=== PATIENT | male | born 1960 | race Caucasian/White ===

== ENCOUNTER 2018-04-15 05:14 | Emergency (ER) | payer OTHER ==
[~2018-04-15] VITALS: Ht 190.5 cm; Wt 127.3 kg
[2018-04-15 05:45] LABS: BASO % 0.8 % (0.0-1.0); EOS # 0.1 10^3/uL (0.0-0.50); EOS % 1.4 % (0.0-3.0); HEMATOCRIT 44.6 % (42.0-52.0); HEMOGLOBIN 14.9 g/dl (13.5-17.5); LYMPH # 1.4 10^3/uL (1.5-4.5); LYMPH % 28.1 % (24.0-44.0); MEAN CORPUSCULAR HEMOGLOBIN 29.5 pg (27.0-33.0); MEAN CORPUSCULAR HGB CONC 33.4 g/dl (32.0-36.5); MEAN CORPUSCULAR VOLUME 88.3 fl (80.0-96.0); MONO # 0.5 10^3/uL (0.0-0.8); MONO % 10.1 % (0.0-5.0); PLATELET COUNT, AUTOMATED 214 10^3/uL (150-450); RED BLOOD COUNT 5.05 10^6/uL (4.30-6.10); WHITE BLOOD COUNT 5.1 10^3/uL (4.0-10.0)
[2018-04-15 05:57] LABS: INR 1.03; PROTHROMBIN TIME 13.6 SECONDS (12.1-14.4)
[2018-04-15 05:58] LABS: PARTIAL THROMBOPLASTIN TIME 26.7 SECONDS (25.4-37.6)
[2018-04-15 06:03] LABS: ALBUMIN 3.7 GM/DL (3.2-5.2); ALT/SGPT 37 U/L (12-78); BILIRUBIN,DIRECT 0.1 MG/DL (0.0-0.2); BILIRUBIN,TOTAL 0.3 MG/DL (0.2-1.0); BLOOD UREA NITROGEN 17 MG/DL (7-18); CALCIUM LEVEL 8.5 MG/DL (8.5-10.1); CARBON DIOXIDE LEVEL 27 MEQ/L (21-32); CHLORIDE LEVEL 105 MEQ/L (98-107); CREATININE FOR GFR 0.87 MG/DL (0.70-1.30); GLOMERULAR FILTRATION RATE > 60.0 (>56); GLUCOSE, FASTING 175 MG/DL (70-100); POTASSIUM SERUM 4.2 MEQ/L (3.5-5.1); SODIUM LEVEL 140 MEQ/L (136-145); TOTAL PROTEIN 6.9 GM/DL (6.4-8.2)
[2018-04-15] MEDS ORDERED: ISOVUE-370 76% 100ML VIAL (Q9967) As Ordered ONE (06:16)
[2018-04-15] MEDS ORDERED: NS 1,000 ML IV SCH (08:15)
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
--- NOTE | 2018-04-15 08:27 | CR.PDOC ---
Subjective General Date/Time Seen The patient was seen on 04/15/18 at 08:00 am. Subject Chief Complaint/History The patient is a 57-year-old male admitted with a reason for visit of [facility] [place]. Current Medications Current Medications Current Medications Sodium Chloride 1,000 ml @ 100 mls/hr Q10H IV Last administered on 04/15/18at 08:15; Admin Dose 100 MLS/HR; Start 04/15/18 at 08:15 Allergies Coded Allergies: No Known Allergies (Unverified , 04/15/18) General Date of Admission Chief Complaint The patient is a 57-year-old male admitted with a reason for visit of [facility] [place]. VITAL SIGNS VITAL SIGNS Laboratory Tests 04/15/18 05:31 Red Blood Count 5.05, Mean Corpuscular Volume 88.3, Mean Corpuscular Hemoglobin 29.5, Mean Corpuscular Hemoglobin Concent 33.4, Red Cell Distribution Width 12.3, Neutrophils (%) (Auto) 59.0, Lymphocytes (%) (Auto) 28.1, Monocytes (%) (Auto) 10.1 H, Eosinophils (%) (Auto) 1.4, Basophils (%) (Auto) 0.8, Neutrophils # (Auto) 3.0, Lymphocytes # (Auto) 1.4 L, Monocytes # (Auto) 0.5, Eosinophils # (Auto) 0.1, Basophils # (Auto) 0.0 Vital Signs Date Time Temp Pulse Resp B/P (MAP) Pulse Ox O2 Delivery O2 Flow Rate FiO2 04/15/18 05:23 04/15/18 05:21 99.4 85 18 136/87 (103) 97 Room Air Laboratory Tests 04/15/18 05:31: White Blood Count 5.1, Red Blood Count 5.05, Hemoglobin 14.9, Hematocrit 44.6, Mean Corpuscular Volume 88.3, Mean Corpuscular Hemoglobin 29.5, Mean Corpuscular Hemoglobin Concent 33.4, Red Cell Distribution Width 12.3, Platelet Count 214, Neutrophils (%) (Auto) 59.0, Lymphocytes (%) (Auto) 28.1, Monocytes (%) (Auto) 10.1H, Eosinophils (%) (Auto) 1.4, Basophils (%) (Auto) 0.8, Neutrophils # (Au to) 3.0, Lymphocytes # (Auto) 1.4L, Monocytes # (Auto) 0.5, Eosinophils # (Auto) 0.1, Basophils # (Auto) 0.0, Immature Granulocyte % (Auto) 0.6, Nucleated Red Blood Cells % (auto) 0.0, Prothrombin Time 13.6, Prothromb Time International Ratio 1.03, Activated Partial Thromboplast Time 26.7, Sodium Level 140, Potassium Level 4.2, Chloride Level 105, Carbon Dioxide Level 27, Anion Gap 8, Blood Urea Nitrogen 17, Creatinine 0.87, Glomerular Filtration Rate > 60.0, Fasting Glucose 175H, Calcium Level 8.5, Aspartate Amino Transf (AST/SGOT) 17, Alanine Aminotransferase (ALT/SGPT) 37, Alkaline Phosphatase 76, Total Bilirubin 0.3, Direct Bilirubin 0.1, Total Protein 6.9, Albumin 3.7, Albumin/Globulin Ratio 1.16 Current Medications Medications (Trade) Dose Ordered Sig/Harshad Route PRN Reason Start Time Stop Time Status Last Admin Dose Admin Sodium Chloride 1,000 ml @ 100 mls/hr Q10H IV 04/15/18 08:15 04/15/18 08:15 100 MLS/HR Alin Chacon MD Apr 15, 2018 08:27
[2018-04-15 08:29] VITALS: BP 134/72
--- NOTE | 2018-04-15 09:52 | REP ---
CT CHEST WITH IV CONTRAST: TECHNIQUE: Axial contrast enhanced images from the thoracic inlet to the upper abdomen using 100 mL Isovue 370 intravenous contrast material with multiplanar reformations. Thoracic aorta is normal in caliber. No intraluminal abnormality is seen. There is very small crescentic area of low density along the superior aspect of the aortic arch at the origin of the brachiocephalic artery. This probably represents a tiny amount of fluid in a pericardial recess. I doubt this represents underlying intramural hematoma. Recommend short term followup CT with contrast. The heart is normal in size. There is no pleural or pericardial effusion. No adenopathy is seen in the chest. The lungs show no pneumothorax. A few tiny calcified granulomas are seen bilaterally and there are also a few noncalcified nodules measuring about 3 mm, which may represent noncalcified granulomas and are of doubtful significance. Posterolateral right 7th and 8th ribs demonstrate smooth cortical irregularity probably representing old fractures. IMPRESSION: Very small crescentic area of low density along the superior aortic arch at the origin of the brachiocephalic artery, along its posterior aspect. This probably represents a tiny amount of fluid in a pericardial recess. Tiny intramural hematoma cannot totally be excluded. Recommend short term followup CT with IV contrast. No pneumothorax or pleural effusion. Tiny calcified granulomas and a few tiny noncalcified 3 mm nodules are of doubtful significance. If patient is at high risk for cancer, consider followup CT in 1 year. Smooth irregularity of the posterolateral right 7th and 8th ribs probably represent old fractures. Preliminary report provided by [facility] at the time of the exam. Electronically Signed by Keyon Montes MD 04/15/2018 10:45 A
--- NOTE | 2018-04-15 09:55 | REP ---
CT ABDOMEN AND PELVIS WITH IV CONTRAST: TECHNIQUE: Axial contrast enhanced images from the lung bases to the pubic symphysis using 100 mL Isovue 370 intravenous contrast material with multiplanar reformations. Liver, spleen, adrenals, pancreas and kidneys demonstrate no evidence of visceral or organ injury. There is mild splenomegaly, the length of the spleen is approximately 15.3 cm. The abdominal aorta is normal in caliber with no dissection. There is no significant adenopathy in the abdomen or pelvis. No free air or free fluid is seen. No bowel wall thickening is seen. There are degenerative changes of the spine. The visualized osseous structures appear intact. The urinary bladder is mildly distended and grossly unremarkable. The prostate is moderately enlarged and impresses upon the base of the bladder, measuring about 5.7 x 5.2 cm. IMPRESSION: No acute traumatic findings of the abdomen and pelvis as discussed above. Mild splenomegaly. No free air or free fluid. Enlarged prostate. Preliminary report provided by [facility] at the time of the exam. Electronically Signed by Keyon Montes MD 04/15/2018 10:45 A
--- NOTE | 2018-04-15 17:10 | ECGEPIP ---
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
== END 2018-04-15 08:31 | disposition short-term general hospital (02) ==
LOC: M ED 05:14
DX: R07.9 Chest pain, unspecified (principal); V44.5XXA Car driver injured in collision with heavy transport vehicle or bus in traffic accident, initial encounter; Y92.410 Unspecified street and highway as the place of occurrence of the external cause
CPT/HCPCS: 71260; 74177; 80048; 80076; 85025; 85610; 85730; 93005; 93041; 94760; 99285; Q9967

== ENCOUNTER 2020-09-18 16:44 | Inpatient (IN) | payer OTHER ==
[~2020-09-18] VITALS: Ht 190.5 cm; Wt 127.0 kg
[2020-09-18 19:00] VITALS: BP 132/89
[2020-09-18] MEDS ORDERED: GLUCOSE 4GM CHEW TABLET PO PRN (20:15)
[2020-09-18] MEDS ORDERED: DEXTROSE 50% 50 ML SYRINGE IV PRN (20:15)
[2020-09-18] MEDS ORDERED: GLUCAGON INJ 1MG VIAL SC PRN (20:15)
[2020-09-18] MEDS ORDERED: ACETAMINOPHEN TAB 650MG DOSE (2X325MG) PO PRN ×2 (20:25)
[2020-09-18] MEDS ORDERED: MOM 30ML SUSPENSION UDC PO PRN ×2 (20:25)
[2020-09-18] MEDS ORDERED: MAALOX 30 ML SUSP *UDC PO PRN ×2 (20:25)
[2020-09-18] MEDS: HumaLOG INSULIN (NovoLOG) PER UNIT SC SCH (21:00)
--- NOTE | 2020-09-18 21:02 | HPEPDOC ---
[facility] Medical History & Physical Date of Admission Sep 18, 2020 Date of Service: Sep 18, 2020 Attending Physician: FERNANDA WHITT MD History and Physical CHIEF COMPLAINT: Right foot neuropathic ulcer HISTORY OF PRESENT ILLNESS: Mr. Bennett is a 59-year-old male who was transferred from [place] with a right foot neuropathic ulcer. According to the patient he has suffered from calluses on his feet all his life. He will "peel" or use cuticle scissors to cut them off and sometimes he gets "down into the quick". About a year ago he had an ulcer between the first and second toes on the right foot. He treated it in his usual way and use Neosporin and a Band-Aid on the site. Despite his treatment. the wound did not heal. He is a diabetic and is controlled without insulin. He said he went to see a foot doctor 5-6 months ago and was told to simply continue the treatment that he had been doing. About 2 weeks ago he noticed some increased drainage from the foot, but continue treatment as he had been doing. 2 Saturdays ago he felt a "pulsing" in his head while he was playing golf. He had been on his feet more than usual with work and walking with his girlfriend. At that point he noticed his sock was "black" with dried blood from the site. He said he felt bad, Friday and Friday and actually stayed home from work on Friday. He went back to work on , feeling a little bit better. When he got home from work he found a "grape-sized ball of gelatinous material" at the site of the wound. He made an appointment was seen by his primary care provider on Friday who recommended he go to the ER. He was seen in the ER on Friday evening, [place], but refused to stay because he had to get home and take care of his dogs. He returned on Friday and was admitted and started on vancomycin and Ancef. Initial x-rays did not show any signs of osteomyelitis. His CRP was elevated at greater than 237. General surgery did evaluate him and recommended an MRI and transferred to a facility where orthopedics or podiatry would be available. MRI was done late this afternoon and results are not available at this time. We are trying to obtain those results. Case was discussed with Dr. Zavala, podiatry, who has recommended repeat plain films and plans to evaluate the patient in the morning for probable debridement tomorrow afternoon. PAST MEDICAL HISTORY: 1. Diabetes type 2, [id number]. 2. Obesity. 3. Gastroesophageal reflux disease. 4. Dyslipidemia. 5. Benign prostatic hypertrophy. 6. Right foot neuropathic ulcer. 7. Hiatal hernia PAST SURGICAL HISTORY: 1. Prostate biopsy. 2. Colonoscopy. 3. EGD SOCIAL HISTORY: Tobacco use: Denies ETOH: Denies Illicit drug use: Denies Patient lives with: By himself FAMILY HISTORY: Patient's mother is 83 years old and has a history of diabetes. His father at age 61 with coronary artery disease. REVIEW OF SYSTEMS: Complete 10 point review systems is negative except as noted above PHYSICAL EXAMINATION: Patient is seen in his hospital room sitting up in his bed.. He is alert and oriented x 3. HEENT is WNL. Neck is supple. Lungs are clear to auscultation. Heart regular rate and rhythm without murmur. Abdomen is soft, non-tender to palpation with bowel sounds positive. Extremities with good ROM and strength equal bilaterally. No lower extremity edema. Right foot with maceration and pineal gland wound between first and second toes. Swelling noted throughout entire foot with some erythema on the dorsal surface. Plantar surface with some denuded areas and thickened peeling skin noted extending from first and second toes to mid foot. Dressing with thick, green to brown colored purulent drainage. Foot is nontender with patient exhibiting a stocking type neuropathy bilaterally. Pedal pulse is diminished secondary to edema. Skin is warm and dry with no other obvious rash or lesion. Psych: He is pleasant and cooperative ASSESSMENT AND PLAN: 1. 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 Attempting to obtain MRI results. Records requested. Case discussed with Dr. Zavala who is requesting plain films of the right foot. Will continue the patient on vancomycin and Zosyn. Dressing changes as ordered. Encourage Patient to avoid weightbearing on that foot. Will hold anticoagulants with probable debridement tomorrow. 2. Diabetes type 2, [id number]. Hold home metformin and Januvia. Will monitor blood glucose before meals and at bedtime. Will add sliding scale for use as needed. HbA1c 7.0. Consistent carbohydrate diet. 3. Gastroesophageal reflux with hiatal hernia. Protonix while hospitalized. 4. Benign prostatic hypertrophic. Continue Flomax. 5. DVT prophylaxis. Hold anticoagulants. SCDs. CODE STATUS: CODE STATUS was discussed with the patient. He desires to be considered DNR. He states his mother with atelectasis circuit if he weren't able to make his decisions. Patient is considered high risk of further deterioration including possible loss of limb. He is admitted as inpatient and expected to remain at least 2-3 midnights. Laboratory Data Labs 24H Laboratory Tests 2 09/18/20 20:04: All lab results reviewed Home Medications Scheduled Aspirin (Aspirin EC) 81 Mg Tablet.dr, 162 MG PO QPM TAKES AT DINNERTIME Cimetidine (Tagamet Hb) 200 Mg Tablet, 200 MG PO QPM TAKES AT DINNERTIME Metformin HCl (Metformin HCl) 1,000 Mg Tablet, 1,000 MG PO DAILY Metformin HCl (Metformin HCl) 1,000 Mg Tablet, 500 MG PO QPM TAKES AT DINNERTIME Naproxen Sodium (Aleve) 220 Mg Tablet, 440 MG PO QPM TAKES AT DINNERTIME [place]-3 Fatty Acids/Fish Oil (Fish Oil 1,000 mg Capsule) 1 Each Capsule, 2,000 MG PO QPM TAKES AT DINNERTIME Rosuvastatin Calcium (Rosuvastatin Calcium) 10 Mg Tablet, 10 MG PO QPM Sitagliptin Phosphate (Januvia) 100 Mg Tablet, 100 MG PO DAILY Tamsulosin HCl (Flomax) 0.4 Mg Capsule, 0.4 MG PO QHS Allergies Coded Allergies: No Known Allergies (Unverified , 04/15/18) A-FIB/CHADSVASC A-FIB History Current/History of A-Fib/PAF?: No ROX ESPINAL Sep 18, 2020 21:02
[2020-09-18 21:10] LABS: HEMATOCRIT 40.7 % (42.0-52.0); MEAN CORPUSCULAR HGB CONC 31.9 g/dl (32.0-36.5); MEAN CORPUSCULAR VOLUME 87.7 fl (80.0-96.0); PLATELET COUNT, AUTOMATED 319 10^3/uL (150-450); RED BLOOD COUNT 4.64 10^6/uL (4.30-6.10); WHITE BLOOD COUNT 8.5 10^3/uL (4.0-10.0)
[2020-09-18 21:20] LABS: INR 1.13; PROTHROMBIN TIME 14.8 SECONDS (12.5-14.3)
[2020-09-18 21:21] LABS: PARTIAL THROMBOPLASTIN TIME 30.6 SECONDS (24.2-38.5)
[2020-09-18 21:42] LABS: ALBUMIN 2.7 GM/DL (3.2-5.2); ALT/SGPT 34 U/L (12-78); BILIRUBIN,TOTAL 0.3 MG/DL (0.2-1.0); BLOOD UREA NITROGEN 11 MG/DL (7-18); CALCIUM LEVEL 8.8 MG/DL (8.5-10.1); CARBON DIOXIDE LEVEL 30 MEQ/L (21-32); CHLORIDE LEVEL 106 MEQ/L (98-107); CREATININE FOR GFR 0.83 MG/DL (0.70-1.30); GLOMERULAR FILTRATION RATE > 60.0 (>56); GLUCOSE, FASTING 154 MG/DL (70-100); MAGNESIUM LEVEL 2.3 MG/DL (1.8-2.4); POTASSIUM SERUM 4.8 MEQ/L (3.5-5.1); SODIUM LEVEL 140 MEQ/L (136-145); TOTAL PROTEIN 6.9 GM/DL (6.4-8.2)
[2020-09-18 21:43] LABS: C REACTIVE PROTEIN QUANTITATIV 5.42 MG/DL (0.00-0.30)
[2020-09-18 22:00] VITALS: BP 141/79
[2020-09-18] MEDS ORDERED: TAGA200T3 PO (22:20)
[2020-09-18] MEDS ORDERED: JANU100T PO (22:20)
[2020-09-18] MEDS ORDERED: ALEV220T22 PO (22:20)
[2020-09-18] MEDS ORDERED: FLOM0.4C39 PO (22:20)
[2020-09-18] MEDS ORDERED: ROSU10TA6 PO (22:20)
[2020-09-18] MEDS ORDERED: FISH1000 PO (22:20)
[2020-09-18] MEDS ORDERED: METF10004 PO ×2 (22:20)
[2020-09-18] MEDS ORDERED: ASPI-161 PO (22:20)
[2020-09-18 23:00] LABS: VANCOMYCIN RANDOM 15.7 UG/ML
[2020-09-18] MEDS: MUPIROCIN 2% OINT 22 GM TUBE TOP SCH (23:16)
[2020-09-18] MEDS: PIPERACILLIN/TAZOBACTAM SOD 3.375 GM in D5W MINI-BAG PLUS 50 ML IV SCH (23:17)
[2020-09-19] MEDS: VANCOMYCIN HCL 1,000 MG, VIAL MATE ADAPTER 1 EACH in NS 250 ML IV SCH ×2 (01:24→14:09)
[2020-09-19] MEDS: VANCOMYCIN HCL 750 MG, VIAL MATE ADAPTER 1 EACH in NS 250 ML IV SCH ×2 (02:45→15:49)
[2020-09-19] MEDS: PIPERACILLIN/TAZOBACTAM SOD 3.375 GM in D5W MINI-BAG PLUS 50 ML IV SCH ×4 (04:52→21:28)
[2020-09-19 06:32] VITALS: BP 125/79
[2020-09-19 06:39] LABS: HEMATOCRIT 42.6 % (42.0-52.0); HEMOGLOBIN 13.6 g/dl (13.5-17.5); MEAN CORPUSCULAR HEMOGLOBIN 28.5 pg (27.0-33.0); MEAN CORPUSCULAR HGB CONC 31.9 g/dl (32.0-36.5); MEAN CORPUSCULAR VOLUME 89.3 fl (80.0-96.0); PLATELET COUNT, AUTOMATED 332 10^3/uL (150-450); RED BLOOD COUNT 4.77 10^6/uL (4.30-6.10); WHITE BLOOD COUNT 7.8 10^3/uL (4.0-10.0)
[2020-09-19 07:01] LABS: BLOOD UREA NITROGEN 12 MG/DL (7-18); CALCIUM LEVEL 8.8 MG/DL (8.5-10.1); CARBON DIOXIDE LEVEL 32 MEQ/L (21-32); CHLORIDE LEVEL 105 MEQ/L (98-107); CREATININE FOR GFR 0.88 MG/DL (0.70-1.30); GLOMERULAR FILTRATION RATE > 60.0 (>56); GLUCOSE, FASTING 181 MG/DL (70-100); MAGNESIUM LEVEL 2.5 MG/DL (1.8-2.4); POTASSIUM SERUM 4.9 MEQ/L (3.5-5.1); SODIUM LEVEL 139 MEQ/L (136-145)
[2020-09-19] MEDS: HumaLOG INSULIN (NovoLOG) PER UNIT SC SCH ×4 (07:30→21:00)
--- NOTE | 2020-09-19 08:45 | REP ---
INDICATION: right foot neuropathic ulcer COMPARISON: None. TECHNIQUE: Two views right foot. FINDINGS: There is nondisplaced intra-articular fracture of the distal aspect of the 1st proximal phalanx, age indeterminate. No other acute fracture or dislocation is seen. There is mild narrowing and subchondral sclerosis at the 1st metatarsophalangeal joint. There is diffuse soft tissue swelling, predominantly of the midfoot and forefoot. There is hallux valgus deformity. No overt osseous destruction is seen. IMPRESSION: Nondisplaced fracture distal aspect of 1st proximal phalanx extending into the interphalangeal joint, age indeterminate. No definite radiographic evidence of osseous destruction. A preliminary report was provided by [facility] at the time of the exam. <Electronically signed by Keyon Montes > 09/19/20 [id number]
[2020-09-19] MEDS: MUPIROCIN 2% OINT 22 GM TUBE TOP SCH ×2 (09:00→21:29)
--- NOTE | 2020-09-19 09:57 | CR ---
PODIATRY CONSULTATION DATE: 09/19/2020 TIME: Approximately 7:30 a.m. CHIEF COMPLAINT/HPI: 59-year-old male seen for evaluation of a right neuropathic ulcer on the plantar surface of his right foot. Patient states this initially presented approximately 5 weeks ago. He states that he has been treating this with a nail clipper debriding the tissue away then Neosporin and a dressing. He states that initially was doing well, did see a home fire alarm installer who told him continue treating his wound. A diabetic off-loading shoe was ordered. patient states that his ulcer worsened over the last few days and he subsequently went to [facility] and was transferred [facility] and is seen today for evaluation. PAST MEDICAL HISTORY: 1. Diabetes type-2. 2. Obesity. 3. Gastroesophageal reflux disease. 4. Dyslipidemia. 5. Benign prostatic hypertrophy. 6. Neuropathic ulcer of the right foot. 7. Hiatal hernia. PAST SURGICAL HISTORY: 1. Prostate biopsy. 2. Colonoscopy. 3. EGD. PHYSICAL EXAMINATION: Alert, well oriented 59-year-old male. Evaluation of his right foot reveals no calf tenderness. There is erythema present on the dorsal surface of the foot and swelling noted of the second toe. Evaluation of the plantar surface of the foot reveals an ulceration measuring 3 cm from distal to proximal and approximately 5-6 mm from medial to lateral. The ulcer does extend 2 cm in a dorsal direction to the top of the foot medially to the second toe. There is a yellow purulent discharge. There is a large blister formation on the plantar surface of the foot measuring approximately 13 cm x 6 cm at its widest margin. The ulcer does track in a plantar proximal direction approximately 4-5 cm; however, could not be fully traced due to its coursing medial direction. The dorsalis pedis and posterior tibial pulses are palpable. LABORATORY DATA: Patient's diagnostic studies were reviewed revealing a white count of 8.5 on admission 7.8 today. GFR greater than 60. Fasting glucose on admission was 154. C-reactive protein is 5.42. RADIOLOGY STUDIES: MRI report was reviewed from [facility] revealing no joint effusion, no fracture, moderate muscle edema. No signs of osteomyelitis. ASSESSMENT: Dorsal and plantar right foot abscess. PLAN: Patient was placed n.p.o. He is scheduled tonight for an incision and drainage of a plantar and dorsal foot abscess with pulse lavage irrigation with dilute gentamicin solution. The wound will be packed with iodoform gauze. Appropriate aerobic and anaerobic cultures will be taken in the OR. Patient's questions were answered. Consent was signed.
[2020-09-19] MEDS: PANTOPRAZOLE 40MG TAB (PROTONIX) PO SCH (10:34)
[2020-09-19] MEDS ORDERED: NEOSPORIN GU IRRIG 20 ML VIAL As Ordered ONE (13:45)
[2020-09-19] MEDS ORDERED: BUPIVACAINE HCL 0.5% 30 ML VIAL As Ordered ONE (13:45)
[2020-09-19] MEDS ORDERED: dexameTHASONE 4 MG/ML 1ML VIAL (J1100 PER 1MG) As Ordered ONE ×2 (13:45→16:15)
[2020-09-19] MEDS ORDERED: LIDOCAINE 2% MDV 20ML VIAL As Ordered ONE (13:45)
[2020-09-19 14:00] VITALS: BP 154/87
--- NOTE | 2020-09-19 14:22 | IPNPDOC ---
Text Note Date of Service The patient was seen on 09/19/20. NOTE Subjective: -No acute complaints this morning Objective: Vitals: see below General: sitting up, conversational, NAD Head: NCAT Eyes: EOMI, anicteric ENT: MMM Neck: supple Pulm: CTAB Cardiac: RRR, no m/r/g Abd: obese, normoactive sounds, soft, NTND EXT: No lower extremity edema. Right foot with maceration with wound between first and second toes. Swelling of entire foot with mild erythema on the dorsal surface. Plantar surface with some denuded areas and thickened peeling skin noted extending from first and second toes to mid foot. Some yellow to brown colored purulent drainage. Skin is otherwise warm and dry with no other obvious rash or lesion. Labs: Reviewed ASSESSMENT: 59 yo M with DM and admitted for RLE osteomyelitis. Plan: 1. 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 A -Pending OR this late afternoon with Dr. Zavala -Continue the patient on vancomycin and Zosyn. 2. Diabetes type 2, [id number]. -Holding home metformin and Januvia. -Continue monitoring blood glucose before meals and at bedtime. -Continue sliding scale for use as needed. -Consistent carbohydrate diet after OR. NPO at present 3. Gastroesophageal reflux with hiatal hernia. -Protonix 4. Benign prostatic hypertrophic. -Continue Flomax. 5. DVT prophylaxis. -SCDs. VS,Fishbone, I+O VS, Fishbone, I+O Laboratory Tests 09/18/20 20:59 09/19/20 06:28 Vital Signs Date Time Temp Pulse Resp B/P (MAP) Pulse Ox O2 Delivery O2 Flow Rate FiO2 09/19/20 06:32 97.9 71 16 125/79 (94) 97 Room Air I&O- Last 24 Hours up to 6 AM 09/19/20 06:00 Intake Total 945 ml Output Total 700 ml Balance 245 ml BEBA HINES MD Sep 19, 2020 14:22
[2020-09-19] MEDS ORDERED: GENTAMICIN SULF 80MG/2ML VIAL As Ordered ONE (16:09)
[2020-09-19] MEDS ORDERED: LIDOCAINE 2% 100MG/5ML SDV (FOR ANES.) As Ordered ONE (16:46)
[2020-09-19] MEDS ORDERED: fentaNYL 100 MCG/2 ML INJECTION (J3010) As Ordered ONE (16:46)
[2020-09-19] MEDS ORDERED: propofoL 500 MG/50 ML VIAL As Ordered ONE (16:46)
[2020-09-19] MEDS ORDERED: MIDAZOLAM INJ 2MG/2ML VIAL (J2250 PER 1MG) As Ordered ONE (16:46)
[2020-09-19] MEDS ORDERED: ONDANSETRON 4MG/2ML VIAL IV PRN (18:25)
[2020-09-19] MEDS ORDERED: PERCOCET 5MG/325MG TAB PO PRN ×3 (18:25→20:15)
[2020-09-19] MEDS ORDERED: LR 1,000 ML IV SCH (18:25)
[2020-09-19] MEDS ORDERED: METOCLOPRAMIDE INJ 10MG/2ML VIAL (J2765 PER 1) IV PRN (18:25)
[2020-09-19] MEDS ORDERED: fentaNYL 100 MCG/2 ML INJECTION (J3010) IV PRN (18:25)
[2020-09-19 18:30] VITALS: BP 158/90
[2020-09-19 19:00] VITALS: BP 129/69
--- NOTE | 2020-09-19 19:32 | RO ---
OPERATIVE NOTE DATE OF OPERATION: 09/19/2020 SURGEON: Alin Zavala DPM SUPPLY CHAIN ANALYST: None. ANESTHESIA: Local MAC. IRRIGATION: Dilute Vancomycin solution, 3 liters, low pressure pulse lavage system. DRAINS UTILIZED: One-half inch Iodoform gauze. HEMOSTASIS UTILIZED: None. HARDWARE UTILIZED: None. ESTIMATED BLOOD LOSS: 20 mL. PREOPERATIVE DIAGNOSIS: Dorsal and plantar right foot abscess. POSTOPERATIVE DIAGNOSIS: Dorsal and plantar right foot abscess. SURGERY PERFORMED: Incision and drainage, multiple spaces, dorsal and plantar abscess, right foot. DESCRIPTION OF OPERATION PROCEDURE: On 09/19/2020, this 59-year-old male was taken from his hospital room to the operating room and placed on the operating room table in the supine position. Following the induction of IV sedation, local and regional anesthesia, the right lower extremity was prepped and draped in the usual aseptic manner. Attention was directed to the patient's right foot. There was noted to be an ulcer on the dorsal surface of the foot with a small area of swelling and blister formation on the plantar surface. The plantar ulcer pre-debridement measured 3 cm in length. Utilizing a sterile scalpel and utilizing a groove director, the incision was carried out utilizing the groove director to incise the skin the entire length of the abscess, which upon completion of the incision was 10 cm in length. Dissection was carried down to the plantar fascia. The plantar fascia was then incised and explored to see if abscess was present on the deep side of the plantar fascia. No abscess was visualized in that location. On the medial surface of the toe, the abscess on the plantar surface extended to the dorsal surface. Utilizing a groove director, a 2-cm incision was placed along this area of abscess and this area was excised. All drainage was sent for aerobic and anaerobic culture. After hemostasis was obtained with electrocautery, the wound was flushed with 3 liters of dilute Vancomycin solution. The wound was packed with one-half inch Iodoform gauze and a dry sterile dressing was applied consisting of 4 x 4's, ABDs, and an Km wrap without compression. The patient, having apparently tolerated the surgical procedure well, was taken from the OR to the recovery room for further monitoring by the anesthesia department. Postoperative instructions were given to the patient. The patient may bear weight on his heel. Wound orders were also written to have the bandage removed and the packing pulled out tomorrow morning where the wound will be cleansed with Vashe, let stand for 15 minutes, and then packed with Drawtex gauze rope, followed by a sterile dressing b.i.d.
[2020-09-19] MEDS: ROSUVASTATIN 10 MG TAB (CRESTOR) PO SCH (19:42)
[2020-09-19] MEDS: ASPIRIN 81MG ENTERIC TABLET PO SCH (19:42)
[2020-09-19 21:00] VITALS: BP 116/75
[2020-09-19] MEDS: TAMSULOSIN 0.4 MG CAP PO SCH (21:27)
[2020-09-19 22:00] VITALS: BP 117/73
[2020-09-20] MEDS: VANCOMYCIN HCL 1,000 MG, VIAL MATE ADAPTER 1 EACH in NS 250 ML IV SCH ×2 (00:29→12:24)
[2020-09-20] MEDS: VANCOMYCIN HCL 750 MG, VIAL MATE ADAPTER 1 EACH in NS 250 ML IV SCH ×2 (01:58→14:03)
[2020-09-20 02:00] VITALS: BP 123/73
[2020-09-20] MEDS: PIPERACILLIN/TAZOBACTAM SOD 3.375 GM in D5W MINI-BAG PLUS 50 ML IV SCH ×4 (05:01→21:56)
[2020-09-20 06:00] VITALS: BP 125/81
[2020-09-20] MEDS: MUPIROCIN 2% OINT 22 GM TUBE TOP SCH ×2 (07:57→21:00)
[2020-09-20] MEDS: HumaLOG INSULIN (NovoLOG) PER UNIT SC SCH ×4 (08:03→21:00)
[2020-09-20] MEDS: PANTOPRAZOLE 40MG TAB (PROTONIX) PO SCH (08:04)
[2020-09-20 08:13] LABS: HEMATOCRIT 41.2 % (42.0-52.0); HEMOGLOBIN 13.4 g/dl (13.5-17.5); MEAN CORPUSCULAR HEMOGLOBIN 28.6 pg (27.0-33.0); MEAN CORPUSCULAR HGB CONC 32.5 g/dl (32.0-36.5); MEAN CORPUSCULAR VOLUME 87.8 fl (80.0-96.0); PLATELET COUNT, AUTOMATED 323 10^3/uL (150-450); RED BLOOD COUNT 4.69 10^6/uL (4.30-6.10); WHITE BLOOD COUNT 9.2 10^3/uL (4.0-10.0)
[2020-09-20 08:33] LABS: BLOOD UREA NITROGEN 15 MG/DL (7-18); C REACTIVE PROTEIN QUANTITATIV 3.03 MG/DL (0.00-0.30); CALCIUM LEVEL 8.4 MG/DL (8.5-10.1); CARBON DIOXIDE LEVEL 26 MEQ/L (21-32); CHLORIDE LEVEL 106 MEQ/L (98-107); CREATININE FOR GFR 1.15 MG/DL (0.70-1.30); GLOMERULAR FILTRATION RATE > 60.0 (>56); GLUCOSE, FASTING 191 MG/DL (70-100); POTASSIUM SERUM 4.6 MEQ/L (3.5-5.1); SODIUM LEVEL 138 MEQ/L (136-145)
[2020-09-20 13:48] VITALS: BP 128/79
[2020-09-20] MEDS: ASPIRIN 81MG ENTERIC TABLET PO SCH (18:10)
[2020-09-20] MEDS: ROSUVASTATIN 10 MG TAB (CRESTOR) PO SCH (18:10)
--- NOTE | 2020-09-20 19:33 | IPNPDOC ---
Text Note Date of Service The patient was seen on 09/20/20. NOTE Subjective: -No acute complaints this morning, is POD#1 s/p I&D with gentamicin irrigation by Dr. Zavala Objective: Vitals: see below General: sitting up, conversational, NAD Head: NCAT Eyes: EOMI, anicteric ENT: MMM Neck: supple Pulm: CTAB Cardiac: RRR, no m/r/g Abd: obese, normoactive sounds, soft, NTND EXT: No lower extremity edema. Right foot in dressing. Labs: Reviewed ASSESSMENT: 59 yo M with DM and admitted for RLE osteomyelitis. Plan: 1. 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 -POD#1 s/p I&D by Dr. Zavala -Continue the patient on vancomycin and Zosyn pending wound cultures 2. Diabetes type 2, czk-xxgfeju-makbvzbqa. -Holding home metformin and Januvia. -Continue monitoring blood glucose before meals and at bedtime. -Continue sliding scale for use as needed. -Consistent carbohydrate diet 3. Gastroesophageal reflux with hiatal hernia. -Protonix 4. Benign prostatic hypertrophic. -Continue Flomax. 5. DVT prophylaxis. -SCDs. VS,Fishbone, I+O VS, Fishbone, I+O Laboratory Tests 09/20/20 07:53 Vital Signs Date Time Temp Pulse Resp B/P (MAP) Pulse Ox O2 Delivery O2 Flow Rate FiO2 09/20/20 06:00 97.8 81 20 125/81 (96) 95 Room Air 09/19/20 18:09 12.0 I&O- Last 24 Hours up to 6 AM 09/20/20 06:00 Intake Total 2605 ml Output Total 1220 ml Balance 1385 ml BEBA HINES MD Sep 20, 2020 09:13
[2020-09-20] MEDS: TAMSULOSIN 0.4 MG CAP PO SCH (21:56)
[2020-09-20 22:00] VITALS: BP 127/79
[2020-09-21] MEDS: VANCOMYCIN HCL 1,000 MG, VIAL MATE ADAPTER 1 EACH in NS 250 ML IV SCH ×2 (00:15→12:00)
[2020-09-21] MEDS: VANCOMYCIN HCL 750 MG, VIAL MATE ADAPTER 1 EACH in NS 250 ML IV SCH ×2 (01:57→13:00)
[2020-09-21] MEDS: PIPERACILLIN/TAZOBACTAM SOD 3.375 GM in D5W MINI-BAG PLUS 50 ML IV SCH ×2 (04:25→09:50)
[2020-09-21 06:00] VITALS: BP 127/79
[2020-09-21] MEDS: HumaLOG INSULIN (NovoLOG) PER UNIT SC SCH ×4 (08:09→21:00)
[2020-09-21] MEDS: PANTOPRAZOLE 40MG TAB (PROTONIX) PO SCH (09:50)
[2020-09-21] MEDS ORDERED: CEPH250T PO (12:24)
[2020-09-21] MEDS ORDERED: PANT40TA29 PO (12:24)
[2020-09-21] MEDS ORDERED: CEPH500C PO (13:42)
--- NOTE | 2020-09-21 13:44 | IPNPDOC ---
Text Note Date of Service The patient was seen on 09/21/20. NOTE Subjective: -No acute complaints this morning, is POD#2 s/p I&D by Dr. Zavala Objective: Vitals: see below General: sitting up, conversational, NAD Head: NCAT Eyes: EOMI, anicteric ENT: MMM Neck: supple Pulm: CTAB Cardiac: RRR, no m/r/g Abd: obese, normoactive sounds, soft, NTND EXT: No lower extremity edema. Right foot in dressing. Labs: Reviewed ASSESSMENT: 59 yo M with DM and admitted for RLE wound infection without evidence of osteomyelitis. Plan: 1. 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 -POD#2 s/p I&D by Dr. Zavala, plan is for wound closure and discharge home tomorrow. -Will switch to ancef for MSSA 2. Diabetes type 2, tim-phhvkhi-gqysjfbjx. -Holding home metformin and Januvia. -Continue monitoring blood glucose before meals and at bedtime. -Continue sliding scale for use as needed. -Consistent carbohydrate diet 3. Gastroesophageal reflux with hiatal hernia. -Protonix 4. Benign prostatic hypertrophic. -Continue Flomax. 5. DVT prophylaxis. -SCDs. VS,Fishbone, I+O VS, Fishbone, I+O Laboratory Tests 09/20/20 07:53 Vital Signs Date Time Temp Pulse Resp B/P (MAP) Pulse Ox O2 Delivery O2 Flow Rate FiO2 09/21/20 06:00 97.9 75 19 127/79 (95) 96 Room Air 09/19/20 18:09 12.0 I&O- Last 24 Hours up to 6 AM 09/21/20 06:00 Intake Total 2055 ml Output Total 775 ml Balance 1280 ml BEBA HINES MD Sep 21, 2020 07:40
[2020-09-21] MEDS: ceFAZolin SOD 1 GM in D5W MINI-BAG PLUS 50 ML IV SCH ×2 (14:54→21:10)
[2020-09-21 15:25] VITALS: BP 131/79
[2020-09-21 16:01] LABS: HEMATOCRIT 43.4 % (42.0-52.0); HEMOGLOBIN 13.9 g/dl (13.5-17.5); MEAN CORPUSCULAR HEMOGLOBIN 28.3 pg (27.0-33.0); MEAN CORPUSCULAR VOLUME 88.2 fl (80.0-96.0); PLATELET COUNT, AUTOMATED 351 10^3/uL (150-450); RED BLOOD COUNT 4.92 10^6/uL (4.30-6.10); WHITE BLOOD COUNT 10.4 10^3/uL (4.0-10.0)
[2020-09-21 16:30] LABS: BLOOD UREA NITROGEN 12 MG/DL (7-18); CARBON DIOXIDE LEVEL 29 MEQ/L (21-32); CHLORIDE LEVEL 103 MEQ/L (98-107); CREATININE FOR GFR 1.24 MG/DL (0.70-1.30); GLOMERULAR FILTRATION RATE > 60.0 (>56); GLUCOSE, FASTING 159 MG/DL (70-100); POTASSIUM SERUM 4.6 MEQ/L (3.5-5.1); SODIUM LEVEL 136 MEQ/L (136-145)
[2020-09-21 16:31] LABS: CALCIUM LEVEL 9.1 MG/DL (8.5-10.1)
[2020-09-21] MEDS: ROSUVASTATIN 10 MG TAB (CRESTOR) PO SCH (18:05)
[2020-09-21] MEDS: ASPIRIN 81MG ENTERIC TABLET PO SCH (18:06)
[2020-09-21] MEDS: TAMSULOSIN 0.4 MG CAP PO SCH (21:10)
--- NOTE | 2020-09-21 21:27 | IPN ---
PROGRESS NOTE DATE: 09/21/2020 6:00 PM CHIEF COMPLAINT: Patient visited at bedside for evaluation of a right foot wound. SUBJECTIVE: The patient denies shortness of breath or chest pain. The patient has a bandage intact on the right foot. Laboratory studies were reviewed revealing his abscess cultures, staph aureus sensitive to Oxacillin. The patient's white count is elevated today to 10.4. There is no discharge from the wound and considerable reduction in swelling and erythema is noted. ASSESSMENT: Improving right wound. PLAN: We discussed with the patient repeat debridement of his ulceration with curette and pulse lavage system followed by implantation of Tobramycin impregnated beads, ordered C-reactive protein to assess the patient's elevating white count. His questions were answered. Informed consent was obtained and signed by the patient. The patient is n.p.o. at midnight and scheduled for surgery tomorrow morning.
[2020-09-21 22:00] VITALS: BP 127/78
[2020-09-22] MEDS: ceFAZolin SOD 1 GM in D5W MINI-BAG PLUS 50 ML IV SCH ×2 (05:58→13:10)
[2020-09-22 06:00] VITALS: BP 135/80
[2020-09-22] MEDS: HumaLOG INSULIN (NovoLOG) PER UNIT SC SCH ×2 (07:30→12:00)
[2020-09-22] MEDS: PANTOPRAZOLE 40MG TAB (PROTONIX) PO SCH (09:00)
[2020-09-22] MEDS ORDERED: MIDAZOLAM INJ 2MG/2ML VIAL (J2250 PER 1MG) As Ordered ONE (09:59)
[2020-09-22] MEDS ORDERED: fentaNYL 100 MCG/2 ML INJECTION (J3010) As Ordered ONE (10:00)
[2020-09-22] MEDS ORDERED: LIDOCAINE 2% 100MG/5ML SDV (FOR ANES.) As Ordered ONE (10:01)
[2020-09-22 10:20] LABS: HEMATOCRIT 45.4 % (42.0-52.0); HEMOGLOBIN 14.6 g/dl (13.5-17.5); MEAN CORPUSCULAR HEMOGLOBIN 28.6 pg (27.0-33.0); MEAN CORPUSCULAR HGB CONC 32.2 g/dl (32.0-36.5); MEAN CORPUSCULAR VOLUME 88.8 fl (80.0-96.0); PLATELET COUNT, AUTOMATED 350 10^3/uL (150-450); RED BLOOD COUNT 5.11 10^6/uL (4.30-6.10); WHITE BLOOD COUNT 8.8 10^3/uL (4.0-10.0)
[2020-09-22] MEDS ORDERED: TOBRAMYCIN SULF 1.2 GM VIAL As Ordered ONE (10:46)
[2020-09-22] MEDS ORDERED: GENTAMICIN SULF 80MG/2ML VIAL As Ordered ONE (10:47)
[2020-09-22 10:48] LABS: BLOOD UREA NITROGEN 13 MG/DL (7-18); C REACTIVE PROTEIN QUANTITATIV 3.93 MG/DL (0.00-0.30); CARBON DIOXIDE LEVEL 31 MEQ/L (21-32); CHLORIDE LEVEL 102 MEQ/L (98-107); CREATININE FOR GFR 1.16 MG/DL (0.70-1.30); GLOMERULAR FILTRATION RATE > 60.0 (>56); GLUCOSE, FASTING 179 MG/DL (70-100); POTASSIUM SERUM 4.6 MEQ/L (3.5-5.1); SODIUM LEVEL 138 MEQ/L (136-145)
[2020-09-22] MEDS ORDERED: BUPIVACAINE HCL 0.5% 30 ML VIAL As Ordered ONE (10:54)
[2020-09-22] MEDS ORDERED: LIDOCAINE 2% MDV 20ML VIAL As Ordered ONE (10:55)
[2020-09-22] MEDS ORDERED: ONDANSETRON 4MG/2ML VIAL As Ordered ONE (11:26)
[2020-09-22] MEDS ORDERED: propofoL 200 MG/20 ML VIAL As Ordered ONE (11:26)
[2020-09-22] MEDS ORDERED: PERCOCET 5MG/325MG TAB PO PRN (12:00)
[2020-09-22] MEDS ORDERED: fentaNYL 100 MCG/2 ML INJECTION (J3010) IV PRN (12:00)
[2020-09-22] MEDS ORDERED: ONDANSETRON 4MG/2ML VIAL IV PRN (12:00)
[2020-09-22] MEDS ORDERED: LR 1,000 ML IV SCH (12:00)
[2020-09-22] MEDS ORDERED: METOCLOPRAMIDE INJ 10MG/2ML VIAL (J2765 PER 1) IV PRN (12:00)
[2020-09-22 12:15] VITALS: BP 117/72
[2020-09-22 12:45] VITALS: BP 133/87
[2020-09-22 13:15] VITALS: BP 130/87
[2020-09-22] MEDS ORDERED: PERCOCET PO (13:30)
--- NOTE | 2020-09-22 14:21 | DS.PDOC ---
Discharge Summary General Date of Admission Sep 18, 2020 at 18:55 Date of Discharge 09/22/2020 Attending Physician: BEBA HINES MD Discharge Summary PROCEDURES PERFORMED DURING STAY: 09/19 - I&D with wound debridement of right foot 09/22 - Delayed closer of R foot wound ADMITTING DIAGNOSES: R wound foot with purulent drainage DISCHARGE DIAGNOSES: Right foot soft tissue infected wound Diabetes type 2, yxv-tbtlqpc-xgahhlyqp. Obesity. Gastroesophageal reflux disease. Dyslipidemia. Benign prostatic hypertrophy. Hiatal hernia COMPLICATIONS/CHIEF COMPLAINT: Diabetic Foot Wound. HISTORY OF PRESENT ILLNESS: 59-year-old M who was transferred from [place] with a right foot neuropathic ulcer. According to the patient he has suffered from calluses on his feet all his life. He will "peel" or use cuticle scissors to cut them off and sometimes he gets "down into the quick". About a year ago he had an ulcer between the first and second toes on the right foot. He treated it in his usual way and use Neosporin and a Band-Aid on the site. Despite his treatment. the wound did not heal. He is a diabetic and oral meds controlled without insulin. He said he went to see a foot doctor 5-6 months ago and was told to simply continue the treatment that he had been doing. About 2 weeks prior to presentation he noticed some increased drainage from the foot, and continued treatment as he had been doing. 1 week prior to presentation he felt a "pulsing" while he was playing golf. He had been on his feet more than usual with work and walking with his girlfriend. At that point he noticed his sock was "black" with dried blood from the site. He subsequently had generalized illness and stayed home from work and three days before presentation he found a "grape-sized ball of gelatinous material" at the site of the wound. He made an appointment with his PCP who recommended he go to the ER. He was seen in the ER at [place], but refused to stay because he had to get home and take care of his dogs. HOSPITAL COURSE: He represented to the [facility] ED the next day and was admitted and started on vancomycin and ancef. Initial x-rays did not show any signs of osteomyelitis. His CRP was elevated at greater than 237. Podiatry did evaluate him and recommended an MRI and transfer to a facility where orthopedics or podiatry would be available. MRI was done late afternoon before he left the outside hospital and results are not available at time of transfer. On arrival Dr. Zavala was consulted, podiatry, and he recommended repeat plain films and performed an I&D and debridement on 09/19 and he was maintained on vanc/piptazo, with eventual cultures growing MSSA for which he was changed to ancef. He had further debridement and closure on 09/22 AM and is now being discharged home with 12 more day keflex for a 14d course. DISCHARGE MEDICATIONS: Please see below. ALLERGIES: Please see below. PHYSICAL EXAMINATION ON DISCHARGE: VITAL SIGNS: Please see below. General: sitting up, conversational, NAD Head: NCAT Eyes: EOMI, anicteric ENT: MMM Neck: supple Pulm: CTAB Cardiac: RRR, no m/r/g Abd: obese, normoactive sounds, soft, NTND EXT: No lower extremity edema. Right foot in dressing. LABORATORY DATA: Please see below. IMAGING: R foot XR: There is nondisplaced intra-articular fracture of the distal aspect of the 1st proximal phalanx, age indeterminate. No other acute fracture or dislocation is seen. There is mild narrowing and subchondral sclerosis at the 1st metatarsophalangeal joint. There is diffuse soft tissue swelling, predominantly of the midfoot and forefoot. There is hallux valgus deformity. No overt osseous destruction is seen. IMPRESSION: Nondisplaced fracture distal aspect of 1st proximal phalanx extending into the interphalangeal joint, age indeterminate. No definite radiographic evidence of osseous destruction. A preliminary report was provided by virtual Radiology at the time of the exam. PROGNOSIS: Good ACTIVITY: As tolerated DIET: consistent carb diet DISCHARGE PLAN: Home with keflex, and instruction on how to care for wound with close podiatry and PCP follow up DISPOSITION: Home DISCHARGE INSTRUCTIONS: Home with keflex, and instruction on how to care for wound with close podiatry and PCP follow up ITEMS TO FOLLOWUP ON ON OUTPATIENT: R foot wound DISCHARGE CONDITION: Stable TIME SPENT ON DISCHARGE: 40 minutes. Vital Signs/I&Os Vital Signs Date Time Temp Pulse Resp B/P (MAP) Pulse Ox O2 Delivery O2 Flow Rate FiO2 09/22/20 13:15 96.8 61 18 130/87 (101) 97 Room Air 09/19/20 18:09 12.0 I&O- Last 24 Hours up to 6 AM 09/22/20 05:59 Intake Total 1360 ml Balance 1360 ml Laboratory Data Labs 24H Laboratory Tests 2 09/21/20 15:40: Nucleated Red Blood Cells % (auto) 0.0, Anion Gap 4L, Glomerular Filtration Rate > 60.0, Calcium Level 9.1 09/21/20 16:56: Bedside Glucose (Misc Panel) 138H 09/21/20 21:07: Bedside Glucose (Misc Panel) 232H 09/22/20 09:36: Bedside Glucose (Misc Panel) 184H 09/22/20 09:42: Nucleated Red Blood Cells % (auto) 0.0, Anion Gap 5L, Glomerular Filtration Rate > 60.0, Calcium Level 9.0, C-Reactive Protein, Quantitative 3.93H 09/22/20 11:47: Bedside Glucose (Misc Panel) 149H CBC/BMP Laboratory Tests 09/21/20 15:40 09/22/20 09:42 FSBS Laboratory Tests Test 09/21/20 16:56 09/21/20 21:07 09/22/20 09:36 09/22/20 11:47 Range/Units Bedside Glucose (Misc Panel) 138 232 184 149 70-105 MG/DL Microbiology Microbiology 09/19/20 Anaerobic Culture - Final, Complete 09/19/20 Abscess Culture - Final, Complete Staphylococcus Aureus Discharge Medications Scheduled Aspirin (Aspirin EC) 81 Mg Tablet.dr, 162 MG PO QPM, (Reported) TAKES AT DINNERTIME Cephalexin (Cephalexin) 500 Mg Capsule, 500 MG PO Q6H Cimetidine (Tagamet Hb) 200 Mg Tablet, 200 MG PO QPM, (Reported) TAKES AT DINNERTIME Metformin HCl (Metformin HCl) 1,000 Mg Tablet, 1,000 MG PO DAILY, (Reported) Metformin HCl (Metformin HCl) 1,000 Mg Tablet, 500 MG PO QPM, (Reported) TAKES AT DINNERTIME Naproxen Sodium (Aleve) 220 Mg Tablet, 440 MG PO QPM, (Reported) TAKES AT DINNERTIME [place]-3 Fatty Acids/Fish Oil (Fish Oil 1,000 mg Capsule) 1 Each Capsule, 2,000 MG PO QPM, (Reported) TAKES AT DINNERTIME Pantoprazole Sodium (Pantoprazole Sodium) 40 Mg Tablet.dr, 40 MG PO DAILY Rosuvastatin Calcium (Rosuvastatin Calcium) 10 Mg Tablet, 10 MG PO QPM, (Reported) Sitagliptin Phosphate (Januvia) 100 Mg Tablet, 100 MG PO DAILY, (Reported) Tamsulosin HCl (Flomax) 0.4 Mg Capsule, 0.4 MG PO QHS, (Reported) Scheduled PRN Oxycodone/Acetaminophen (Oxycodone-Acetaminophen 5-325) 1 Each Tablet, 1 TAB PO Q8HP PRN for PAIN LEVEL 1-4 Allergies Coded Allergies: No Known Allergies (Unverified , 04/15/18) BEBA HINES MD Sep 22, 2020 14:21
--- NOTE | 2020-09-23 11:49 | RO ---
OPERATIVE NOTE DATE OF OPERATION: 09/22/2020 PREOPERATIVE DIAGNOSIS: Plantar foot abscess, right foot. POSTOPERATIVE DIAGNOSIS: Plantar foot abscess, right foot. PROCEDURE: Excisional debridement to the fascia, plantar surface, right foot with irrigation, insertion of tobramycin impregnated beads and delayed primary closure, right foot. ANESTHESIA: Local MAC. IRRIGATION: Three liters dilute vancomycin solution with a low pressure pulse lavage system. SURGEON: Alin Zavala DPM FRANCHISE SALES DIRECTOR: None. HEMOSTASIS: None. ESTIMATED BLOOD LOSS: Less than 5 mL DESCRIPTION OF OPERATION: On 09/22/20, this 59-year-old white male was taken from his hospital room to the operating room and placed on the operating table in supine position. Following the induction of IV sedation and local and regional anesthesia, the right lower extremity was prepped and draped in the usual aseptic manner. Attention was directed to the patient's right foot where there was noted to be a previous incision and drainage of deep space abscess on the right foot with a small incision on the dorsal aspect of the second toe and forefoot. At this time utilizing a Yates dermal curette, excisional debridement through the fascia was performed providing good bleeding. There was no purulence noted. Utilizing a low pressure pulse lavage system, the wound was irrigated with dilute gentamicin solution. After irrigation, approximately 10 5 mm tobramycin impregnated beads were placed in the plantar surface of the foot. One bead was placed in the dorsal aspect of the foot. The wound was closed with 2-0 nylon suture in a simple interrupted type fashion and a dry sterile dressing was applied. The patient's culture revealed methicillin-sensitive Staph aureus. The patient will be placed on Keflex 500 mg one p.o. q.6 hours. The patient will be seen postoperatively in my office on discharge. His questions were answered.
== END 2020-09-22 14:16 | disposition home or self-care (01) | DRG 361 ==
LOC: OBSVTOIN 18:55 → M MS5PR 18:55 → M ED INP 20:13 → M MS5PR 20:35
PROVIDERS: ADMIT Internal Medicine; ATTEND Internal Medicine
PROC: 0HBMXZZ Excision of Right Foot Skin, External Approach (ICD-10-PCS; 2020-09-19)
PROC: 3E02329 Introduction of Other Anti-infective into Muscle, Percutaneous Approach (ICD-10-PCS; 2020-09-22)
PROC: 0JBQ0ZZ Excision of Right Foot Subcutaneous Tissue and Fascia, Open Approach (ICD-10-PCS; principal; 2020-09-22 10:15)
DX: E11.621 Type 2 diabetes mellitus with foot ulcer (principal); E11.42 Type 2 diabetes mellitus with diabetic polyneuropathy; L97.518 Non-pressure chronic ulcer of other part of right foot with other specified severity; E66.9 Obesity, unspecified; K21.9 Gastro-esophageal reflux disease without esophagitis; E78.5 Hyperlipidemia, unspecified; N40.0 Benign prostatic hyperplasia without lower urinary tract symptoms; K44.9 Diaphragmatic hernia without obstruction or gangrene; L02.611 Cutaneous abscess of right foot; Z79.82 Long term (current) use of aspirin; Z79.84 Long term (current) use of oral hypoglycemic drugs; Z79.899 Other long term (current) drug therapy; Z66 Do not resuscitate; Z68.35 Body mass index [BMI] 35.0-35.9, adult

== ENCOUNTER 2020-12-19 09:25 | Inpatient (IN) | payer BC ==
[~2020-12-19] VITALS: Ht 190.5 cm; Wt 109.2 kg
[~2020-12-19 09:25] MED LIST: ALEV220T22 PO; ASPI-161 PO; CEPH250T PO; CEPH500C PO; FISH1000 PO; FLOM0.4C39 PO; JANU100T PO; METF10004 PO; PANT40TA29 PO; PERCOCET PO; ROSU10TA6 PO; TAGA200T3 PO
--- OUTSIDE RECORDS SUMMARY | 2020-12-19 10:42 | CCD ---
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 Z79.4 Activ e confirmed [id number] Problem Non-pressure chronic ulcer o f other part of unspecified foot with unspecified severity L97.509 Active confirmed [id number] ALLERGIES No Known Allergies ENCOUNTERS from 1960 to 2020-11-28 Encounter Location Date Provider Diagnosis [facility] [address] [facility] [facility] [phone] [place] [address] Nov, Alin Celeste Type 2 diabetes mellitus wit h foot ulcer E11.621 and Non- pressure chronic ulcer of right heel and midfoot with fat layer exposed L97.412 IMMUNIZATIONS No Information SOCIAL HISTORY Tobacco Use: Social History Observation Description Date Details (start date - stop date) Never Smoker Sex Assigned At : Social History Observation Description Sex Assigned At Unknown Language: Question Answer Notes Languages spoken: Panamanian Anabaptism: Question Answer Notes Anabaptism No christianity beliefs that would impact health care. Alcohol Screening: Question Answer Notes Did you have a drink containing alcohol in the past year? No Points 0 Interpretation Negative Tobacco Use: Question Answer Notes Are you a: never smoker REASON FOR REFERRAL No Information VITAL SIGNS Weight 250 lbs Nov, Weight-kg 113.4 kg Nov, Height 74 in Nov, BMI 32.09 kg/m2 Nov, Heart Rate 86 /min Nov, Respiratory Rate 16 /min Nov, Temperature 98.5 degrees Fahrenheit Nov, Oximetry 96 Nov, Blood pressure systolic 138 mm Hg Nov, Blood pressure diastolic 101 mm Hg Nov, MEDICATIONS Medication SIG (Take, Route, Frequency, Duration) Notes Start Da te End Date Status [place] 3 1000 MG 1 capsule Orally Once a day for 30 day(s) Unknown Cimetidine 200 MG 1 tablet at bedtime Orally Once a day for 30 day(s) Unknown Aspirin 81 MG 1 tablet Orally Once a day for 30 day(s) Unknown Tamsulosin HCl 0.4 MG 1 capsule Orally Once a day for 30 day(s) Unknown oxyCODONE-Acetaminophen 5-325 MG 1 tablet as needed Orally every 6 hr s Unknown Pantoprazole Sodium 40 MG 1 tablet Orally Once a day for 30 day(s) Unknown Naproxen 250 MG 1 tablet with food or milk Orally Twice a day for 3 0 day(s) Unknown Rosuvastatin Calcium 10 MG 1 tablet Orally Once a day for 30 day(s) Unknown metFORMIN HCl 1000 MG 1 tablet with a meal Orally Once a day for 30 day(s) Unknown SITagliptin Phosphate 100 MG 1 tablet Orally Once a day for 30 day(s) Unknown PROCEDURES from 1960 to 2020-11-28 Procedure Date Ordered Result Body Site Medication: Silver Nitrate Stick topically 2020-11-22 N/A Medication: 4% Lidocaine topical cream (Anecream) 5gm 2020-11-22 N/A RESULTS No Results REASON FOR VISIT right foot MEDICAL (GENERAL) HISTORY Type Description Date Medical History DIABETES Medical History HYPERLIPIDEMIA Medical History HYPERGLYCEMIA Medical History GERD Medical History BENIGN PROSTATIC HYPERTROPHY Surgical History RIGHT FOOT WOUND 09/18/20 Hospitalization History RELATED TO SURGERY 09/18/20 Goals Section No Information Health Concerns No Information MEDICAL EQUIPMENT No Information MENTAL STATUS No Information FUNCTIONAL STATUS No Information ASSESSMENTS Encounter Date Diagnosis Assessment Notes Treatment Notes Treatm ent Clinical Notes Nov, Type 2 diabetes mellitus with foot ulcer (ICD-10 - E11.621) Nov, 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 Celeste. I have reviewed the above orders, written by maya Ch, and I verify it is accurate. PLAN OF TREATMENT Treatment Notes Assessment Notes Clinical Notes Non-pressure chronic ulcer of right heel and midfoot with fa t layer exposed I, Porsche Garcia, documented the above orders acting as a scribe for Dr. Celeste. I have reviewed the above orders, written by maya Ch, and I verify it is accurate. Next Appt Details 1 Week Reason: Provider Name:Alin Celeste, 08:00:00 AM, [address], , [place], [address], Provider Name:Alin Celeste, 11:00:00 AM, [address], , [place], [address], Insurance Providers Payer Name Payer Address Payer Phone Insured Name Patient Relati onship to Insured Coverage Start Date Coverage End Date [facility] [address] FEDERAL [address] [address] [facility] [id number] [address]
--- OUTSIDE RECORDS SUMMARY | 2020-12-19 10:42 | CCD ---
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 Z79.4 Activ e confirmed 245172642 Problem Non-pressure chronic ulcer o f other part of unspecified foot with unspecified severity L97.509 Active confirmed [id number] ALLERGIES No Known Allergies ENCOUNTERS from 1960 to 2020-12-15 Encounter Location Date Provider Diagnosis [facility] [address] [address] [facility] [phone] [place] [address] Dec, Alin Celeste Type 2 diabetes mellitus wit [...] Unknown Language: Question Answer Notes Languages spoken: Wallisian Adventism: Question Answer Notes Adventism No congregational beliefs that would impact health care. Alcohol Screening: Question Answer Notes Did you have a drink containing alcohol in the past year? No Points 0 Interpretation Negative Tobacco Use: Question Answer Notes Are you a: never smoker REASON FOR REFERRAL No Information VITAL SIGNS Weight 250 lbs Dec, Height 74 in Dec, BMI 32.09 kg/m2 Dec, Heart Rate 82 /min Dec, Respiratory Rate 18 /min Dec, Temperature 98.1 degrees Fahrenheit Dec, Oximetry 96 Dec, Blood pressure systolic 151 mm Hg Dec, Blood pressure diastolic 77 mm Hg Dec, MEDICATIONS Medication SIG (Take, Route, Frequency, Duration) Notes Start Da te End Date Status metFORMIN HCl 1000 MG 1 tablet with a meal Orally Once a day for 30 day(s) Active Rosuvastatin Calcium 10 MG 1 tablet Orally Once a day for 30 day(s) Active oxyCODONE-Acetaminophen 5-325 MG 1 tablet as needed Orally every 6 hr s Active SITagliptin Phosphate 100 MG 1 tablet Orally Once a day for 30 day(s) Active Cimetidine 200 MG 1 tablet at bedtime Orally Once a day for 30 day(s) Active [place] 3 1000 MG 1 capsule Orally Once a day for 30 day(s) Active Naproxen 250 MG 1 tablet with food or milk Orally Twice a day for 3 0 day(s) Active Pantoprazole Sodium 40 MG 1 tablet Orally Once a day for 30 day(s) Active Aspirin 81 MG 1 tablet Orally Once a day for 30 day(s) Active Tamsulosin HCl 0.4 MG 1 capsule Orally Once a day for 30 day(s) Active PROCEDURES from 1960 to 2020-12-15 Procedure Date Ordered Result Body Site Medication: Silver Nitrate Stick topically 2020-12-12 N/A Medication: 4% Lidocaine topical cream (Anecream) 5gm 2020-12-12 N/A RESULTS No Results REASON FOR VISIT Right Plantar Foot MEDICAL (GENERAL) HISTORY Type Description Date Medical [...] Notes Treatment Notes Treatm ent Clinical Notes Dec, Type 2 diabetes mellitus with foot ulcer (ICD-10 - E11.621) Dec, 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 [address] [address] [facility] [id number] [address] self
--- OUTSIDE RECORDS SUMMARY | 2020-12-19 10:42 | CCD ---
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 Z79.4 Activ e confirmed 799480618 Problem Non-pressure chronic ulcer o f other part of unspecified foot with unspecified severity L97.509 Active confirmed [id number] ALLERGIES No Known Allergies ENCOUNTERS from 1960 to 2020-11-27 Encounter Location Date Provider Diagnosis [facility] [address] [facility] [phone] [place] [address] Nov, Alin Celeste IMMUNIZATIONS No Information SOCIAL HISTORY Tobacco Use: Social History Observation Description Date Details (start date - stop date) Never Smoker Sex Assigned At : Social History Observation Description Sex Assigned At Unknown Language: Question Answer Notes Languages spoken: Syriac Methodist: Question Answer Notes Methodist No yazidism beliefs that would impact health care. Alcohol Screening: Question Answer Notes Did you have a drink containing alcohol in the past year? No Points 0 Interpretation Negative Tobacco Use: Question Answer Notes Are you a: never smoker REASON FOR REFERRAL No Information VITAL SIGNS No information MEDICATIONS Medication SIG (Take, Route, Frequency, Duration) Notes Start Da te End Date Status [place] 3 1000 MG 1 capsule Orally Once [...] a day for 30 day(s) Unknown PROCEDURES No Information RESULTS No Results REASON FOR VISIT Cast MEDICAL (GENERAL) HISTORY Type Description Date Medical History DIABETES Medical History HYPERLIPIDEMIA Medical History HYPERGLYCEMIA Medical History GERD Medical History BENIGN PROSTATIC HYPERTROPHY Surgical History RIGHT FOOT WOUND 09/18/20 Hospitalization History RELATED TO SURGERY 09/18/20 Goals Section No Information Health Concerns No Information MEDICAL EQUIPMENT No Information MENTAL STATUS No Information FUNCTIONAL STATUS No Information ASSESSMENTS No Information PLAN OF TREATMENT Next Appt Details Provider Name:Alin Celeste 08:00:00 AM, [address], , [place], [address], Provider Name:Alin Celeste 11:00:00 AM, [address], , [place], [address], Insurance Providers Payer Name Payer Address Payer Phone Insured Name Patient Relati onship to Insured Coverage Start Date Coverage End Date [facility] FEDERAL [address] [address] [facility] [id number] [address] self
--- OUTSIDE RECORDS SUMMARY | 2020-12-19 10:42 | CCD ---
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 Alcohol Screening: Question Answer Notes Did you have a drink containing alcohol in the past year? No Points 0 Interpretation Negative Tobacco Use: Question Answer Notes Are you a: never smoker REASON FOR REFERRAL No Information VITAL SIGNS Weight 250 lbs Nov, Height 74 in Nov, BMI 32.09 kg/m2 Nov, Heart Rate 87 /min Nov, Respiratory Rate 16 /min Nov, Temperature 98.5 degrees Fahrenheit Nov, Oximetry 98 Nov, Blood pressure systolic 142 mm Hg Nov, Blood pressure diastolic 87 mm Hg Nov, MEDICATIONS Medication SIG (Take, Route, Frequency, Duration) Notes Start Da te End Date Status [place] 3 1000 MG 1 capsule Orally Once [...] Body Site Medication: Silver Nitrate Stick topically 2020-11-27 N/A RESULTS No Results REASON FOR VISIT Cast Application MEDICAL (GENERAL) HISTORY Type Description Date Medical [...] mellitus with foot ulcer (ICD-10 - E11.621) I, Porsche Garcia, documented the above order acting as a scribe for Dr. Celeste. I have reviewed the above order, written by Porsche Garcia, scribe, and I verify that it is accurate. Nov, Non-pressure chronic ulcer o f right heel and midfoot with fat layer exposed (ICD-10 - L97.412) PLAN OF TREATMENT Treatment Notes Assessment Notes Clinical Notes Type 2 diabetes mellitus with foot ulcer I, Porsche Garcia, documented the above order acting as a scribe for Dr. Celeste. I have reviewed the above order, written by maya Ch, and I verify that it is accurate. Next Appt Details 1 Week Reason: Provider Name:Alin Celeste, 08:00:00 AM, [address], , [place], [address], Provider Name:Alin Celeste, 11:00:00 AM, [address], , [place], [address], Insurance Providers Payer Name Payer Address Payer Phone Insured Name Patient Relati onship to Insured Coverage Start Date Coverage End Date [facility] FEDERAL [address] [address] [facility] [address] [address]
--- OUTSIDE RECORDS SUMMARY | 2020-12-19 10:42 | CCD ---
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 Alcohol Screening: Question Answer Notes Did you have a drink containing alcohol in the past year? No Points 0 Interpretation Negative Tobacco Use: Question Answer Notes Are you a: never smoker REASON FOR REFERRAL No Information VITAL SIGNS Weight 250 lbs Nov, Height 74 in Nov, BMI 32.09 kg/m2 Nov, Heart Rate 99 /min Nov, Respiratory Rate 17 /min Nov, Temperature 98.0 degrees Fahrenheit Nov, Oximetry 99 Nov, Blood pressure systolic 146 mm Hg Nov, Blood pressure diastolic 82 mm Hg Nov, MEDICATIONS Medication SIG (Take, Route, Frequency, Duration) Notes Start Da te End Date Status Rosuvastatin Calcium 10 MG 1 tablet Orally Once a day for 30 day(s) Unknown Aspirin 81 MG 1 tablet Orally Once a day for 30 day(s) Unknown Cimetidine 200 MG 1 tablet at bedtime Orally Once a day for 30 day(s) Unknown oxyCODONE-Acetaminophen 5-325 MG 1 tablet as needed Orally every 6 hr s Unknown [place] 3 1000 MG 1 capsule Orally Once [...] a day for 3 0 day(s) Unknown Pantoprazole Sodium 40 MG 1 tablet Orally Once a day for 30 day(s) Unknown PROCEDURES No Information RESULTS No Results REASON FOR VISIT Right Foot Wound, [facility] MEDICAL (GENERAL) HISTORY Type Description Date Medical [...] Details 1 Week Reason: Provider Name:Alin Celeste, 08:15:00 AM, [address], , [place], [address], Provider Name:Alin Celeste 08:15:00 AM, [address], , [place], [address], Provider Name:Alin Gramajoruy, 08:00:00 AM, [address], , [place], [address], Provider Name:Alin Celeste, 11:00:00 AM, [address], , [place], [address], Insurance Providers Payer Name Payer Address Payer Phone Insured Name Patient Relati onship to Insured Coverage Start Date Coverage End Date [facility] FEDERAL [address] [address] [facility] [address] [address]
--- OUTSIDE RECORDS SUMMARY | 2020-12-19 10:43 | CCD ---
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 Alcohol Screening: Question Answer Notes Did you have a drink containing alcohol in the past year? No Points 0 Interpretation Negative Tobacco Use: Question Answer Notes Are you a: never smoker REASON FOR REFERRAL No Information VITAL SIGNS Weight 250 lbs Oct, Height 74 in Oct, BMI 32.09 kg/m2 Oct, Heart Rate 79 /min Oct, Respiratory Rate 16 /min Oct, Temperature 98.4 degrees Fahrenheit Oct, Oximetry 97 Oct, Blood pressure systolic 142 mm Hg Oct, Blood pressure diastolic 92 mm Hg Oct, MEDICATIONS Medication SIG (Take, Route, Frequency, Duration) Notes Start Da te End Date Status Tamsulosin HCl 0.4 MG 1 capsule Orally Once a day for 30 day(s) Active [place] 3 1000 MG 1 capsule Orally Once [...] a day for 3 0 day(s) Active oxyCODONE-Acetaminophen 5-325 MG 1 tablet as needed Orally every 6 hr s Active SITagliptin Phosphate 100 MG 1 tablet Orally Once a day for 30 day(s) Active Pantoprazole Sodium 40 MG 1 tablet Orally Once a day for 30 day(s) Active metFORMIN HCl 1000 MG 1 tablet with a meal Orally Once a day for 30 day(s) Active PROCEDURES from 1960 to 2020-10-27 Procedure Date Ordered Result Body Site Medication: Silver Nitrate Stick topically 2020-10-23 N/A Medication: 4% Lidocaine topical cream (Anecream) 5gm 2020-10-23 N/A RESULTS No Results REASON FOR VISIT DFU MEDICAL (GENERAL) HISTORY Type Description Date Medical [...] Notes Treatment Notes Treatm ent Clinical Notes Oct, Type 2 diabetes mellitus with foot ulcer (ICD-10 - E11.621) Oct, 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 [address] [address] self
--- OUTSIDE RECORDS SUMMARY | 2020-12-19 10:43 | CCD | Continuity of Care Document ---
Author Author Laine MONTOYA [facility] Organization Unknown Address [address] [place] [address] [address] [place] [address] Phone [phone] Care Team Providers Care Pheresis Nurse Name Role Phone Oneil Ascencio D.O. [facility] [phone] Problems Active Problems Provider Date Impotence of organic origin Teresa Marquez FNP-C O nset: 12/18/2012 Hyperglycemia Juanjose Macias M.D. Onset: 5 Diabetes mellitus Oneil Ascencio D.O., [facility] Onset: 06/01 Hyperlipidemia Oneil Ascencio D.O., [facility] Onset: 06/01 Gastroesophageal reflux disease Vivien Chappell PA Onset: 06/24/2019 Benign prostatic hypertrophy without outflow obstructi on Vivien Chappell PA Onset: 01/10/2020 Social History Type Date Description Comments Sex Unknown Cigarette Use Denies cigarette smoking ETOH Use Denies alcohol use Recreational Drug Use Denies Drug Use Tobacco Use Start: Unknown Patient has never smoked Allergies, Adverse Reactions, Alerts Description No Known Drug Allergies Medications Active Medications SIG Qnty Indications Ordering Provide r Date Onetouch Verio Strips test glucose every day and as needed 100units Maggy Montoya [facility] 021 Metformin HCL 1000mg Tablets take 1 tablet every morning then 1/2 pm 135tabs Maggy Montoya [facility] 02/18/2020 Tamsulosin HCL 0.4mg Capsules one cap by mouth at night 90caps Oneil Ascencio D.O., [facility] Omeprazole 20mg Tablets DR take one tab po daily 30tabs Oneil Ascencio D.O., [facility] Januvia 100mg Tablets Take 1 Tablet By Mouth Every Day. Maximum Daily Dose Is 1 90tabs E11.9 Oneil Ascencio D.O., [facility] 03/19/2019 Rosuvastatin Calcium 10mg Tablets Take 1 Tablet By Mouth Every Day. Maximum Daily Dose Is 1 90tabs Maggy Montoya [facility] 03/09/2019 Blood Glucose Monitoring System W/Device Kit One touch verio use once a day and as needed as directed 1uni ts E11.9 Oneil Ascencio D.O., [facility] 03/04/2019 Blood Glucose Test Strips one touch use once a day and as needed (dx: e11.9) 100units E11.9 Peter Montoya [facility] 03/04/2019 Lancets Misc us e every day and as needed as directed 100units E11.9 Oneil Ascencio D.O., [facility] 04/2019 Levitra 10mg Tablets 1 tab by mouth daily as needed 12tabs Juanjose Macias M.D. 06/10/19 15 Asa 81 Capsules 1 by mouth ev linh Oneil Ascencio D.O., [facility] History Medications Amoxicillin/Clavulanate Potassium 875-125mg Tablets 1 tab by mouth twice a day for 10 days 20tabs Maggy Colon [facility] 09/15/2020 - 09/26/2020 Doxycycline Hyclate 100mg Capsules 1 cap by mouth twice a day 20caps Maggy Montoya [facility] 07/02 - 08/05/2020 Medications Administered in Office Medication SIG Qnty Indications Ordering Provider Date Injection (SC)/(Im) Injection Oneil Ascencio D.O., [facility] 09/20/2011 Immunizations CPT Code Status Date Vaccine Lot # [id number] Given 12/24/2019 Influenza Virus Vaccine, Quadrivalent, Slit Virus, Im Use 3Y & Up [id number] Given 09/20/2011 Tdap Tetanus,Dip htheria Toxoids/Acellular Pertussis 7Yrs Or Older [id number] Vital Signs Date Vital Result Comment 09/26/2020 2:25pm BP Systolic 136 mmHg BP Diastolic 86 mmHg Body Temperature 97.8 F Heart Rate 82 /min Respiratory Rate 20 /min Height 74 inches 6'2" Weight 253.00 lb [place] Body Weight 190 lb BMI (Body Mass Index) 32.5 kg/m2 O2 % BldC Oximetry 97 % 09/15/2020 9:16am BP Systolic 120 mmHg BP Diastolic 80 mmHg Body Temperature 97.5 F Heart Rate 123 /min Respiratory Rate 17 /min Height 74 inches 6'2" Weight 256.00 lb [place] Body Weight 190 lb BMI (Body Mass Index) 32.9 kg/m2 O2 % BldC Oximetry 96 % (AT Rest), (Room Air ) Results Test Acquired Date Facility Test Result H/L Range Note Comprehensive Metabolic Panel 09/18/2020 [place] [address] [phone] [facility] (SEE NOTE) 1 Sodium 140 mEq/L 134 - 153 Potassium 5.1 mEq/L High 3.6 - 5.0 Chloride 104 mEq/L 98 - 107 Co2 28 mEq/L 22 - 30 Glucose 180 mg/dL High 70 - 99 BUN 12 mg/dL 7 - 21 Creatinine 0.9 mg/dL 0.7 - 1.5 BUN/Creat 13 8 - 27 Total Protein 5.9 g/dL Low 6.3 - 8.2 Albumin 3.2 g/dL Low 3.9 - 5.0 Globulin 2.7 GM/DL 2.4 - 3.2 A/G Ratio 1.2 0.8 - 2.0 Calcium 8.7 mg/dL 8.4 - 10.2 Total Bili <0.7 mg/dL 0.2 - 1.3 Alkaline Phos 66 U/L 38 - 126 Sgot/Ast 14 U/L 5 - 40 SGPT/Alt 19 U/L 7 - 56 Anion Gap 8.0 mmol/L 8.0 - 16.0 Age 59 yrs Non-Aa GFR >60 mL/min Afr Amer GFR >60 mL/min 2 Laboratory test finding 09/18/2020 [place] [address] [phone] CRP (High Sensitivity) 86.66 mg/L High 1.00 - 3. 00 3 Laboratory test finding 09/18/2020 [place] [address] [phone] Vancomycin Trough 5.6 ug/mL Low 10.0 - 15.0 4 CBC W/Automated Diff 09/18/2020 [facility] [place] [address] [phone] CBC W/Automated Diff (SEE NOTE) 5 WBC 6.4 10^3/uL 4.2 - 11.0 RBC 4.33 10^6/uL Low 4.50 - 6.30 Hemoglobin 12.5 g/dL Low 14.0 - 16.0 Hematocrit 38.0 % Low 41.0 - 51.0 MCV 87.8 fL 80.0 - 94.0 MCH 28.9 pg 27.0 - 34.0 MCHC 32.9 g/dL 31.0 - 36.0 RDW 13.3 % 11.5 - 14.8 Platelets 266 10^3/uL 150 - 450 MPV 9.7 fL 7.4 - 10.4 Neut 58.5 % 37.0 - 80.0 Lymph 22.8 % Low 25.0 - 40.0 [place] 9.4 % High 3.0 - 8.0 Eos 3.8 % 0.0 - 7.0 Baso 1.3 % 0.0 - 2.0 %Ig 4.2 % High 0.0 - 0.0 %NRBC 0.0 % 0.0 - 0.0 #Neut 3.73 10^3/uL 2.00 - 6.90 #Lymph 1.45 10^3/uL 0.60 - 3.40 #[place] 0.60 10^3/uL 0.00 - 0.90 #Eos 0.24 10^3/uL 0.00 - 0.70 #Baso 0.08 10^3/uL 0.00 - 0.20 #Ig 0.27 10^3/uL High 0.00 - 0.10 #NRBC 0.00 10^3/uL 0.00 - 0.00 Manual Diff NOT INDICATED RBC Morph NOT INDICATED Laboratory test finding 09/17/2020 [place] [address] [phone] Hgba1c 6.7 % High 4.4 - 6.1 6 CBC W/Automated Diff 09/17/2020 [place] [address] [phone] CBC W/Automated Diff (SEE NOTE) 7 WBC 5.6 10^3/uL 4.2 - 11.0 RBC 4.21 10^6/uL Low 4.50 - 6.30 Hemoglobin 12.1 g/dL Low 14.0 - 16.0 Hematocrit 36.6 % Low 41.0 - 51.0 MCV 86.9 fL 80.0 - 94.0 MCH 28.7 pg 27.0 - 34.0 MCHC 33.1 g/dL 31.0 - 36.0 RDW 13.1 % 11.5 - 14.8 Platelets 223 10^3/uL 150 - 450 MPV 10.8 fL High 7.4 - 10.4 Neut 54.9 % 37.0 - 80.0 Lymph 24.3 % Low 25.0 - 40.0 [place] 13.7 % High 3.0 - 8.0 Eos 4.0 % 0.0 - 7.0 Baso 0.9 % 0.0 - 2.0 %Ig 2.2 % High 0.0 - 0.0 %NRBC 0.0 % 0.0 - 0.0 #Neut 3.05 10^3/uL 2.00 - 6.90 #Lymph 1.35 10^3/uL 0.60 - 3.40 #[place] 0.76 10^3/uL 0.00 - 0.90 #Eos 0.22 10^3/uL 0.00 - 0.70 #Baso 0.05 10^3/uL 0.00 - 0.20 #Ig 0.12 10^3/uL High 0.00 - 0.10 #NRBC 0.00 10^3/uL 0.00 - 0.00 Manual Diff NOT INDICATED RBC Morph NOT INDICATED Comprehensive Metabolic Panel 09/17/2020 [place] [address] [phone] [facility] (SEE NOTE) 8 Sodium 138 mEq/L 134 - 153 Potassium 4.3 mEq/L 3.6 - 5.0 Chloride 103 mEq/L 98 - 107 Co2 29 mEq/L 22 - 30 Glucose 165 mg/dL High 70 - 99 BUN 13 mg/dL 7 - 21 Creatinine 0.8 mg/dL 0.7 - 1.5 BUN/Creat 16 8 - 27 Total Protein 5.7 g/dL Low 6.3 - 8.2 Albumin 2.9 g/dL Low 3.9 - 5.0 Globulin 2.8 GM/DL 2.4 - 3.2 A/G Ratio 1.0 0.8 - 2.0 Calcium 8.6 mg/dL 8.4 - 10.2 Total Bili <0.7 mg/dL 0.2 - 1.3 Alkaline Phos 72 U/L 38 - 126 Sgot/Ast 20 U/L 5 - 40 SGPT/Alt 19 U/L 7 - 56 Anion Gap 6.0 mmol/L Low 8.0 - 16.0 Age 59 yrs Non-Aa GFR >60 mL/min Afr Amer GFR >60 mL/min 9 Laboratory test finding 09/17/2020 [place] [address] [phone] CRP (High Sensitivity) 153.47 mg/L High 1.00 - 3 .00 10 Comprehensive Metabolic Panel 09/16/2020 [place] [address] [phone] [facility] (SEE NOTE) 11 Sodium 137 mEq/L 134 - 153 Potassium 3.8 mEq/L 3.6 - 5.0 Chloride 98 mEq/L 98 - 107 Co2 28 mEq/L 22 - 30 Glucose 181 mg/dL High 70 - 99 BUN 14 mg/dL 7 - 21 Creatinine 0.8 mg/dL 0.7 - 1.5 BUN/Creat 18 8 - 27 Total Protein 7.4 g/dL 6.3 - 8.2 Albumin 3.6 g/dL Low 3.9 - 5.0 Globulin 3.8 GM/DL High 2.4 - 3.2 A/G Ratio 0.9 0.8 - 2.0 Calcium 9.4 mg/dL 8.4 - 10.2 Total Bili <0.7 mg/dL 0.2 - 1.3 Alkaline Phos 82 U/L 38 - 126 Sgot/Ast 14 U/L 5 - 40 SGPT/Alt 15 U/L 7 - 56 Anion Gap 11.0 mmol/L 8.0 - 16.0 Age 59 yrs Non-Aa GFR >60 mL/min Afr Amer GFR >60 mL/min 12 Laboratory test finding 09/16/2020 [facility] [place] [address] [phone] CRP (High Sensitivity) 273.52 mg/L High 1.00 - 3 .00 13 Sedimentation Rate 09/16/2020 [facility] [place], [place] [id number] [phone] Sed Rate 67 mm/hr High 0 - 20 Sed Rate Reenter 67 CBC W/Automated Diff 09/16/2020 [facility] [place] [address] [phone] CBC W/Automated Diff (SEE NOTE) 14 WBC 9.1 10^3/uL 4.2 - 11.0 RBC 4.62 10^6/uL 4.50 - 6.30 Hemoglobin 13.5 g/dL Low 14.0 - 16.0 Hematocrit 39.5 % Low 41.0 - 51.0 MCV 85.5 fL 80.0 - 94.0 MCH 29.2 pg 27.0 - 34.0 MCHC 34.2 g/dL 31.0 - 36.0 RDW 12.8 % 11.5 - 14.8 Platelets 241 10^3/uL 150 - 450 MPV 10.2 fL 7.4 - 10.4 Neut 76.7 % 37.0 - 80.0 Lymph 9.2 % Low 25.0 - 40.0 [place] 10.9 % High 3.0 - 8.0 Eos 2.1 % 0.0 - 7.0 Baso 0.3 % 0.0 - 2.0 %Ig 0.8 % High 0.0 - 0.0 %NRBC 0.0 % 0.0 - 0.0 #Neut 6.98 10^3/uL High 2.00 - 6.90 #Lymph 0.84 10^3/uL 0.60 - 3.40 #[place] 0.99 10^3/uL High 0.00 - 0.90 #Eos 0.19 10^3/uL 0.00 - 0.70 #Baso 0.03 10^3/uL 0.00 - 0.20 #Ig 0.07 10^3/uL 0.00 - 0.10 #NRBC 0.00 10^3/uL 0.00 - 0.00 Manual Diff NOT INDICATED RBC Morph NOT INDICATED Comprehensive Metabolic Panel 09/15/2020 [place] [address] [phone] [facility] (SEE NOTE) 15 Sodium 138 mEq/L 134 - 153 Potassium 4.0 mEq/L 3.6 - 5.0 Chloride 98 mEq/L 98 - 107 Co2 29 mEq/L 22 - 30 Glucose 185 mg/dL High 70 - 99 BUN 11 mg/dL 7 - 21 Creatinine 0.8 mg/dL 0.7 - 1.5 BUN/Creat 14 8 - 27 Total Protein 6.6 g/dL 6.3 - 8.2 Albumin 3.5 g/dL Low 3.9 - 5.0 Globulin 3.1 GM/DL 2.4 - 3.2 A/G Ratio 1.1 0.8 - 2.0 Calcium 9.2 mg/dL 8.4 - 10.2 Total Bili <0.7 mg/dL 0.2 - 1.3 Alkaline Phos 77 U/L 38 - 126 Sgot/Ast 12 U/L 5 - 40 SGPT/Alt 14 U/L 7 - 56 Anion Gap 11.0 mmol/L 8.0 - 16.0 Age 59 yrs Non-Aa GFR >60 mL/min Afr Amer GFR >60 mL/min 16 Aerobic Bacterial Culture 09/15/2020 [facility] [place] Aerobic Bacterial Culture Final report Abnormal 1 7, 18 Result 1 Staphylococcus a <SEE NOTE> Abnormal 19 Antimicrobial Susceptibility See Comment: 20 CBC W/Automated Diff 09/15/2020 [place] [address] [phone] CBC W/Automated Diff (SEE NOTE) 21 WBC 11.8 10^3/uL High 4.2 - 11.0 RBC 4.83 10^6/uL 4.50 - 6.30 Hemoglobin 14.1 g/dL 14.0 - 16.0 Hematocrit 41.0 % 41.0 - 51.0 MCV 84.9 fL 80.0 - 94.0 MCH 29.2 pg 27.0 - 34.0 MCHC 34.4 g/dL 31.0 - 36.0 RDW 12.6 % 11.5 - 14.8 Platelets 242 10^3/uL 150 - 450 MPV 11.7 fL High 7.4 - 10.4 Neut 80.4 % High 37.0 - 80.0 Lymph 5.2 % Low 25.0 - 40.0 [place] 12.6 % High 3.0 - 8.0 Eos 0.5 % 0.0 - 7.0 Baso 0.3 % 0.0 - 2.0 %Ig 1.0 % High 0.0 - 0.0 %NRBC 0.0 % 0.0 - 0.0 #Neut 9.51 10^3/uL High 2.00 - 6.90 #Lymph 0.61 10^3/uL 0.60 - 3.40 #[place] 1.49 10^3/uL High 0.00 - 0.90 #Eos 0.06 10^3/uL 0.00 - 0.70 #Baso 0.04 10^3/uL 0.00 - 0.20 #Ig 0.12 10^3/uL High 0.00 - 0.10 #NRBC 0.00 10^3/uL 0.00 - 0.00 Manual Diff SEE BELOW Segs 76 % 37 - 80 Band 1 % 0 - 5 %Lymph 7 % Low 25 - 40 %[place] 16 % High 3 - 8 RBC Morph MORPH IS NORMAL CMP 09/15/2020 [facility] Glu 234 mg/dL High 70 - 110 22 BUN 12 mg/dL 8 - 23 Creat 0.7 mg/dL 0.7 - 1.2 BUN/Creatinine Ratio 15.7 CALC Na 134 mmol/L Low 136 - 145 K 4.3 mmol/L 3.5 - 5.1 CL 96.0 mmol/L Low 98.0 - 107.0 Co2 24.0 mmol/L 22.0 - 29.0 CA 8.9 mg/dL 8.6 - 10.2 TP 6.0 g/dL Low 6.6 - 8.7 Alb 3.4 g/dL Low 3.5 - 5.2 A/G Ratio 1.3 CALC Globulin 2.6 CALC Alp 74.5 U/L 40 - 129 Alt (SGPT) 13 U/L 0 - 41 Ast (Sgot) 9 U/L 0 - 40 Tbili 0.37 mg/dL 0.0 - 1.2 Osmolality-Calculated 274.5 CALC Anion Gap 18 mmol/L eGFR 121 # Calc 23 eGFR Non-Afr. Haitian 104 # Calc 24 Laboratory test finding 09/15/2020 [facility] Sedimentation Rate 54 mm/hr High 0 - 20 Culture Blood 09/15/2020 [facility] [place] [address] [phone] Culture Blood (SEE NOTE) 25 Laboratory test finding 09/15/2020 [facility] [place] [address] [phone] CRP (High Sensitivity) 280.00 mg/L High 1.00 - 3 .00 26 CBC W/Automated Diff 09/15/2020 [facility] [place] [address] [phone] CBC W/Automated Diff (SEE NOTE) 27 WBC 10.9 10^3/uL 4.2 - 11.0 RBC 4.82 10^6/uL 4.50 - 6.30 Hemoglobin 13.9 g/dL Low 14.0 - 16.0 Hematocrit 41.4 % 41.0 - 51.0 MCV 85.9 fL 80.0 - 94.0 MCH 28.8 pg 27.0 - 34.0 MCHC 33.6 g/dL 31.0 - 36.0 RDW 12.6 % 11.5 - 14.8 Platelets 218 10^3/uL 150 - 450 MPV 10.4 fL 7.4 - 10.4 Neut 76.5 % 37.0 - 80.0 Lymph 8.8 % Low 25.0 - 40.0 [place] 12.1 % High 3.0 - 8.0 Eos 1.0 % 0.0 - 7.0 Baso 0.5 % 0.0 - 2.0 %Ig 1.1 % High 0.0 - 0.0 %NRBC 0.0 % 0.0 - 0.0 #Neut 8.33 10^3/uL High 2.00 - 6.90 #Lymph 0.96 10^3/uL 0.60 - 3.40 #[place] 1.32 10^3/uL High 0.00 - 0.90 #Eos 0.11 10^3/uL 0.00 - 0.70 #Baso 0.05 10^3/uL 0.00 - 0.20 #Ig 0.12 10^3/uL High 0.00 - 0.10 #NRBC 0.00 10^3/uL 0.00 - 0.00 Manual Diff SEE BELOW Segs 77 % 37 - 80 %Lymph 11 % Low 25 - 40 %[place] 11 % High 3 - 8 %Eos 1 % 0 - 7 RBC Morph NOT INDICATED Sedimentation Rate 09/15/2020 [place] [address] [phone] Sed Rate 59 mm/hr High 0 - 20 Sed Rate Reenter 59 Laboratory test finding 09/15/2020 [place] [address] [phone] Culture Blood (SEE NOTE) 28 Laboratory test finding 09/15/2020 [place] [address] [phone] Culture Wound (SEE NOTE) 29, 30 Laboratory test finding 09/15/2020 [place] [address] [phone] Culture Aerobic/Anaerobic (SEE NOTE) 31, 32 Laboratory test finding 09/15/2020 [place] [address] [phone] Lactic Acid (Lactate) 1.3 mmol/L 0.2 - 2.2 Aerobic Bacterial Culture 07/26/2020 [facility] [place] Aerobic Bacterial Culture Final report Abnormal 3 3, 34 Result 1 Staphylococcus a <SEE NOTE> Abnormal 35 Antimicrobial Susceptibility See Comment: 36 CBC 06/30/2020 [facility] WBC 5.9 10E3/uL 4.1 - 10.9 37 RBC 4.96 10E6/uL 4.20 - 6.30 HGB 14.3 g/dL 12.0 - 18.0 HCT 43.5 % 37.0 - 51.0 MCV 87.7 fL 80.0 - 97.0 MCH 28.8 pg 26.0 - 32.0 MCHC 32.9 g/dL 31.0 - 36.0 PLT 228 10E3/uL 140 - 440 RDW-CV 12.5 % 11.5 - 14.5 Lym% 28.2 % 10.0 - 58.5 Neut% 67.2 % 37.0 - 92.0 MXD% 4.6 % 0.1 - 24.0 Lym# 1.7 10E3/uL 0.6 - 4.1 Neut# 3.9 % 2.0 - 7.8 MXD# 0.3 10E3/uL 0.0 - 1.8 MPV 9.6 fL 9.0 - 13.0 CMP 06/30/2020 [facility] Glu 149 mg/dL High 70 - 110 BUN 14 mg/dL 8 - 23 Creat 0.8 mg/dL 0.7 - 1.2 BUN/Creatinine Ratio 18.3 CALC Na 141 mmol/L 136 - 145 K 4.6 mmol/L 3.5 - 5.1 CL 105.0 mmol/L 98.0 - 107.0 Co2 30.0 mmol/L High 22.0 - 29.0 CA 9.9 mg/dL 8.6 - 10.2 TP 7.1 g/dL 6.6 - 8.7 Alb 4.5 g/dL 3.5 - 5.2 A/G Ratio 1.8 CALC Globulin 2.5 CALC Alp 74.8 U/L 40 - 129 Alt (SGPT) 30 U/L 0 - 41 Ast (Sgot) 19 U/L 0 - 40 Tbili 0.33 mg/dL 0.0 - 1.2 Osmolality-Calculated 283.8 CALC Anion Gap 10 mmol/L eGFR 114 # Calc 38 eGFR Non-Afr. Haitian 98 # Calc 39 Lipid Panel 06/30/2020 [facility] Chol 94 mg/dL 0 - 200 Trig 84 mg/dL 35 - 200 HDL 36 mg/dL 35 - 55 LDL_C 42 Calc Low 75 - 129 Cho/HDL Ratio 2.6 CALC Laboratory test finding 06/30/2020 [facility] CK 83 U/L 39 - 308 U/A DIP 06/30/2020 [facility] Color yellow QUAL Clarity clear QUAL Glucose-Ua Negative g/dL Negative Bilirubin,Urine Negative QUAL Negative Ketone Negative mg/dL Negative Blood - Ua Negative QUAL Negative pH 7.0 # 5.0 - 8.0 Protein Negative mg/dL Negative Urobilinogen 0.2 NA 0.2 - 1.0 Nitrite Negative QUAL Negative Leukocyte Negative QUAL Negative Laboratory test finding 06/30/2020 [facility] Hemoglobin A1c 7.6 % High 4.40 - 6.10 Microalb/Creat Ratio 06/30/2020 [facility] Alb 10 mg/L 1 - 30 Creatinine, Urine 50 mg/dL 10 - 300 A/C Ratio <30 mg/g % 1 COMPREHENSIVE METABOLIC PANE L 2 Male GFR Interprentation 20-49 yrs >60 mL/min Normal 50-59 yrs >56 mL/min Normal 60-69 yrs >49 mL/min Normal 70-79yrs >42 mL/min Normal 80 and above >35 mL/min Normal Female GFR Interpretation 20-39 yrs >60 mL/min Normal 40-49 yrs >58 mL/min Normal 50-59 yrs >51 mL/min Normal 60-69 yrs >45 mL/min Normal 70-79 yrs >39 mL/min Normal 80 and above >32 mL/min Normal 3 CDC/AHS HS-CRP CUT-OFF: RELATIVE RISK: <1.0 mg/L Low 1.0 - 3.0 mg/L A verage >3.0 mg/L High Optimally, the average of HS-CRP results repeated two weeks apart should be used for risk assessment. 4 TROUGH First trough is drawn 30 minutes prior to fourth dose. If patient is not hemodynamically stable, a trough is obtained as deemed medically necessary. If patient is hemodynamically stable, a trough should be drawn once a week. The trough is drawn 30 minutes prior to the next dose. Mild Infections Trough 10-15 mg/L Severe Infections Trough 15-20 mg/L [employer] Infections Trough 20-25 mg/L *Severe Infections - Endocarditis, Osteomyelitis, Hospital Acquired Pneumonia, Sepsis 5 COMPLETE BLOOD COUNT 6 {A1] {HB] 7 COMPLETE BLOOD COUNT 8 COMPREHENSIVE METABOLIC PANE L 9 Male GFR Interprentation 20-49 yrs >60 mL/min Normal 50-59 yrs >56 mL/min Normal 60-69 yrs >49 mL/min Normal 70-79yrs >42 mL/min Normal 80 and above >35 mL/min Normal Female GFR Interpretation 20-39 yrs >60 mL/min Normal 40-49 yrs >58 mL/min Normal 50-59 yrs >51 mL/min Normal 60-69 yrs >45 mL/min Normal 70-79 yrs >39 mL/min Normal 80 and above >32 mL/min Normal 10 CDC/AHS HS-CRP CUT-OFF: RELATIVE RISK: <1.0 mg/L Low 1.0 - 3.0 mg/L A verage >3.0 mg/L High Optimally, the average of HS-CRP results repeated two weeks apart should be used for risk assessment. 11 COMPREHENSIVE METABOLIC PANE L 12 Male GFR Interprentation 20-49 yrs >60 mL/min Normal 50-59 yrs >56 mL/min Normal 60-69 yrs >49 mL/min Normal 70-79yrs >42 mL/min Normal 80 and above >35 mL/min Normal Female GFR Interpretation 20-39 yrs >60 mL/min Normal 40-49 yrs >58 mL/min Normal 50-59 yrs >51 mL/min Normal 60-69 yrs >45 mL/min Normal 70-79 yrs >39 mL/min Normal 80 and above >32 mL/min Normal 13 CDC/S HS-CRP CUT-OFF: RELATIVE RISK: <1.0 mg/L Low 1.0 - 3.0 mg/L A verage >3.0 mg/L High Optimally, the average of HS-CRP results repeated two weeks apart should be used for risk assessment. 14 COMPLETE BLOOD COUNT 15 COMPREHENSIVE METABOLIC PANE L 16 Male GFR Interprentation 20-49 yrs >60 mL/min Normal 50-59 yrs >56 mL/min Normal 60-69 yrs >49 mL/min Normal 70-79yrs >42 mL/min Normal 80 and above >35 mL/min Normal Female GFR Interpretation 20-39 yrs >60 mL/min Normal 40-49 yrs >58 mL/min Normal 50-59 yrs >51 mL/min Normal 60-69 yrs >45 mL/min Normal 70-79 yrs >39 mL/min Normal 80 and above >32 mL/min Normal 17 SRC:CX RT FOOT SOLE AT 2ND TOE 18 Source of Specimen: CX RT FO OT SOLE AT 2ND 19 Staphylococcus aureus Source of Specimen: CX RT FOOT SOLE AT 2ND Heavy growth Based on susceptibility to oxacillin this isolate would be susceptible to: *Penicillinase-stable penicillins, such as: Cloxacillin, Dicloxacillin, Nafcillin *Beta-lactam combination agents, such as: Amoxicillin-clavulanic acid, Ampicillin-sulbactam, Piperacillin-tazobactam *Oral cephems, such as: Cefaclor, Cefdinir, Cefpodoxime, Cefprozil, Cefuroxime, Cephalexin, Loracarbef *Parenteral cephems, such as: Cefazolin, Cefepime, Cefotaxime, Cefotetan, Ceftaroline, Ceftizoxime, Ceftriaxone, Cefuroxime *Carbapenems, such as: Doripenem, Ertapenem, Imipenem, Meropenem 20 Source of Specimen: CX RT FO OT SOLE AT 2ND S = Susceptible; I = Intermediate; R = Resistant P = Positive; N = Negative MICS are expressed in micrograms per mL Antibiotic RSLT#1 RSLT#2 RSLT#3 RSLT#4 Ciprofloxacin R Clindamycin S Erythromycin R Gentamicin S Levofloxacin R Linezolid S Moxifloxacin R Oxacillin S Penicillin R Quinupristin/Dalfopristin S Rifampin S Tetracycline S Trimethoprim/Sulfa S Vancomycin S 21 COMPLETE BLOOD COUNT 22 NORMAL RANGES Age WBC RBC HGB HCT MCV PLT Adult M 4.1-10.9 4.20-6.30 12.0-18.0 37.0-51.0 80-97 140-440 Adult F 4.1-10.9 4.04-5.48 12.0-18.0 37.0-51.0 80-97 140-440 0 -1 Yr 5.0-20.0 3.9-5.9 15-18 MV: 44 MV: 91 MV: 277 2-9 Yr. 6.0-17.0 3.8-5.4 11-13 MV: 37 MV: 78 MV: 300 10 Yrs. 5.0-13.0 3.8-5.4 12-15 MV: 39 MV: 80 MV: 250 NOTE: * FOR ADULT BLACK MALES AND FEMALES, NORMAL WBC IS 2.9-7.7 K/ML * FOR ADULT BLACK MALES AND FEMALES, NORMAL RBC,HGB, AND HCT IS 5% LESS SOURCE FOR DATA: JUDITH DYN 1800 OPERATION MANUAL( AUTOMATED BLOOD COUNTS AND DIFF.) APPENDIX B-3 CHRONIC KIDNEY DISEASE STAGING PER NKF: MALE GFR INTERPRETATION: 20-49 YRS: >60 mL/min Normal 50-59 YRS: >56 mL/min Normal 60-69 YRS: >49 mL/min Normal 70-79 YRS: >42 mL/min Normal 80 and above >35 mL/min Normal FEMALE GRF INTERPRETATION: 20-39 YRS: >60 mL/min Normal 40-49 YRS: >58 mL/min Normal 50-59 YRS: >51 mL/min Normal 60-69 YRS: >45 mL/min Normal 70-79 YRS: >39 mL/min Normal 80 and above >32 mL/min Normal 23 CKD-EPI 24 CKD-EPI 25 _CULTURE BLOOD_ [place] [address] CLIA# [id number] SEE SCANNED REPORT { PRELIM 26 CDC/S HS-CRP CUT-OFF: RELATIVE RISK: <1.0 mg/L Low 1.0 - 3.0 mg/L A verage >3.0 mg/L High Optimally, the average of HS-CRP results repeated two weeks apart should be used for risk assessment. 27 COMPLETE BLOOD COUNT 28 _CULTURE BLOOD_ TEST [place] [address] CLIA# [id number] SEE SCANNED REPORT { PRELIM 29 SPECIMEN SOURCE:: Foot 30 _CULTURE WOUND_ ^^[id number] ^$[id number] $$[id number] ^^076333 $$[id number] $$791715 $$227243 $$[id number] $$[id number] REPORTED DATE/TIME: 09/22/2020 11:06 Culture: CULTURE WOUND Status: Final Isolate 1 Staphylococcus aureus Flag: A . . . . . . .3 Heavy growth Methicillin resistant (MRSA) Based on resistance to oxacillin this isolate would be resistant to all currently available beta-lactam antimicrobial agents, with the exception of the newer cephalosporins with anti-MRSA activity, such as Ceftaroline Previous result entered on 09/21/2020 14:08 ET Staphylococcus aureus Susceptibility results being verified. Final report to follow. Previous result entered on 09/20/2020 11:08 ET Microbiological testing to rule out the presence of possible pathogens is in progress. Aerobic Bacterial Culture: P1 Staphylococcus aureus Flag: A Isolate 2 Bacillus species, not Bacillus anthracis Flag: A . . . . . . .4 -- Continued on next page -- Patient: SHAHID JANG Order: [id number] Page 2 Culture: CULTURE WOUND Status: Final Heavy growth Susceptibility not normally performed on this organism. Previous result entered on 09/21/2020 14:08 ET Bacillus species, not Bacillus anthracis Previous result entered on 09/20/2020 11:08 ET Bacillus species, not Bacillus anthracis Bacillus species, not Bacillus anthracis Flag: A Patient: SHAHID JANG Order: [id number] Page 3 Culture: CULTURE WOUND Status: Final ISOLATE 1 Staphylococcus aureus Isolate 1 Antibiotic DEION Int Units ug/mL Ciprofloxacin R R . . . . . .185-9 Clindamycin S S . . . . . .193-3 Erythromycin R R . . . . . .233-7 Gentamicin S S . . . . . .267-5 Levofloxacin R R . . . . . .11566-0 Linezolid S S . . . . . .21656-3 Oxacillin R R . . . . . .383-0 Penicillin R R . . . . . .6932-8 Rifampin S S . . . . . .428-3 Tetracycline S S . . . . . .496-0 Trimethoprim/Sulfa S S . . . . . .516-5 Vancomycin S S . . . . . .524-9 P1 Test performed by: [facility] #: [id number] [address] [id number] [facility] [address] Machine Set Up : Lon Lucia MD NPI #: Suede Cleaner : 09/20/20.1246.XMT.SENT REF 09/21/20.2007.XMT.SENT REF 09/22/20.1415.XMT.SENT REF 31 SOURCE: foot 32 _CULTURE AEROBIC/ANAEROBIC_ ^$[id number] ^$423038 $$[id number] $$796622 ^^239158 $$807845 $$847873 $$480826 $$614030 $$618835 ^^257193 $$637847 $$797591 $$020789 $$[id number] $$[id number] REPORTED DATE/TIME: 09/21/2020 16:07 Culture: CULTURE AEROBIC/ANAEROBIC Status: Final Anaerobic Culture: P1 No anaerobic growth in 72 hours. Isolate 1 Staphylococcus aureus Flag: A . . . . . . .3 Moderate growth Based on susceptibility to oxacillin this isolate would be susceptible to: *Penicillinase-stable penicillins, such as: Cloxacillin, Dicloxacillin, Nafcillin *Beta-lactam combination agents, such as: -- Continued on next page -- Patient: SHAHID JANG Order: [id number] Page 2 Culture: CULTURE AEROBIC/ANAEROBIC Status: Final Amoxicillin-clavulanic acid, Ampicillin-sulbactam, Piperacillin-tazobactam *Oral cephems, such as: Cefaclor, Cefdinir, Cefpodoxime, Cefprozil, Cefuroxime, Cephalexin, Loracarbef *Parenteral cephems, such as: Cefazolin, Cefepime, Cefotaxime, Cefotetan, Ceftaroline, Ceftizoxime, Ceftriaxone, Cefuroxime *Carbapenems, such as: Doripenem, Ertapenem, Imipenem, Meropenem Previous result entered on 09/19/2020 15:19 ET Staphylococcus aureus Aerobic Culture: P1 Staphylococcus aureus Flag: A Isolate 2 Bacillus species, not Bacillus anthracis Flag: A . . . . . . .4 Heavy growth Susceptibility not normally performed on this organism. Previous result entered on 09/19/2020 15:19 ET Bacillus species, not Bacillus anthracis Bacillus species, not Bacillus anthracis Flag: A Patient: SHAHID PLAZAGAR Order: [id number] Page 3 Culture: CULTURE AEROBIC/ANAEROBIC Status: Final ISOLATE 1 Staphylococcus aureus Isolate 1 Antibiotic DEION Int Units ug/mL Ciprofloxacin R R . . . . . .185-9 Clindamycin S S . . . . . .193-3 Erythromycin R R . . . . . .233-7 Gentamicin S S . . . . . .267-5 Levofloxacin R R . . . . . .71116-4 Linezolid S S . . . . . .20707-6 Moxifloxacin R R . . . . . .06782-2 Oxacillin S S . . . . . .383-0 Penicillin R R . . . . . .6932-8 Quinupristin/Dalfopristin S S . . . . . .48345-6 Rifampin S S . . . . . .428-3 Tetracycline R R . . . . . .496-0 Trimethoprim/Sulfa S S . . . . . .516-5 Vancomycin S S . . . . . .524-9 P1 Test performed by: [facility] #: [id number] [address] [id number] [facility] [address] Machine Set Up : Lon uLcia MD NPI #: Suede Cleaner : 09/20/[id number].XMT.SENT REF 09/21/20.1437.XMT.SENT REF 09/21/20.XMT.SENT REF 33 SRC:RT SIDE OF NECK 34 Source of Specimen: RT SIDE OF NECK 35 Staphylococcus aureus Source of Specimen: RT SIDE OF NECK Scant growth Based on susceptibility to oxacillin this isolate would be susceptible to: *Penicillinase-stable penicillins, such as: Cloxacillin, Dicloxacillin, Nafcillin *Beta-lactam combination agents, such as: Amoxicillin-clavulanic acid, Ampicillin-sulbactam, Piperacillin-tazobactam *Oral cephems, such as: Cefaclor, Cefdinir, Cefpodoxime, Cefprozil, Cefuroxime, Cephalexin, Loracarbef *Parenteral cephems, such as: Cefazolin, Cefepime, Cefotaxime, Cefotetan, Ceftaroline, Ceftizoxime, Ceftriaxone, Cefuroxime *Carbapenems, such as: Doripenem, Ertapenem, Imipenem, Meropenem 36 Source of Specimen: RT SIDE OF NECK S = Susceptible; I = Intermediate; R = Resistant P = Positive; N = Negative MICS are expressed in micrograms per mL Antibiotic RSLT#1 RSLT#2 RSLT#3 RSLT#4 Ciprofloxacin R Clindamycin S Erythromycin R Gentamicin S Levofloxacin R Linezolid S Moxifloxacin R Oxacillin S Penicillin R Quinupristin/Dalfopristin S Rifampin S Tetracycline S Trimethoprim/Sulfa S Vancomycin S 37 NORMAL RANGES Age WBC RBC HGB HCT MCV PLT Adult M 4.1-10.9 4.20-6.30 12.0-18.0 37.0-51.0 80-97 140-440 Adult F 4.1-10.9 4.04-5.48 12.0-18.0 37.0-51.0 80-97 140-440 0 -1 Yr 5.0-20.0 3.9-5.9 15-18 MV: 44 MV: 91 MV: 277 2-9 Yr. 6.0-17.0 3.8-5.4 11-13 MV: 37 MV: 78 MV: 300 10 Yrs. 5.0-13.0 3.8-5.4 12-15 MV: 39 MV: 80 MV: 250 NOTE: * FOR ADULT BLACK MALES AND FEMALES, NORMAL WBC IS 2.9-7.7 K/ML * FOR ADULT BLACK MALES AND FEMALES, NORMAL RBC,HGB, AND HCT IS 5% LESS SOURCE FOR DATA: [employer] 1800 OPERATION MANUAL( AUTOMATED BLOOD COUNTS AND DIFF.) APPENDIX B-3 CHRONIC KIDNEY DISEASE STAGING PER NKF: MALE GFR INTERPRETATION: 20-49 YRS: >60 mL/min Normal 50-59 YRS: >56 mL/min Normal 60-69 YRS: >49 mL/min Normal 70-79 YRS: >42 mL/min Normal 80 and above >35 mL/min Normal FEMALE GRF INTERPRETATION: 20-39 YRS: >60 mL/min Normal 40-49 YRS: >58 mL/min Normal 50-59 YRS: >51 mL/min Normal 60-69 YRS: >45 mL/min Normal 70-79 YRS: >39 mL/min Normal 80 and above >32 mL/min NormalCLASSIFICATION CHOLESTEROL FOR ADULTS CHILDREN/ADOLESCENTS* DESIRABLE: <200 MG/DL <170 MG/DL BORDER-LINE HIGH RISK: 200-239 MG/DL 170-199 MG/DL HIGH RISK: >240 MG/DL >200 MG/DL CLASS. FOR PRIMARY LDL CHOL PREVENTION: LDL CHOL-CHILD/ADOLESCENTS* DESIRABLE: <130 MG/DL <110 MG/DL BORDERLINE-HIGH RISK: 130-159 MG/DL 110-129 MG/DL HIGH RISK: >160 MG/DL >130 MG/DL *CHILDREN AND ADOLESCENTS REPRESENTS INDIVIDUALA AGED 2-19 YEARS EXCLUSIVE. 38 CKD-EPI 39 CKD-EPI Procedures Date Code Description Status 09/26/2020 48540 Office/Outpatient Established Mo d MDM 30-39 Min Completed 09/15/2020 04475 Office/Outpatient Established Mo d MDM 30-39 Min Completed 07/26/2020 50408 Office/Outpatient Established Lo w MDM 20-29 Min Completed 07/06/2020 03080 Office/Outpatient Established Mo d MDM 30-39 Min Completed Medical Devices Description No Information Available Encounters Type Date Location Provider Dx Diagnosis Office Visit 09/26/2020 2:30p [facility] Maggy Montoya FNP-BC L02.611 Cutaneous abscess of right foot Office Visit 09/15/2020 9:15a [facility] Maggy Montoya FNP-BC L02.611 Cutaneous abscess of right foot M79.671 Pain in right foot R60.9 Edema, unspecified Office Visit 07/26/2020 4:30p [facility] Maggy Montoya FNP-BC L03.221 Cellulitis of neck Office Visit 07/06/2020 10:30a [facility] Maggy Montoya FNP-BC E11.9 Type 2 diabetes mellitus without complications E78.5 Hyperlipidemia, unspecified K21.9 Gastro-esophageal reflux dis ease without esophagitis Assessments Date Code Description Provider 09/26/2020 L02.611 Cutaneous abscess of right foot Maggy Montoya FNP-BC 09/15/2020 L02.611 Cutaneous abscess of right foot Maggy Montoya FNP-BC 09/15/2020 M79.671 Pain in right foot Rounds, Maggy Briceño, [facility] 09/15/2020 R60.9 Edema, unspecified Lindsay, Maggy Briceño, [facility] 07/26/2020 L03.221 Cellulitis of neck Lindsay, Maggy Briceño, [facility] 07/06/2020 E11.9 Type 2 diabetes mellitus without complications Maggy Montoya, [facility] 07/06/2020 E78.5 Hyperlipidemia, unspecified Roun ds, Maggy Briceño, [facility] 07/06/2020 K21.9 Gastro-esophageal reflux disease without esophagitis RoundsMaggy [facility] 06/30/2020 E78.5 Hyperlipidemia, unspecified Marco Antonio Ascencio D.O., [facility] 06/30/2020 E11.9 Type 2 diabetes mellitus without complications Oneil Ascencio D.O., [facility] 06/30/2020 R39.12 Poor urinary stream Oneil mccall D.O., [facility] Plan of Treatment Future Appointment(s):* 11/09/2020 3:40 pm - Juanjose Macias M.D. at [facility] Functional Status Description No Information Available Mental Status Description No Information Available Referrals Refer to Reason for Referral Status Appt Date Alin Celeste M.D. cellulitis right foot, ulcer, possib le osteomyelitis Sent [address] [place] [address] [phone]
--- OUTSIDE RECORDS SUMMARY | 2020-12-19 10:43 | CCD ---
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 e confirmed 991200236 Problem Non-pressure chronic ulcer o f other part of unspecified foot with unspecified severity L97.509 Active confirmed [id number] ALLERGIES No Known Allergies ENCOUNTERS from 1960 to 2020-10-31 Encounter Location Date Provider Diagnosis [facility] [address] W[facility] [address] [phone] [place] [address] Oct, Alin Celeste IMMUNIZATIONS No Information SOCIAL HISTORY Tobacco Use: Social History Observation Description Date Details (start date - stop date) Never Smoker Sex Assigned At : Social History Observation Description Sex Assigned At Unknown Language: Question Answer Notes Languages spoken: Kiswahili Jain: Question Answer Notes Jain No druze beliefs that would impact health care. Alcohol Screening: Question Answer Notes Did you have a drink containing alcohol in the past year? No Points 0 Interpretation Negative Tobacco Use: Question Answer Notes Are you a: never smoker REASON FOR REFERRAL No Information VITAL SIGNS No information MEDICATIONS Medication SIG (Take, Route, Frequency, Duration) Notes Start Da te End Date Status oxyCODONE-Acetaminophen 5-325 MG 1 tablet as needed Orally every 6 hr s Active Rosuvastatin Calcium 10 MG 1 tablet Orally Once a day for 30 day(s) Active SITagliptin Phosphate 100 MG 1 tablet Orally Once a day for 30 day(s) Active metFORMIN HCl 1000 MG 1 tablet with a meal Orally Once a day for 30 day(s) Active Cimetidine 200 MG 1 tablet at bedtime Orally Once a day for 30 day(s) Active [place] 3 1000 MG 1 capsule Orally Once [...] a day for 3 0 day(s) Active PROCEDURES No Information RESULTS No Results REASON FOR VISIT information MEDICAL (GENERAL) HISTORY Type Description Date Medical [...] OF TREATMENT Next Appt Details Provider Name:Alin Celeste, 08:15:00 AM, [address], , [place], [address], Insurance Providers Payer Name Payer Address Payer Phone Insured Name Patient Relati onship to Insured Coverage Start Date Coverage End Date [facility] FEDERAL [address] [address] [facility] [id number] [address]
--- OUTSIDE RECORDS SUMMARY | 2020-12-19 10:43 | CCD ---
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 L97.412 Active confirmed 500968730 Problem Type 2 diabetes mellitus with foot ulcer E11.621 Active confirmed 807858201 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 Activ e confirmed 255316017 Problem Non-pressure chronic ulcer o f other part of unspecified foot with unspecified severity L97.509 Active confirmed [id number] ALLERGIES No Known Allergies ENCOUNTERS from 1960 to 2020-11-03 Encounter Location Date Provider Diagnosis [facility] [address] [facility] [phone] [place] [address] Nov, Alin Celeste IMMUNIZATIONS No Information SOCIAL HISTORY Tobacco Use: Social History Observation Description Date Details (start date - stop date) Never Smoker Sex Assigned At : Social History Observation Description Sex Assigned At Unknown Language: Question Answer Notes Languages spoken: Japanese Adventism: Question Answer Notes Adventism No episcopalian beliefs that would impact health care. Alcohol [...] Once a day for 30 day(s) Active [place] 3 1000 MG 1 capsule Orally Once [...] Information RESULTS No Results REASON FOR VISIT Pain MEDICAL (GENERAL) HISTORY Type Description Date Medical [...] Appt Details Provider Name:Alin Celeste, 08:15:00 AM, [address], , [place], [address], Provider Name:Alin Celeste 08:00:00 AM, [address], , [place], [address], Insurance Providers Payer Name Payer Address Payer Phone Insured Name Patient Relati onship to Insured Coverage Start Date Coverage End Date [facility] FEDERAL [address] [address] [facility] [id number] [address] self
--- OUTSIDE RECORDS SUMMARY | 2020-12-19 10:43 | CCD ---
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 Activ e confirmed 551946474 Problem Non-pressure chronic ulcer o f other part of unspecified foot with unspecified severity L97.509 Active confirmed [id number] ALLERGIES No Known Allergies ENCOUNTERS from 1960 to 2020-11-03 Encounter Location Date Provider Diagnosis [facility] [address] [facility] [phone] [place] [address] Oct, Alin Celeste 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 Alcohol Screening: Question Answer Notes Did you have a drink containing alcohol in the past year? No Points 0 Interpretation Negative Tobacco Use: Question Answer Notes Are you a: never smoker REASON FOR REFERRAL No Information VITAL SIGNS Weight 250 lbs Oct, Height 74 in Oct, BMI 32.09 kg/m2 Oct, Heart Rate 72 /min Oct, Respiratory Rate 19 /min Oct, Temperature 98.3 degrees Fahrenheit Oct, Oximetry 97 Oct, Blood pressure systolic 162 mm Hg Oct, Blood pressure diastolic 90 mm Hg Oct, MEDICATIONS Medication SIG (Take, [...] Once a day for 30 day(s) Active [place] 3 1000 MG 1 capsule Orally Once [...] day for 3 0 day(s) Active PROCEDURES from 1960 to 2020-11-03 Procedure Date Ordered Result Body Site Medication: Silver Nitrate Stick topically 2020-10-30 N/A Medication: 4% Lidocaine topical cream (Anecream) 5gm 2020-10-30 N/A RESULTS No Results REASON FOR VISIT [...] Treatment Notes Treatm ent Clinical Notes Oct, 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 [id number] [address]
--- OUTSIDE RECORDS SUMMARY | 2020-12-19 10:43 | CCD | Continuity of Care Document ---
Author Author Eliot MACIAS M.D. Organization Unknown Address [address] [address] Phone [phone] Care Team Providers Care Forensic Specialist Name Role Phone Oneil Ascencio D.O. AUTM [phone] Problems Active Problems Provider Date Impotence of organic origin Teresa Marquez FNP-C O nset: 12/18/2012 Hyperglycemia Juanjose Macias M.D. Onset: 5 Diabetes mellitus Oneil Ascencio D.O., FAAFP Onset: 06/01 Hyperlipidemia Oneil Ascencio D.O., GUSTABO Onset: 06/01 Gastroesophageal reflux disease Vivien Chappell [...] SIG Qnty Indications Ordering Provide r Date Gabapentin 300mg Capsules take one capsule by mouth three times a day 270caps Juanjose Macias M. D. 11/09/2020 Onetouch Verio Strips test glucose every day and as needed 100units Maggy Montoya FNP-BC 021 Metformin HCL 1000mg Tablets take 1 tablet every morning then 1/2 pm 135tabs Maggy Montoya FNP-BC 02/18/2020 Tamsulosin HCL 0.4mg Capsules one cap by mouth at night 90caps Oneil Ascencio D.O., [facility] Omeprazole 20mg Tablets DR take one tab po daily 30tabs Oneil Ascencio D.O., [facility] Januvia 100mg Tablets Take 1 Tablet By Mouth Every Day. Maximum Daily Dose Is 1 90tabs E11.9 Oneil Ascencio D.O., [facility] 03/19/2019 Rosuvastatin Calcium 10mg Tablets Take 1 Tablet By Mouth Every Day. Maximum Daily Dose Is 1 90tabs Maggy Montoya FNP-BC 03/09/2019 Blood Glucose Monitoring System W/Device Kit One touch verio use once a day and as needed as directed 1uni ts E11.9 Oneil Ascencio D.O., [facility] 03/04/2019 Blood Glucose Test Strips one touch use once a day and as needed (dx: e11.9) 100units E11.9 Peter Montoya [facility] 03/04/2019 Lancets Misc us e every day and as needed as directed 100units E11.9 Oneil Ascencio D.O., [facility] 04/2019 Levitra 10mg Tablets 1 tab by mouth daily as needed 12tabs Juanjose Macias M.D. 06/10/19 15 Asa 81 Capsules 1 by mouth ev linh Oneil Ascencio D.O., [facility] History Medications Amoxicillin/Clavulanate Potassium 875-125mg Tablets 1 tab by mouth twice a day for 10 days 20tabs Maggy Colon FNPFranki 09/15/2020 - 09/26/2020 Doxycycline Hyclate 100mg Capsules 1 cap by mouth twice a day 20caps Maggy Montoya [facility] 07/02 - 08/05/2020 Medications Administered in Office Medication SIG Qnty Indications Ordering Provider Date Injection (SC)/(Im) Injection Oneil Ascencio D.O., [facility] 09/20/2011 Immunizations CPT Code Status Date Vaccine Lot # [id number] Given 12/24/2019 Influenza Virus Vaccine, Quadrivalent, Slit Virus, Im Use 3Y & Up [id number] Given 09/20/2011 Tdap Tetanus,Dip htheria Toxoids/Acellular Pertussis 7Yrs Or Older [id number] Vital Signs Date Vital Result Comment 11/09/2020 3:07pm BP Systolic 136 mmHg BP Diastolic 80 mmHg Body Temperature 98.2 F Heart Rate 105 /min Respiratory Rate 17 /min Height 74 inches 6'2" [place] Body Weight 190 lb O2 % BldC Oximetry 99 % (AT Rest), (Room Air ) 09/26/2020 2:25pm BP Systolic 136 mmHg BP Diastolic 86 mmHg Body Temperature 97.8 F Heart Rate 82 /min Respiratory Rate 20 /min Height 74 inches 6'2" Weight 253.00 lb [place] Body Weight 190 lb BMI (Body Mass Index) 32.5 kg/m2 O2 % BldC Oximetry 97 % Results Test Acquired Date Facility Test Result H/L Range Note Comprehensive Metabolic Panel 09/18/2020 [place] [address] [phone] Comprehensive Metabo (SEE NOTE) 1 Sodium 140 [...] >60 mL/min 2 Laboratory test finding 09/18/2020 [place] [address] [phone] CRP (High Sensitivity) 86.66 mg/L High 1.00 - 3. 00 3 Laboratory test finding 09/18/2020 [place] [address] [phone] Vancomycin Trough 5.6 ug/mL Low 10.0 - 15.0 4 CBC W/Automated Diff 09/18/2020 [facility] [place], [place] [address] [phone] CBC W/Automated Diff (SEE NOTE) 5 WBC [...] Lymph 22.8 % Low 25.0 - 40.0 [place] 9.4 % High 3.0 - 8.0 Eos 3.8 % 0.0 - 7.0 Baso 1.3 % 0.0 - 2.0 %Ig 4.2 % High 0.0 - 0.0 %NRBC 0.0 % 0.0 - 0.0 #Neut 3.73 10^3/uL 2.00 - 6.90 #Lymph 1.45 10^3/uL 0.60 - 3.40 #[place]agoner 0.60 10^3/uL 0.00 - 0.90 #Eos 0.24 10^3/uL 0.00 - 0.70 #Baso 0.08 10^3/uL 0.00 - 0.20 #Ig 0.27 10^3/uL High 0.00 - 0.10 #NRBC 0.00 10^3/uL 0.00 - 0.00 Manual Diff NOT INDICATED RBC Morph NOT INDICATED Laboratory test finding 09/17/2020 [place], [place] [address] [phone] Hgba1c 6.7 % High 4.4 - 6.1 6 CBC W/Automated Diff 09/17/2020 [place] [address] [phone] CBC W/Automated Diff (SEE NOTE) 7 WBC [...] Lymph 24.3 % Low 25.0 - 40.0 [place] 13.7 % High 3.0 - 8.0 Eos 4.0 % 0.0 - 7.0 Baso 0.9 % 0.0 - 2.0 %Ig 2.2 % High 0.0 - 0.0 %NRBC 0.0 % 0.0 - 0.0 #Neut 3.05 10^3/uL 2.00 - 6.90 #Lymph 1.35 10^3/uL 0.60 - 3.40 #[place]agoner 0.76 10^3/uL 0.00 - 0.90 #Eos 0.22 10^3/uL 0.00 - 0.70 #Baso 0.05 10^3/uL 0.00 - 0.20 #Ig 0.12 10^3/uL High 0.00 - 0.10 #NRBC 0.00 10^3/uL 0.00 - 0.00 Manual Diff NOT INDICATED RBC Morph NOT INDICATED Comprehensive Metabolic Panel 09/17/2020 [place] [address] [phone] Comprehensive Metabo (SEE NOTE) 8 Sodium 138 [...] >60 mL/min 9 Laboratory test finding 09/17/2020 [place] [address] [phone] CRP (High Sensitivity) 153.47 mg/L High 1.00 - 3 .00 10 Comprehensive Metabolic Panel 09/16/2020 [place] [address] [phone] Comprehensive Metabo (SEE NOTE) 11 Sodium 137 [...] >60 mL/min 12 Laboratory test finding 09/16/2020 [facility] [place] [address] [phone] CRP (High Sensitivity) 273.52 mg/L High 1.00 - 3 .00 13 Sedimentation Rate 09/16/2020 [facility] [place], [place] [address] [phone] Sed Rate 67 mm/hr High 0 - 20 Sed Rate Reenter 67 CBC W/Automated Diff 09/16/2020 [facility] [place] [address] [phone] CBC W/Automated Diff (SEE NOTE) 14 WBC [...] Lymph 9.2 % Low 25.0 - 40.0 [place] 10.9 % High 3.0 - 8.0 Eos 2.1 % 0.0 - 7.0 Baso 0.3 % 0.0 - 2.0 %Ig 0.8 % High 0.0 - 0.0 %NRBC 0.0 % 0.0 - 0.0 #Neut 6.98 10^3/uL High 2.00 - 6.90 #Lymph 0.84 10^3/uL 0.60 - 3.40 #[place]er 0.99 10^3/uL High 0.00 - 0.90 #Eos 0.19 10^3/uL 0.00 - 0.70 #Baso 0.03 10^3/uL 0.00 - 0.20 #Ig 0.07 10^3/uL 0.00 - 0.10 #NRBC 0.00 10^3/uL 0.00 - 0.00 Manual Diff NOT INDICATED RBC Morph NOT INDICATED Comprehensive Metabolic Panel 09/15/2020 [place] [address] [phone] Comprehensive Metabo (SEE NOTE) 15 Sodium 138 [...] See Comment: 20 CBC W/Automated Diff 09/15/2020 [facility] [address] [phone] CBC W/Automated Diff (SEE NOTE) 21 WBC [...] Lymph 5.2 % Low 25.0 - 40.0 [place] 12.6 % High 3.0 - 8.0 Eos 0.5 % 0.0 - 7.0 Baso 0.3 % 0.0 - 2.0 %Ig 1.0 % High 0.0 - 0.0 %NRBC 0.0 % 0.0 - 0.0 #Neut 9.51 10^3/uL High 2.00 - 6.90 #Lymph 0.61 10^3/uL 0.60 - 3.40 #Wagoner 1.49 10^3/uL High 0.00 - 0.90 #Eos 0.06 10^3/uL 0.00 - 0.70 #Baso 0.04 10^3/uL 0.00 - 0.20 #Ig 0.12 10^3/uL High 0.00 - 0.10 #NRBC 0.00 10^3/uL 0.00 - 0.00 Manual Diff SEE BELOW Segs 76 % 37 - 80 Band 1 % 0 - 5 %Lymph 7 % Low 25 - 40 %Wagoner 16 % High 3 - 8 RBC [...] eGFR 121 # Calc 23 eGFR Non-Afr. Jamaican 104 # Calc 24 Laboratory test finding 09/15/2020 [facility] Sedimentation Rate 54 mm/hr High 0 - 20 Culture Blood 09/15/2020 [facility] [place] [address] [phone] Culture Blood (SEE NOTE) 25 Laboratory test finding 09/15/2020 [facility] [place] [address] [phone] CRP (High Sensitivity) 280.00 mg/L High 1.00 - 3 .00 26 CBC W/Automated Diff 09/15/2020 [facility] [place] [address] [phone] CBC W/Automated Diff (SEE NOTE) 27 WBC [...] Lymph 8.8 % Low 25.0 - 40.0 [place] 12.1 % High 3.0 - 8.0 Eos 1.0 % 0.0 - 7.0 Baso 0.5 % 0.0 - 2.0 %Ig 1.1 % High 0.0 - 0.0 %NRBC 0.0 % 0.0 - 0.0 #Neut 8.33 10^3/uL High 2.00 - 6.90 #Lymph 0.96 10^3/uL 0.60 - 3.40 #[place] 1.32 10^3/uL High 0.00 - 0.90 #Eos 0.11 10^3/uL 0.00 - 0.70 #Baso 0.05 10^3/uL 0.00 - 0.20 #Ig 0.12 10^3/uL High 0.00 - 0.10 #NRBC 0.00 10^3/uL 0.00 - 0.00 Manual Diff SEE BELOW Segs 77 % 37 - 80 %Lymph 11 % Low 25 - 40 %[place]agoner 11 % High 3 - 8 %Eos 1 % 0 - 7 RBC Morph NOT INDICATED Sedimentation Rate 09/15/2020 [facility] [place] [address] [phone] Sed Rate 59 mm/hr High 0 - 20 Sed Rate Reenter 59 Laboratory test finding 09/15/2020 [place] [address] [phone] Culture Blood (SEE NOTE) 28 Laboratory test finding 09/15/2020 [place] [address] [phone] Culture Wound (SEE NOTE) 29, 30 Laboratory test finding 09/15/2020 [place] [address] [phone] Culture Aerobic/Anaerobic (SEE NOTE) 31, 32 Laboratory test finding 09/15/2020 [place] [address] [phone] Lactic Acid (Lactate) 1.3 mmol/L 0.2 - [...] eGFR 114 # Calc 38 eGFR Non-Afr. Jamaican 98 # Calc 39 Lipid Panel 06/30/2020 [...] 10-15 mg/L Severe Infections Trough 15-20 mg/L [employer]ATIONS [employer]NER Infections Trough 20-25 mg/L *Severe Infections - [...] 80 and above >32 mL/min Normal [address] [facility]/S HS-CRP CUT-OFF: RELATIVE RISK: <1.0 mg/L Low [...] HCT IS 5% LESS SOURCE FOR DATA: [employer] DYN 1800 OPERATION MANUAL( AUTOMATED BLOOD COUNTS [...] CKD-EPI 25 _CULTURE BLOOD_ [place] [address] CLIA# [id number] SEE SCANNED REPORT { PRELIM 26 CDC/S HS-CRP CUT-OFF: RELATIVE RISK: <1.0 mg/L Low 1.0 - 3.0 mg/L A verage >3.0 mg/L High Optimally, the average of HS-CRP results repeated two weeks apart should be used for risk assessment. 27 COMPLETE BLOOD COUNT 28 _CULTURE BLOOD_ TEST [place] [address] CLIA# [id number] SEE SCANNED REPORT { PRELIM 29 SPECIMEN SOURCE:: Foot 30 _CULTURE WOUND_ ^^371183 ^$012916 $$905821 ^^745270 $$637462 $$993720 $$059376 $$720944 $$[id number] REPORTED DATE/TIME: 09/22/2020 11:06 Culture: CULTURE WOUND [...] next page -- Patient: SHAHID JANG Order: [id number] Page 2 Culture: CULTURE WOUND Status: Final Heavy growth Susceptibility not normally performed on this organism. Previous result entered on 09/21/2020 14:08 ET Bacillus species, not Bacillus anthracis Previous result entered on 09/20/2020 11:08 ET Bacillus species, not Bacillus anthracis Bacillus species, not Bacillus anthracis Flag: A Patient: SHAHID JANG Order: [id number] Page 3 Culture: CULTURE WOUND Status: Final ISOLATE 1 Staphylococcus aureus Isolate 1 Antibiotic DEION Int Units ug/mL Ciprofloxacin R R . . . . . .185-9 Clindamycin S S . . . . . .193-3 Erythromycin R R . . . . . .233-7 Gentamicin S S . . . . . .267-5 Levofloxacin R R . . . . . .48987-4 Linezolid S S . . . . . .90691-2 Oxacillin R R . . . . . .383-0 Penicillin R R . . . . . .6932-8 Rifampin S S . . . . . .428-3 Tetracycline S S . . . . . .496-0 Trimethoprim/Sulfa S S . . . . . .516-5 Vancomycin S S . . . . . .524-9 P1 Test performed by: [facility] #: [id number] [address] [id number] [facility] [address] Customer Supply Chain Analyst : Lon Lucia MD NPI #: Pasteurizer Helper : 09/20/20.1246.XMT.SENT REF 09/21/20.2007.XMT.SENT REF 09/22/20.1415.XMT.SENT REF 31 SOURCE: foot 32 _CULTURE AEROBIC/ANAEROBIC_ ^$713711 ^$782120 $$356072 $$216142 ^^313611 $$788287 $$958638 $$473427 $$132979 $$714587 ^^635430 $$920096 $$515692 $$885146 $$[id number] $$[id number] REPORTED DATE/TIME: 09/21/2020 16:07 Culture: CULTURE AEROBIC/ANAEROBIC [...] next page -- Patient: SHAHID JANG Order: [id number] Page 2 Culture: CULTURE AEROBIC/ANAEROBIC Status: Final [...] anthracis Flag: A Patient: SHAHID JANG Order: [id number] Page 3 Culture: CULTURE AEROBIC/ANAEROBIC Status: Final ISOLATE 1 Staphylococcus aureus Isolate 1 Antibiotic DEION Int Units ug/mL Ciprofloxacin R R . . . . . .185-9 Clindamycin S S . . . . . .193-3 Erythromycin R R . . . . . .233-7 Gentamicin S S . . . . . .267-5 Levofloxacin R R . . . . . .29520-7 Linezolid S S . . . . . .44247-2 Moxifloxacin R R . . . . . .47170-4 Oxacillin S S . . . . . .383-0 Penicillin R R . . . . . .6932-8 Quinupristin/Dalfopristin S S . . . . . .38624-9 Rifampin S S . . . . . .428-3 Tetracycline R R . . . . . .496-0 Trimethoprim/Sulfa S S . . . . . .516-5 Vancomycin S S . . . . . .524-9 P1 Test performed by: [facility] #: [id number] [address] [id number] [facility] [address] Customer Supply Chain Analyst : Lon Lucia MD NPI #: Pasteurizer Helper : 09/20/20.0631.XMT.SENT REF 09/21/20.1437.XMT.SENT REF 09/21/20.XMT.SENT REF [...] HCT IS 5% LESS SOURCE FOR DATA: [employer] 1800 OPERATION MANUAL( AUTOMATED BLOOD COUNTS AND [...] 39 CKD-EPI Procedures Date Code Description Status 11/09/2020 13482 Office/Outpatient Established Mo d MDM 30-39 Min Completed 09/26/2020 12072 Office/Outpatient Established Mo d MDM 30-39 Min Completed 09/15/2020 28652 Office/Outpatient Established Mo d MDM 30-39 Min Completed 07/26/2020 66946 Office/Outpatient Established Lo w MDM 20-29 Min Completed 07/06/2020 16553 Office/Outpatient Established Mo d MDM 30-39 Min Completed Medical Devices Description No Information Available Encounters Type Date Location Provider Dx Diagnosis Office Visit 11/09/2020 3:40p [place] [facility] Juanjose Macias M.D . E11.40 Type 2 diabetes mellitus with diabetic neuropathy, unsp Office Visit 09/26/2020 2:30p [place] [facility] Maggy Montoya FNP-BC L02.611 Cutaneous abscess of right foot Office Visit 09/15/2020 9:15a [place] [facility] Maggy Montoya FNP-BC L02.611 Cutaneous abscess of right foot M79.671 Pain in right foot R60.9 Edema, unspecified Office Visit 07/26/2020 4:30p Maggy Crandall FNP-BC L03.221 Cellulitis of neck Office Visit 07/06/2020 10:30a Maggy Crandall FNP-BC E11.9 Type 2 diabetes mellitus without complications E78.5 Hyperlipidemia, unspecified K21.9 Gastro-esophageal reflux dis ease without esophagitis Assessments Date Code Description Provider 11/09/2020 E11.40 Type 2 diabetes moses itus with diabetic neuropathy, unspecified Juanjose Macias M.D. 09/26/2020 L02.611 Cutaneous abscess of right foot Maggy Montoya [facility] 09/15/2020 L02.611 Cutaneous abscess of right foot Maggy Montoya [facility] 09/15/2020 M79.671 [facility] R60.9 Edema, unspecified [facility] 07/26/2020 L03.221 Cellulitis of neck Maggy Montoya [facility] 07/06/2020 E11.9 Type 2 diabetes mellitus without complications Maggy Montoya [facility] 07/06/2020 E78.5 Hyperlipidemia, unspecified Roun jewell [facility] 07/06/2020 K21.9 Gastro-esophageal reflux disease without esophagitis Maggy Montoya [facility] 06/30/2020 E78.5 Hyperlipidemia, unspecified Marco Antonio Ascencio D.O., [facility] 06/30/2020 E11.9 Type 2 diabetes mellitus without complications Oneil Ascencio D.O., [facility] 06/30/2020 R39.12 Poor urinary stream Oneil mccall D.O., [facility] Plan of Treatment No Information Available Functional Status Description No Information Available Mental Status Description No Information Available Referrals Refer to Reason for Referral Status Appt Date Alin Celeste M.D. cellulitis right foot, ulcer, possib le osteomyelitis Sent [address] [place] [address] [phone]
--- OUTSIDE RECORDS SUMMARY | 2020-12-19 10:43 | CCD ---
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 Z79.4 Activ e confirmed 778472672 Problem Non-pressure chronic ulcer o f other part of unspecified foot with unspecified severity L97.509 Active confirmed [id number] ALLERGIES No Known Allergies ENCOUNTERS from 1960 to 2020-10-20 Encounter Location Date Provider Diagnosis [facility] Wound Care [address] [facility] [phone] [place] [address] Oct, Alin Celeste Type 2 diabetes mellitus wit h foot ulcer E11.621 ; Non- pressure chronic ulcer of right heel and midfoot with fat layer exposed L97.412 and Open wound T14.8XXA IMMUNIZATIONS No Information SOCIAL HISTORY Tobacco Use: Social History Observation Description Date Details (start date - stop date) Never Smoker Sex Assigned At : Social History Observation Description Sex Assigned At Unknown Language: Question Answer Notes Languages spoken: Occitan Caodaism: Question Answer Notes Caodaism No hoahaoism beliefs that would impact health care. Alcohol Screening: Question Answer Notes Did you have a drink containing alcohol in the past year? No Points 0 Interpretation Negative Tobacco Use: Question Answer Notes Are you a: never smoker REASON FOR REFERRAL No Information VITAL SIGNS Weight 250 lbs Oct, Height 74 in Oct, BMI 32.09 kg/m2 Oct, Heart Rate 82 /min Oct, Respiratory Rate 17 /min Oct, Temperature 98.2 degrees Fahrenheit Oct, Oximetry 97 Oct, Blood pressure systolic 161 mm Hg Oct, Blood pressure diastolic 83 mm Hg Oct, MEDICATIONS Medication SIG (Take, Route, Frequency, Duration) Notes Start Da te End Date Status Naproxen 250 MG 1 tablet with food [...] Once a day for 30 day(s) Active [place] 3 1000 MG 1 capsule Orally Once a day for 30 day(s) Active Cimetidine 200 MG 1 tablet at bedtime Orally Once a day for 30 day(s) Active Pantoprazole Sodium 40 MG 1 tablet Orally Once a day for 30 day(s) Active PROCEDURES No Information RESULTS No Results REASON FOR VISIT cast check MEDICAL (GENERAL) HISTORY Type Description Date Medical [...] fat layer exposed (ICD-10 - L97.412) Oct, Open wound (ICD-10 - T14.8XXA) Wound redressed PLAN OF TREATMENT Treatment Notes Assessment Notes Clinical Notes Open wound Wound redressed Next Appt Details 1 Week Reason: Provider Name:Alin Celeste, 01:30:00 PM, [address], , [place], [address], Insurance Providers Payer Name Payer Address Payer Phone Insured Name Patient Relati onship to Insured Coverage Start Date Coverage End Date [facility] [employer] [address] [address] [facility] [address] [address]
--- OUTSIDE RECORDS SUMMARY | 2020-12-19 10:43 | CCD ---
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.4 Activ e confirmed 202525830 Problem Non-pressure chronic ulcer o f other part of unspecified foot with unspecified severity L97.509 Active confirmed [id number] ALLERGIES No Known Allergies ENCOUNTERS from 1960 to 2020-10-17 Encounter Location Date Provider Diagnosis [facility] Wound Care [address] [facility] [phone] [place] [address] Oct, Alin Celeste Type 2 diabetes mellitus wit h foot ulcer E11.621 ; Open wound T14.8XXA and Non-pressure chronic ulcer of right heel and midfoot with fat layer exposed L97.412 IMMUNIZATIONS No Information SOCIAL HISTORY Tobacco Use: Social History Observation Description Date Details (start date - stop date) Never Smoker Sex Assigned At : Social History Observation Description Sex Assigned At Unknown Language: Question Answer Notes Languages spoken: Faroese Hinduism: Question Answer Notes Hinduism No confucianist beliefs that would impact health care. Alcohol Screening: Question Answer Notes Did you have a drink containing alcohol in the past year? No Points 0 Interpretation Negative Tobacco Use: Question Answer Notes Are you a: never smoker REASON FOR REFERRAL No Information VITAL SIGNS Weight 250 lbs Oct, Height 74 in Oct, BMI 32.09 kg/m2 Oct, Heart Rate 73 /min Oct, Respiratory Rate 16 /min Oct, Temperature 97.4 degrees Fahrenheit Oct, Oximetry 98 Oct, Blood pressure systolic 145 mm Hg Oct, Blood pressure diastolic 74 mm Hg Oct, MEDICATIONS Medication SIG (Take, Route, Frequency, Duration) Notes Start Da te End Date Status oxyCODONE-Acetaminophen 5-325 MG 1 tablet as needed Orally every 6 hr s Active Tamsulosin HCl 0.4 MG 1 capsule [...] a day for 3 0 day(s) Active [place] 3 1000 MG 1 capsule Orally Once [...] Information RESULTS No Results REASON FOR VISIT DFU [...] with foot ulcer (ICD-10 - E11.621) Oct, Open wound (ICD-10 - T14.8XXA) Oct, 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
--- OUTSIDE RECORDS SUMMARY | 2020-12-19 10:43 | CCD ---
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 Alcohol Screening: Question Answer Notes Did you have a drink containing alcohol in the past year? No Points 0 Interpretation Negative Tobacco Use: Question Answer Notes Are you a: never smoker REASON FOR REFERRAL No Information VITAL SIGNS Weight 250 lbs Nov, Height 74 in Nov, BMI 32.09 kg/m2 Nov, Heart Rate 84 /min Nov, Respiratory Rate 16 /min Nov, Temperature 97.7 degrees Fahrenheit Nov, Oximetry 98 Nov, Blood pressure systolic 181 mm Hg Nov, Blood pressure diastolic 92 mm Hg Nov, MEDICATIONS Medication SIG (Take, Route, Frequency, Duration) Notes Start Da te End Date Status Pomaria 3 1000 MG 1 capsule Orally Once [...] needed Orally every 6 hr s Active Cimetidine 200 MG 1 tablet at [...] Treatment Notes Treatm ent Clinical Notes Nov, 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
--- OUTSIDE RECORDS SUMMARY | 2020-12-19 10:43 | CCD ---
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 Activ e confirmed 550505248 Problem Non-pressure chronic ulcer o f other part of unspecified foot with unspecified severity L97.509 Active confirmed [id number] ALLERGIES No Known Allergies ENCOUNTERS from 1960 to 2020-10-13 Encounter Location Date Provider Diagnosis [facility] [address] [facility] [phone] [place] [address] Oct, Alin Celeste Open wound T14.8XXA ; Type 2 diabetes mellitus with foot ulcer E11.621 and Non-pressure chronic ulcer of right heel and midfoot with fat layer exposed L97.412 IMMUNIZATIONS No Information SOCIAL HISTORY Tobacco Use: Social History Observation Description Date Details (start date - stop date) Never Smoker Sex Assigned At : Social History Observation Description Sex Assigned At Unknown Language: Question Answer Notes Languages spoken: Palestinian Restoration: Question Answer Notes Restoration No church beliefs that would impact health care. Alcohol Screening: Question Answer Notes Did you have a drink containing alcohol in the past year? No Points 0 Interpretation Negative Tobacco Use: Question Answer Notes Are you a: never smoker REASON FOR REFERRAL from 1960 to 2020-10-13 Reason [employer] Diagnosis 1 Open wound (T14.8XXA) Referral Organization [facility] Wound Care Referring Provider First Name Alin Referring Provider Last Name Avilaruy Referring Provider Specialty [facility] Specialty Other supplier Referral Priority Routine General Notes Ruchi Clark 10/09/2020 11: 56:28 AM > REFERRAL FAXED VITAL SIGNS Weight 250 lbs Oct, Height 74 in Oct, BMI 32.09 kg/m2 Oct, Heart Rate 91 /min Oct, Respiratory Rate 16 /min Oct, Temperature 97.9 degrees Fahrenheit Oct, Oximetry 99 Oct, MEDICATIONS Medication SIG (Take, Route, Frequency, Duration) Notes Start Da te End Date Status SITagliptin Phosphate 100 MG 1 tablet Orally [...] a day for 3 0 day(s) Active Hayward 3 1000 MG 1 capsule Orally Once a day for 30 day(s) Active PROCEDURES No Information RESULTS No Results REASON FOR VISIT Right Foot ulcer MEDICAL (GENERAL) HISTORY Type Description Date Medical [...] Treatment Notes Treatm ent Clinical Notes Oct, Open wound (ICD-10 - T14.8XXA) Oct, Type 2 diabetes mellitus with foot ulcer (ICD-10 - E11.621) Oct, Non-pressure chronic ulcer o f right heel and midfoot with fat layer exposed (ICD-10 - L97.412) Oct, Other Debridement of a wound, infection, or burn material was printed,Pressure sores material was printed PLAN OF TREATMENT Referrals Referral Date Details [employer], [facility] Next Appt Details 1 Week Reason: Provider Name:Alin Celeste, 08:45:00 AM, [address], , [place], [address], Provider Name:Alin Celeste, 01:00:00 PM, [address], , [place], [address], Provider Name:Alin Celeste, 01:30:00 PM, [address], , [place], [address], Insurance Providers Payer Name Payer Address Payer Phone Insured Name Patient Relati onship to Insured Coverage Start Date Coverage End Date [facility] FEDERAL [address] [address] [facility] [id number] [address]
--- OUTSIDE RECORDS SUMMARY | 2020-12-19 10:43 | CCD ---
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 e confirmed 071731310 Problem Non-pressure chronic ulcer o f other part of unspecified foot with unspecified severity L97.509 Active confirmed [id number] ALLERGIES No Known Allergies ENCOUNTERS from 1960 to 2020-11-17 Encounter Location Date Provider Diagnosis [facility] [address] [phone] [place] [address] Nov, Alin Celeste IMMUNIZATIONS No Information SOCIAL HISTORY Tobacco Use: Social History Observation Description Date Details (start date - stop date) Never Smoker Sex Assigned At : Social History Observation Description Sex Assigned At Unknown Language: Question Answer Notes Languages spoken: Yoruba Jainism: Question Answer Notes Jainism No methodist beliefs that would impact health care. Alcohol [...] needed Orally every 6 hr s Unknown Menlo 3 1000 MG 1 capsule Orally Once [...] Information RESULTS No Results REASON FOR VISIT supplies MEDICAL (GENERAL) HISTORY Type Description Date Medical [...] Details Provider Name:Alin Celeste, 08:15:00 AM, [address], , [place], [address], Provider Name:Alin Celeste 08:15:00 AM, [address], , [place], [address], Provider Name:Alin Celeste 08:00:00 AM, [address], , [place], [address], Provider Name:Alin Celeste 11:00:00 AM, [address], , [place], [address], Insurance Providers Payer Name Payer Address Payer Phone Insured Name Patient Relati onship to Insured Coverage Start Date Coverage End Date [facility] [address] [address] [facility] [id number] [address]
--- OUTSIDE RECORDS SUMMARY | 2020-12-19 10:43 | CCD ---
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.4 Activ e confirmed 439931313 Problem Non-pressure chronic ulcer o f other part of unspecified foot with unspecified severity L97.509 Active confirmed [id number] ALLERGIES No Known Allergies ENCOUNTERS from 1960 to 2020-11-09 Encounter Location Date Provider Diagnosis [facility] [address] [facility] [phone] [place] [address] Nov, Alin Celeste IMMUNIZATIONS No Information SOCIAL HISTORY Tobacco Use: Social History Observation Description Date Details (start date - stop date) Never Smoker Sex Assigned At : Social History Observation Description Sex Assigned At Unknown Language: Question Answer Notes Languages spoken: Malay Lutheran: Question Answer Notes Lutheran No anabaptist beliefs that would impact health care. Alcohol Screening: Question Answer Notes Did you have a drink containing alcohol in the past year? No Points 0 Interpretation Negative Tobacco Use: Question Answer Notes Are you a: never smoker REASON FOR REFERRAL No Information VITAL SIGNS No information MEDICATIONS Medication SIG (Take, Route, Frequency, Duration) Notes Start Da te End Date Status Philo 3 1000 MG 1 capsule Orally Once [...] Information RESULTS No Results REASON FOR VISIT contact cast MEDICAL (GENERAL) HISTORY Type Description Date Medical [...] TREATMENT Next Appt Details Provider Name:Alin Celeste, 08:00:00 AM, [address], , [place], [address], Provider Name:Alin Celeste, 08:15:00 AM, [address], , [place], [address], Provider Name:Alin Celeste 08:15:00 AM, [address], , [place], [address], Provider Name:Alin Celeste 08:00:00 AM, [address], , [place], [address], Provider Name:Alin Celeste 11:00:00 AM, [address], , [place], [address], Insurance Providers Payer Name Payer Address Payer Phone Insured Name Patient Relati onship to Insured Coverage Start Date Coverage End Date [facility] [address] [address] [facility] [address] [address] self
--- OUTSIDE RECORDS SUMMARY | 2020-12-19 10:45 | CCD ---
Author Author [facility] Organization [facility] Address Unknown Phone Unavailable Care Team Providers Care Assistant [place] Coach Name Role Phone Jimmy JOE MD Unavailable Unavailable Jimmy JOE MD Unavailable Unavailable Jimmy JOE MD Unavailable Unavailable Jimmy JOE MD Unavailable Unavailable Jimmy JOE MD Unavailable Unavailable Jimmy JOE MD Unavailable Unavailable Jimmy JOE MD Unavailable Unavailable Jimmy JOE MD Unavailable Unavailable Jimmy JOE MD Unavailable Unavailable Jimmy JOE MD Unavailable Unavailable Jimmy JOE MD Unavailable Unavailable Jimmy JOE MD Unavailable Unavailable Jimmy JOE MD Unavailable Unavailable Jimmy JOE MD Unavailable Unavailable Jimmy JOE MD Unavailable Unavailable Jimmy JOE MD Unavailable Unavailable Jimmy JOE MD Unavailable Unavailable Jimmy JOE MD Unavailable Unavailable Jimmy JOE MD Unavailable Unavailable Jimmy JOE MD Unavailable Unavailable Jimmy JOE MD Unavailable Unavailable Jimmy JOE MD Unavailable Unavailable Jimmy JOE MD Unavailable Unavailable Jimmy JOE MD Unavailable Unavailable Jimmy JOE MD Unavailable Unavailable Jimmy JOE MD Unavailable Unavailable Jimmy JOE MD Unavailable Unavailable Jimmy JOE MD Unavailable Unavailable Jimmy JOE MD Unavailable Unavailable Jimmy JOE MD Unavailable Unavailable Jimmy JOE MD Unavailable Unavailable Jimmy JOE MD Unavailable Unavailable Jimmy JOE MD Unavailable Unavailable Jimmy JOE MD Unavailable Unavailable Jimmy JOE MD Unavailable Unavailable Jimmy JOE MD Unavailable Unavailable Jimmy JOE MD Unavailable Unavailable Jimmy JOE MD Unavailable Unavailable Jimmy JOE MD Unavailable Unavailable Jimmy JOE MD Unavailable Unavailable Jimmy JOE MD Unavailable Unavailable Jimmy JOE MD Unavailable Unavailable Jimmy JOE MD Unavailable Unavailable Jimmy JOE MD Unavailable Unavailable Jimmy JOE MD Unavailable Unavailable Jimmy JOE MD Unavailable Unavailable HEATH H RAYNA VITALE Unavailable Unavailable Jimmy JOE MD Unavailable Unavailable Jimmy JOE MD Unavailable Unavailable HEATH H RAYNA VITALE Unavailable Unavailable HEATH H RAYNA VITALE Unavailable Unavailable HEATH H RAYNA VITALE Unavailable Unavailable HEATH H RAYNA VITALE Unavailable Unavailable Jimmy JOE MD Unavailable Unavailable HEATH H RAYNA VITALE Unavailable Unavailable HEATH H RAYNA VITALE Unavailable Unavailable Jimmy JOE MD Unavailable Unavailable HEATH H RAYNA VITALE Unavailable Unavailable HEATH H RAYNA VITALE Unavailable Unavailable Jimmy JOE MD Unavailable Unavailable Jimmy JOE MD Unavailable Unavailable Jimmy JOE MD Unavailable Unavailable Jimmy JOE MD Unavailable Unavailable Jimmy JOE MD Unavailable Unavailable Jimmy JOE MD Unavailable Unavailable Jimmy JOE MD Unavailable Unavailable Jimmy JOE MD Unavailable Unavailable Jimmy JEO MD Unavailable Unavailable Jimmy JOE MD Unavailable Unavailable Jimmy JOE MD Unavailable Unavailable Jimmy JOE MD Unavailable Unavailable Jimmy JOE MD Unavailable Unavailable Jimmy JOE MD Unavailable Unavailable Jimmy JOE MD Unavailable Unavailable Jimmy JOE MD Unavailable Unavailable Jimmy JOE MD Unavailable Unavailable Barraclough, M Vivien PA Unavailable Unavailable Barraclough, M Vivien PA Unavailable Unavailable Barraclough, M Vivien PA Unavailable Unavailable Barraclough, M Vivien PA Unavailable Unavailable Barraclough, M Vivien PA Unavailable Unavailable Barraclough, M Vivien PA Unavailable Unavailable Barraclough, M Vivien PA Unavailable Unavailable Navin Huizar MD Unavailable Unavailable Navin Huizar MD Unavailable Unavailable Navin Huizar MD Unavailable Unavailable Navin Huizar MD Unavailable Unavailable Navin Huizar MD Unavailable Unavailable Navin Huizar MD Unavailable Unavailable LAURA, JEEPER OPERATOR-C KELLIE METAL RIVETER Unavailable Unavailable LAURA, JEEPER OPERATOR-C KELLIE METAL RIVETER Unavailable Unavailable LAURA, JEEPER OPERATOR-C KELLIE METAL RIVETER Unavailable Unavailable LAURA, JEEPER OPERATOR-C KELLIE METAL RIVETER Unavailable Unavailable LUARA, JEEPER OPERATOR-C KELLIE METAL RIVETER Unavailable Unavailable LAURA, JEEPER OPERATOR-C KELLIE METAL RIVETER Unavailable Unavailable LAURA, JEEPER OPERATOR-C KELLIE METAL RIVETER Unavailable Unavailable LAURA, JEEPER OPERATOR-C KELLIE METAL RIVETER Unavailable Unavailable LAURA, JEEPER OPERATOR-C KELLIE METAL RIVETER Unavailable Unavailable LAURA, JEEPER OPERATOR-C KELLIE METAL RIVETER Unavailable Unavailable FORNI, R MAGGIE DPM Unavailable Unavailable FORNI, R MAGGIE DPM Unavailable Unavailable FORNI, R MAGGIE DPM Unavailable Unavailable FORNI, R MAGGIE DPM Unavailable Unavailable FORNI, R MAGGIE DPM Unavailable Unavailable FORNI, R MAGGIE DPM Unavailable Unavailable FORNI, R MAGGIE DPM Unavailable Unavailable FORNI, R MAGGIE DPM Unavailable Unavailable FORNI, R MAGGIE DPM Unavailable Unavailable FORNI, R MAGGIE DPM Unavailable Unavailable JOSE, L TESSIE MD Unavailable Unavailable JOSE, L TESSIE MD Unavailable Unavailable JOSE, L TESSIE MD Unavailable Unavailable JOSE, L TESSIE MD Unavailable Unavailable JOSE, L TESSIE MD Unavailable Unavailable JOSE, L TESSIE MD Unavailable Unavailable JOSE, L TESSIE MD Unavailable Unavailable JOSE, L TESSIE MD Unavailable Unavailable JOSE, L TESSIE MD Unavailable Unavailable JOSE, L TESSIE MD Unavailable Unavailable JOSE, L TESSIE MD Unavailable Unavailable JOSE, L TESSIE MD Unavailable Unavailable JOSE, L TESSIE MD Unavailable Unavailable JOSE, L TESSIE MD Unavailable Unavailable JOSE, L TESSIE MD Unavailable Unavailable JOSE, L TESSIE MD Unavailable Unavailable JOSE, L TESSIE MD Unavailable Unavailable JOSE, L TESSIE MD Unavailable Unavailable JOSE, L TESSIE MD Unavailable Unavailable JOSE, L TESSIE MD Unavailable Unavailable [facility] [place] Unavailable Unavailable Barraclough, M Vivien PA Unavailable Unavailable Barraclough, M Vivien PA Unavailable Unavailable Barraclough, M Vivien PA Unavailable Unavailable Barraclough, M Vivien PA Unavailable Unavailable Barraclough, M Vivien PA Unavailable Unavailable Barraclough, M Vivien PA Unavailable Unavailable Rounds, M RILEY CLIMBING GUIDE Unavailable Unavailable Rounds, M RILEY CLIMBING GUIDE Unavailable Unavailable Rounds, M RILEY CLIMBING GUIDE Unavailable Unavailable Rounds, M RILEY CLIMBING GUIDE Unavailable Unavailable Rounds, M RILEY CLIMBING GUIDE Unavailable Unavailable Rounds, M RILEY CLIMBING GUIDE Unavailable Unavailable Rounds, M RILEY CLIMBING GUIDE Unavailable Unavailable Rounds, M RILEY CLIMBING GUIDE Unavailable Unavailable Rounds, M RILEY CLIMBING GUIDE Unavailable Unavailable Rounds, M RILEY CLIMBING GUIDE Unavailable Unavailable Rounds, M RILEY CLIMBING GUIDE Unavailable Unavailable Rounds, M RILEY CLIMBING GUIDE Unavailable Unavailable Rounds, M RILEY CLIMBING GUIDE Unavailable Unavailable Rounds, M RILEY CLIMBING GUIDE Unavailable Unavailable Rounds, M RILEY CLIMBING GUIDE Unavailable Unavailable Rounds, M RILEY CLIMBING GUIDE Unavailable Unavailable Rounds, M RILEY CLIMBING GUIDE Unavailable Unavailable Rounds, M RILEY CLIMBING GUIDE Unavailable Unavailable Rounds, M RILEY CLIMBING GUIDE Unavailable Unavailable Rounds, M RILEY CLIMBING GUIDE Unavailable Unavailable Rounds, M RILEY CLIMBING GUIDE Unavailable Unavailable Rounds, M RILEY CLIMBING GUIDE Unavailable Unavailable Rounds, M RILEY CLIMBING GUIDE Unavailable Unavailable Rounds, M RILEY CLIMBING GUIDE Unavailable Unavailable Rounds, M RILEY CLIMBING GUIDE Unavailable Unavailable Rounds, M RILEY CLIMBING GUIDE Unavailable Unavailable Rounds, M RILEY CLIMBING GUIDE Unavailable Unavailable Rounds, M RILEY CLIMBING GUIDE Unavailable Unavailable Rounds, M RILEY CLIMBING GUIDE Unavailable Unavailable Rounds, M RILEY CLIMBING GUIDE Unavailable Unavailable Rounds, M RILEY CLIMBING GUIDE Unavailable Unavailable Rounds, M RILEY CLIMBING GUIDE Unavailable Unavailable Rounds, M RILEY CLIMBING GUIDE Unavailable Unavailable Rounds, M RILEY CLIMBING GUIDE Unavailable Unavailable Rounds, M RILEY CLIMBING GUIDE Unavailable Unavailable Rounds, M RILEY CLIMBING GUIDE Unavailable Unavailable Rounds, M RILEY CLIMBING GUIDE Unavailable Unavailable Rounds, M RILEY CLIMBING GUIDE Unavailable Unavailable Rounds, M RILEY CLIMBING GUIDE Unavailable Unavailable Rounds, M RILEY CLIMBING GUIDE Unavailable Unavailable Rounds, M RILEY CLIMBING GUIDE Unavailable Unavailable Rounds, M RILEY CLIMBING GUIDE Unavailable Unavailable Rounds, M RILEY CLIMBING GUIDE Unavailable Unavailable Rounds, M RILEY CLIMBING GUIDE Unavailable Unavailable Rounds, M RILEY CLIMBING GUIDE Unavailable Unavailable Rounds, M RILEY CLIMBING GUIDE Unavailable Unavailable Rounds, M RILEY CLIMBING GUIDE Unavailable Unavailable Rounds, M RILEY CLIMBING GUIDE Unavailable Unavailable Rounds, M RILEY CLIMBING GUIDE Unavailable Unavailable Rounds, M RILEY CLIMBING GUIDE Unavailable Unavailable Rounds, M RILEY CLIMBING GUIDE Unavailable Unavailable Rounds, M RILEY CLIMBING GUIDE Unavailable Unavailable Rounds, M RILEY CLIMBING GUIDE Unavailable Unavailable Rounds, M RILEY CLIMBING GUIDE Unavailable Unavailable Rounds, M RILEY CLIMBING GUIDE Unavailable Unavailable Rounds, M RILEY CLIMBING GUIDE Unavailable Unavailable Rounds, M RILEY CLIMBING GUIDE Unavailable Unavailable Rounds, M RILEY CLIMBING GUIDE Unavailable Unavailable Rounds, M RILEY CLIMBING GUIDE Unavailable Unavailable Rounds, M RILEY CLIMBING GUIDE Unavailable Unavailable Rounds, M RILEY CLIMBING GUIDE Unavailable Unavailable Rounds, M RILEY CLIMBING GUIDE Unavailable Unavailable Rounds, M RILEY CLIMBING GUIDE Unavailable Unavailable Rounds, M RILEY CLIMBING GUIDE Unavailable Unavailable Rounds, M RILEY CLIMBING GUIDE Unavailable Unavailable Rounds, M RILEY CLIMBING GUIDE Unavailable Unavailable Rounds, M RILEY CLIMBING GUIDE Unavailable Unavailable Rounds, M RILEY CLIMBING GUIDE Unavailable Unavailable Rounds, M RILEY CLIMBING GUIDE Unavailable Unavailable Rounds, M RILEY CLIMBING GUIDE Unavailable Unavailable Rounds, M RILEY CLIMBING GUIDE Unavailable Unavailable Rounds, M RILEY CLIMBING GUIDE Unavailable Unavailable Rounds, M RILEY CLIMBING GUIDE Unavailable Unavailable Rounds, M RILEY CLIMBING GUIDE Unavailable Unavailable Rounds, M RILEY CLIMBING GUIDE Unavailable Unavailable Rounds, M RILEY CLIMBING GUIDE Unavailable Unavailable Rounds, M RILEY CLIMBING GUIDE Unavailable Unavailable Rounds, M RILEY CLIMBING GUIDE Unavailable Unavailable Rounds, M RILEY CLIMBING GUIDE Unavailable Unavailable Rounds, M RILEY CLIMBING GUIDE Unavailable Unavailable Rounds, M RILEY CLIMBING GUIDE Unavailable Unavailable Rounds, M RILEY CLIMBING GUIDE Unavailable Unavailable Rounds, M RILEY CLIMBING GUIDE Unavailable Unavailable Rounds, M RILEY CLIMBING GUIDE Unavailable Unavailable Rounds, M RILEY CLIMBING GUIDE Unavailable Unavailable Rounds, M RILEY CLIMBING GUIDE Unavailable Unavailable Rounds, M RILEY CLIMBING GUIDE Unavailable Unavailable Rounds, M RILEY CLIMBING GUIDE Unavailable Unavailable Rounds, M RILEY CLIMBING GUIDE Unavailable Unavailable Rounds, M RILEY CLIMBING GUIDE Unavailable Unavailable Rounds, M RILEY CLIMBING GUIDE Unavailable Unavailable Rounds, M RILEY CLIMBING GUIDE Unavailable Unavailable Rounds, M RILEY CLIMBING GUIDE Unavailable Unavailable Rounds, M RILEY CLIMBING GUIDE Unavailable Unavailable Rounds, M RILEY CLIMBING GUIDE Unavailable Unavailable Rounds, M RILEY CLIMBING GUIDE Unavailable Unavailable Rounds, M RILEY CLIMBING GUIDE Unavailable Unavailable Rounds, M RILEY CLIMBING GUIDE Unavailable Unavailable Rounds, M IRLEY CLIMBING GUIDE Unavailable Unavailable Rounds, M RILEY CLIMBING GUIDE Unavailable Unavailable Rounds, M RILEY CLIMBING GUIDE Unavailable Unavailable Rounds, M RILEY CLIMBING GUIDE Unavailable Unavailable Rounds, M RILEY CLIMBING GUIDE Unavailable Unavailable Rounds, M RILEY CLIMBING GUIDE Unavailable Unavailable Rounds, M RILEY CLIMBING GUIDE Unavailable Unavailable Rounds, M RILEY CLIMBING GUIDE Unavailable Unavailable Rounds, M RILEY CLIMBING GUIDE Unavailable Unavailable Rounds, M RILEY CLIMBING GUIDE Unavailable Unavailable Rounds, M RILEY CLIMBING GUIDE Unavailable Unavailable Rounds, M RILEY CLIMBING GUIDE Unavailable Unavailable Rounds, M RILEY CLIMBING GUIDE Unavailable Unavailable Rounds, M RILEY CLIMBING GUIDE Unavailable Unavailable Rounds, M RILEY CLIMBING GUIDE Unavailable Unavailable Rounds, M RILEY CLIMBING GUIDE Unavailable Unavailable Rounds, M RILEY CLIMBING GUIDE Unavailable Unavailable Rounds, M RILEY CLIMBING GUIDE Unavailable Unavailable Rounds, M RILEY CLIMBING GUIDE Unavailable Unavailable Rounds, M RILEY CLIMBING GUIDE Unavailable Unavailable Rounds, M RILEY CLIMBING GUIDE Unavailable Unavailable Rounds, M RILEY CLIMBING GUIDE Unavailable Unavailable Rounds, M RILEY CLIMBING GUIDE Unavailable Unavailable Rounds, M RILEY CLIMBING GUIDE Unavailable Unavailable Rounds, M RILEY CLIMBING GUIDE Unavailable Unavailable Rounds, M RILEY CLIMBING GUIDE Unavailable Unavailable Rounds, M RILEY CLIMBING GUIDE Unavailable Unavailable Rounds, M RILEY CLIMBING GUIDE Unavailable Unavailable TURRIN, SYLVAIN Unavailable Unavailable TURRIN, SYLVAIN Unavailable Unavailable TURRIN, SYLVAIN Unavailable Unavailable TURRIN, SYLVAIN Unavailable Unavailable Fish, J Oneil Unavailable Unavailable Fish, J Oneil Unavailable Unavailable Fish, J Oneil Unavailable Unavailable Fish, J Oneil Unavailable Unavailable Fish, J Oneil Unavailable Unavailable Fish, J Oneil Unavailable Unavailable Fish, J Oneil Unavailable Unavailable Fish, J Oneil Unavailable Unavailable Fish, J Oneil Unavailable Unavailable Fish, J Oneil Unavailable Unavailable Fish, J Oneil Unavailable Unavailable Fish, J Oneil Unavailable Unavailable Fish, J Oneil Unavailable Unavailable Fish, J Oneil Unavailable Unavailable Fish, J Oneil Unavailable Unavailable Fish, J Oneil Unavailable Unavailable Fish, J Oneil Unavailable Unavailable Fish, J Oneil Unavailable Unavailable Fish, J Oneil Unavailable Unavailable Fish, J Oneil Unavailable Unavailable Fish, J Oneil Unavailable Unavailable Fish, J Oneil Unavailable Unavailable Fish, J Oneil Unavailable Unavailable Fish, J Oneil Unavailable Unavailable Fish, J Oneil Unavailable Unavailable Fish, J Oneil Unavailable Unavailable Fish, J Oneil Unavailable Unavailable Fish, J Oneil Unavailable Unavailable Fish, J Oneil Unavailable Unavailable Fish, J Oneil Unavailable Unavailable Fish, J Oneil Unavailable Unavailable Fish, J Oneil Unavailable Unavailable Fish, J Oneil Unavailable Unavailable Fish, J Oneil Unavailable Unavailable Fish, J Oneil Unavailable Unavailable Fish, J Oneil Unavailable Unavailable Fish, J Oneil Unavailable Unavailable Fish, J Oneil Unavailable Unavailable Fish, J Oneil Unavailable Unavailable Fish, J Oneil Unavailable Unavailable Fish, J Oneil Unavailable Unavailable Fish, J Oneil Unavailable Unavailable Fish, J Oneil Unavailable Unavailable Fish, J Oneil Unavailable Unavailable Fish, J Oneil Unavailable Unavailable Fish, J Oneil Unavailable Unavailable Fish, J Oneil Unavailable Unavailable Fish, J Oneil Unavailable Unavailable Fish, J Oneil Unavailable Unavailable Fish, J Oneil Unavailable Unavailable Fish, J Oneil Unavailable Unavailable Fish, J Oneil Unavailable Unavailable Fish, J Oneil Unavailable Unavailable Fish, J Oneil Unavailable Unavailable Fish, J Oneil Unavailable Unavailable Fish, J Oneil Unavailable Unavailable Fish, J Oneil Unavailable Unavailable Fish, J Oneil Unavailable Unavailable Fish, J Oneil Unavailable Unavailable Fish, J Oneil Unavailable Unavailable Fish, J Oneil Unavailable Unavailable Fish, J Oneil Unavailable Unavailable Fish, J Oneil Unavailable Unavailable Fish, J Oneil Unavailable Unavailable Fish, J Oneil Unavailable Unavailable Fish, J Oneil Unavailable Unavailable Fish, J Oneil Unavailable Unavailable Fish, J Oneil Unavailable Unavailable Fish, J Oneil Unavailable Unavailable Fish, J Oneil Unavailable Unavailable Fish, J Oneil Unavailable Unavailable Fish, J Oneil Unavailable Unavailable Fish, J Oneil Unavailable Unavailable Fish, J Oneil Unavailable Unavailable Fish, J Oneil Unavailable Unavailable Fish, J Oneil Unavailable Unavailable Fish, J Oneil Unavailable Unavailable Fish, J Oneil Unavailable Unavailable Fish, J Oneil Unavailable Unavailable Fish, J Oneil Unavailable Unavailable Fish, J Oneil Unavailable Unavailable Fish, J Oneil Unavailable Unavailable Fish, J Oneil Unavailable Unavailable Fish, J Oneil Unavailable Unavailable FORNI, R MAGGIE DPM Unavailable Unavailable FORNI, R MAGGIE DPM Unavailable Unavailable FORNI, R MAGGIE DPM Unavailable Unavailable FORNI, R MAGGIE DPM Unavailable Unavailable FORNI, R MAGGIE DPM Unavailable Unavailable FORNI, R MAGGIE DPM Unavailable Unavailable FORNI, R MAGGIE DPM Unavailable Unavailable FORNI, R MAGGIE DPM Unavailable Unavailable FORNI, R MAGGIE DPM Unavailable Unavailable FORNI, R MAGGIE DPM Unavailable Unavailable Re-disclosure Warning The records that you are about to access may contain information from federally-assisted alcohol or drug abuse programs. If such information is present, then the following federally mandated warning applies: This information has been disclosed to you from records protected by federal confidentiality rules (42 CFR part 2). The federal rules prohibit you from making any further disclosure of this information unless further disclosure is expressly permitted by the written consent of the person to whom it pertains or as otherwise permitted by 42 CFR part 2. A general authorization for the release of medical or other information is NOT sufficient for this purpose. The Federal rules restrict any use of the information to criminally investigate or prosecute any alcohol or drug abuse patient.The records that you are about to access may contain highly sensitive health information, the redisclosure of which is protected by Article 27-F of the [facility] Public Health law. If you continue you may have access to information: Regarding HIV / AIDS; Provided by facilities licensed or operated by the [facility] Office of Mental Health; or Provided by the [facility] Office for People With Developmental Disabilities. If such information is present, then the following [facility] mandated warning applies: This information has been disclosed to you from confidential records which are protected by state law. State law prohibits you from making any further disclosure of this information without the specific written consent of the person to whom it pertains, or as otherwise permitted by law. Any unauthorized further disclosure in violation of state law may result in a fine or care home sentence or both. A general authorization for the release of medical or other information is NOT sufficient authorization for further disc losure. Allergies and Adverse Reactions Type Description Substance Reaction Status Data Source(s ) No Known Drug Allergies No Known Drug Allergies [facility] Family History Family Member Name Family Member Gender Family Member Status Date o f Status Description Data Source(s) Unknown Male Problem [facility] ([facility]) Encounters Encounter Providers Location Date Indications Data Source(s ) Outpatient [address] [facility] [id number] 12/12/2020 12:00:00 AM EDT eCW1 ([facility]) ([id number]) For Template Hawkins [address] [place] [address] 11/27/2020 12:00:00 AM EDT eCW1 ([facility]) Unknown [address] [facility] [id number] 11/27/2020 12:00:00 AM EDT eCW1 ([facility]) ([id number]) For Template Hawkins [address] [place] [address] 11/22/2020 12:00:00 AM EDT eCW1 ([facility]) Unknown [address] [facility] [id number] 11/17/2020 12:00:00 AM EDT eCW1 ([facility]) Outpatient [address] [facility] [id number] 11/15/2020 12:00:00 AM EDT eCW1 ([facility]) Outpatient Attender: RAYNA JOE MD [facility] 11/2020 03:40:00 PM EDT [facility] ([facility] ([id number]) For Template Hawkins [facility] [place] [address] 11/07/2020 12:00:00 AM EDT eCW1 ([facility]) Unknown [address] [facility] [id number] 11/03/2020 12:00:00 AM EDT eCW1 ([facility]) Unknown [address] [facility] [place] [address] 11/03/2020 12:00:00 AM EDT eCW1 ([facility]) ([id number]) For Template Hawkins [address] [place] [address] 10/30/2020 12:00:00 AM EDT eCW1 ([facility]) Outpatient [address] [facility] [id number] 10/23/2020 12:00:00 AM EDT eCW1 ([facility]) Outpatient [address] [facility] [id number] 10/18/2020 12:00:00 AM EDT eCW1 ([facility]) Unknown [address] [place] [id number] 10/16/2020 12:00:00 AM EDT eCW1 ([facility]) ([id number]) For Template Hawkins [address] [place] [address] 10/16/2020 12:00:00 AM EDT eCW1 ([facility]) ([id number]) New Patient [address] [place] [id number] 10/09/2020 12:00:00 AM EDT eCW1 ([facility]) Outpatient Attender: RILEY Montoya NP [facility] 09/26/2020 0 2:30:00 PM EDT [facility] ([facility] ) Inpatient Attender: KELLIE SANCHEZ METAL RIVETER Attender: TESSIE GARCIA MDConsultant: Oneil Corrigan 09/16/2020 10:13:00 AM EDT - 09/18/2020 06:19:00 PM EDT [facility] Patient discharged. Outpatient Attender: [facility] 09/15/2020 07:3 0:00 PM EDT [facility] Emergency Attender: SYLVAIN Adame sultant: Oneil CorriganConsultant: RILEY Montoya NP 09/15/2020 04:46:00 PM EDT - 09/15/2020 10:23:00 PM EDT [facility] Patient discharged. Outpatient Attender: RILEY Montoya NPRefe rrer: RILEY Montoya NPConsultant: Oneil CorriganConsultant: RILEY Montoya CLIMBING GUIDE 09/15/2020 12:20:00 PM EDT - 09/15/2020 12:30:00 PM EDT [facility] Outpatient Attender: RILEY Montoya NPCons ultant: Oneil CorriganConsultant: RILEY Montoya CLIMBING GUIDE 09/15/2020 10:44:00 AM EDT - 09/15/2020 11:44:00 AM EDT [facility] Outpatient Attender: RILEY Montoya NP [facility] 09/15/2020 0 9:15:00 AM EDT [facility] ([facility] ) Outpatient Attender: RILEY Montoya NP [facility] 07/26/2020 0 4:30:00 PM EDT [facility] ([facility] ) Outpatient Attender: RILEY Montoya NP [facility] 07/06/2020 1 0:30:00 AM EDT [facility] ([facility] ) Emergency Attender: Navin Huizar MDConsultant: RILEY Montoya CLIMBING GUIDE 04/08/2020 11:06:00 AM EST - 04/08/2020 01:50:00 PM EST [facility] Patient discharged. Outpatient Attender: Vivien FLORES [facility] 03/31/2020 08:15:00 AM EST [facility] Outpatient Attender: MAGGIE LEHMAN DPMConsultant: RILEY Montoya NP 03/06/2020 08:46:00 AM EST - 03/06/2020 08:46:00 AM EST [facility] Outpatient Attender: MAGGIE LEHMAN DPMConsultant: RILEY Montoya NP 02/11/2020 10:21:00 AM EST - 02/11/2020 10:21:00 AM EST [facility] Outpatient Attender: MAGGIE NUNEZ [facility] 02/11/2020 0 9:30:00 AM EST [facility] ([facility]) Outpatient Attender: Vivien JARRELLonsultant: STEFANY Conor Lindsay CLIMBING GUIDE 12/31/2019 06:51:00 AM EDT - 12/31/2019 07:51:00 AM EDT [facility] Outpatient Attender: Vivien garcia 12/24/2019 08:30:00 AM EDT [facility] ([facility] Immunizations Vaccine Date Status Description Data Source(s) COVID-19 VACC, MRNA(PFIZER)/PF 12/15/2020 12:00:00 AM EDT completed [facility] New in 2012. IIV4 12/24/2019 08:45:00 AM EDT completed [facility] ([facility] Medications Medication Brand Name Start Date Product Form Dose Route Admi nistrative Instructions Pharmacy Instructions Status Indications Reaction Description Data Source(s) gabapentin 300 MG Oral Capsule Gabapentin 11/09/2020 12:00:00 AM EDT ORAL active [facility] ([facility] Amoxicillin 875 MG / Clavulanate 125 MG Oral Tablet Am oxicillin/Clavulanate Potassium 09/15/2020 12:00:00 AM EDT ORAL completed [facility] ([facility] doxycycline hyclate 100 MG Oral Capsule Doxycycline Hyclate 07/26/2020 12:00:00 AM EDT ORAL completed [facility] ([facility] Onetouch Verio 04/26/2020 12:00:00 AM EST act sandra [facility] ([facility] Metformin hydrochloride 1000 MG Oral Tablet Metformin HCL 02/18/2020 12:00:00 AM EST active [facility] ([facility] Tamsulosin hydrochloride 0.4 MG Oral Capsule Tamsulosin HCL 12/31/2019 12:00:00 AM EDT ORAL active [facility] ([facility] Cephalexin 500 MG Oral Capsule [Keflex] Keflex 12/24/2019 12:00:0 0 AM EDT ORAL completed [facility] ([facility] Cephalexin 500 MG Oral Capsule [Keflex] Keflex 12/24/2019 12:00:0 0 AM EDT ORAL completed [facility] ([facility] Insurance Providers Payer name Policy type / Coverage type Policy ID Covered alliance party ID Covered alliance party's relationship to hawkins Policy Hawkins Plan Information EXCELLUS C [id number] Self [id number] BS Fed Plan Commercial [id number] Self [id number] DEPT OF LABOR W [id number] Empl [id number] [facility] SHIELD -I/P [id number] 18 [id number] EXCELLUS [place] FEP BS [id number] 18 [id number] [facility]UE [facility] FED[facility]AL [facility]CL[facility] [id number] 18 [id number] BLUE [facility] [place] [id number] 18 [id number] DEPT OF LABOR WC [id number] SP [id number] [place] DEPT OF LABOR WC [id number] SP [id number] [facility] FEDERAL B [id number] S [id number] [facility] [id number] 18 [id number] [facility] EMPLOYEE PROGRAM [id number] SP [id number] [place]-O/P [id number] 01 [id number] DEPT OF LABOR [id number] SP [id number] [facility] FEDERAL -O/P [id number] 18 [id number] Problems, Conditions, and Diagnoses Code Display Name Description Problem Type Effective Dates Data Source(s) K219 Gastro-esophageal reflux disease without esophagitis Gastro-esophageal reflux disease without esophagitis Diagnosis 09/16/2020 10:13:00 AM ED T [facility] N400 Benign prostatic hyperplasia without low er urinary tract symptoms Benign prostatic hyperplasia without lower urinary tract symptoms Diagnosis 09/16/2020 10:13:00 AM EDT [facility] I10 Essential (primary) hypertension Essential (primary) h ypertension Diagnosis 09/16/2020 10:13:00 AM EDT [facility] E785 Hyperlipidemia, unspecified Hyperlipidemia, unspecifie d Diagnosis 09/16/2020 10:13:00 AM EDT [facility] 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 M40087 Cellulitis of right lower limb Cellulitis of right low er limb Diagnosis 09/16/2020 10:13:[address] 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 Z5320 Procedure and treatment not carried out because of patient's decision for unspecified reasons Procedure and treatment not carried out because of patient's decision for unspecified reasons Diagnosis 09/15/2020 04:46:[address] [facility] E119 Type 2 diabetes mellitus without complic ations Type 2 diabetes mellitus without complications Diagnosis 09/15/2020 04:46:00 PM EDT [facility] R936 Abnormal findings on diagnostic imaging of limbs Abnormal findings on diagnostic imaging of limbs Diagnosis 09/15/2020 10:44:00 AM [facility] L59611 Cutaneous abscess of right foot Cutaneous absces s of right foot Diagnosis 09/15/2020 10:44:[address] [facility] R609 Edema, unspecified Edema, unspecified Diagnosis 10:44:[address] [facility] K26565 Pain in right foot Pain in right foot Diagnosis 10:44:[address] [facility] H538 Other visual disturbances Other visual disturbances Di agnosis 04/08/2020 11:06:00 AM [facility] E1165 Type 2 diabetes mellitus with hyperglyce dasia Type 2 diabetes mellitus with hyperglycemia Diagnosis 04/08/2020 11:06:00 AM [facility] R519 Headache, unspecified Headache, unspecified Diagnosis 04/08/2020 11:06:00 AM [facility] M2042 Other hammer toe(s) (acquired), left agustín t Other hammer toe(s) (acquired), left foot Diagnosis 03/06/2020 08:46:00 AM [facility] M2041 Other hammer toe(s) (acquired), right fo ot Other hammer toe(s) (acquired), right foot Diagnosis 03/06/2020 08:46:00 AM [facility] E1142 Type 2 diabetes mellitus with diabetic p olyneuropathy Type 2 diabetes mellitus with diabetic polyneuropathy Diagnosis 03/06/2020 08:46:00 AM [facility] R3911 Hesitancy of micturition Hesitancy of micturition Diag nosis 12/31/2019 06:51:00 AM EDT [facility] R3912 Poor urinary stream Poor urinary stream Diagnosis 1 06:51:00 AM EDT [facility] L97.509 [id number] Non-pressure chronic ulcer of other part of unspecified foot with unspecified severity Problem 10/09/2020 12:00:00 AM EDT eCW1 ([facility]) Z79.4 [id number] senior living (current) use of insulin Proble 10/09/2020 12:00:00 AM EDT eCW1 ([facility]) E11.621 [id number] Type 2 diabetes mellitus with foot ulcer Problem 10/09/2020 12:00:00 AM EDT eCW1 ([facility]) L97.412 [id number] Non-pressure chronic ulcer of right heel and midfoot with fat layer exposed Problem 10/09/2020 12:00:00 AM EDT [facility] [id number] Benign prostatic hypertrophy without out flow obstruction Benign prostatic hypertrophy without outflow obstruction Problem 11/2019 12:00:00 AM ANTONIA STEWART ([facility] ) Surgeries/Procedures Procedure Description Date Indications Data Source(s) FINE NEEDLE ASPIRATION W/O IMAGING GUIDANCE 12/12/2020 12:00:00 AM EDT eCW1 ([facility]) Medication: Silver Nitrate Stick topically 12/12/2020 12:00:00 AM EDT eCW1 ([facility]) Medication: Silver Nitrate Stick topically 11/27/2020 12:00:00 AM EDT eCW1 ([facility]) FINE NEEDLE ASPIRATION W/O IMAGING GUIDANCE 11/22/2020 12:00:00 AM EDT eCW1 ([facility]) Medication: Silver Nitrate Stick topically 11/22/2020 12:00:00 AM EDT eCW1 ([facility]) OFFICE OUTPATIENT VISIT 25 MINUTES 11/09/2020 12:00:00 AM EDT [facility] ([facility] FINE NEEDLE ASPIRATION W/O IMAGING GUIDANCE 10/30/2020 12:00:00 AM EDT eCW1 ([facility]) Medication: Silver Nitrate Stick topically 10/30/2020 12:00:00 AM EDT eCW1 ([facility]) FINE NEEDLE ASPIRATION W/O IMAGING GUIDANCE 10/23/2020 12:00:00 AM EDT eCW1 ([facility]) Medication: Silver Nitrate Stick topically 10/23/2020 12:00:00 AM EDT eCW1 ([facility]) OFFICE OUTPATIENT VISIT 25 MINUTES 09/26/2020 12:00:00 AM EDT [facility] ([facility] Magnetic Resonance Imaging (MRI) of Right Ankle using Other Contrast Magnetic Resonance Imaging (MRI) of Right Ankle using Other Contrast 09/18/2020 12:00:[address] [facility] Introduction of Electrolytic and Water B alance Substance into Peripheral Vein, Percutaneous Approach Introduction of Electrolytic and Water B alance Substance into Peripheral Vein, Percutaneous Approach 09/16/2020 12:00:[address] [facility] Introduction of Other Anti-infective int o Peripheral Vein, Percutaneous Approach Introduction of Other Anti-infective int o Peripheral Vein, Percutaneous Approach 09/16/2020 12:00:[address] [facility] OFFICE OUTPATIENT VISIT 25 MINUTES 09/15/2020 12:00:00 AM EDT [facility] ([facility] OFFICE OUTPATIENT VISIT 15 MINUTES 07/26/2020 12:00:00 AM EDT [facility] ([facility] OFFICE OUTPATIENT VISIT 25 MINUTES 07/06/2020 12:00:00 AM EDT [facility] ([facility] OFFICE OUTPATIENT VISIT 15 MINUTES 03/31/2020 12:00:00 AM EST [facility] ([facility] Results ID Date Data Source [id number] 09/23/2020 10:43:00 [place] [address] CONSULTATIONNAME: [facility] ROOM#: [id number] OF : 1960 MR#: [id number] PHYS: Kellie SanchezOKSANA DATE: 09/16/20DATE OF CONSULTATION: 09/18/20HISTORY OF PRESENT ILLNESS:I was called to see this patient because of a right foot infection. The patient has a known history ofdiabetes. He tells me that he had known about a blistering of the undersurface of his right foot for atleast several days to close to a week. He had developed and increasing amount of swelling, redness anddrainage between his great toe and second toe. The undersurface of his foot where he was concernedabout the blister was also draining.REVIEW OF SYSTEMS:All systems evaluated with the patient denying neuro, dermatologic, cardiac, respiratory, GI, GUabnormalities. He does admit to the above described diabetic foot infection.PAST MEDICAL HISTORY:The patient has diabetes.PAST SURGICAL HISTORY:Prostate biopsy.FAMILY HISTORY:Mother has diabetes and is still living at age 80. Father is decreased, had multiple medical problems.SOCIAL HISTORY:The patient is still employed on [employer]. He does not use alcohol or tobacco.MEDICATIONS:Aspirin, Crestor, Flomax, Januvia, metformin, Prilosec.ALLERGIES:None.PHYSICAL EXAMINATION:GENERAL: The patient is awake, alert, in no acute distress. He was in good spirits.VITAL SIGNS: Vital signs note that he has a blood pressure of 118/70, heart rate 89, respirations 16,temperature 98.7 degrees.HEENT: Normocephalic, atraumatic. Pupils are equal and round. He has nonicteric sclerae. No ear or nasaldischarge. [address] [place] [address] CONSULTATIONNAME: [facility] ROOM#: [id number] OF : 1960 MR#: [id number] PHYS: Kellie SanchezOKSANA DATE: 09/16/20NECK: Supple. No adenopathy. No JVD. Trachea midline.HEART: Regular rhythm. No discernible murmurs.LUNGS: Clear to auscultation, no rales, no rhonchi.ABDOMEN: Soft and nontender.EXTREMITIES: The patient's right foot is markedly swollen, although the color is normal and the skin isviable dorsally. He does have cellulitis around the metatarsal and toe area. There is drainage with an ulcerationbetween the first and second toes. The undersurface of the foot is covered with a blister and is draining.IMPRESSION/PLAN:Diabetic foot ulcer. I know that the patient was or is going to be sent for an MRI to rule out osteomyelitis.However, this patient is at significant risk for losing at least his forefront of the foot, if not undergoing a BKA.I am going to recommend that he be transferred to a tertiary care center where there is orthopedic surgerywhom an open and debride his foot dissection. I do not think that he is a good candidate to stay at [facility].Thank you very much for asking me to see your patient.DD: Vinay Garcia MD 09/22/20 13:14DT: ASAD 09/23/20 22:35DS: Vinay Garcia MD 09/27/20 17:17 2 Name Value Range Interpretation Code Description Data Noemí rce(s) Supporting Document(s) ID Date Data Source [id number] 09/15/2020 04:46:00 PM EDT [facility] 1 OrderSheet [facility] Emergency Department [address] [place] [address] Phone #: ext- [phone] 09/15/2020 16:25 Patient: LAINE KEY Sex: M : 1960 Age: 59yWEIGHT:116.1 kg (S) HEIGHT:75 inches (S) BMI:32.0ALLERGIES: No Known Drug AllergyCHIEF COMPLAINT: pain, redness, numbnessLAB ORDERSOrder Description Priority Entered Acknowledged InitialedBlood Culture STAT 19:07 09/15/2020 19:28 Maggie,q10m X2 (Sched Laura FLORES; Pfiwjwm47:07 09/15/2020)Blood Culture STAT 19:07 09/15/2020 19:29 Maggie,q10m X2 (Sched Laura FLORES; Eacqcby35:17 09/15/2020)CBC w Diff STAT 19:07 09/15/2020 19:28 Laura Serrano; KatelynCMP STAT 19:07 09/15/2020 19:28 Laura Serrano; KatelynCRP STAT 19:07 09/15/2020 19:28 Laura Serrano; KatanujnCulture, Wound STAT 19:07 09/15/2020 19:35 Maggie,(Foot) Laura FLORES; KatelynCULTURE STAT 19:07 09/15/2020 19:35 Maggie,AEROBIC/ANAERO Laura FLORES; AngelikanBIC (foot)Sed. Rate STAT 19:07 09/15/2020 19:28 Laura Serrano; KatanujnLactic Acid STAT 20:32 09/15/2020 20:54 Laura King; Mandie BrownDIAGNOSTIC STUDY ORDERSOrder Description Priority Entered Acknowledged InitialedFoot Complete STAT 19:07 09/15/2020 Cancelled: Other 19:18 Laura FLORES; PA(Oxygen?(No)) Reason for Study: increasing redness R foot, ? OMUS Lower Ext STAT 19:08 09/15/2020 Ack'd: 19:35 19:42 Lessley,Venous Right Laura FLORES; Julisa SerranoNAnalia(Oxygen?(No)) Reason for Study: R foot redness, swelling, R leg swelling redness. ? DVT 2 OrderSheet [facility] Emergency Department [address] [place] [address] Phone #: [phone] 09/15/2020 16:25 Patient: LAINE KEY Sex: M : 1960 Age: 59yMEDICATION/IV/DRIP/FLUID ORDERSOrder Description Priority Entered Acknowledged InitialedClindamycin IVPB 19:07 09/15/2020 19:58 Maggie,600 mg (NOW x1) Laura FLORES; Stefania elynlevoFLOXacin IVPB 19:07 09/15/2020 Ack'd: 19:59 20:54 Melaragno,750 mg/150 mL Laura FLORES; Julisa Serrano R.N.(NOW x1)NS IV : Bolus 500 19:07 09/15/2020 19:58 Maggie,mL, then 75 mL/hr Laura FLORES; Julisa(NOW x1)GENERAL ORDERSOrder Description Priority Entered Acknowledged InitialedNPO 19:07 09/15/2020 19:29 Laura Serrano; Randionsult - 21:04 09/15/2020 22:23 Ammon,Hospitalist Laura FLORES; Liliane Buchanan 21:06 09/15/2020 22:23 Laura Verde; Liliane Brown[Electronically signed by Liliane Verde R.N. (22:29 09/15/2020)][Electronically signed by Laura Malik (23:05 09/15/2020)][Electronically locked by Liliane Verde R.N. (22:29 09/15/2020)] Name Value Range Interpretation Code Description Data Noemí rce(s) Supporting Document(s) ID Date Data Source [id number] 09/15/2020 04:46:00 PM EDT [facility] 1 Medication Reconciliation Report [facility] Emergency Department [address] [place] [address] Phone #: ext- [phone] 09/15/2020 16:25 Patient: LAINE KEY Sex: M : 1960 Age: 59yWeight: 116.1 kgHeight/Length: 75 in.BMI: 32.0ALLERGIES: No Known Drug AllergyThe patient's Home Medications are listed below:CONTINUE TAKING THE FOLLOWING MEDICATIONS: Aspirin 81 Oral, daily Augmentin Oral 875 mg, 2x a day Crestor Oral 10 mg, daily Flomax Oral 0.4 mg, daily Januvia Oral (100 mg), daily metFORMIN HCl Oral (1000 mg), daily, 500mg at nightTHE FOLLOWING MEDICATIONS NEED TO BE RECONCILED: PriLOSEC OTC Oral Probiotic Daily Oral Tylenol PM Extra Strength Oral, at bedtimeThe source(s) of the original Home Medication information:Not obtained.The following Medications were given to the patient in the Emergency Department:NS [IV] IV Fluids bolus 500 mL over 25 minute(s), administered: 19:58 09/15/2020lindamycin [IVPB] IVPB bolus 0, then 600 mg 100 mL/hr, administered: 19:58 09/15/2020 2 Medication Reconciliation Report [facility] Emergency Department [address] [place] [address] Phone #: ext- [phone] 09/15/2020 16:25 Patient: LAINE KEY MRN: [id number] Sex: M : 1960 Age: 59yLevofloxacin [IVPB] IVPB bolus 0, then 750 mg 150 mL/hr, administered: 20:54 09/15/2020The following Medications were prescribed to the patient:clindamycin HCl 300 mg capsule Take 1 capsule every eight hours as directed for 10 days -- for severecellulitis. Dispense 30 capsule. Refills: 0. Substitution permitted.Pharmacy - [facility] #[id number] - [address] [place], [place] [id number]. FaxNumber: [phone].levofloxacin 750 mg tablet Take 1 tablet once a day as directed for 10 days -- for severe cellulitis R foot.Dispense 10 tablet. Refills: 0. Substitution permitted.Pharmacy - [facility] #[id number] - [address] [place], [place] [phone]. . -- SANDRA Carr Name Value Range Interpretation Code Description Data Noemí rce(s) Supporting Document(s) ID Date Data Source [id number] 09/15/2020 04:46:00 PM EDT [facility] 1 Medication Administration Record [facility] Emergency Department [address] [place] [address] Phone #: ext- [phone] 09/15/2020 16:25 Patient: LAINE KEY Sex: M : 1960 Age: 59yWeight: 116.1 kgHeight/Length: 75 inBMI: 32ALLERGIES: No Known Drug Allergy Date/Time Medication Administered Medication OrderedStart CLINDAMYCIN [IVPB] Clindamycin IVPB 600 mg (NOW19:58 09/15/2020 Dose: 600 mg IVPB x1)Julisa Serrano, Rate: 100 mL/hr over 30 minute(s)---- Dispensed: 50 mL bagStop Site: #1 right AC20:53 09/15/2020Mandie King, RAnaliaNAnaliaStart LEVOFLOXACIN [IVPB] levoFLOXacin IVPB 750 mg/02724:54 09/15/2020 Dose: 750 mg IVPB mL (NOW x1)Mandie King R.N. Rate: 150 mL/hr over 90 minute(s)---- Dispensed: 150 mL bagStop Site: #1 right AC22:18 1LLiliane he R.N.Start NS [IV] NS IV : Bolus 500 mL, then 7519:58 09/15/2020 Dose: IV Fluids mL/hr (NOW x1)Maggie Julisa, Bolus: 500 mL over 25 minute(s)---- Dispensed: 1000 mL bagStop Site: #1 right AC22:19 1LLiliane he R.N. Name Value Range Interpretation Code Description Data Noemí rce(s) Supporting Document(s) ID Date Data Source [id number] 09/15/2020 04:46:00 PM EDT [facility] 1 General Instructions [facility] Emergency Department [address] [place] [address] Phone #: ext- [phone] 09/15/2020 16:25 Patient: LAINE KEY Sex: M : 1960 Age: 59y(severe cellulitis of R foot with lymphangitis extending up anterior R leg, concern for deep space infectionand osteomyelitis exists).INSTRUCTIONSNo strenuous activity until better. Rest at home today. Do not work for five days.Do not smoke. No alcohol.(return to ED at earliest convenience for continued IV abx and admission to hospital).Warnings: Further evaluation is necessary in order to conduct further tests and assess the possibility ofserious illness. It is very important to follow up with a healthcare provider.GENERAL WARNINGS: Return or contact your physician immediately if your condition worsens orchanges unexpectedly, if not improving as expected, or if other problems arise. Specifically return if pain,vomiting, bleeding, breathing difficulty or fever. worsening infection.Your Current Medications:CONTINUE TAKING THE FOLLOWING MEDICATIONS:Aspirin 81 Oral : daily.Augmentin Oral : 875 mg 2x a day.Crestor Oral : 10 mg daily.Flomax Oral : 0.4 mg daily.Januvia Oral : Tablet 100 mg, daily.metFORMIN HCl Oral : Tablet 1000 mg, daily, 500mg at night.Prescription Medications:clindamycin HCl 300 mg capsule Take 1 capsule every eight hours as directed for 10 days -- for severecellulitis. Dispense 30 capsule. Refills: 0. Substitution permitted.[id number] [address] [place], [place] [phone]. FaxNumber: .levofloxacin 750 mg tablet Take 1 tablet once a day as directed for 10 days -- for severe cellulitis R foot.Dispense 10 tablet. Refills: 0. Substitution permitted.[id number] [place], [place] [phone]. .Follow-up:Follow up with your healthcare provider in one day even if well. Call for the next available appointment.Reason for referral: evaluation and pt left ama from ED refused admission, recommendation of continued 2 General Instructions [facility] Emergency Department [address] [place] [address] Phone #: ext- [phone] 09/15/2020 16:25 Patient: LAINE KEY Sex: M : 1960 Age: 59yIV abx,Understanding of the discharge instructions verbalized by patient. Expected course of illness, dischargeinstructions, activity level, follow-up appointment and risks and benefits of treatment reviewed with patientand understanding verbalized. Agrees to plan of care.AMA warnings: Time of assessment: 20:51 09/15/2020. Oriented to person, place, and time. Givesappropriate answers and rational explanation of refusal of care. No indication for involuntary commitmentis present, signs of psychosis, auditory hallucinations, delusional thinking or suicidal ideations. No slurredspeech, tangential thinking, visual hallucinations or homicidal ideations. Speaks coherently. Abstractthinking intact.Clinical Impression: the patient has the capacity to make decisions regarding the medical care offered.Relevant issues reviewed and discussed with the patient. Aware of suspected diagnosis suggested byscreening exam (cellulitis R foot, lymphangitis R leg, concern for deep space infection, ? developing OM.).The suspected diagnosis, based upon the initiated medical screening exam, is as above and has beendiscussed with the patient. Acknowledges understanding of the reasons for recommendations regardingmedical treatment, admission to facility and transfer to other medical facility. The recommended medicalcare being refused is admission and/or transfer and has been discussed with the patient. The risks ofrefusing recommended care that were disclosed are , quadriplegia, paraplegia, permanent mentalimpairment, loss of limb, loss of sexual function and loss of current lifestyle. Discharge instructions wereprovided to the patient.REFUSAL OF CARE STATEMENT (patient to review and sign in discharge instructions):I have read this paragraph. I understand that a doctor at this hospital wants to give me certain medicalcare. The doctor explained that care to me, and I understand what that care is. The doctor also explainedto me what could happen to me if I leave here without having that care, and I understand what he said. Iknow that I am welcome to return to this hospital at any time to receive the recommended care or any othercare that I may need at any time, regardless of my ability to pay for such care.No strenuous activity until bett er. Rest at home today. Do not work for five days.(Electronically signed by SANDRA Carr 09/15/2020 23:05) Name Value Range Interpretation Code Description Data Noemí rce(s) Supporting Document(s) ID Date Data Source [id number] 09/15/2020 04:46:00 PM EDT [facility] 1 Clinical Report - Nurses [facility] Emergency Department [address] [place] [address] Phone #: ext- [phone] 09/15/2020 16:25 [id number] Sex: M : 1960 Age: 59yTRIAGEArrived by private vehicle. Historian: patient. Unaccompanied. ( sore on bottom of right foot, sent hereby dr corrigan).Acuity: LEVEL 4.Chief Complaint: LEFT LOWER EXTREMITY PAIN, REDNESS and NUMBNESS.Alert.No injury occurred. Onset. 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 SEPSIS SCREEN NEGATIVE. No suspected or confirmedsigns of infection present. --17:01 09/15/20 Elva Fowler R.N.16:54 09/15/20. BP: 137/75. MAP: 95. HR: 95. RR: 18. O2 saturation: 95%. Temp: 98.7 F. Pain level now:0/10. --17:01 09/15/20 Elva Fowler R.N.Weight: 116.1 kg stated. Height/Length: 75 inches Per Patient. BMI: 32. --16:54 09/15/20 Elva Fowler R.N.MedicationsAspirin 81 Oral, daily. Crestor Oral 10 mg, daily. Flomax Oral 0.4 mg, daily. Januvia Oral (Tablet 100 mg), daily. metFORMIN HCl Oral (Tablet 1000 mg), daily (500mg at night). PriLOSEC OTC Oral. Tylenol PM Extra Strength Oral, at bedtime. --16:57 09/15/20 Elva Fowler R.N. Augmentin Oral 875 mg, 2x a day. --16:57 09/15/20 Elva Fowler R.N. Probiotic Daily Oral. --16:58 09/15/20 Elva Fowler R.N.AllergiesNo Known Drug Allergy. --16:57 09/15/20 Elva Fowler R.N.PROBLEMS:Hypercholesterolemia.Fractured Phalanx (Finger).Diabetes Mellitus.Hypertension. 2 Clinical Report - Nurses [facility] Emergency Department [address] [place] [address] Phone #: ext- [phone] 09/15/2020 16:25 Patient: LAINE KEY Sex: M : 1960 Age: 59y Rib Fracture. Vertigo. Laceration. --16:58 09/15/20 Elva Fowler R.N. ADDITIONAL SURGERIES: no known surgeries. History PAST MEDICAL HX: Tetanus status: up-to-date. Immunizations: up-to-date. SOCIAL HX: Never smoker. No alcohol use or drug use. He was offered HIV testing but declined and hepatitis C testing but declined. He has not traveled outside the [place] Infectious disease exposure: No infectious disease exposure. The patient was not exposed to Coronavirus. Patient is not a known carrier of tuberculosis, hepatitis, HIV, MRSA or VRE. Patient is not a known carrier of CRE. SELF HARM ASSESSMENT: Self harm assessment was performed. The patient answered "no" to the question(s) "Have you recently felt down, depressed, or hopeless?" and "Do you have thoughts of harming or killing yourself?". ABUSE ASSESSMENT: Abuse assessment. Abuse denied. No suspicion of abuse. No report of abuse. NUTRITIONAL RISK ASSESSMENT: The nutritional risk assessment revealed no deficiencies. FUNCTIONAL ASSESSMENT: Functional assessment: no impairments noted. LEARNING NEEDS ASSESSMENT: The learning needs assessment revealed no barriers. FALL RISK ASSESSMENT: Fall risk assessment completed. No risk factors identified. SKIN INTEGRITY ASSESSMENT: Skin integrity risk assessment completed. No skin integrity risk identified. -- 17:09/15/20 Elva Fowler R.N. Interventions Identification band on patient. To treatment room. --17:09/15/20 Elva Fowler R.N.PHYSICAL ASSESSMENTGENERAL / NEURO / PSYCH: Oriented X 4. Alert. Appears in no acute distress.EXTREMITIES: Left foot: tenderness and swelling of the plantar aspect of the foot and first and second toe.Limited weight bearing secondary to pain.SKIN: Skin is warm and dry. ( bottom of right foot noted to have drainage, skin breakdown, callousedareas and hammertoe to right second toe, area is red.). --18:23 09/15/20 Liliane Verde R.N.NURSING PROGRESS NOTESPatient gowned. Reassurance given. Patient identifiers checked. Call light placed in reach. Side rails 3 Clinical Report - Nurses [facility] Emergency Department [address] [place] [address] Phone #: ext- [phone] 09/15/2020 16:25 ------ Patient: LAINE KEY Sex: M : 1960 Age: 59y up. Bed placed in lowest position. Brakes of bed on. Patient ready for evaluation. --17:44 09/15/20 Elva Fowler R.N. 18:17 09/15/20. BP: 123/78. MAP: 93. HR: 95. RR: 16. O2 saturation: 96%. --18:18 09/15/20 [facility] [place] [id number] 19:35 09/15/2020 Site #1 started via IV in the right antecubital space with an 20g angiocath, with aseptic technique and good blood return; one attempt. Saline lock flushed with saline. --19:35 09/15/20 Julisa Serrano 19:58 09/15/2020 Started bag #1 1000 mL IV Fluids NS; bolus of 500 mL over 25 minute(s) via site #1 via IV pump. Allergies verified and confirmed 5 rights. IV patency established. IV site checked: no pain, redness, or swelling. IV flushed thoroughly pre- and post-medication administration. Information reviewed with patient including reason for taking this medication, signs of allergic reaction and precautions. Verbalizes understanding. --19:58 09/15/20 Julisa Serrano 19:58 09/15/2020 Started 600 mg of Clindamycin IVPB in bag #1 50 mL; at 100 mL/hr over 30 minute(s) via site #1. via IV pump. Allergies verified and confirmed 5 rights. IV patency established. IV site checked: no pain, redness, or swelling. IV flushed thoroughly pre- and post-medication administration. Information reviewed with patient including reason for taking this medication, signs of allergic reaction and precautions. Verbalizes understanding. --19:58 09/15/20 Julisa Serrano 20:53 09/15/2020 Clindamycin IVPB via IV site #1 Discontinued: completed. Total amount infused: 50 mL. IV patency established. IV site checked: no pain, redness, or swelling. IV flushed thoroughly. --20:53 09/15/20 Mandie King R.N. 20:54 09/15/2020 Started 750 mg of Levofloxacin IVPB in bag #1 150 mL; at 150 mL/hr over 90 minute(s) via site #1. via IV pump. Allergi es verified and confirmed 5 rights. IV patency established. IV site checked: no pain, redness, or swelling. IV flushed thoroughly pre- and post-medication administration. Information reviewed with patient. Verbalizes understanding. --20:54 09/15/20 Mandie King R.N. 22:18 09/15/2020 Site #1 removed upon discharge. Pressure dressing and bandaid applied. --22:23 09/15/20 Liliane Verde R.N. 22:18 09/15/2020 Levofloxacin IVPB via IV site #1 Discontinued: bag #1 completed. Total amount infused: 150 mL. IV patency established. IV site checked: no pain, redness, or swelling. IV flushed thoroughly. --22:23 09/15/20 Liliane Verde R.N. 22:19 09/15/2020 IV Fluids NS via IV site #1 Discontinued: discontinued upon discharge. Total amount infused: 700 mL. IV patency established. IV site checked: no pain, redness, or swelling. IV flushed thoroughly. --22:29 09/15/20 Liliane Verde R.N.DISPOSITION / DISCHARGE Departure time: 22:23 09/15/2020. Condition at departure: unchanged. No learning barriers present. 4 Clinical Report - Nurses [facility] Emergency Department [address] [place] [address] Phone #: ext- [phone] 09/15/2020 16:25 Patient: LAINE KEY Sex: M : 1960 Age: 59y Discharge instructions provided and reviewed with the patient. Reviewed warnings. The patient left the Emergency Department against medical advice and without completion of treatment; patient was unaccompanied. The patient appears to be alert and oriented x4. He stated is leaving due to personal reasons. Notified of patient departure. Prior to leaving, he was advised to stay for completion of treatment and return if needed. He was informed of the risks of leaving and verbalized understanding of these risks. Patient signed form prior to leaving. He left the Emergency Department on crutches and via private vehicle. ( pt will return tomorrow per patient. 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 --22:28 09/15/20 Liliane Verde R.N. 22:26 09/15/20. BP: deferred. HR: deferred. RR: deferred. O2 saturation: deferred. Temp: deferred. Pain level now deferred. Additional comments: pt left ama; deferred vs pt says hell come back tomorrow morning. --22:28 09/15/20 Liliane Verde R.N.Locked/Released at 09/15/2020 22:29 by Liliane Verde R.N. Name Value Range Interpretation Code Description Data Noemí rce(s) Supporting Document(s) ID Date Data Source [id number] 09/15/2020 04:46:00 PM EDT [facility] 1 Clinical Report - Physicians/Mid Levels [facility] Emergency Department [address] [place] [address] Phone #: ext- [phone] 09/15/2020 16:25 Patient: LAINE KEY Sex: M : 1960 Age: 59y Time Seen: 18:54 09/15/2020. Arrived- By private vehicle. Historian- patient. Disposition decision: 21:03 09/15/2020.HISTORY OF PRESENT ILLNESS Chief Complaint: (R foot redness and pain). This started about 3 days ago; Increasing redness, swelling, and pain to bottom of R foot, pt states he has a chronic bister like lesion there, however, since , R foot has become swollen and red, with redness extending up lower R leg, hx DM, no fever. Referred to ED by Dr Corrigan [facility] for further evaluation. It is described as painful. It has been located on the right foot and 2nd toe. No cause has been identified. No recent medication, insect bite or food exposure. Was not recently exposed to poison roxy or poison oak. Similar symptoms previously. None. Recent medical care: The patient was seen recently at another facility in the office.REVIEW OF SYSTEMSNo fever, chills, sore throat, cough or difficulty breathing. No hoarseness, lump in throat, enlarged lymphnodes, headache or eye irritation. No chest pain, abdominal pain, nausea, diarrhea or difficulty withurination. No genital lesions or vomiting. The patient has had joint pain, involving the right ankle andright foot.PAST HISTORYSee nurses notes. Tetanus immunization status is up-to-date. Problems: Hypercholesterolemia. Fractured Phalanx (Finger). Diabetes Mellitus. Hypertension. Rib Fracture. Vertigo. Laceration. Additional Surgeries: no known surgeries. Medications: Probiotic Daily Oral. Augmentin Oral 875 mg, 2x a day. Aspirin 81 Oral, daily. Crestor Oral 10 mg, daily. 2 Clinical Report - Physicians/[facility] Emergency Department [address] [place] [address] Phone #: ext- [phone] 09/15/2020 16:25 Patient: LAINE KEY Sex: M : 1960 Age: 59y Flomax Oral 0.4 mg, daily. Januvia Oral (Tablet 100 mg), daily. metFORMIN HCl Oral (Tablet 1000 mg), daily (500mg at night). PriLOSEC OTC Oral. Tylenol PM Extra Strength Oral, at bedtime. Allergies: No Known Drug Allergy.SOCIAL HISTORYNever smoker. No alcohol use or drug use. No recent travel.ADDITIONAL NOTESThe nursing notes have been reviewed with agreement regarding the chief complaint, HPI, ROS, PMH andpatient medications and allergies.PHYSICAL EXAMVital Signs: 09/15/2020 16:54 BP: 137/75. MAP: 95. HR: 95. RR: 18. O2 saturation: 95%. Temp: 98.7 F.Pain level now: 0/10. Have been reviewed as normal and appear to be correct. Blood pressure normal.Mean arterial pressure- normal. Heart rate normal. Respiratory rate normal. Temperature normal.Oxygen saturation normal .Appearance: Alert. Oriented X3. No acute distress.Eyes: Pupils equal, round and reactive to light. Conjunctivae and eyelids normal.ENT: Ears normal. Nose normal. Pharynx normal.Neck: Neck supple.CVS: Normal heart rate and rhythm. Heart sounds normal.Respiratory: No respiratory distress. Breath sounds normal. Chest nontender.Abdomen: Nontender. No organomegaly.Skin: Skin warm and dry. Normal skin color. Normal skin turgor. Large area of cellulitis withtenderness, erythema, warmth and lymphangitis to right leg, right ankle and right foot. Rash present onthe right leg, ankle, foot, 1st toe and 2nd toe. The rash is macular and erythematous. There is warmth,lymphangitis, tenderness and swelling.Extremities: Normal external inspection. Extremities nontender.Neuro: Oriented X 3. No motor deficit. No sensory deficit.LABS, X-RAYS, AND EKGRt Foot X-ray: (Out pt x rays from earlier today- ? old healed fx distal first proximal phalanx. NAD.).Views: 3 view foot series. Technique: good. The X-rays were indep endently viewed by me andinterpreted by the radiologist and contemporaneously by me. Interpretation time: 19:21 09/15/2020.Lower Extremity Sonography: Negative exam on the right side. No DVT. Study type: utilized duplexsonography. The exam was performed by a emissions testing technician. The study was independently viewed by me andinterpreted by the radiologist and contemporaneously by me. Interpretation time: 20:26 09/15/2020.Laboratory Tests: Laboratory tests have been ordered, with results reviewed and considered in themedical decision making process. Lactic Acid: (HILARIO: 09/15/2020 20:48) ( MsgRcvd 09/15/2020 21:00) Final results 3 Clinical Report - Physicians/Mid Levels [facility] Emergency Department [address] [place] [address] Phone #: ext- [phone] 09/15/2020 16:25 Patient: LAINE KEY Sex: M : 1960 Age: 59y Test Result Flag Units (Reference) LACTIC ACID 1.3 MMOL/L (0.2 - 2.2)US Lower Ext Venous Right: (HILARIO: 09/15/2020 19:08) ( MsgRcvd 09/15/2020 20:05) In ProgressUS DOPPLER UNI VENOUS LEG RTReason(s): R foot redness, swelling, R leg swelling redness. ? DVTTRANSPORTATION: S IV? O2? Oxygen?(No) Room: [facility] Diff: (HILARIO: 09/15/2020 19:30) ( MsgRcvd 09/15/2020 20:23) Final results Test Result Flag Units (Reference) CBC W/AUTOMATED DIFF COMPLETE BLOOD COUNT WBC 10.9 10/uL (4.2 - 11.0) RBC 4.82 10/uL (4.50 - 6.30) HEMOGLOBIN 13.9 L g/dL (14.0 - 16.0) HEMATOCRIT 41.4 % (41.0 - 51.0) MCV 85.9 fL (80.0 - 94.0) MCH 28.8 pg (27.0 - 34.0) MCHC 33.6 g/dL (31.0 - 36.0) RDW 12.6 % (11.5 - 14.8) PLATELETS 218 10/uL (150 - 450) MPV 10.4 fL (7.4 - 10.4) NEUT 76.5 % (37.0 - 80.0) LYMPH 8.8 L % (25.0 - 40.0) MONO 12.1 H % (3.0 - 8.0) EOS 1.0 % (0.0 - 7.0) BASO 0.5 % (0.0 - 2.0) %IG 1.1 H % (0.0 - 0.0) %NRBC 0.0 % (0.0 - 0.0) #NEUT 8.33 H 10/uL (2.00 - 6.90) #LYMPH 0.96 10/uL (0.60 - 3.40) #MONO 1.32 H 10/uL (0.00 - 0.90) #EOS 0.11 10/uL (0.00 - 0.70) #BASO 0.05 10/uL (0.00 - 0.20) #IG 0.12 H 10/uL (0.00 - 0.10) #NRBC 0.00 10/uL (0.00 - 0.00) MANUAL DIFF SEE BELOW SEGS 77 % (37 - 80) %LYMPH 11 L % (25 - 40) %MONO 11 H % (3 - 8) %EOS 1 % (0 - 7) RBC MORPH NOT INDICATEDCMP: (HILARIO: 09/15/2020 19:30) ( MsgRcvd 09/15/2020 20:07) Final results Test Result Flag Units (Reference) COMPREHENSIVE METABOLIC PANEL COMPREHENSIVE METABOLIC PANEL SODIUM 138 mEq/L (134 - 153) POTASSIUM 4.0 mEq/L (3.6 - 5.0) CHLORIDE 98 mEq/L (98 - 107) CO2 29 MEQ/L (22 - 30) GLUCOSE 185 H MG/DL (70 - 99) BUN 11 MG/DL (7 - 21) CREATININE 0.8 MG/DL (0.7 - 1.5) BUN/CREAT 14 (8 - 27) TOTAL PROTEIN 6.6 G/DL (6.3 - 8.2) 4 Clinical Report - Physicians/Mid Levels [facility] Emergency Department [address] [place] [address] Phone #: ext- [phone] 09/15/2020 16:25 Patient: LAINE KEY Sex: M : 1960 Age: 59y ALBUMIN 3.5 L G/DL (3.9 - 5.0) GLOBULIN 3.1 GM/DL (2.4 - 3.2) A/G RATIO 1.1 (0.8 - 2.0) CALCIUM 9.2 MG/DL (8.4 - 10.2) TOTAL BILI <0.7 MG/DL (0.2 - 1.3) ALKALINE PHOS 77 U/L (38 - 126) SGOT/AST 12 U/L (5 - 40) SGPT/ALT 14 U/L (7 - 56) ANION GAP 11.0 mmol/L (8.0 - 16.0) AGE 59 yrs NON-AA GFR >60 mL/min AFR AMER GFR >60 mL/min Male GFR Interprentation 20-49 yrs >60 mL/min Normal 50-59 yrs >56 mL/min Normal 60-69 yrs >49 mL/min Normal 70-79yrs >42 mL/min Normal 80 and above >35 mL/min Normal Female GFR Interpretation 20-39 yrs >60 mL/min Normal 40-49 yrs >58 mL/min Normal 50-59 yrs >51 mL/min Normal 60-69 yrs >45 mL/min Normal 70-79 yrs >39 mL/min Normal 80 and above >32 mL/min Normal CRP: (HILARIO: 09/15/2020 19:30) ( [facility] 09/15/2020 20:27) Final results Test Result Flag Units (Reference) CRP-HS 280.00 H MG/L (1.00 - 3.00) CDC/S HS-CRP CUT-OFF: RELATIVE RISK: <1.0 mg/L Low 1.0 - 3.0 mg/L Average >3.0 mg/L High Optimally, the average of HS-CRP results repeated two weeks apart should be used for risk assessment. Sed. Rate: (HILARIO: 09/15/2020 19:30) ( [facility] 09/15/2020 20:15) Final results Test Result Flag Units (Reference) SED RATE 59 H mm/hr (0 - 20) SED RATE REENTER 59 Foot Complete Right: (HILARIO: 09/15/2020 19:07) ( [facility] 09/15/2020 19:18) Canceled Reason(s): increasing redness R foot, ? OM Reason(s): increasing redness R foot, ? OM TRANSPORTATION: S IV? O2? Oxygen?(No) Room: ED.PROGRESS AND PROCEDURESCourse of Care: 20:44 Sep 15 2020. Pt with a minimum of severe cellulitis R foot with lymphangitisextending up R anterior leg, concern for OM/deep space infection still exists despite x ray neg for OM,unable to perform MRI due to pt coming in after MRI hours, concern for planing deep foot infection,consulted hospitalist who was on way to evaluate pt for admission in ED and informed pt that hospitalistwould be evaluating him for admission, pt at that time informed me he would refuse to be admitted, despitemultiple attempts to convince him to stay, and of possibility of loss of foot, loss of function, sepsis, etc.CLINICAL IMPRESSION (severe cellulitis of R foot with lymphangitis extending up anterior R leg, concern for deep space infection and osteomyelitis exists). 5 Clinical Report - Physicians/Mid Levels [facility] Emergency Department [address] [place] [address] Phone #: ext- [phone] 09/15/2020 16:25 Patient: LAINE KEY Sex: M : 1960 Age: 59yINSTRUCTIONS No strenuous activity until better. Rest at home today. Do not work for five days. Do not smoke. No alcohol. (return to ED at earliest convenience for continued IV abx and admission to hospital). Warnings: Further evaluation is necessary in order to conduct further tests and assess the possibility of serious illness. It is very important to follow up with a healthcare provider. GENERAL WARNINGS: Return or contact your physician immediately if your condition worsens or changes unexpectedly, if not improving as expected, or if other problems arise. Specifically return if pain, vomiting, bleeding, breathing difficulty or fever. worsening infection. Your Current Medications: CONTINUE TAKING THE FOLLOWING MEDICATIONS: Aspirin 81 Oral : daily. Augmentin Oral : 875 mg 2x a day. Crestor Oral : 10 mg daily. Flomax Oral : 0.4 mg daily. Januvia Oral : Tablet 100 mg, daily. metFORMIN HCl Oral : Tablet 1000 mg, daily, 500mg at night. Prescription Medications: clindamycin HCl 300 mg capsule Take 1 capsule every eight hours as directed for 10 days -- for severe cellulitis. Dispense 30 capsule. Refills: 0. Substitution permitted. [employer] #[id number] - [address] [place], [place] [id number]. . levofloxacin 750 mg tablet Take 1 tablet once a day as directed for 10 days -- for severe cellulitis R foot. Dispense 10 tablet. Refills: 0. Substitution permitted. [id number] - [address] [facility] ; [place], [place] [id number]. . Follow-up: Follow up with your healthcare provider in one day even if well. Call for the next available appointment. Reason for referral: evaluation and pt left ama from ED refused admission, recommendation of continued IV abx, Understanding of the discharge instructions verbalized by patient. Expected course of illness, discharge instructions, activity level, follow-up appointment and risks and benefits of treatment reviewed with patient and understanding verbalized. Agrees to plan of care. 6 Clinical Report - Physicians/Mid Levels [facility] Emergency Department [address] [place] [address] Phone #: ext- [phone] 09/15/2020 16:25 Patient: LAINE KEY Sex: M : 1960 Age: 59y AMA warnings: Time of assessment: 20:51 09/15/2020. Oriented to person, place, and time. Gives appropriate answers and rational explanation of refusal of care. No indication for involuntary commitment is present, signs of psychosis, auditory hallucinations, delusional thinking or suicidal ideations. No slurred speech, tangential thinking, visual hallucinations or homicidal ideations. Speaks coherently. Abstract thinking intact. Clinical Impression: the patient has the capacity to make decisions regarding the medical care offered. Relevant issues reviewed and discussed with the patient. Aware of suspected diagnosis suggested by screening exam (cellulitis R foot, lymphangitis R leg, concern for deep space infection, ? developing OM.). The suspected diagnosis, based upon the initiated medical screening exam, is as above and has been discussed with the patient. Acknowledges understanding of the reasons for recommendations regarding medical treatment, admission to facility and transfer to other medical facility. The recommended medical care being refused is admission and/or transfer and has been discussed with the patient. The risks of refusing recommended care that were disclosed are , quadriplegia, paraplegia, permanent mental impairment, loss of limb, loss of sexual function and loss of current lifestyle. Discharge instructions were provided to the patient. REFUSAL OF CARE STATEMENT (patient to review and sign in discharge instructions): I have read this paragraph. I understand that a doctor at this hospital wants to give me certain medical care. The doctor explained that care to me, and I understand what that care is. The doctor also explained to me what could happen to me if I leave here without having that care, and I understand what he said. I know that I am welcome to return to this hospital at any time to receive the recommended care or any other care that I may need at any time, regardless of my ability to pay for such care.(Electronically signed by SANDRA Carr 09/15/2020 23:05) Name Value Range Interpretation Code Description Data Noemí rce(s) Supporting Document(s) ID Date Data Source [id number] 09/15/2020 04:46:00 PM EDT [facility] for LAINE KEY VisitID: [id number] Date: 11:04Lab results reviewed, preliminary wound culture of right foot shows:Isolate 1. Staphylococcus aureus Moderate growthIsolate 2. Bacillus species, not Bacillus anthracisHeavy growthPatient was given Rx for Clindamycin 300 mg po q8h, Levaquin 750 mg po daily x 10 daysAwaiting final culture sensitivity results(Electronically signed by Betty Peres RN - 09/20/2020 11:04)09/21/2020 19:10Lab results reviewed, urine culture sensitivity results show Staph. Aureus sensitive to Clindamycin whichpatient was prescribed.(Electronically signed by Betty Peres RN - 09/21/2020 19:10) Name Value Range Interpretation Code Description Data Noemí rce(s) Supporting Document(s) ID Date Data Source [id number] 09/19/2020 10:50:[facility] [address] [place] [address] PHONE: [phone] FAX: [phone] Name .................. : [facility] Acct Number.................. : [id number] ROOM. ................. : CCU3 MR Number ................... : [id number] Stay type ............. : I/P Discharge Date......... ... : 09/18/20 Admit Date ......... : 09/16/20 Admit Phys .................... : MT Date of ....... : 1960 Family Phys ................... : [email or web address] Phone .................. : [phone] Age ................................ : 59 Film# .................. .:[id number] Sex ................................. : M Unsigned transcriptions are preliminary reports and do not represent a medical or legal document MRI LOW EXT NO JT W/WO CON [place] [id number] COMPLETE:09/18/20 13:21 [facility] [id number] Reason for Exam: OSTEOMYELITIS MRI OF THE RIGHT ANKLE WITH AND WITHOUT CONTRAST: CLINICAL HISTORY: Osteomyelitis. COMPARISON: None available. TECHNIQUE: Multiplanar, multisequence pre and post contrast MR imaging of the right foot. 10 mL of Gadovist injected intravenously for this examination. FINDINGS: On T1-weighted imaging, there is no marrow hypointensity to suggest the presence of osteomyelitis. Likewise, there is no si gnificant marrow edema on long TR imaging. Plantar ulceration is present at the level of the first metatarsal mid-shaft. There is also ulceration and associated subcutaneous enhancement in the first interspace, without fluid collection. At a similar level, the plantar of the third metatarsal head ulceration is seen. Significant dorsal edema is present in the forefoot, extending toward the ankle. No joint effusion. No fracture. No tendon abnormality is seen. Moderate muscle edema is noted. IMPRESSION: Multiple plantar ulcers without abscess or osteomyelitis. Page [address] [place] [address] PHONE: [phone] FAX: Name .................. : SHAHID JANG Acct Number.................. : [id number] ROOM. ................. : CCU3 MR Number ................... : [id number] Stay type ............. : I/P Discharge Date......... ... : 09/18/20 Admit Date ......... : 09/16/20 Admit Phys .................... : MT Date of ....... : 1960 Family Phys ................... : DONNA RAMON Phone .................. : [phone] Age ................................ : 59 Film# .................. .:[id number] Sex ................................. : M Unsigned transcriptions are preliminary reports and do not represent a medical or legal document MRI LOW EXT NO JT W/WO CON RT [id number] COMPLETE:09/18/20 13:21 [place] [id number] Reason for Exam: OSTEOMYELITIS Electronically Reviewed and Signed By Bossman Machado MD , 09/19/20 10:50, APM Transcribe Initials: MATTHEW , Transcribe Date: 09/18/20 19:19, Dictation Date: Copy for: 710 MED REC DISCHARGED Page 2 of 2 Name Value Range Interpretation Code Description Data Noemí rce(s) Supporting Document(s) ID Date Data Source [id number] 09/19/2020 10:10:00 [place] [address] PHONE: [phone] FAX: [phone] Name .................. : SHAHID JANG Acct Number.................. : [id number] ROOM. ................. : [facility] MR Number ................... : [id number] Stay type ............. : E/R Discharge Date......... ... : 09/15/20 Admit Date ......... : 09/15/20 Admit Phys .................... : JANEEN PEREZ Date of ....... : 1960 Family Phys ................... : DONNA RAMON Phone .................. : [phone] Age ................................ : 59 Film# .................. .:[id number] Sex ................................. : M Unsigned transcriptions are preliminary reports and do not represent a medical or legal document [place] [id number] COMPLETE:09/15/20 20:05 [facility] [id number] Reason(s): R foot redness, swell ing, R leg swelling redness. ? DVT RIGHT LOWER EXTREMITY DUPLEX DOPPLER ULTRASOUND: INDICATION: Swelling and pain. FINDINGS: There is normal compressibility of the deep venous system from the external iliac through the popliteal vein with normal augmentation identified. IMPRESSION: No evidence for any underlying DVT. Electronically Reviewed and Signed By Yury Christianson M.D. , 09/19/20 10:10, ROBERT Transcribe Initials: MATTHEW , Transcribe Date: 09/16/20 02:14, Dictation Date: Copy for: [facility] via fax Copy for: EMERGENCY DEPT via modem Copy for: 710 MED REC DISCHARGED Page 1 of 1 Name Value Range Interpretation Code Description Data Noemí rce(s) Supporting Document(s) ID Date Data Source [id number] 09/19/2020 09:54:00 AM EDT [facility] [address] [place] [address] PHONE: [phone] FAX: [phone] Name .................. : [facility] Acct Number.................. : [id number] ROOM. ................. : MR Number ................... : [id number] Stay type ............. : O/P Discharge Date......... ... : 09/15/20 Admit Date ......... : 09/15/20 Admit Phys .................... : LINDSAY THAKUR Date of ....... : 1960 Family Phys ................... : LINDSAY THAKUR Phone .................. : [phone] Age ................................ : 59 Film# .................. .:[id number] Sex ................................. : M Unsigned transcriptions are preliminary reports and do not represent a medical or legal document [place]PLETE-[address] [place] [id number] COMPLETE:09/15/20 16:56 JLD [id number] Reason for Exam: PAIN R FOOT RIGHT FOOT X-RAY: INDICATION: Pain. COMPARISON: No prior examination available for comparison. FINDINGS: There appears to be a suspected old fracture of the distal aspect of the first proximal phalanx. Clinical correlation to exclude point tenderness is recommended. Diffuse degenerative changes are identified. The soft tissues appear unremarkable. IMPRESSION: Suspected old fracture of the distal aspect of the first proximal phalanx. Clinical correlation to exclude an acute fracture is recommended. Examination dictated by SANDRA Marie. Examination was reviewed with Arden Villar MD, radiologist at the time of this dictation. Electronically Reviewed and Signed By Arden Villar MD , 09/19/20 09:54, AML Transcribe Initials: MATTHEW , Transcribe Date: 09/15/20 18:17, Dictation Date: Copy for: LINDSAY GANDHI via fax Copy for: [address] [place] [address] Page 1 of 1 Name Value Range Interpretation Code Description Data Noemí rce(s) Supporting Document(s) ID Date Data Source [id number] 09/18/2020 08:04:00 PM EDT [facility] Name Value Range Interpretation Code Description Data Noemí rce(s) Supporting Document(s) SARS coronavirus 2 RNA [Presence] in Res piratory specimen by ANNE MARIE with probe detection NEGATIVE [facility] This lab was ordered by [facility] a nd reported by [facility]. ID Date Data Source [id number] 09/18/2020 06:27:00 AM EDT [facility] Name Value Range Interpretation Code Description Data Noemí rce(s) Supporting Document(s) CBC W/Automated Diff Laboratory test result [facility] ([facility] COMPLETE BLOOD COUNT WBC 6.4 10^3/uL 4.2-11.0 [facility] RBC 4.33 10^6/uL 4.50-6.30 Below low normal [facility] ([facility] Hemoglobin 12.5 g/dL 14.0-16.0 Below low normal [facility] ( [facility] Hematocrit 38.0 % 41.0-51.0 Below low normal [facility] ( [facility] MCH 28.9 pg 27.0-34.0 [facility] MCV 87.8 fL 80.0-94.0 [facility] RDW 13.3 % 11.5-14.8 [facility] MCHC 32.9 g/dL 31.0-36.0 [facility] MPV 9.7 fL 7.4-10.4 [facility] Platelets 266 10^3/uL 150-450 [facility] Lymph 22.8 % 25.0-40.0 Below low normal [facility] ( [facility] Neut 58.5 % 37.0-80.0 [facility] Eos 3.8 % 0.0-7.0 [facility] Alcorn 9.4 % 3.0-8.0 Above high normal [facility] ([facility] %Ig 4.2 % 0.0-0.0 Above high normal [facility] Baso 1.3 % 0.0-2.0 [facility] #Neut 3.73 10^3/uL 2.00-6.90 [facility] %NRBC 0.0 % 0.0-0.0 [facility] #Lymph 1.45 10^3/uL 0.60-3.40 [facility] #Alcorn 0.60 10^3/uL 0.00-0.90 [facility] #Baso 0.08 10^3/uL 0.00-0.20 [facility] #Eos 0.24 10^3/uL 0.00-0.70 [facility] #NRBC 0.00 10^3/uL 0.00-0.00 [facility] #Ig 0.27 10^3/uL 0.00-0.10 Above high normal MED[facility] T ([facility] Manual Diff Laboratory test result M EDCYRIL ([facility] RBC Morph Laboratory test result ME ROTH ([facility] ID Date Data Source [id number] 09/18/2020 06:27:00 AM EDT [facility] ([facility] Name Value Range Interpretation Code Description Data Noemí rce(s) Supporting Document(s) Vancomycin [Mass/volume] in Serum or Plasma --trough 5.6 ug/mL 10.0-15.0 Below low normal [facility] ([facility] ) TROUGH First trough is drawn 30 minutes prior to fourth dose. If patient is not hemodynamically stable, a trough is obtained as deemed medically necessary. If patient is hemodynamically stable, a trough should be drawn once a week. The trough is drawn 30 minutes prior to the next dose. Mild Infections Trough 10-15 mg/L Severe Infections Trough 15-20 mg/L ASSISTANT INFANT TEACHER Infections Trough 20-25 mg/L *Severe Infections - Endocarditis, Osteomyelitis, Hospital Acquired Pneumonia, Sepsis ID Date Data Source [id number] 09/18/2020 06:27:00 AM EDT [facility] ([facility] Name Value Range Interpretation Code Description Data Noemí rce(s) Supporting Document(s) CRP (High Sensitivity) 86.66 mg/L 1.00-3.00 Above high normal [facility] ([facility] <content>CDC/S HS-CRP CUT-OFF: RELATIVE RISK:</content>
<content><1.0 mg/L Low</content>
<content>1.0 - 3.0 mg/L Average</june nt>
<content>>3.0 mg/L High</content>
<content>Optimally, the average of HS-CRP results repeated</content>
<content>two weeks apart should be used for risk assessment.</content>
<content></content> ID Date Data Source [id number] 09/18/2020 06:27:00 AM EDT [facility] ([facility] Name Value Range Interpretation Code Description Data Noemí rce(s) Supporting Document(s) Comprehensive [facility]abo Laboratory test result [facility] ([facility] COMPREHENSIVE METABOLIC PANEL Sodium 140 meq/L 134-153 [facility] ([facility] Potassium 5.1 meq/L 3.6-5.0 Above high normal [facility] ([facility] Chloride 104 meq/L 98-107 [facility] ([facility] Co2 28 meq/L 22-30 [facility] ([facility] BUN 12 mg/dL 7-21 [facility] Glucose 180 mg/dL 70-99 Above high normal [facility] ([facility] Creatinine 0.9 mg/dL 0.7-1.5 [facility] ([facility] Total Protein 5.9 g/dL 6.3-8.2 Below low normal [facility] T ([facility] BUN/Creat 13 8-27 [facility] ([facility] Albumin 3.2 g/dL 3.9-5.0 Below low normal [facility] ( [facility] A/G Ratio 1.2 0.8-2.0 [facility] ([facility] Globulin 2.7 GM/DL 2.4-3.2 [facility] ([facility] Total Bili Laboratory test result 0.2-1.3 ME DENT ([facility] Calcium 8.7 mg/dL 8.4-10.2 [facility] ([facility] Alkaline Phos 66 U/L 38-126 [facility] ([facility] Sgot/Ast 14 U/L 5-40 [facility] Anion Gap 8.0 mmol/L 8.0-16.0 [facility] ([facility] SGPT/Alt 19 U/L 7-56 [facility] ([facility] Non-Aa GFR Laboratory test result ME DENT ([facility] Age 59 yrs [facility] ([facility] Afr Amer GFR Laboratory test result [facility] ([facility] Male GFR Interprentation 20-49 yrs >60 mL/min Normal 50-59 yrs >56 mL/min Normal 60-69 yrs >49 mL/min Normal 70-79yrs >42 mL/min Normal 80 and above >35 mL/min Normal Female GFR Interpretation 20-39 yrs >60 mL/min Normal 40-49 yrs >58 mL/min Normal 50-59 yrs >51 mL/min Normal 60-69 yrs >45 mL/min Normal 70-79 yrs >39 mL/min Normal 80 and above >32 mL/min Normal ID Date Data Source [id number] 09/18/2020 07:43:00 AM EDT [facility] Name Value Range Interpretation Code Description Data Noemí rce(s) Supporting Document(s) C reactive protein [Mass/volume] in Serum or Plasma by High sensitivity method 86.66 MG/L 1.00 - 3.00 [facility]/S HS-CRP CUT-OFF: RELATIVE RISK: <1.0 mg/L Low 1.0 - 3.0 mg/L Average >3.0 mg/L High Optimally, the average of HS-CRP results repeated two weeks apart should be used for risk assessment. ID Date Data Source [id number] 09/18/2020 07:30:00 AM EDT [facility] Name Value Range Interpretation Code Description Data [facility](s) Supporting Document(s) COMPREHENSIVE METABOLIC PANEL [facility] COMPREHENSIVE METABOLIC PANEL Sodium [Moles/volume] in Serum or Plasma 140 mEq/L 134 - 153 [facility] Potassium [Moles/volume] in Serum or Plasma 5.1 mEq/L 3.6 - 5.0 H [facility] Chloride [Moles/volume] in Serum or Plasma 104 mEq/L 98 - 107 [facility] Carbon dioxide, total [Moles/volume] in Serum or Plasma 28 MEQ/L 22 - 30 [facility] Glucose [Mass/volume] in Serum or Plasma 180 MG/DL 70 - 99 H [facility] BUN 12 MG/DL 7 - 21 [facility] Creatinine [Mass/volume] in Serum or Plasma 0.9 MG/DL 0.7 - 1.5 [facility] BUN/CREAT 13 8 - 27 [facility] Protein [Mass/volume] in Serum or Plasma 5.9 G/DL 6.3 - 8.2 L [facility] Albumin [Mass/volume] in Serum or Plasma 3.2 G/DL 3.9 - 5.0 L [facility] Globulin [Mass/volume] in Serum by calculation 2.7 GM/DL 2.4 - 3.2 [facility] A/G RATIO 1.2 0.8 - 2.0 [facility] Calcium [Mass/volume] in Serum or Plasma 8.7 MG/DL 8.4 - 10.2 [facility] Bilirubin.total [Mass/volume] in Serum or Plasma <0.7 MG/DL 0.2 - 1.3 [facility] Alkaline phosphatase [Enzymatic activity/volume] in Serum or Plasma 66 U/L 38 - 126 [facility] Aspartate aminotransferase [Enzymatic activity/volume] in Serum or Plasma 14 U/L 5 - 40 [facility] Alanine aminotransferase [Enzymatic activity/volume] in Seru m or Plasma 19 U/L 7 - 56 [facility] Anion gap 3 in Serum or Plasma 8.0 mmol/L 8.0 - 16.0 [facility] AGE 59 yrs [facility] Hospit al NON-AA GFR >60 mL/min [facility] Hosp ital AFR AMER GFR >60 mL/min [facility] Ho spital Male GFR In terprentation 20-49 yrs >60 mL/min Normal 50-59 yrs >56 mL/min Normal 60-69 yrs >49 mL/min Normal 70-79yrs >42 mL/min Normal 80 and above >35 mL/min Normal Female GFR Interpretation 20-39 yrs >60 mL/min Normal 40-49 yrs >58 mL/min Normal 50-59 yrs >51 mL/min Normal 60-69 yrs >45 mL/min Normal 70-79 yrs >39 mL/min Normal 80 and above >32 mL/min Normal ID Date Data Source [id number] 09/18/2020 07:30:00 AM EDT [facility] Name Value Range Interpretation Code Description Data Noemí rce(s) Supporting Document(s) Vancomycin [Mass/volume] in Serum or Plasma --trough 5.6 ug/mL 10.0 - 15.0 L [facility] TROUG H First trough is drawn 30 minutes prior to fourth dose. If patient is not hemodynamically stable, a trough is obtained as deemed medically necessary. If patient is hemodynamically stable, a trough should be drawn once a week. The trough is drawn 30 minutes prior to the next dose. Mild Infections Trough 10-15 mg/L Severe Infections Trough 15-20 mg/L ASSISTANT INFANT TEACHER Infections Trough 20-25 mg/L *Severe Infections - Endocarditis, Osteomyelitis, Hospital Acquired Pneumonia, Sepsis ID Date Data Source [id number] 09/18/2020 07:16:00 AM EDT [facility] Name Value Range Interpretation Code Description Data Neomí rce(s) Supporting Document(s) CBC W/AUTOMATED DIFF [facility] COMPLETE BLOOD COUNT Leukocytes [#/volume] in Blood by Automated count 6.4 10^3/uL 4.2 - 1 1.0 [facility] Erythrocytes [#/volume] in Blood by Automated count 4.33 10^6/uL 4. 50 - 6.30 L [facility] Hemoglobin [Mass/volume] in Blood 12.5 g/dL 14.0 - 16.0 L [facility] Hematocrit [Volume Fraction] of Blood by Automated count 38.0 % 4 1.0 - 51.0 L [facility] Erythrocyte mean corpuscular volume [Entitic volume] by Auto mated count 87.8 fL 80.0 - 94.0 [facility] Erythrocyte mean corpuscular hemoglobin [Entitic mass] by Automated count 28.9 pg 27.0 - 34.0 [facility] Erythrocyte mean corpuscular hemoglobin concentration [Mass/volume] by Automated count 32.9 g/dL 31.0 - 36.0 [facility] Erythrocyte distribution width [Ratio] by Automated count 13.3 % 11.5 - 14.8 [facility] Platelets [#/volume] in Blood by Automated count 266 10^3/uL 150 - 45 0 [facility] Platelet mean volume [Entitic volume] in Blood by Automated count 9.7 fL 7.4 - 10.4 [facility] Neutrophils/100 leukocytes in Blood by Automated count 58.5 % 37. 0 - 80.0 [facility] Lymphocytes/100 leukocytes in Blood by Manual count 22.8 % 25.0 - 40.0 L [facility] Monocytes/100 leukocytes in Blood by Automated count 9.4 % 3.0 - 8.0 H [facility] Eosinophils/100 leukocytes in Blood by Automated count 3.8 % 0.0 - 7.0 [facility] Basophils/100 leukocytes in Blood by Automated count 1.3 % 0.0 - 2.0 [facility] %IG 4.2 % 0.0 - 0.0 [facility] % 0.0 - [facility] Neutrophils [#/volume] in Blood by Automated count 3.73 10^3/uL 2.00 - 6.90 [facility] Lymphocytes [#/volume] in Blood by Automated count 1.45 10^3/uL 0.60 - 3.40 [facility] Monocytes [#/volume] in Blood by Automated count 0.60 10^3/uL 0.00 - 0.90 [facility] Eosinophils [#/volume] in Blood by Automated count 0.24 10^3/uL 0.00 - 0.70 [facility] Basophils [#/volume] in Blood by Automated count 0.08 10^3/uL 0.00 - 0.20 [facility] #IG 0.27 10^3/uL 0.00 - 0.10 H [facility]ital #NRBC 0.00 10^3/uL 0.00 - 0.00 [facility] MANUAL DIFF NOT INDICATED [facility] RBC MORPH NOT INDICATED [facility] spital ID Date Data Source [id number] 09/16/2020 10:13:00 AM EDT [facility] 1 OrderSheet [facility] Emergency Department [address] [place] [address] Phone #: ext- [phone] 09/16/2020 10:10 Patient: LAINE KYE Sex: M : 1960 Age: 59yWEIGHT:113.3 kg (S) HEIGHT:75 inches (S) BMI:31.2ALLERGIES: No Known Drug AllergyCHIEF COMPLAINT: pain, swelling, altered sensation, trouble walking, pain, swelling, Lt, feet, in:, alteredsensationDIAGNOSIS: Cellulitis of skinLAB ORDERSOrder Description Priority Entered Acknowledged InitialedCBC w Diff STAT 10:49 09/16/2020 10:51 Betty Peres RN PA;CMP STAT 10:49 09/16/2020 10:51 Betty FLORES;Sed. Rate STAT 10:49 09/16/2020 10:51 Betty FLORES;Urinalysis (Clean STAT 10:49 09/16/2020 Cancelled: Unable to Collect 14:03 DorisCatch) Jamie FLORES;CRP STAT 10:49 09/16/2020 10:51 Betty Peres RN PA;DIAGNOSTIC STUDY ORDERSOrder Description Priority Entered Acknowledged InitialedMEDICATION/IV/DRIP/FLUID ORDERSOrder Description Priority Entered Acknowledged InitialedGENERAL ORDERSOrder Description Priority Entered Acknowledged InitialedSaline Lock 10:50 09/16/2020 10:51 Betty Peres RN PA;[Electronically signed by Betty Peres RN (14:09/16/2020)][Electronically signed by Jamie Coburn (10:28 09/17/2020)] 2 OrderSheet [facility] Emergency Department [address] [place] [address] Phone #: ext- [phone] 09/16/2020 10:10 Patient: LAINE KEY Sex: M : 1960 Age: 59y[Electronically locked by Betty Peres RN (14:09/16/2020)] Name Value Range Interpretation Code Description Data Noemí rce(s) Supporting Document(s) ID Date Data Source [id number] 09/16/2020 10:13:00 AM EDT [facility] 1 Medication Reconciliation Report [facility] Emergency Department [address] [place] [address] Phone #: ext- [phone] 09/16/2020 10:10 Patient: LAINE KEY Sex: M : 1960 Age: 59yWeight: 113.3 kgHeight/Length: 75 in.BMI: 31.2ALLERGIES: No Known Drug AllergyThe patient's Home Medications are listed below:THE FOLLOWING MEDICATIONS NEED TO BE RECONCILED: Aspirin 81 Oral, daily Crestor Oral 10 mg, daily Flomax Oral 0.4 mg, daily Januvia Oral (100 mg), daily metFORMIN HCl Oral (1000 mg), daily, 500mg at night PriLOSEC OTC Oral, daily Probiotic Daily Oral, daily Tylenol PM Extra Strength Oral, at bedtimeThe source(s) of the original Home Medication information:Not obtained.The following Medications were given to the patient in the Emergency Department:None.The following Medications were prescribed to the patient:None. Name Value Range Interpretation Code Description Data Noemí [facility](s) Supporting Document(s) ID Date Data Source [id number] 09/16/2020 10:13:00 AM EDT [facility] 1 Medication Administration Record [facility] Emergency Department [address] [place] [address] Phone #: ext- [phone] 09/16/2020 10:10 Patient: LAINE KEY Sex: M : 1960 Age: 59yWeight: 113.3 kgHeight/Length: 75 inBMI: 31.2ALLERGIES: No Known Drug AllergyDate/Time Medication Administered Medication Ordered Name Value Range Interpretation Code Description Data Noemí e(s) Supporting Document(s) ID Date Data Source [id number] 09/16/2020 10:13:00 AM EDT [facility] 1 General Instructions [facility] Emergency Department [address] [place] [address] Phone #: ext- [phone] 09/16/2020 10:10 Patient: LAINE KEY Sex: M : 1960 Age: 59yCellulitis of the right foot (Osteomyelitis).(Electronically signed by SANDRA Jackson 09/17/2020 10:28) Name Value Range Interpretation Code Description Data Noemí rce(s) Supporting Document(s) ID Date Data Source [id number] 09/16/2020 10:13:00 AM EDT [facility] 1 Clinical Report - Nurses [facility] Emergency Department [address] [place] [address] Phone #: ext [phone] 09/16/2020 10:10 Patient: LAINE KEY Sex: M : 1960 Age: 59yTRIAGEHistorian: patient.Triage time: 10:09/16/2020. Acuity: LEVEL 4.Chief Complaint: RIGHT LOWER EXTREMITY SWELLING and REDNESS. Location of symptoms- rightfoot, right great toe and right 2nd toe.10:17 09/16/20. Alert. No acute distress.No injury occurred. Onset. (1 weeks ago). ( Has has "problems with right foot pain pressure x 1 year"Last week was seen at Dr Corrigan's office for right foot infection, given Augmentin. Seen here yesterdaygiven IV antibiotics "wanted him to be admitted but he wasn't able to stay yesterday, so came back to day"Picked up antibiotics prescribed yesterday).SEPSIS SCREEN: SIRS SCREEN NEGATIVE. SEPSIS SCREEN NEGATIVE. No suspected or confirmedsigns of infection present. --10:27 09/16/20 Betty Peres RN10:17 09/16/20. BP: 113/86. MAP: 95. HR: 90. RR: 18. O2 saturation: 97%. Temp: 98.3 F. Pain level now:0. --10:27 09/16/20 Betty Peres RN( Given Levaquin, Clindamycin IVPB Prescriptions for Levaquin 750 mg po daily took 1 dose, [id number] mg po q8h took 1 dose). --10:34 09/16/20 Betty Peres RN10:20 09/16/20.Treatment ECONOMIC ANALYSIS DIRECTOR:Recently seen in the office. (Dr Corrigan's office Friday 09/15 given Rx Augmentin took one dose). --11: Betty Peres RN.Weight: 113.3 kg stated. Height/Length: 75 inches Per Patient. BMI: 31.2. --10:16 09/16/20 MARIOLA Lutz.MedicationsAspirin 81 Oral, daily. Crestor Oral 10 mg, daily. Flomax Oral 0.4 mg, daily. Januvia Oral (Tablet 100 mg), daily. metFORMIN HCl Oral (Tablet 1000 mg), daily (500mg at night). PriLOSEC OTC Oral, daily. Probiotic Daily Oral, daily. Tylenol PM Extra Strength Oral, at bedtime. --10:22 09/16/20 Betty Peres RN. 2 Clinical Report - Nurses [facility] Emergency Department [address] [place] [address] Phone #: ext- [phone] 09/16/2020 10:10 Patient: LAINE KEY Sex: M : 1960 Age: 59y Allergies No Known Drug Allergy. --10:22 09/16/20 Betty Peres RN. PROBLEMS: Hypercholesterolemia. Diabetes Mellitus. Hypertension. --10:23 09/16/20 Betty Peres RN. ADDITIONAL SURGERIES: no known surgeries. History 10:09/16/20. PAST MEDICAL HX: Tetanus status: up-to-date. Immunizations: up-to-date. SOCIAL HX: Never smoker. No alcohol use or drug use. He was offered HIV testing but declined and hepatitis C testing but declined. He has not traveled outside the [place] Infectious disease exposure: No infectious disease exposure. SELF HARM ASSESSMENT: Self harm assessment was performed. The patient answered "no" to the question(s) "Do you have thoughts of harming or killing yourself?" and "Have you recently had thoughts about harming or killing others?". ABUSE ASSESSMENT: Abuse assessment. The patient had positive responses to the question(s) "Do you feel safe in your home?" (yes). Abuse denied. No report of abuse. NUTRITIONAL RISK ASSESSMENT: The nutritional risk assessment revealed no deficiencies. FUNCTIONAL ASSESSMENT: Functional assessment: no impairments noted. LEARNING NEEDS ASSESSMENT: The learning needs assessment revealed no barriers. FALL RISK ASSESSMENT: Fall risk assessment completed. No risk factors identified. SKIN INTEGRITY ASSESSMENT: Skin integrity risk assessment completed. No skin integrity risk identified. --10:09/16/20 Betty Peres RN. Interventions 10:09/16/20. To treatment room. Ambulatory by hospital staff. to room 1A. --10:09/16/20 Betty Peres RN.PHYSICAL EBVWKLIODZ30:09/16/20. Ambulatory to room. 3 Clinical Report - Nurses [facility] Emergency Department [address] [place] [address] Phone #: ext- [phone] 09/16/2020 10:10 Patient: LAINE KEY Sex: M : 1960 Age: 59y GENERAL / NEURO / PSYCH: Oriented X 4. Alert. Appears in no acute distress. He has pre-existing numbness of the right foot and left foot (from hammer toes "for years"). EXTREMITIES: Edema of the right lower extremity involving the foot. blister medial mid foot. Extremity pulses are within normal limits. Normal gait. Right foot: tenderness, swelling and erythema of the distal medial aspect of the mid foot and first and second toe. SKIN: Skin intact. Skin is warm and dry. --10:29 09/16/20 Betty Peres RN 10:30 09/16/20. SKIN: Old draining w ound present on the right foot (thickened, calloused medial foot great toe 2 toe redness, swelling, with drainage yellow serosanguinous). --10:40 09/16/20 Betty Peres RN.NURSING PROGRESS NOTES10:09/16/20. Two patient identifiers checked. Call light placed in reach. Side rails up x 1. Bedplaced in lowest position. Brakes of bed on. Patient ready for evaluation- ED physician notified. --10: Betty Peres RN 10:48 09/16/20. ( Patient soaking right foot in basin of sterile saline, betadine). --10:51 09/16/20 Betty Peres RN 11:00 09/16/2020 Site #1 started via IV in the left antecubital space with an 20g angiocath, with aseptic technique and good blood return; one attempt. Blood drawn: rainbow set. Labeled in the presence of the patient and sent to the lab. Saline lock flushed with 10 mL saline. --11:03 09/16/20 Betty Peres RN 11:14 09/16/20. ( Removed right foot from saline/betadine soak, dried, wrapped in towel. Hospitalist to come in to see patient.). --11:15 09/16/20 Betty Peres RN 11:55 09/16/20. ( Hospitalist in to examine patient for admission to hospital for IV Antibiotic therapy). --14:05 09/16/20 Betty Peres RN 12:14 09/16/20. ( Admission orders placed, bed assignment given). --14:06 09/16/20 Betty Peres RN.DISPOSITION / DISCHARGE 12:15 09/16/20. Bed obtained (CCU 3). --14:06 09/16/20 Betty Peres RN 13:40 09/16/20. Admitted to the Acute Inpat ient Unit. Transported via wheelchair by nurse. --14:09/16/20 Betty Peres RN 13:40 09/16/20. BP: 116/82. MAP: 93. HR: 88. RR: 18. O2 saturation: 98%. Temp: 98.4 F. Pain level now: 0/10. --14:09/16/20 Betty Peres RN. 4 Clinical Report - Nurses [facility] Emergency Department [address] [place] [address] Phone #: ext- [phone] 09/16/2020 10:10 Patient: LAINE KEY Sex: M : 1960 Age: 59yLocked/Released at 09/16/2020 14:09 by Betty Peres RN Name Value Range Interpretation Code Description Data Noemí rce(s) Supporting Document(s) ID Date Data Source [id number] 09/16/2020 10:13:00 AM EDT [facility] 1 Clinical Report - Physicians/Mid Levels [facility] Emergency Department [address] [place] [address] Phone #: ext- [phone] 09/16/2020 10:10 Patient: LAINE KEY Sex: M : 1960 Age: 59y Time Seen: 10:25 09/16/2020. Arrived- By private vehicle. Historian- patient.HISTORY OF PRESENT ILLNESS Chief Complaint: LOWER EXTREMITY PAIN, SWELLING and ALTERED SENSATION and TROUBLE WALKING; PAIN, SWELLING and ALTERED SENSATION IN THE LEFT FOOT; (Chronic Wound). This started 1 year ago, worse in the past week and is still present (Has has "problems with right foot pain pressure x 1 year" Last week was seen at Dr Corrigan's office for right foot infection, given Augmentin. Seen here yesterday given IV antibiotics "wanted him to be admitted but he wasn't able to stay yesterday, so came back to day" Picked up antibiotics prescribed yesterday). It was gradual in onset and has been constant. Severity is described as being .it has become recently worse. The quality is noted to be aching, "pain" and similar to prior episodes. Symptoms located in the area of the right foot. The patient has had redness and swelling. He has had difficulty walking. No bladder dysfunction, bowel dysfunction, sensory loss or motor loss. Patient notes the possibility of an injury. Similar symptoms previously. Patient has had similar symptoms several times. Recent medical care: The patient was seen recently at this facility in the emergency department.REVIEW OF SYSTEMSNo cough, chest pain, difficulty breathing, fever or enlarged lymph nodes. No neck pain, back pain,headache, blurred vision or sore throat. No abdominal pain, vomiting, diarrhea, black stools or difficultywith urination. No bloody stools. The patient has had skin rash.PAST HISTORYProblems:Hypercholesterolemia.Diabetes Mellitus.Hypertension. Additional Surgeries: no known surgeries. Medications: Aspirin 81 Oral, daily. Crestor Oral 10 mg, daily. Flomax Oral 0.4 mg, daily. Januvia Oral (Tablet 100 mg), daily. metFORMIN HCl Oral (Tablet 1000 mg), daily (500mg at night). PriLOSEC OTC Oral, daily. 2 Clinical Report - Physicians/Mid Levels [facility] Emergency Department [address] [place] [address] Phone #: ext- [phone] 09/16/2020 10:10 Patient: LAINE KEY [facility]#: [id number] Sex: M : 1960 Age: 59y Probiotic Daily Oral, daily. Tylenol PM Extra Strength Oral, at bedtime. Allergies: No Known Drug Allergy.SOCIAL HISTORYNever smoker. No alcohol use or drug use.PHYSICAL EXAMVital Signs: 09/16/2020 10:17 BP: 113/86. MAP: 95. HR: 90. RR: 18. O2 saturation: 97%. Temp: 98.3 F.Pain level now: 0/10. Have been reviewed as normal. Oxygen saturation normal.Appearance: Alert. Oriented X3. No acute distress.Eyes: Pupils equal, round and reactive to light. Eyes normal inspection.ENT: Ears normal. Nose normal. Pharynx normal.Neck: Normal inspection. Neck supple.CVS: Normal heart rate and rhythm. Heart sounds no rmal.Respiratory: No respiratory distress. Breath sounds normal.Abdomen: Soft and nontender. No organomegaly.Back: Normal inspection. No tenderness. ROM normal.Skin: Skin warm and dry. Normal skin color. Normal skin turgor.Extremities: Right leg: mild erythema located in the anterior, posterior, medial and lateral aspect of midand lower leg. Limited weight bearing secondary to pain. Neurovascular intact distally. Right foot: milderythema, tenderness and swelling and single puncture wound with controlled bleeding located in the distalplantar aspect of the foot. Limited weight bearing secondary to pain. Neurovascular intact distally.Swelling, warmth, tenderness, erythema, serous drainage, lymphangitis and fluctuance present in the rightfoot. Non-pitting edema of the right lower extremity involving the foot. No calf tenderness. (ulcerationwith sero sanguinous drainage at head of 2nd and 3rd MT.). Extremities otherwise negative.Neuro, Vascular and Tendons: No pulse deficit present. Lower extremity capillary refill not prolonged.Gait: Limping gait. He was able to bear weight.Neuro: Oriented X 3. No motor deficit. Sensory deficit present. Altered sensation to light touch on theleft leg.LABS, X-RAYS, AND EKGLaboratory Tests: Laboratory tests have been ordered, with results reviewed and considered in themedical decision making process. CBC w Diff: (HILARIO: 09/16/2020 11:00) ( MsgRcvd 09/16/2020 11:16) Final results Test Result Flag Units (Reference) CBC W/AUTOMATED DIFF COMPLETE BLOOD COUNT WBC 9.1 10/uL (4.2 - 11.0) RBC 4.62 10/uL (4.50 - 6.30) HEMOGLOBIN 13.5 L g/dL (14.0 - 16.0) HEMATOCRIT 39.5 L % (41.0 - 51.0) MCV 85.5 fL (80.0 - 94.0) MCH 29.2 pg (27.0 - 34.0) MCHC 34.2 g/dL (31.0 - 36.0) 3 Clinical Report - Physicians/Mid Levels [facility] Emergency Department [address] [place] [address] Phone #: ext- [phone] 09/16/2020 10:10 Patient: LAINE KEY Sex: M : 1960 Age: 59y RDW 12.8 % (11.5 - 14.8) PLATELETS 241 10/uL (150 - 450) MPV 10.2 fL (7.4 - 10.4) NEUT 76.7 % (37.0 - 80.0) LYMPH 9.2 L % (25.0 - 40.0) MONO 10.9 H % (3.0 - 8.0) EOS 2.1 % (0.0 - 7.0) BASO 0.3 % (0.0 - 2.0) %IG 0.8 H % (0.0 - 0.0) %NRBC 0.0 % (0.0 - 0.0) #NEUT 6.98 H 10/uL (2.00 - 6.90) #LYMPH 0.84 10/uL (0.60 - 3.40) #MONO 0.99 H 10/uL (0.00 - 0.90) #EOS 0.19 10/uL (0.00 - 0.70) #BASO 0.03 10/uL (0.00 - 0.20) #IG 0.07 10/uL (0.00 - 0.10) #NRBC 0.00 10/uL (0.00 - 0.00) MANUAL DIFF NOT INDICATED RBC MORPH NOT INDICATEDCMP: (HILARIO: 09/16/2020 11:00) ( MsgRcvd 09/16/2020 11:36) Final results Test Result Flag Units (Reference) COMPREHENSIVE METABOLIC PANEL COMPREHENSIVE METABOLIC PANEL SODIUM 137 mEq/L (134 - 153) POTASSIUM 3.8 mEq/L (3.6 - 5.0) CHLORIDE 98 mEq/L (98 - 107) CO2 28 MEQ/L (22 - 30) GLUCOSE 181 H MG/DL (70 - 99) BUN 14 MG/DL (7 - 21) CREATININE 0.8 MG/DL (0.7 - 1.5) BUN/CREAT 18 (8 - 27) TOTAL PROTEIN 7.4 G/DL (6.3 - 8.2) ALBUMIN 3.6 L G/DL (3.9 - 5.0) GLOBULIN 3.8 H GM/DL (2.4 - 3.2) A/G RATIO 0.9 (0.8 - 2.0) CALCIUM 9.4 MG/DL (8.4 - 10.2) TOTAL BILI <0.7 MG/DL (0.2 - 1.3) ALKALINE PHOS 82 U/L (38 - 126) SGOT/AST 14 U/L (5 - 40) SGPT/ALT 15 U/L (7 - 56) ANION GAP 11.0 mmol/L (8.0 - 16.0) AGE 59 yrs NON- AA GFR >60 mL/min AFR AMER GFR >60 mL/min Male GFR Interprentation 20-49 yrs >60 mL/min Kuxhny50-63 yrs >56 mL/min Normal 60-69 yrs >49 mL/min Normal 70-79yrs>42 mL/min Normal 80 and above >35 mL/min Normal Female GFRInterpretation 20-39 yrs >60 mL/min Normal 40-49 yrs >58 mL/minNormal 50-59 yrs >51 mL/min Normal 60-69 yrs >45 mL/min Xvltup47-58 yrs >39 mL/min Normal 80 and above >32 mL/min NormalSed. Rate: (HILARIO: 09/16/2020 11:00) ( MsgRcvd 09/16/2020 11:38) Final results Test Result Flag Units (Reference) SED RATE 67 H mm/hr (0 - 20) SED RATE REENTER 67CRP: (HILARIO: 09/16/2020 11:00) ( MsgRcvd 09/16/2020 11:44) Final results 4 Clinical Report - Physicians/Mid Levels [facility] Emergency Department [address] [place] [address] Phone #: ext- [phone] 09/16/2020 10:10 Patient: LAINE KEY Sex: M : 1960 Age: 59y Test Result Flag Units (Reference) CRP-HS 273.52 H MG/L (1.00 - 3.00) CDC/AHS HS-CRP CUT-OFF: RELATIVE RISK: <1.0 mg/L Low 1.0 - 3.0 mg/L Average >3.0 mg/L High Optimally, the average of HS-CRP results repeated two weeks apart should be used for risk assessment..PROGRESS AND PROCEDURESCourse of Care: 12:21 Eduardo 17 2020. Evaluation after observation. (Discussed risks, benefits, options andpt will be admitted by Brett Sanchez NP, Dr Garcia agreeable with disposition.). Discussed case with hospitalist, (Brett Sanchez NP). Reviewed test results. Agreed upon treatment plan and decision to admit. Health care provider will see patient in ED. Patient and relative counseled in person regarding the patient's stable condition, test results, diagnosis and need for admission. Patient and relative agrees with plan of care. 12:Sep 16 2020. Disposition: Admitted to the Acute Inpatient Unit. 12:Sep 16 2020 Brett Sanchez NP admitting. UTI (catheter associated) was not present prior to admission. Pressure ulcer was not present prior to admission. Vascular infection (catheter associated) was not present prior to admission. Surgical site infection was not present prior to admission. An object left in surgery was not present prior to admission. Blood incompatibility was not present prior to admission. Air embolism was not present prior to admission.CLINICAL IMPRESSION Cellulitis of the right foot (Osteomyelitis).(Electronically signed by SANDRA Jackson 09/17/2020 10:28) Name Value Range Interpretation Code Description Data Noemí rce(s) Supporting Document(s) ID Date Data Source [id number] 09/17/2020 05:57:00 AM EDT [facility] ([facility] Name Value Range Interpretation Code Description Data Noemí rce(s) Supporting Document(s) CRP (High Sensitivity) 153.47 mg/L 1.00-3.00 Above high normal [facility] ([facility] <content>CDC/S HS-CRP CUT-OFF: RELATIVE RISK:</content>
<content><1.0 mg/L Low</content>
<content>1.0 - 3.0 mg/L Average</june nt>
<content>>3.0 mg/L High</content>
<content>Optimally, the average of HS-CRP results repeated</content>
<content>two weeks apart should be used for risk assessment.</content>
<content></content> ID Date Data Source [id number] 09/17/2020 05:57:00 AM EDT [facility] ([facility] Name Value Range Interpretation Code Description Data Noemí rce(s) Supporting Document(s) Comprehensive [facility] Laboratory test result [facility] ([facility] COMPREHENSIVE METABOLIC PANEL Sodium 138 meq/L 134-153 [facility] Potassium 4.3 meq/L 3.6-5.0 [facility] ([facility] Co2 29 meq/L 22-30 [facility] ([facility] Chloride 103 meq/L 98-107 [facility] BUN 13 mg/dL 7-21 [facility] ([facility] Glucose 165 mg/dL 70-99 Above high normal [facility] Creatinine 0.8 mg/dL 0.7-1.5 [facility] ([facility] BUN/Creat 16 8-27 [facility] ([facility] Albumin 2.9 g/dL 3.9-5.0 Below low normal [facility] ( [facility] Total Protein 5.7 g/dL 6.3-8.2 Below low normal [facility] ([facility] Globulin 2.8 GM/DL 2.4-3.2 [facility] ([facility] A/G Ratio 1.0 0.8-2.0 [facility] ([facility] Total Bili Laboratory test result 0.2-1.3 [facility] ([facility] Calcium 8.6 mg/dL 8.4-10.2 [facility] ([facility] Alkaline Phos 72 U/L 38-126 [facility] ([facility] Sgot/Ast 20 U/L 5-40 [facility] ([facility] SGPT/Alt 19 U/L 7-56 [facility] ([facility] Anion Gap 6.0 mmol/L 8.0-16.0 Below low normal [facility] ( [facility] Age 59 yrs [facility] ([facility] Non-Aa GFR Laboratory test result [facility] ([facility] Afr Amer GFR Laboratory test result [facility] ([facility] Male GFR Interprentation 20-49 yrs >60 mL/min Normal 50-59 yrs >56 mL/min Normal 60-69 yrs >49 mL/min Normal 70-79yrs >42 mL/min Normal 80 and above >35 mL/min Normal Female GFR Interpretation 20-39 yrs >60 mL/min Normal 40-49 yrs >58 mL/min Normal 50-59 yrs >51 mL/min Normal 60-69 yrs >45 mL/min Normal 70-79 yrs >39 mL/min Normal 80 and above >32 mL/min Normal ID Date Data Source [id number] 09/17/2020 05:57:00 AM EDT [facility] ([facility] Name Value Range Interpretation Code Description Data Noemí rce(s) Supporting Document(s) CBC W/Automated Diff Laboratory test result [facility] COMPLETE BLOOD COUNT WBC 5.6 10^3/uL 4.2-11.0 [facility] RBC 4.21 10^6/uL 4.50-6.30 Below low normal [facility] ([facility] Hemoglobin 12.1 g/dL 14.0-16.0 Below low normal [facility] ( [facility] Hematocrit 36.6 % 41.0-51.0 Below low normal [facility] ( [facility] MCV 86.9 fL 80.0-94.0 [facility] MCH 28.7 pg 27.0-34.0 [facility] RDW 13.1 % 11.5-14.8 [facility] MCHC 33.1 g/dL 31.0-36.0 [facility] Platelets 223 10^3/uL 150-450 [facility] MPV 10.8 fL 7.4-10.4 Above high normal [facility] ([facility] Lymph 24.3 % 25.0-40.0 Below low normal [facility] ( [facility] Neut 54.9 % 37.0-80.0 [facility] Eos 4.0 % 0.0-7.0 [facility] Alcorn 13.7 % 3.0-8.0 Above high normal [facility] ([facility] Baso 0.9 % 0.0-2.0 [facility] %Ig 2.2 % 0.0-0.0 Above high normal [facility] %NRBC 0.0 % 0.0-0.0 [facility] #Neut 3.05 10^3/uL 2.00-6.90 [facility] #Lymph 1.35 10^3/uL 0.60-3.40 [facility] #Eos 0.22 10^3/uL 0.00-0.70 [facility] #Alcorn 0.76 10^3/uL 0.00-0.90 [facility] #Ig 0.12 10^3/uL 0.00-0.10 Above high normal [facility] ([facility] #Baso 0.05 10^3/uL 0.00-0.20 [facility] Manual Diff Laboratory test result M [facility] ([facility] #NRBC 0.00 10^3/uL 0.00-0.00 [facility] RBC Morph Laboratory test result [facility] ([facility] ID Date Data Source [id number] 09/17/2020 05:57:00 AM EDT [facility] ([facility] Name Value Range Interpretation Code Description Data Noemí rce(s) Supporting Document(s) Hemoglobin A1c/Hemoglobin.total in Blood 6.7 % 4.4-6.1 Above high normal [facility] ([facility] {A1] {HB] ID Date Data Source [id number] 09/17/2020 08:30:00 AM EDT [facility] Name Value Range Interpretation Code Description Data Noemí rce(s) Supporting Document(s) C reactive protein [Mass/volume] in Serum or Plasma by High sensitivity method 153.47 MG/L 1.00 - 3.00 H [facility]/S HS-CRP CUT-OFF: RELATIVE RISK: <1.0 mg/L Low 1.0 - 3.0 mg/L Average >3.0 mg/L High Optimally, the average of HS-CRP results repeated two weeks apart should be used for risk assessment. ID Date Data Source [id number] 09/17/2020 08:29:00 AM EDT [facility] Name Value Range Interpretation Code Description Data Noemí rce(s) Supporting Document(s) COMPREHENSIVE METABOLIC PANEL [facility] COMPREHENSIVE METABOLIC PANEL Sodium [Moles/volume] in Serum or Plasma 138 mEq/L 134 - 153 [facility] Potassium [Moles/volume] in Serum or Plasma 4.3 mEq/L 3.6 - 5.0 [facility] Chloride [Moles/volume] in Serum or Plasma 103 mEq/L 98 - 107 [facility] Carbon dioxide, total [Moles/volume] in Serum or Plasma 29 MEQ/L 22 - 30 [facility] Glucose [Mass/volume] in Serum or Plasma 165 MG/DL 70 - 99 H [facility] BUN 13 MG/DL 7 - 21 [facility] al Creatinine [Mass/volume] in Serum or Plasma 0.8 MG/DL 0.7 - 1.5 [facility] BUN/CREAT 16 8 - 27 [facility] al Protein [Mass/volume] in Serum or Plasma 5.7 G/DL 6.3 - 8.2 L [facility] Albumin [Mass/volume] in Serum or Plasma 2.9 G/DL 3.9 - 5.0 L [facility] Globulin [Mass/volume] in Serum by calculation 2.8 GM/DL 2.4 - 3.2 [facility] A/G RATIO 1.0 0.8 - 2.0 [facility] Calcium [Mass/volume] in Serum or Plasma 8.6 MG/DL 8.4 - 10.2 [facility] Bilirubin.total [Mass/volume] in Serum or Plasma <0.7 MG/DL 0.2 - 1.3 [facility] Alkaline phosphatase [Enzymatic activity/volume] in Serum or Plasma 72 U/L 38 - 126 [facility] Aspartate aminotransferase [Enzymatic activity/volume] in Serum or Plasma 20 U/L 5 - 40 [facility] Alanine aminotransferase [Enzymatic activity/volume] in Seru m or Plasma 19 U/L 7 - 56 [facility] Anion gap 3 in Serum or Plasma 6.0 mmol/L 8.0 - 16.0 L [facility] AGE 59 yrs [facility] NON-AA GFR >60 mL/min [facility] Hosp ital AFR AMER GFR >60 mL/min [facility] Ho spital Male GFR In terprentation 20-49 yrs >60 mL/min Normal 50-59 yrs >56 mL/min Normal 60-69 yrs >49 mL/min Normal 70-79yrs >42 mL/min Normal 80 and above >35 mL/min Normal Female GFR Interpretation 20-39 yrs >60 mL/min Normal 40-49 yrs >58 mL/min Normal 50-59 yrs >51 mL/min Normal 60-69 yrs >45 mL/min Normal 70-79 yrs >39 mL/min Normal 80 and above >32 mL/min Normal ID Date Data Source [id number] 09/17/2020 07:55:00 AM EDT [facility] Name Value Range Interpretation Code Description Data Noemí rce(s) Supporting Document(s) CBC W/AUTOMATED DIFF [facility] COMPLETE BLOOD COUNT Leukocytes [#/volume] in Blood by Automated count 5.6 10^3/uL 4.2 - 1 1.0 [facility] Erythrocytes [#/volume] in Blood by Automated count 4.21 10^6/uL 4. 50 - 6.30 L [facility] Hemoglobin [Mass/volume] in Blood 12.1 g/dL 14.0 - 16.0 L [facility] Hematocrit [Volume Fraction] of Blood by Automated count 36.6 % 4 1.0 - 51.0 L [facility] Erythrocyte mean corpuscular volume [Entitic volume] by Auto mated count 86.9 fL 80.0 - 94.0 [facility] Erythrocyte mean corpuscular hemoglobin [Entitic mass] by Automated count 28.7 pg 27.0 - 34.0 [facility] Erythrocyte mean corpuscular hemoglobin concentration [Mass/volume] by Automated count 33.1 g/dL 31.0 - 36.0 [facility] Erythrocyte distribution width [Ratio] by Automated count 13.1 % 11.5 - 14.8 [facility] Platelets [#/volume] in Blood by Automated count 223 10^3/uL 150 - 45 0 [facility] Platelet mean volume [Entitic volume] in Blood by Automated count 10.8 fL 7.4 - 10.4 H [facility] Neutrophils/100 leukocytes in Blood by Automated count 54.9 % 37. 0 - 80.0 [facility] Lymphocytes/100 leukocytes in Blood by Manual count 24.3 % 25.0 - 40.0 L [facility] Monocytes/100 leukocytes in Blood by Automated count 13.7 % 3.0 - 8.0 H [facility] Eosinophils/100 leukocytes in Blood by Automated count 4.0 % 0.0 - 7.0 [facility] Basophils/100 leukocytes in Blood by Automated count 0.9 % 0.0 - 2.0 [facility] %IG 2.2 % 0.0 - 0.0 H [facility] al %NRBC 0.0 % 0.0 - 0.0 [facility] al Neutrophils [#/volume] in Blood by Automated count 3.05 10^3/uL 2.00 - 6.90 [facility] Lymphocytes [#/volume] in Blood by Automated count 1.35 10^3/uL 0.60 - 3.40 [facility] Monocytes [#/volume] in Blood by Automated count 0.76 10^3/uL 0.00 - 0.90 [facility] Eosinophils [#/volume] in Blood by Automated count 0.22 10^3/uL 0.00 - 0.70 [facility] Basophils [#/volume] in Blood by Automated count 0.05 10^3/uL 0.00 - 0.20 [facility] #IG 0.12 10^3/uL 0.00 - 0.10 H [facility] H ospital #NRBC 0.00 10^3/uL 0.00 - 0.00 [facility] ospital MANUAL DIFF NOT INDICATED [facility] RBC MORPH NOT INDICATED [facility] spital ID Date Data Source [id number] 09/17/2020 07:46:00 AM EDT [facility] Name Value Range Interpretation Code Description Data Noemí rce(s) Supporting Document(s) Hemoglobin A1c/Hemoglobin.total in Blood 6.7 % 4.4 - 6.1 H [facility] {A1]{HB] ID Date Data Source [id number] 09/16/2020 11:00:00 AM EDT [facility] ([facility] Name Value Range Interpretation Code Description Data Noemí rce(s) Supporting Document(s) CBC W/Automated Diff Laboratory test result [facility] ([facility] COMPLETE BLOOD COUNT WBC 9.1 10^3/uL 4.2-11.0 [facility] ([facility] Hemoglobin 13.5 g/dL 14.0-16.0 Below low normal [facility] ( [facility] RBC 4.62 10^6/uL 4.50-6.30 [facility] ([facility] Hematocrit 39.5 % 41.0-51.0 Below low normal [facility] ( [facility] MCH 29.2 pg 27.0-34.0 [facility] ([facility] MCV 85.5 fL 80.0-94.0 [facility] MCHC 34.2 g/dL 31.0-36.0 [facility] RDW 12.8 % 11.5-14.8 [facility] ([facility] Platelets 241 10^3/uL 150-450 [facility] ([facility] MPV 10.2 fL 7.4-10.4 [facility] Neut 76.7 % 37.0-80.0 [facility] ([facility] Lymph 9.2 % 25.0-40.0 Below low normal [facility] ( [facility] Alcorn 10.9 % 3.0-8.0 Above high normal [facility] ([facility] Baso 0.3 % 0.0-2.0 [facility] ([facility] Eos 2.1 % 0.0-7.0 [facility] ([facility] %Ig 0.8 % 0.0-0.0 Above high normal [facility] ([facility] %NRBC 0.0 % 0.0-0.0 [facility] ([facility] #Neut 6.98 10^3/uL 2.00-6.90 Above high normal [facility] ([facility] #Lymph 0.84 10^3/uL 0.60-3.40 [facility] ([facility] #Alcorn 0.99 10^3/uL 0.00-0.90 Above high normal [facility] ([facility] #Eos 0.19 10^3/uL 0.00-0.70 [facility] ([facility] #Baso 0.03 10^3/uL 0.00-0.20 [facility] ([facility] #Ig 0.07 10^3/uL 0.00-0.10 [facility] ([facility] Manual Diff Laboratory test result M [facility] ([facility] #NRBC 0.00 10^3/uL 0.00-0.00 [facility] ([facility] RBC Morph Laboratory test result ME [facility] ([facility] ID Date Data Source [id number] 09/16/2020 11:00:00 AM EDT [facility] ([facility] Name Value Range Interpretation Code Description Data Noemí rce(s) Supporting Document(s) Sed Rate Reenter 67 [facility] ([facility] Sed Rate 67 mm/hr 0-20 Above high normal [facility] ([facility] ID Date Data Source [id number] 09/16/2020 11:00:00 AM EDT [facility] ([facility] Name Value Range Interpretation Code Description Data Noemí rce(s) Supporting Document(s) CRP (High Sensitivity) 273.52 mg/L 1.00-3.00 Above high normal [facility] ([facility] <content>CDC/S HS-CRP CUT-OFF: RELATIVE RISK:</content>
<content><1.0 mg/L Low</content>
<content>1.0 - 3.0 mg/L Average</june nt>
<content>>3.0 mg/L High</content>
<content>Optimally, the average of HS-CRP results repeated</content>
<content>two weeks apart should be used for risk assessment.</content>
<content></content> ID Date Data Source [id number] 09/16/2020 11:00:00 AM EDT [facility] ([facility] Name Value Range Interpretation Code Description Data Noemí rce(s) Supporting Document(s) Comprehensive Metabo Laboratory test result [facility] ([facility] COMPREHENSIVE METABOLIC PANEL Sodium 137 meq/L 134-153 [facility] Potassium 3.8 meq/L 3.6-5.0 [facility] ([facility] Chloride 98 meq/L 98-107 [facility] ([facility] Glucose 181 mg/dL 70-99 Above high normal [facility] ([facility] Co2 28 meq/L 22-30 [facility] ([facility] Creatinine 0.8 mg/dL 0.7-1.5 [facility] ([facility] BUN 14 mg/dL 7-21 [facility] ([facility] BUN/Creat 18 8-27 [facility] ([facility] Total Protein 7.4 g/dL 6.3-8.2 [facility] ([facility] Albumin 3.6 g/dL 3.9-5.0 Below low normal [facility] ( [facility] Globulin 3.8 GM/DL 2.4-3.2 Above high normal [facility] ([facility] A/G Ratio 0.9 0.8-2.0 [facility] ([facility] Calcium 9.4 mg/dL 8.4-10.2 [facility] ([facility] Total Bili Laboratory test result 0.2-1.3 [facility] ([facility] Alkaline Phos 82 U/L 38-126 [facility] Sgot/Ast 14 U/L 5-40 [facility] ([facility] SGPT/Alt 15 U/L 7-56 [facility] ([facility] Anion Gap 11.0 mmol/L 8.0-16.0 [facility] ([facility] Age 59 yrs [facility] ([facility] Non-Aa GFR Laboratory test result [facility] ([facility] Afr Amer GFR Laboratory test result [facility] ([facility] Male GFR Interprentation 20-49 yrs >60 mL/min Normal 50-59 yrs >56 mL/min Normal 60-69 yrs >49 mL/min Normal 70-79yrs >42 mL/min Normal 80 and above >35 mL/min Normal Female GFR Interpretation 20-39 yrs >60 mL/min Normal 40-49 yrs >58 mL/min Normal 50-59 yrs >51 mL/min Normal 60-69 yrs >45 mL/min Normal 70-79 yrs >39 mL/min Normal 80 and above >32 mL/min Normal ID Date Data Source [id number] 09/16/2020 11:44:00 AM EDT [facility] Name Value Range Interpretation Code Description Data Noemí rce(s) Supporting Document(s) C reactive protein [Mass/volume] in Serum or Plasma by High sensitivity method 273.52 MG/L 1.00 - 3.00 H [facility]/S HS-CRP CUT-OFF: RELATIVE RISK: <1.0 mg/L Low 1.0 - 3.0 mg/L Average >3.0 mg/L High Optimally, the average of HS-CRP results repeated two weeks apart should be used for risk assessment. ID Date Data Source [id number] 09/16/2020 11:38:00 AM EDT [facility] Name Value Range Interpretation Code Description Data Noemí rce(s) Supporting Document(s) Erythrocyte sedimentation rate by Westergren method 67 mm/hr 0 - 20 H [facility] SED RATE REENTER 67 [facility] ID Date Data Source [id number] 09/16/2020 11:36:00 AM T [facility] Name Value Range Interpretation Code Description Data Noemí rce(s) Supporting Document(s) COMPREHENSIVE METABOLIC PANEL [facility] COMPREHENSIVE METABOLIC PANEL Sodium [Moles/volume] in Serum or Plasma 137 mEq/L 134 - 153 [facility] Potassium [Moles/volume] in Serum or Plasma 3.8 mEq/L 3.6 - 5.0 [facility] Chloride [Moles/volume] in Serum or Plasma 98 mEq/L 98 - 107 [facility] Carbon dioxide, total [Moles/volume] in Serum or Plasma 28 MEQ/L 22 - 30 [facility] Glucose [Mass/volume] in Serum or Plasma 181 MG/DL 70 - 99 H [facility] BUN 14 MG[facility]DL 7 - [facility] Creat[facility] [Mass/volume] in Serum or Plasma 0.8 MG/DL 0.7 - 1.5 [facility] BUN/CREAT 18 8 - 27 [facility] Protein [Mass/volume] in Serum or Plasma 7.4 G/DL 6.3 - 8.2 [facility] Albumin [Mass/volume] in Serum or Plasma 3.6 G/DL 3.9 - 5.0 L [facility] Globulin [Mass/volume] in Serum by calculation 3.8 GM/DL 2.4 - 3.2 H [facility] A/G RATIO 0.9 0.8 - 2.0 [facility] Calcium [Mass/volume] in Serum or Plasma 9.4 MG/DL 8.4 - 10.2 [facility] Bilirubin.total [Mass/volume] in Serum or Plasma <0.7 MG/DL 0.2 - 1.3 [facility] Alkaline phosphatase [Enzymatic activity/volume] in Serum or Plasma 82 U/L 38 - 126 [facility] Aspartate aminotransferase [Enzymatic activity/volume] in Serum or Plasma 14 U/L 5 - 40 [facility] Alanine aminotransferase [Enzymatic activity/volume] in Seru m or Plasma 15 U/L 7 - 56 [facility] Anion gap 3 in Serum or Plasma 11.0 mmol/L 8.0 - 16.0 [facility] AGE 59 yrs [facility] al NON-AA GFR >60 mL/min [facility] ital AFR AMER GFR >60 mL/min [facility] Male GFR In terprentation 20-49 yrs >60 mL/min Normal 50-59 yrs >56 mL/min Normal 60-69 yrs >49 mL/min Normal 70-79yrs >42 mL/min Normal 80 and above >35 mL/min Normal Female GFR Interpretation 20-39 yrs >60 mL/min Normal 40-49 yrs >58 mL/min Normal 50-59 yrs >51 mL/min Normal 60-69 yrs >45 mL/min Normal 70-79 yrs >39 mL/min Normal 80 and above >32 mL/min Normal ID Date Data Source [id number] 09/16/2020 11:16:00 AM EDT [facility] Name Value Range Interpretation Code Description Data Noemí rce(s) Supporting Document(s) CBC W/AUTOMATED DIFF [facility] COMPLETE BLOOD COUNT Leukocytes [#/volume] in Blood by Automated count 9.1 10^3/uL 4.2 - 1 1.0 [facility] Erythrocytes [#/volume] in Blood by Automated count 4.62 10^6/uL 4. 50 - 6.30 [facility] Hemoglobin [Mass/volume] in Blood 13.5 g/dL 14.0 - 16.0 L [facility] Hematocrit [Volume Fraction] of Blood by Automated count 39.5 % 4 1.0 - 51.0 L [facility] Erythrocyte mean corpuscular volume [Entitic volume] by Auto mated count 85.5 fL 80.0 - 94.0 [facility] Erythrocyte mean corpuscular hemoglobin [Entitic mass] by Automated count 29.2 pg 27.0 - 34.0 [facility] Erythrocyte mean corpuscular hemoglobin concentration [Mass/volume] by Automated count 34.2 g/dL 31.0 - 36.0 [facility] Erythrocyte distribution width [Ratio] by Automated count 12.8 % 11.5 - 14.8 [facility] Platelets [#/volume] in Blood by Automated count 241 10^3/uL 150 - 45 0 [facility] Platelet mean volume [Entitic volume] in Blood by Automated count 10.2 fL 7.4 - 10.4 [facility] Neutrophils/100 leukocytes in Blood by Automated count 76.7 % 37. 0 - 80.0 [facility] Lymphocytes/100 leukocytes in Blood by Manual count 9.2 % 25.0 - 40.0 L [facility] Monocytes/100 leukocytes in Blood by Automated count 10.9 % 3.0 - 8.0 H [facility] Eosinophils/100 leukocytes in Blood by Automated count 2.1 % 0.0 - 7.0 [facility] Basophils/100 leukocytes in Blood by Automated count 0.3 % 0.0 - 2.0 [facility] %IG 0.8 % 0.0 - 0.0 [facility] %NRBC 0.0 % 0.0 - 0.0 [facility] al Neutrophils [#/volume] in Blood by Automated count 6.98 10^3/uL 2.00 - 6.90 H [facility] Lymphocytes [#/volume] in Blood by Automated count 0.84 10^3/uL 0.60 - 3.40 [facility] Monocytes [#/volume] in Blood by Automated count 0.99 10^3/uL 0.00 - 0.90 H [facility] Eosinophils [#/volume] in Blood by Automated count 0.19 10^3/uL 0.00 - 0.70 [facility] Basophils [#/volume] in Blood by Automated count 0.03 10^3/uL 0.00 - 0.20 [facility] #IG 0.07 10^3/uL 0.00 - 0.10 [facility] #NRBC 0.00 10^3/uL 0.00 - 0.00 [facility] MANUAL DIFF NOT INDICATED [facility] RBC MORPH NOT INDICATED [facility] ID Date Data Source [id number] 09/15/2020 08:48:00 PM [facility]T [facility] Name Value Range Interpretation Code Description Data Noemí rce(s) Supporting Document(s) Lactate [Mass/volume] in Serum or Plasma 1.3 mmol/L 0.2-2.2 [facility] ([facility] ID Date Data Source [id number] 09/15/2020 09:00:00 PM EDT [facility] Name Value Range Interpretation Code Description Data Noemí rce(s) Supporting Document(s) Lactate [Moles/volume] in Serum or Plasma 1.3 MMOL/L 0.2 - 2.2 [facility] ID Date Data Source [id number] 09/15/2020 08:20:00 PM EDT [facility] ([facility] Name Value Range Interpretation Code Description Data Noemí rce(s) Supporting Document(s) Bacteria identified in Unspecified specimen by Anaerob e+Aerobe culture Laboratory [facility] SOURCE: foot ID Date Data Source [id number] 09/21/2020 08:10:00 PM EDT [facility] Name Value Range Interpretation Code Description Data Noemí rce(s) Supporting Document(s) CULTURE AEROBIC/ANAEROBIC [facility] _CULTURE AEROBIC/ANAEROBIC_$$[id number]$$[id number]$$[id number]$$[id number] DATE/TIME: 09/21/2020 16:07Culture: CULTURE AEROBIC/ANAEROBIC Status: FinalAnaerobic Culture: P1No anaerobic growth in 72 hours.Isolate 1 Staphylococcus aureus Flag: A . . . . . . .3Moderate growthBased on susceptibility to oxacillin this isolate would besusceptible to:*Penicillinase-stable penicillins, such as: Cloxacillin, Dicloxacillin, Nafcillin*Beta-lactam combination agents, such as: -- Continued on next page --Patient: FORRESTSAMIR PLAZAGAR Order: [id number] Page 2Culture: CULTURE AEROBIC/ANAEROBIC Status: Final ==== Amoxicillin-clavulanic acid, Ampicillin-sulbactam, Piperacillin- tazobactam*Oral cephems, such as: Cefaclor, Cefdinir, Cefpodoxime, Cefprozil, Cefuroxime, Cephalexin, Loracarbef*Parenteral cephems, such as: Cefazolin, Cef epime, Cefotaxime, Cefotetan, Ceftaroline, Ceftizoxime, Ceftriaxone, Cefuroxime*Carbapenems, such as: Doripenem, Ertapenem, Imipenem, Meropenem Previous result entered on 09/19/2020 15:19 ET Staphylococcus aureusAerobic Culture: [id number] aureus Flag: AIsolate 2 Bacillus species, not Bacillus anthracis Flag: A . . . . . . .4Heavy growthSusceptibility not normally performed on this organism. Previous result entered on 09/19/2020 15:19 ET Bacillus species, not Bacillus anthracisBacillus species, not Bacillus anthracis Flag: APatient: SHAHID JANG Order: [id number] Page 3Culture: CULTURE AEROBIC/ANAEROBIC Status: Final ====ISOLATE 1 Staphylococcus aureus Isolate 1Antibiotic DEION IntUnits ug/mL Ciprofloxacin R R . . . . . .185-9Clindamycin S S . . . . . .193-3Erythromycin R R . . . . . .233-7Gentamicin S S . . . . . .267-5Levofloxacin R R . . . . . .12599- 8Linezolid S S . . . . . .18930-1Tbamjpkhpulx R R . . . . . .42082-8Amylmendw S S . . . . . .383-0Penicillin R R . . . . . .6932-8Quinupristin/Dalfopristin S S . . . . . .38697- 4Rifampin S S . . . . . .428-3Tetracycline R R . . . . . .496-0Trimethoprim/Sulfa S S . . . . . .516-5Vancomycin S S . . . . . .524-9P1 Test performed by: [facility] #: [id number] [address] [place] [address] [phone] [facility] [id number] Director : Lon Lucia MD NPI #:Conflict Resolution Professional : 09/20/20.0631.XMT.SENT REF 09/21/20.1437.XMT.SENT REF 09/21/20.XMT.SENT REF ID Date Data Source [id number] 09/15/2020 08:00:00 PM EDT [facility] ([facility] Name Value Range Interpretation Code Description Data Noemí rce(s) Supporting Document(s) Culture Wound Laboratory test result [facility] ([facility] SPECIMEN SOURCE:: Foot ID Date Data Source [id number] 09/22/2020 02:15:00 PM EDT [facility] Name Value Range Interpretation Code Description Data Noemí rce(s) Supporting Document(s) CULTURE WOUND [facility] _CULTURE WOUND_$$[id number]$$[id number]$$[id number]$$[id number]$$[id number]$$[id number] DATE/TIME: 09/22/2020 11:06Culture: CULTURE WOUND Status: FinalIsolate 1 Staphylococcus aureus Flag: A . . . . . . .3Heavy growthMethicillin resistant (MRSA)Based on resistance to oxacillin this isolate would be resistant toall currently available beta-lactam antimicrobial agents, with theexception of the newer cephalosporins with anti-MRSA activity, such asCeftaroline Previous result entered on 09/21/2020 14:08 ET Staphylococcus aureusSusceptibility results being verified. Final report to follow. Previous result entered on 09/20/2020 11:08 ET Microbiological testing to rule out the presence of possible pathogensis in progress.Aerobic Bacterial Culture: [id number] aureus Flag: AIsolate 2 Bacillus species, not Bacillus anthracis Flag: A . . . . . . .4 -- Continued on next page --Patient: SHAHID JANG Order: [id number] Page 2Culture: CULTURE WOUND Status: Final Heavy growthSusceptibility not normally performed on this organism. Previous result entered on 09/21/2020 14:08 ET Bacillus species, not Bacillus anthracis Previous result entered on 09/20/2020 11:08 ET Bacillus species, not Bacillus anthracisBacillus species, not Bacillus anthracis Flag: APatient: SHAHID JANG Order: [id number] Page 3Culture: CULTURE WOUND Status: Final ====ISOLATE 1 Staphylococcus aureus Isolate 1Antibiotic DEION IntUnits ug/mL Ciprofloxacin R R . . . . . .185-9Clindamycin S S . . . . . .193-3Erythromycin R R . . . . . .233-7Gentamicin S S . . . . . .267-5Levofloxacin R R . . . . . .40798-3Nyllhiqka S S . . . . . .32447-7Ghubcjagy R R . . . . . .383-0Penicillin R R . . . . . .6932- 8Rifampin S S . . . . . .428-3Tetracycline S S . . . . . .496-0Trimethoprim/Sulfa S S . . . . . .516-5Vancomycin S S . . . . . .524-9P1 Test performed by: [facility] #: [id number] [address] [place] [address] [phone] [facility] [id number] Director : Lon Lucia MD NPI #:Conflict Resolution Professional : 09/20/20.1246.XMT.SENT REF 09/21/20.XMT.SENT REF 09/22/20.1415.XMT.SENT REF ID Date Data Source [id number] 09/21/2020 12:14:00 PM EDT [facility] [address] Name Value Range Interpretation Code Description Data Noemí rce(s) Supporting Document(s) Bacteria identified in Blood by Culture [facility] NO GROWTH AFTER 5 DAYS ID Date Data Source [id number] 09/15/2020 07:37:00 PM EDT [facility] ([facility] Name Value Range Interpretation Code Description Data Noemí rce(s) Supporting Document(s) Culture Blood Laboratory test result [facility] ([facility] _CULTURE BLOOD_ TEST PERFORMED AT [address] [address] CLIA# [id number] SEE SCANNED REPORT { PRELIM ID Date Data Source [id number] 09/23/2020 12:36:00 PM EDT [facility] Name Value Range Interpretation Code Description Data Noemí rce(s) Supporting Document(s) CULTURE BLOOD [facility] _CULTURE BLOOD_ TEST PERFORM ED AT [address] [address] CLIA# [id number] SEE SCANNED REPORT{ PRELIM ID Date Data Source [id number] 09/15/2020 07:30:00 PM EDT [facility] ([facility] Name Value Range Interpretation Code Description Data Noemí rce(s) Supporting Document(s) Sed Rate 59 mm/hr 0-20 Above high normal [facility] ([facility] Sed Rate Reenter 59 [facility] ([facility] ID Date Data Source [id number] 09/15/2020 07:30:00 PM EDT [facility] ([facility] Name Value Range Interpretation Code Description Data Noemí rce(s) Supporting Document(s) CBC W/Automated Diff Laboratory test result [facility] ([facility] COMPLETE BLOOD COUNT WBC 10.9 10^3/uL 4.2-11.0 [facility] ([facility] RBC 4.82 10^6/uL 4.50-6.30 [facility] ([facility] Hematocrit 41.4 % 41.0-51.0 [facility] ([facility] Hemoglobin 13.9 g/dL 14.0-16.0 Below low normal [facility] ( [facility] MCV 85.9 fL 80.0-94.0 [facility] ([facility] MCH 28.8 pg 27.0-34.0 [facility] ([facility] RDW 12.6 % 11.5-14.8 [facility] ([facility] MCHC 33.6 g/dL 31.0-36.0 [facility] ([facility] Platelets 218 10^3/uL 150-450 [facility] MPV 10.4 fL 7.4-10.4 [facility] ([facility] Neut 76.5 % 37.0-80.0 [facility] ([facility] Lymph 8.8 % 25.0-40.0 Below low normal [facility] ( [facility] Alcorn 12.1 % 3.0-8.0 Above high normal [facility] ([facility] Eos 1.0 % 0.0-7.0 [facility] ([facility] Baso 0.5 % 0.0-2.0 [facility] ([facility] %Ig 1.1 % 0.0-0.0 Above high normal [facility] ([facility] %NRBC 0.0 % 0.0-0.0 [facility] #Neut 8.33 10^3/uL 2.00-6.90 Above high normal [facility] ([facility] #Lymph 0.96 10^3/uL 0.60-3.40 [facility] ([facility] #Alcorn 1.32 10^3/uL 0.00-0.90 Above high normal [facility] ([facility] #Eos 0.11 10^3/uL 0.00-0.70 [facility] ([facility] #Baso 0.05 10^3/uL 0.00-0.20 [facility] ([facility] #Ig 0.12 10^3/uL 0.00-0.10 Above high normal [facility] ([facility] #NRBC 0.00 10^3/uL 0.00-0.00 [facility] ([facility] Manual Diff Laboratory test result [facility] ([facility] Segs 77 % 37-80 [facility] ([facility] %Lymph 11 % 25-40 Below low normal [facility] ([facility] %Eos 1 % 0-7 [facility] ([facility] %Alcorn 11 % 3-8 Above high normal [facility] ([facility] RBC Morph Laboratory test result [facility] ([facility] ID Date Data Source [id number] 09/15/2020 07:30:00 PM EDT [facility] ([facility] Name Value Range Interpretation Code Description Data Noemí rce(s) Supporting Document(s) CRP (High Sensitivity) 280.00 mg/L 1.00-3.00 Above high normal [facility] ([facility] <content>CDC/S HS-CRP CUT-OFF: RELATIVE RISK:</content>
<content><1.0 mg/L Low</content>
<content>1.0 - 3.0 mg/L Average</june nt>
<content>>3.0 mg/L High</content>
<content>Optimally, the average of HS-CRP results repeated</content>
<content>two weeks apart should be used for risk assessment.</content>
<content></content> ID Date Data Source [id number] 09/15/2020 07:30:00 PM EDT [facility] ([facility] Name Value Range Interpretation Code Description Data Noemí rce(s) Supporting Document(s) Culture Blood Laboratory test result [facility] ([facility] _CULTURE BLOOD_ [place] [address] [facility]# [id number] SEE SCANNED REPORT { PRELIM ID Date Data Source [id number] 09/15/2020 07:30:00 PM EDT [facility] ([facility] Name Value Range Interpretation Code Description Data Noemí rce(s) Supporting Document(s) Comprehensive Metabo Laboratory test result [facility] ([facility] COMPREHENSIVE METABOLIC PANEL Sodium 138 meq/L 134-153 [facility] Potassium 4.0 meq/L 3.6-5.0 [facility] Chloride 98 meq/L 98-107 [facility] Co2 29 meq/L 22-30 [facility] Glucose 185 mg/dL 70-99 Above high normal [facility] ([facility] BUN 11 mg/dL 7-21 [facility] Creatinine 0.8 mg/dL 0.7-1.5 [facility] BUN/Creat 14 8-27 [facility] Total Protein 6.6 g/dL 6.3-8.2 [facility] ([facility] Albumin 3.5 g/dL 3.9-5.0 Below low normal [facility] ( [facility] Globulin 3.1 GM/DL 2.4-3.2 [facility] A/G Ratio 1.1 0.8-2.0 [facility] Calcium 9.2 mg/dL 8.4-10.2 [facility] Total Bili Laboratory test result 0.2-1.3 [facility] ([facility] Alkaline Phos 77 U/L 38-126 [facility] ([facility] Sgot/Ast 12 U/L 5-40 [facility] ([facility] SGPT/Alt 14 U/L 7-56 [facility] ([facility] Anion Gap 11.0 mmol/L 8.0-16.0 [facility] ([facility] Age 59 yrs [facility] ([facility] Non-Aa GFR Laboratory test result [facility] Afr Amer GFR Laboratory test result [facility] ([facility] Male GFR Interprentation 20-49 yrs >60 mL/min Normal 50-59 yrs >56 mL/min Normal 60-69 yrs >49 mL/min Normal 70-79yrs >42 mL/min Normal 80 and above >35 mL/min Normal Female GFR Interpretation 20-39 yrs >60 mL/min Normal 40-49 yrs >58 mL/min Normal 50-59 yrs >51 mL/min Normal 60-69 yrs >45 mL/min Normal 70-79 yrs >39 mL/min Normal 80 and above >32 mL/min Normal ID Date Data Source [id number] 09/23/2020 12:35:00 PM EDT [facility] Name Value Range Interpretation Code Description Data Noemí rce(s) Supporting Document(s) CULTURE BLOOD [facility] _CULTURE BLOOD_ [place] [address] IA# [id number] SEE SCANNED REPORT{ PRELIM ID Date Data Source [id number] 09/15/2020 08:27:00 PM EDT [facility] Name Value Range Interpretation Code Description Data Noemí rce(s) Supporting Document(s) C reactive protein [Mass/volume] in Serum or Plasma by High sensitivity method 280.00 MG/L 1.00 - 3.00 H [facility] CDC/S HS-CRP CUT-OFF: RELATIVE RISK: <1.0 mg/L Low 1.0 - 3.0 mg/L Average >3.0 mg/L High Optimally, the average of HS-CRP results repeated two weeks apart should be used for risk assessment. ID Date Data Source [id number] 09/15/2020 08:22:00 PM EDT [facility] Name Value Range Interpretation Code Description Data Noemí rce(s) Supporting Document(s) CBC W/AUTOMATED DIFF [facility] COMPLETE BLOOD COUNT Leukocytes [#/volume] in Blood by Automated count 10.9 10^3/uL 4.2 - 11.0 [facility] Erythrocytes [#/volume] in Blood by Automated count 4.82 10^6/uL 4. 50 - 6.30 [facility] Hemoglobin [Mass/volume] in Blood 13.9 g/dL 14.0 - 16.0 L [facility] Hematocrit [Volume Fraction] of Blood by Automated count 41.4 % 4 1.0 - 51.0 [facility] Erythrocyte mean corpuscular volume [Entitic volume] by Auto mated count 85.9 fL 80.0 - 94.0 [facility] Erythrocyte mean corpuscular hemoglobin [Entitic mass] by Automated count 28.8 pg 27.0 - 34.0 [facility] Erythrocyte mean corpuscular hemoglobin concentration [Mass/volume] by Automated count 33.6 g/dL 31.0 - 36.0 [facility] Erythrocyte distribution width [Ratio] by Automated count 12.6 % 11.5 - 14.8 [facility] Platelets [#/volume] in Blood by Automated count 218 10^3/uL 150 - 45 0 [facility] Platelet mean volume [Entitic volume] in Blood by Automated count 10.4 fL 7.4 - 10.4 [facility] Neutrophils/100 leukocytes in Blood by Automated count 76.5 % 37. 0 - 80.0 [facility] Lymphocytes/100 leukocytes in Blood by Manual count 8.8 % 25.0 - 40.0 L [facility] Monocytes/100 leukocytes in Blood by Automated count 12.1 % 3.0 - 8.0 H [facility] Eosinophils/100 leukocytes in Blood by Automated count 1.0 % 0.0 - 7.0 [facility] Basophils/100 leukocytes in Blood by Automated count 0.5 % 0.0 - 2.0 [facility] %IG 1.1 % 0.0 - 0.0 [facility] %NRBC 0.0 % 0.0 - 0.[facility] Neut[facility] [#/volume] in Blood by Automated count 8.33 10^3/uL 2.00 - 6.90 H [facility] Lymphocytes [#/volume] in Blood by Automated count 0.96 10^3/uL 0.60 - 3.40 [facility] Monocytes [#/volume] in Blood by Automated count 1.32 10^3/uL 0.00 - 0.90 H [facility] Eosinophils [#/volume] in Blood by Automated count 0.11 10^3/uL 0.00 - 0.70 [facility] Basophils [#/volume] in Blood by Automated count 0.05 10^3/uL 0.00 - 0.20 [facility] #IG 0.12 10^3/uL 0.00 - 0.10 H [facility] H [facility]spital #NRBC 0.00 10^3/uL 0.00 - 0.00 [facility] ospital MANUAL DIFF SEE BELOW [facility] ital Segmented neutrophils/100 leukocytes in Blood by Manual count 77 % 37 - 80 [facility] %LYMPH 11 % 25 - 40 [facility] %MONO 11 % 3 - 8 [facility] %EOS 1 % 0 - 7 [facility] RBC MORPH NOT INDICATED [facility] spital ID Date Data Source [id number] 09/15/2020 08:15:00 PM EDT [facility] Name Value Range Interpretation Code Description Data Noemí rce(s) Supporting Document(s) Erythrocyte sedimentation rate by Westergren method 59 mm/hr 0 - 20 H [facility] SED RATE REENTER 59 [facility] ID Date Data Source [id number] 09/15/2020 08:07:00 PM EDT [facility] Name Value Range Interpretation Code Description Data Noemí rce(s) Supporting Document(s) COMPREHENSIVE METABOLIC PANEL [facility] COMPREHENSIVE METABOLIC PANEL Sodium [Moles/volume] in Serum or Plasma 138 mEq/L 134 - 153 [facility] Potassium [Moles/volume] in Serum or Plasma 4.0 mEq/L 3.6 - 5.0 [facility] Chloride [Moles/volume] in Serum or Plasma 98 mEq/L 98 - 107 [facility] Carbon dioxide, total [Moles/volume] in Serum or Plasma 29 MEQ/L 22 - 30 [facility] Glucose [Mass/volume] in Serum or Plasma 185 MG/DL 70 - 99 H [facility] BUN 11 MG/DL 7 - 21 [facility] al Creatinine [Mass/volume] in Serum or Plasma 0.8 MG/DL 0.7 - 1.5 [facility] BUN/CREAT 14 8 - 27 [facility] Protein [Mass/volume] in Serum or Plasma 6.6 G/DL 6.3 - 8.2 [facility] Albumin [Mass/volume] in Serum or Plasma 3.5 G/DL 3.9 - 5.0 L [facility] Globulin [Mass/volume] in Serum by calculation 3.1 GM/DL 2.4 - 3.2 [facility] A/G RATIO 1.1 0.8 - 2.0 [facility] Calcium [Mass/volume] in Serum or Plasma 9.2 MG/DL 8.4 - 10.2 [facility] Bilirubin.total [Mass/volume] in Serum or Plasma <0.7 MG/DL 0.2 - 1.3 [facility] Alkaline phosphatase [Enzymatic activity/volume] in Serum or Plasma 77 U/L 38 - 126 [facility] Aspartate aminotransferase [Enzymatic activity/volume] in Serum or Plasma 12 U/L 5 - 40 [facility] Alanine aminotransferase [Enzymatic activity/volume] in Seru m or Plasma 14 U/L 7 - 56 [facility] Anion gap 3 in Serum or Plasma 11.0 mmol/L 8.0 - 16.0 [facility] AGE 59 yrs [facility] al NON-AA GFR >60 mL/min [facility] ital AFR AMER GFR >60 mL/min [facility] Ho spital Male GFR In terprentation 20-49 yrs >60 mL/min Normal 50-59 yrs >56 mL/min Normal 60-69 yrs >49 mL/min Normal 70-79yrs >42 mL/min Normal 80 and above >35 mL/min Normal Female GFR Interpretation 20-39 yrs >60 mL/min Normal 40-49 yrs >58 mL/min Normal 50-59 yrs >51 mL/min Normal 60-69 yrs >45 mL/min Normal 70-79 yrs >39 mL/min Normal 80 and above >32 mL/min Normal ID Date Data Source [id number] 09/15/2020 10:21:00 AM EDT [facility] ([facility] Name Value Range Interpretation Code Description Data Noemí rce(s) Supporting Document(s) Erythrocyte sedimentation rate by Westergren method 54 mm/hr 0-20 [facility] NORMAL RANGES Age WBC RBC HGB HCT [...] HCT IS 5% LESS SOURCE FOR DATA: [facility]. 1800 OPERATION MANUAL( AUTOMATED BLOOD COUNTS AND [...] Normal 80 and above >32 mL/min Normal ID Date Data Source [id number] 09/15/2020 10:21:00 AM EDT [facility] ([facility] Name Value Range Interpretation Code Description Data Noemí rce(s) Supporting Document(s) Glu 234 mg/dL 70-110 Above high normal [facility] NORMAL RANGES Age WBC RBC HGB HCT [...] HCT IS 5% LESS SOURCE FOR DATA: [facility]. 1800 OPERATION MANUAL( AUTOMATED BLOOD COUNTS AND [...] Normal 80 and above >32 mL/min Normal Creat 0.7 mg/dL 0.7-1.2 [facility] NORMAL RANGES Age WBC RBC HGB HCT [...] HCT IS 5% LESS SOURCE FOR DATA: [facility]. 1800 OPERATION MANUAL( AUTOMATED BLOOD COUNTS AND [...] Normal 80 and above >32 mL/min Normal BUN 12 mg/dL 8- [facility] ([facility] NORMAL RANGES Age WBC RBC HGB HCT [...] HCT IS 5% LESS SOURCE FOR DATA: [facility]. 1800 OPERATION MANUAL( AUTOMATED BLOOD COUNTS AND [...] Normal 80 and above >32 mL/min Normal BUN/Creatinine Ratio 15.7 CALC [facility] ([facility] NORMAL RANGES Age WBC RBC HGB HCT [...] HCT IS 5% LESS SOURCE FOR DATA: [facility]. 1800 OPERATION MANUAL( AUTOMATED BLOOD COUNTS AND [...] Normal 80 and above >32 mL/min Normal Na 134 mmol/L 136-145 Below low normal [facility] NORMAL RANGES Age WBC RBC HGB HCT [...] HCT IS 5% LESS SOURCE FOR DATA: [facility]. 1800 OPERATION MANUAL( AUTOMATED BLOOD COUNTS AND [...] Normal 80 and above >32 mL/min Normal K 4.3 mmol/L 3.5-5.1 [facility] ([facility] NORMAL RANGES Age WBC RBC HGB HCT [...] HCT IS 5% LESS SOURCE FOR DATA: [facility]. 1800 OPERATION MANUAL( AUTOMATED BLOOD COUNTS AND [...] Normal 80 and above >32 mL/min Normal CL 96.0 mmol/L 98.0-107.0 Below low normal [facility] ([facility] NORMAL RANGES Age WBC RBC HGB HCT [...] HCT IS 5% LESS SOURCE FOR DATA: [facility]. 1800 OPERATION MANUAL( AUTOMATED BLOOD COUNTS AND [...] Normal 80 and above >32 mL/min Normal Co2 24.0 mmol/L 22.0-29.0 [facility] NORMAL RANGES Age WBC RBC HGB HCT [...] HCT IS 5% LESS SOURCE FOR DATA: [facility]. 1800 OPERATION MANUAL( AUTOMATED BLOOD COUNTS AND [...] Normal 80 and above >32 mL/min Normal TP 6.0 g/dL 6.6-8.7 Below low normal [facility] ( [facility] NORMAL RANGES Age WBC RBC HGB HCT [...] HCT IS 5% LESS SOURCE FOR DATA: [facility]. 1800 OPERATION MANUAL( AUTOMATED BLOOD COUNTS AND [...] Normal 80 and above >32 mL/min Normal CA 8.9 mg/dL 8.6-10.2 [facility] NORMAL RANGES Age WBC RBC HGB HCT [...] HCT IS 5% LESS SOURCE FOR DATA: [facility]. 1800 OPERATION MANUAL( AUTOMATED BLOOD COUNTS AND [...] Normal 80 and above >32 mL/min Normal Alb 3.4 g/dL 3.5-5.2 Below low normal [facility] ( [facility] NORMAL RANGES Age WBC RBC HGB HCT [...] HCT IS 5% LESS SOURCE FOR DATA: [facility]. 1800 OPERATION MANUAL( AUTOMATED BLOOD COUNTS AND [...] Normal 80 and above >32 mL/min Normal A/G Ratio 1.3 CALC [facility] NORMAL RANGES Age WBC RBC HGB HCT [...] HCT IS 5% LESS SOURCE FOR DATA: [facility]. 1800 OPERATION MANUAL( AUTOMATED BLOOD COUNTS AND [...] Normal 80 and above >32 mL/min Normal Globulin 2.6 CALC [facility] ([facility] NORMAL RANGES Age WBC RBC HGB HCT [...] HCT IS 5% LESS SOURCE FOR DATA: [facility]. 1800 OPERATION MANUAL( AUTOMATED BLOOD COUNTS AND [...] Normal 80 and above >32 mL/min Normal Alt (SGPT) 13 U/L 0-41 [facility] NORMAL RANGES Age WBC RBC HGB HCT [...] HCT IS 5% LESS SOURCE FOR DATA: [facility]. 1800 OPERATION MANUAL( AUTOMATED BLOOD COUNTS AND [...] Normal 80 and above >32 mL/min Normal Alp 74.5 U/L 40-129 [facility] NORMAL RANGES Age WBC RBC HGB HCT [...] HCT IS 5% LESS SOURCE FOR DATA: [facility]. 1800 OPERATION MANUAL( AUTOMATED BLOOD COUNTS AND [...] Normal 80 and above >32 mL/min Normal Tbili 0.37 mg/dL 0.0-1.2 [facility] NORMAL RANGES Age WBC RBC HGB HCT [...] HCT IS 5% LESS SOURCE FOR DATA: [facility]. 1800 OPERATION MANUAL( AUTOMATED BLOOD COUNTS AND [...] Normal 80 and above >32 mL/min Normal Ast (Sgot) 9 U/L 0-40 [facility] ([facility] NORMAL RANGES Age WBC RBC HGB HCT [...] HCT IS 5% LESS SOURCE FOR DATA: [facility]. 1800 OPERATION MANUAL( AUTOMATED BLOOD COUNTS AND [...] Normal 80 and above >32 mL/min Normal Osmolality-Calculated 274.5 [facility]C [facility] ([facility] NORMAL RANGES Age WBC RBC HGB HCT [...] Normal 80 and above >32 mL/min Normal Anion Gap 18 mmol/L [facility] NORMAL RANGES Age WBC RBC HGB HCT [...] HCT IS 5% LESS SOURCE FOR DATA: [facility]. 1800 OPERATION MANUAL( AUTOMATED BLOOD COUNTS AND [...] Normal 80 and above >32 mL/min Normal eGFR 121 # [facility] ( [facility] NORMAL RANGES Age WBC RBC HGB HCT [...] HCT IS 5% LESS SOURCE FOR DATA: [facility]. 1800 OPERATION MANUAL( AUTOMATED BLOOD COUNTS AND [...] Normal 80 and above >32 mL/min Normal eGFR Non-Afr. Citizen Of [place] 104 # [facility] ([facility] NORMAL RANGES Age WBC RBC HGB HCT [...] HCT IS 5% LESS SOURCE FOR DATA: [facility]. 1800 OPERATION MANUAL( AUTOMATED BLOOD COUNTS AND [...] Normal 80 and above >32 mL/min Normal ID Date Data Source [id number] 09/15/2020 10:21:00 AM EDT [facility] ([facility] Name Value Range Interpretation Code Description Data Noemí rce(s) Supporting Document(s) CBC W/Automated Diff Laboratory test result [facility] ([facility] COMPLETE BLOOD COUNT WBC 11.8 10^3/uL 4.2-11.0 Above high normal [facility] ([facility] RBC 4.83 10^6/uL 4.50-6.30 [facility] ([facility] Hemoglobin 14.1 g/dL 14.0-16.0 [facility] ([facility] Hematocrit 41.0 % 41.0-51.0 [facility] ([facility] MCV 84.9 fL 80.0-94.0 [facility] ([facility] MCH 29.2 pg 27.0-34.0 [facility] ([facility] RDW 12.6 % 11.5-14.8 [facility] ([facility] MCHC 34.4 g/dL 31.0-36.0 [facility] MPV 11.7 fL 7.4-10.4 Above high normal [facility] ([facility] Platelets 242 10^3/uL 150-450 [facility] ([facility] Neut 80.4 % 37.0-80.0 Above high normal [facility] ([facility] Lymph 5.2 % 25.0-40.0 Below low normal [facility] ( [facility] Alcorn 12.6 % 3.0-8.0 Above high normal [facility] ([facility] Eos 0.5 % 0.0-7.0 [facility] Baso 0.3 % 0.0-2.0 [facility] ([facility] %Ig 1.0 % 0.0-0.0 Above high normal [facility] ([facility] %NRBC 0.0 % 0.0-0.0 [facility] ([facility] #Lymph 0.61 10^3/uL 0.60-3.40 [facility] ([facility] #Neut 9.51 10^3/uL 2.00-6.90 Above high normal [facility] ([facility] #Alcorn 1.49 10^3/uL 0.00-0.90 Above high normal [facility] ([facility] #Baso 0.04 10^3/uL 0.00-0.20 [facility] ([facility] #Eos 0.06 10^3/uL 0.00-0.70 [facility] ([facility] #Ig 0.12 10^3/uL 0.00-0.10 Above high normal [facility] ([facility] #NRBC 0.00 10^3/uL 0.00-0.00 [facility] ([facility] Manual Diff Laboratory test result M [facility] ([facility] Segs 76 % 37-80 [facility] ([facility] Band 1 % 0-5 [facility] ([facility] %Lymph 7 % 25-40 Below low normal [facility] ([facility] %Alcorn 16 % 3-8 Above high normal [facility] ([facility] RBC Morph Laboratory test result [facility] ([facility] ID Date Data Source [id number] 09/15/2020 01:54:00 PM EDT [facility] Name Value Range Interpretation Code Description Data Noemí rce(s) Supporting Document(s) CBC W/AUTOMATED DIFF [facility] COMPLETE BLOOD COUNT Leukocytes [#/volume] in Blood by Automated count 11.8 10^3/uL 4.2 - 11.0 H [facility] Erythrocytes [#/volume] in Blood by Automated count 4.83 10^6/uL 4. 50 - 6.30 [facility] Hemoglobin [Mass/volume] in Blood 14.1 g/dL 14.0 - 16.0 [facility] Hematocrit [Volume Fraction] of Blood by Automated count 41.0 % 4 1.0 - 51.0 [facility] Erythrocyte mean corpuscular volume [Entitic volume] by Auto mated count 84.9 fL 80.0 - 94.0 [facility] Erythrocyte mean corpuscular hemoglobin [Entitic mass] by Automated count 29.2 pg 27.0 - 34.0 [facility] Erythrocyte mean corpuscular hemoglobin concentration [Mass/volume] by Automated count 34.4 g/dL 31.0 - 36.0 [facility] Erythrocyte distribution width [Ratio] by Automated count 12.6 % 11.5 - 14.8 [facility] Platelets [#/volume] in Blood by Automated count 242 10^3/uL 150 - 45 0 [facility] Platelet mean volume [Entitic volume] in Blood by Automated count 11.7 fL 7.4 - 10.4 H [facility] Neutrophils/100 leukocytes in Blood by Automated count 80.4 % 37. 0 - 80.0 H [facility] Lymphocytes/100 leukocytes in Blood by Manual count 5.2 % 25.0 - 40.0 L [facility] Monocytes/100 leukocytes in Blood by Automated count 12.6 % 3.0 - 8.0 H [facility] Eosinophils/100 leukocytes in Blood by Automated count 0.5 % 0.0 - 7.0 [facility] Basophils/100 leukocytes in Blood by Automated count 0.3 % 0.0 - 2.0 [facility] %IG 1.0 % 0.0 - 0.0 H [facility] Hospit al %NRBC 0.0 % 0.0 - 0.0 [facility] al Neutrophils [#/volume] in Blood by Automated count 9.51 10^3/uL 2.00 - 6.90 H [facility] Lymphocytes [#/volume] in Blood by Automated count 0.61 10^3/uL 0.60 - 3.40 [facility] Monocytes [#/volume] in Blood by Automated count 1.49 10^3/uL 0.00 - 0.90 H [facility] Eosinophils [#/volume] in Blood by Automated count 0.06 10^3/uL 0.00 - 0.70 [facility] Basophils [#/volume] in Blood by Automated count 0.04 10^3/uL 0.00 - 0.20 [facility] #IG 0.12 10^3/uL 0.00 - 0.10 H [facility]ital #NRBC 0.00 10^3/uL 0.00 - 0.00 [facility] MANUAL DIFF SEE BELOW [facility] ital Segmented neutrophils/100 leukocytes in Blood by Manual count 76 % 37 - 80 [facility] BAND 1 % 0 - 5 [facility] %LYMPH 7 % 25 - 40 L [facility] %MONO 16 % 3 - 8 H [facility] al RBC MORPH MORPH IS NORMAL [facility] ID Date Data Source [id number] 09/15/2020 10:00:00 AM EDT [facility] ([facility] Name Value Range Interpretation Code Description Data Noemí rce(s) Supporting Document(s) Bacteria identified in Unspecified specimen by Aerobe culture Laboratory test result Abnormal (applies to non-numeric results) [facility] ([facility] SRC:CX RT FOOT SOLE AT 2ND TOE Bacteria identified in Unspecified specimen by Culture Laborator y test result Abnormal (applies to non-numeric results) [facility] ([facility] SRC:CX RT FOOT SOLE AT 2ND TOE Other Antibiotic [Susceptibility] Laboratory test result [facility] ([facility] SRC:CX RT FOOT SOLE AT 2ND TOE ID Date Data Source [id number] 09/15/2020 10:00:00 AM EDT [facility] ([facility] Name Value Range Interpretation Code Description Data Noemí rce(s) Supporting Document(s) Bacteria identified in Unspecified specimen by Aerobe culture Laboratory test result [facility] ([facility] ID Date Data Source [id number] 07/26/2020 04:47:00 PM EDT [facility] ([facility] Name Value Range Interpretation Code Description Data Noemí rce(s) Supporting Document(s) Bacteria identified in Unspecified specimen by Aerobe culture Laboratory test result Abnormal (applies to non-numeric results) [facility] ([facility] SRC:RT SIDE OF NECK Other Antibiotic [Susceptibility] Laboratory test result [facility] ([facility] SRC:RT SIDE OF NECK Bacteria identified in Unspecified specimen by Culture Laborator y test result Abnormal (applies to non-numeric results) [facility] SRC:RT SIDE OF NECK ID Date Data Source [id number] 06/30/2020 09:35:00 AM EDT [facility] ([facility] Name Value Range Interpretation Code Description Data Noemí rce(s) Supporting Document(s) Alb 10 mg/L 1-30 [facility] ([facility] Creatinine, Urine 50 mg/dL 10-300 [facility] ([facility] A/C Ratio Laboratory test result [facility] ([facility] ID Date Data Source [id number] 06/30/2020 09:35:00 AM EDT [facility] ([facility] Name Value Range Interpretation Code Description Data Noemí rce(s) Supporting Document(s) Hemoglobin A1c/Hemoglobin.total in Blood 7.6 % 4.40-6.10 Above high normal [facility] ([facility] NORMAL RANGES Age WBC RBC HGB HCT [...] HCT IS 5% LESS SOURCE FOR DATA: [employer] 1800 OPERATION MANUAL( AUTOMATED BLOOD COUNTS [...] DESIRABLE: <130 MG/DL <110 MG/DL BORDERLINE-HIGH RISK: 130- 159 MG/DL 110-129 MG/DL HIGH RISK: >160 MG/DL >130 MG/DL *CHILDREN AND ADOLESCENTS REPRESENTS INDIVIDUALA AGED 2-19 YEARS EXCLUSIVE. ID Date Data Source [id number] 06/30/2020 09:35:00 AM EDT PAT ([facility] Name Value Range Interpretation Code Description Data Noemí rce(s) Supporting Document(s) Color Laboratory test result [facility] ([facility] NORMAL RANGES Age WBC RBC HGB HCT [...] HCT IS 5% LESS SOURCE FOR DATA: [facility]. 1800 OPERATION MANUAL( AUTOMATED BLOOD COUNTS AND [...] DESIRABLE: <130 MG/DL <110 MG/DL BORDERLINE-HIGH RISK: 130- 159 MG/DL 110-129 MG/DL HIGH RISK: >160 MG/DL >130 MG/DL *CHILDREN AND ADOLESCENTS REPRESENTS INDIVIDUALA AGED 2-19 YEARS EXCLUSIVE. Clarity [facility] NORMAL RANGES Age WBC RBC HGB HCT [...] HCT IS 5% LESS SOURCE FOR DATA: [facility]. 1800 OPERATION MANUAL( AUTOMATED BLOOD COUNTS AND [...] DESIRABLE: <130 MG/DL <110 MG/DL BORDERLINE-HIGH RISK: 130- 159 MG/DL 110-129 MG/DL HIGH RISK: >160 MG/DL >130 MG/DL *CHILDREN AND ADOLESCENTS REPRESENTS INDIVIDUALA AGED 2-19 YEARS EXCLUSIVE. Bilirubin,Urine Laboratory test result [facility] ([facility] NORMAL RANGES Age WBC RBC HGB HCT [...] HCT IS 5% LESS SOURCE FOR DATA: [employer] DYN 1800 OPERATION MANUAL( AUTOMATED BLOOD COUNTS [...] DESIRABLE: <130 MG/DL <110 MG/DL BORDERLINE-HIGH RISK: 130- 159 MG/DL 110-129 MG/DL HIGH RISK: >160 MG/DL >130 MG/DL *CHILDREN AND ADOLESCENTS REPRESENTS INDIVIDUALA AGED 2-19 YEARS EXCLUSIVE. Glucose-Ua Laboratory test result [facility] ([facility] NORMAL RANGES Age WBC RBC HGB HCT [...] HCT IS 5% LESS SOURCE FOR DATA: [facility]. 1800 OPERATION MANUAL( AUTOMATED BLOOD COUNTS AND [...] DESIRABLE: <130 MG/DL <110 MG/DL BORDERLINE-HIGH RISK: 130- 159 MG/DL 110-129 MG/DL HIGH RISK: >160 MG/DL >130 MG/DL *CHILDREN AND ADOLESCENTS REPRESENTS INDIVIDUALA AGED 2-19 YEARS EXCLUSIVE. Blood - Ua Laboratory test result [facility] ([facility] NORMAL RANGES Age WBC RBC HGB HCT [...] HCT IS 5% LESS SOURCE FOR DATA: [facility]. 1800 OPERATION MANUAL( AUTOMATED BLOOD COUNTS AND [...] DESIRABLE: <130 MG/DL <110 MG/DL BORDERLINE-HIGH RISK: 130- 159 MG/DL 110-129 MG/DL HIGH RISK: >160 MG/DL >130 MG/DL *CHILDREN AND ADOLESCENTS REPRESENTS INDIVIDUALA AGED 2-19 YEARS EXCLUSIVE. pH 7.0 # 5.0-8.0 [facility] NORMAL RANGES Age WBC RBC HGB HCT [...] HCT IS 5% LESS SOURCE FOR DATA: [facility]. 1800 OPERATION MANUAL( AUTOMATED BLOOD COUNTS AND [...] DESIRABLE: <130 MG/DL <110 MG/DL BORDERLINE-HIGH RISK: 130- 159 MG/DL 110-129 MG/DL HIGH RISK: >160 MG/DL >130 MG/DL *CHILDREN AND ADOLESCENTS REPRESENTS INDIVIDUALA AGED 2-19 YEARS EXCLUSIVE. Ketone Laboratory test result [facility] ([facility] NORMAL RANGES Age WBC RBC HGB HCT [...] HCT IS 5% LESS SOURCE FOR DATA: [facility]. 1800 OPERATION MANUAL( AUTOMATED BLOOD COUNTS AND [...] DESIRABLE: <130 MG/DL <110 MG/DL BORDERLINE-HIGH RISK: 130- 159 MG/DL 110-129 MG/DL HIGH RISK: >160 MG/DL >130 MG/DL *CHILDREN AND ADOLESCENTS REPRESENTS INDIVIDUALA AGED 2-19 YEARS EXCLUSIVE. Urobilinogen 0.2 NA 0.2-1.0 [facility] ([facility] NORMAL RANGES Age WBC RBC HGB HCT [...] HCT IS 5% LESS SOURCE FOR DATA: [facility]. 1800 OPERATION MANUAL( AUTOMATED BLOOD COUNTS AND [...] DESIRABLE: <130 MG/DL <110 MG/DL BORDERLINE-HIGH RISK: 130- 159 MG/DL 110-129 MG/DL HIGH RISK: >160 MG/DL >130 MG/DL *CHILDREN AND ADOLESCENTS REPRESENTS INDIVIDUALA AGED 2-19 YEARS EXCLUSIVE. Protein Laboratory test result [facility] ([facility] NORMAL RANGES Age WBC RBC HGB HCT [...] HCT IS 5% LESS SOURCE FOR DATA: [employer] DYN 1800 OPERATION MANUAL( AUTOMATED BLOOD COUNTS [...] DESIRABLE: <130 MG/DL <110 MG/DL BORDERLINE-HIGH RISK: 130- 159 MG/DL 110-129 MG/DL HIGH RISK: >160 MG/DL >130 MG/DL *CHILDREN AND ADOLESCENTS REPRESENTS INDIVIDUALA AGED 2-19 YEARS EXCLUSIVE. Leukocyte Laboratory test result [facility] ([facility] NORMAL RANGES Age WBC RBC HGB HCT [...] HCT IS 5% LESS SOURCE FOR DATA: [facility]. 1800 OPERATION MANUAL( AUTOMATED BLOOD COUNTS AND [...] DESIRABLE: <130 MG/DL <110 MG/DL BORDERLINE-HIGH RISK: 130- 159 MG/DL 110-129 MG/DL HIGH RISK: >160 MG/DL >130 MG/DL *CHILDREN AND ADOLESCENTS REPRESENTS INDIVIDUALA AGED 2-19 YEARS EXCLUSIVE. Nitrite Laboratory test result [facility] ([facility] NORMAL RANGES Age WBC RBC HGB HCT [...] HCT IS 5% LESS SOURCE FOR DATA: [employer] DYN 1800 OPERATION MANUAL( AUTOMATED BLOOD COUNTS [...] DESIRABLE: <130 MG/DL <110 MG/DL BORDERLINE-HIGH RISK: 130- 159 MG/DL 110-129 MG/DL HIGH RISK: >160 MG/DL >130 MG/DL *CHILDREN AND ADOLESCENTS REPRESENTS INDIVIDUALA AGED 2-19 YEARS EXCLUSIVE. ID Date Data Source [id number] 06/30/2020 09:35:00 AM EDT [facility] ([facility] Name Value Range Interpretation Code Description Data Noemí rce(s) Supporting Document(s) Creatine kinase [Enzymatic activity/volume] in Serum or Plasma 83 U /L 39-308 [facility] ([employer] [facility] NORMAL RANGES Age WBC RBC HGB HCT [...] HCT IS 5% LESS SOURCE FOR DATA: [facility]. 1800 OPERATION MANUAL( AUTOMATED BLOOD COUNTS AND [...] ADOLESCENTS REPRESENTS INDIVIDUALA AGED 2-19 YEARS EXCLUSIVE. ID Date Data Source [id number] 06/30/2020 09:35:00 AM EDT [facility] ([facility] Name Value Range Interpretation Code Description Data Noemí rce(s) Supporting Document(s) Chol 94 mg/dL 0-200 [facility] ([facility] NORMAL RANGES Age WBC RBC HGB HCT [...] HCT IS 5% LESS SOURCE FOR DATA: [facility]. 1800 OPERATION MANUAL( AUTOMATED BLOOD COUNTS AND [...] ADOLESCENTS REPRESENTS INDIVIDUALA AGED 2-19 YEARS EXCLUSIVE. Trig 84 mg/dL 35-200 [facility] NORMAL RANGES Age WBC RBC HGB HCT [...] ADOLESCENTS REPRESENTS INDIVIDUALA AGED 2-19 YEARS EXCLUSIVE. Cholesterol in HDL [Mass/volume] in Serum or Plasma 36 mg/dL 35-55 [facility] ([facility] NORMAL RANGES Age WBC RBC HGB HCT [...] HCT IS 5% LESS SOURCE FOR DATA: [facility]. 1800 OPERATION MANUAL( AUTOMATED BLOOD COUNTS AND [...] DESIRABLE: <130 MG/DL <110 MG/DL BORDERLINE-HIGH RISK: 130- 159 MG/DL 110-129 MG/DL HIGH RISK: >160 MG/DL >130 MG/DL *CHILDREN AND ADOLESCENTS REPRESENTS INDIVIDUALA AGED 2-19 YEARS EXCLUSIVE. Cho/HDL Ratio 2.6 CALC [facility] ([facility] NORMAL RANGES Age WBC RBC HGB HCT [...] HCT IS 5% LESS SOURCE FOR DATA: [facility]. 1800 OPERATION MANUAL( AUTOMATED BLOOD COUNTS AND [...] DESIRABLE: <130 MG/DL <110 MG/DL BORDERLINE-HIGH RISK: 130- 159 MG/DL 110-129 MG/DL HIGH RISK: >160 MG/DL >130 MG/DL *CHILDREN AND ADOLESCENTS REPRESENTS INDIVIDUALA AGED 2-19 YEARS EXCLUSIVE. LDL_C 42 Calc 75-129 Below low normal [facility] ( [facility] NORMAL RANGES Age WBC RBC HGB HCT [...] HCT IS 5% LESS SOURCE FOR DATA: [facility]. 1800 OPERATION MANUAL( AUTOMATED BLOOD COUNTS AND [...] DESIRABLE: <130 MG/DL <110 MG/DL BORDERLINE-HIGH RISK: 130- 159 MG/DL 110-129 MG/DL HIGH RISK: >160 MG/DL >130 MG/DL *CHILDREN AND ADOLESCENTS REPRESENTS INDIVIDUALA AGED 2-19 YEARS EXCLUSIVE. ID Date Data Source [id number] 06/30/2020 09:35:00 AM EDT [facility] ([facility] Name Value Range Interpretation Code Description Data Noemí rce(s) Supporting Document(s) Glu 149 mg/dL 70-110 Above high normal [facility] ([facility] NORMAL RANGES Age WBC RBC HGB HCT [...] HCT IS 5% LESS SOURCE FOR DATA: [facility]. 1800 OPERATION MANUAL( AUTOMATED BLOOD COUNTS AND [...] DESIRABLE: <130 MG/DL <110 MG/DL BORDERLINE-HIGH RISK: 130- 159 MG/DL 110-129 MG/DL HIGH RISK: >160 MG/DL >130 MG/DL *CHILDREN AND ADOLESCENTS REPRESENTS INDIVIDUALA AGED 2-19 YEARS EXCLUSIVE. Creat 0.8 mg/dL 0.7-1.2 [facility] NORMAL RANGES Age WBC RBC HGB HCT [...] HCT IS 5% LESS SOURCE FOR DATA: [facility]. 1800 OPERATION MANUAL( AUTOMATED BLOOD COUNTS AND [...] DESIRABLE: <130 MG/DL <110 MG/DL BORDERLINE-HIGH RISK: 130- 159 MG/DL 110-129 MG/DL HIGH RISK: >160 MG/DL >130 MG/DL *CHILDREN AND ADOLESCENTS REPRESENTS INDIVIDUALA AGED 2-19 YEARS EXCLUSIVE. BUN 14 mg/dL 8-23 [facility] ([facility] NORMAL RANGES Age WBC RBC HGB HCT [...] HCT IS 5% LESS SOURCE FOR DATA: [facility]. 1800 OPERATION MANUAL( AUTOMATED BLOOD COUNTS AND [...] DESIRABLE: <130 MG/DL <110 MG/DL BORDERLINE-HIGH RISK: 130- 159 MG/DL 110-129 MG/DL HIGH RISK: >160 MG/DL >130 MG/DL *CHILDREN AND ADOLESCENTS REPRESENTS INDIVIDUALA AGED 2-19 YEARS EXCLUSIVE. BUN/Creatinine Ratio 18.3 CALC [facility] ([facility] NORMAL RANGES Age WBC RBC HGB HCT [...] HCT IS 5% LESS SOURCE FOR DATA: [facility]. 1800 OPERATION MANUAL( AUTOMATED BLOOD COUNTS AND [...] DESIRABLE: <130 MG/DL <110 MG/DL BORDERLINE-HIGH RISK: 130- 159 MG/DL 110-129 MG/DL HIGH RISK: >160 MG/DL >130 MG/DL *CHILDREN AND ADOLESCENTS REPRESENTS INDIVIDUALA AGED 2-19 YEARS EXCLUSIVE. Na 141 mmol/L 136-145 [facility] NORMAL RANGES Age WBC RBC HGB HCT [...] HCT IS 5% LESS SOURCE FOR DATA: [facility]. 1800 OPERATION MANUAL( AUTOMATED BLOOD COUNTS AND [...] DESIRABLE: <130 MG/DL <110 MG/DL BORDERLINE-HIGH RISK: 130- 159 MG/DL 110-129 MG/DL HIGH RISK: >160 MG/DL >130 MG/DL *CHILDREN AND ADOLESCENTS REPRESENTS INDIVIDUALA AGED 2-19 YEARS EXCLUSIVE. CL 105.0 mmol/L 98.0-107.0 [facility] ([facility] NORMAL RANGES Age WBC RBC HGB HCT [...] HCT IS 5% LESS SOURCE FOR DATA: [facility]. 1800 OPERATION MANUAL( AUTOMATED BLOOD COUNTS AND [...] DESIRABLE: <130 MG/DL <110 MG/DL BORDERLINE-HIGH RISK: 130- 159 MG/DL 110-129 MG/DL HIGH RISK: >160 MG/DL >130 MG/DL *CHILDREN AND ADOLESCENTS REPRESENTS INDIVIDUALA AGED 2-19 YEARS EXCLUSIVE. K 4.6 mmol/L 3.5-5.1 [facility] ([facility] NORMAL RANGES Age WBC RBC HGB HCT [...] HCT IS 5% LESS SOURCE FOR DATA: [facility]. 1800 OPERATION MANUAL( AUTOMATED BLOOD COUNTS AND [...] DESIRABLE: <130 MG/DL <110 MG/DL BORDERLINE-HIGH RISK: 130- 159 MG/DL 110-129 MG/DL HIGH RISK: >160 MG/DL >130 MG/DL *CHILDREN AND ADOLESCENTS REPRESENTS INDIVIDUALA AGED 2-19 YEARS EXCLUSIVE. CA 9.9 mg/dL 8.6-10.2 [facility] ([facility] NORMAL RANGES Age WBC RBC HGB HCT [...] HCT IS 5% LESS SOURCE FOR DATA: [employer] 1800 OPERATION MANUAL( AUTOMATED BLOOD COUNTS [...] DESIRABLE: <130 MG/DL <110 MG/DL BORDERLINE-HIGH RISK: 130- 159 MG/DL 110-129 MG/DL HIGH RISK: >160 MG/DL >130 MG/DL *CHILDREN AND ADOLESCENTS REPRESENTS INDIVIDUALA AGED 2-19 YEARS EXCLUSIVE. Co2 30.0 mmol/L 22.0-29.0 Above high normal [facility] ([facility] NORMAL RANGES Age WBC RBC HGB HCT [...] HCT IS 5% LESS SOURCE FOR DATA: [facility]. 1800 OPERATION MANUAL( AUTOMATED BLOOD COUNTS AND [...] DESIRABLE: <130 MG/DL <110 MG/DL BORDERLINE-HIGH RISK: 130- 159 MG/DL 110-129 MG/DL HIGH RISK: >160 MG/DL >130 MG/DL *CHILDREN AND ADOLESCENTS REPRESENTS INDIVIDUALA AGED 2-19 YEARS EXCLUSIVE. TP 7.1 g/dL 6.6-8.7 [facility] ([facility] NORMAL RANGES Age WBC RBC HGB HCT [...] HCT IS 5% LESS SOURCE FOR DATA: [facility]. 1800 OPERATION MANUAL( AUTOMATED BLOOD COUNTS AND [...] DESIRABLE: <130 MG/DL <110 MG/DL BORDERLINE-HIGH RISK: 130- 159 MG/DL 110-129 MG/DL HIGH RISK: >160 MG/DL >130 MG/DL *CHILDREN AND ADOLESCENTS REPRESENTS INDIVIDUALA AGED 2-19 YEARS EXCLUSIVE. Alb 4.5 g/dL 3.5-5.2 [facility] NORMAL RANGES Age WBC RBC HGB HCT [...] HCT IS 5% LESS SOURCE FOR DATA: [employer] 1800 OPERATION MANUAL( AUTOMATED BLOOD COUNTS [...] DESIRABLE: <130 MG/DL <110 MG/DL BORDERLINE-HIGH RISK: 130- 159 MG/DL 110-129 MG/DL HIGH RISK: >160 MG/DL >130 MG/DL *CHILDREN AND ADOLESCENTS REPRESENTS INDIVIDUALA AGED 2-19 YEARS EXCLUSIVE. Globulin 2.5 CALC [facility] ([facility] NORMAL RANGES Age WBC RBC HGB HCT [...] HCT IS 5% LESS SOURCE FOR DATA: [facility]. 1800 OPERATION MANUAL( AUTOMATED BLOOD COUNTS AND [...] DESIRABLE: <130 MG/DL <110 MG/DL BORDERLINE-HIGH RISK: 130- 159 MG/DL 110-129 MG/DL HIGH RISK: >160 MG/DL >130 MG/DL *CHILDREN AND ADOLESCENTS REPRESENTS INDIVIDUALA AGED 2-19 YEARS EXCLUSIVE. A/G Ratio 1.8 [facility] ([facility] NORMAL RANGES Age WBC RBC HGB HCT [...] HCT IS 5% LESS SOURCE FOR DATA: [facility]. 1800 OPERATION MANUAL( AUTOMATED BLOOD COUNTS AND [...] DESIRABLE: <130 MG/DL <110 MG/DL BORDERLINE-HIGH RISK: 130- 159 MG/DL 110-129 MG/DL HIGH RISK: >160 MG/DL >130 MG/DL *CHILDREN AND ADOLESCENTS REPRESENTS INDIVIDUALA AGED 2-19 YEARS EXCLUSIVE. Alp 74.8 U/L 40-129 [facility] NORMAL RANGES Age WBC RBC HGB HCT [...] HCT IS 5% LESS SOURCE FOR DATA: [employer] 1800 OPERATION MANUAL( AUTOMATED BLOOD COUNTS [...] DESIRABLE: <130 MG/DL <110 MG/DL BORDERLINE-HIGH RISK: 130- 159 MG/DL 110-129 MG/DL HIGH RISK: >160 MG/DL >130 MG/DL *CHILDREN AND ADOLESCENTS REPRESENTS INDIVIDUALA AGED 2-19 YEARS EXCLUSIVE. Alt (SGPT) 30 U/L 0-41 [facility] ([facility] NORMAL RANGES Age WBC RBC HGB HCT [...] HCT IS 5% LESS SOURCE FOR DATA: [facility]. 1800 OPERATION MANUAL( AUTOMATED BLOOD COUNTS AND [...] DESIRABLE: <130 MG/DL <110 MG/DL BORDERLINE-HIGH RISK: 130- 159 MG/DL 110-129 MG/DL HIGH RISK: >160 MG/DL >130 MG/DL *CHILDREN AND ADOLESCENTS REPRESENTS INDIVIDUALA AGED 2-19 YEARS EXCLUSIVE. Ast (Sgot) 19 U/L 0-40 [facility] ([facility] NORMAL RANGES Age WBC RBC HGB HCT [...] HCT IS 5% LESS SOURCE FOR DATA: [facility]. 1800 OPERATION MANUAL( AUTOMATED BLOOD COUNTS AND [...] DESIRABLE: <130 MG/DL <110 MG/DL BORDERLINE-HIGH RISK: 130- 159 MG/DL 110-129 MG/DL HIGH RISK: >160 MG/DL >130 MG/DL *CHILDREN AND ADOLESCENTS REPRESENTS INDIVIDUALA AGED 2-19 YEARS EXCLUSIVE. Tbili 0.33 mg/dL 0.0-1.2 [facility] NORMAL RANGES Age WBC RBC HGB HCT [...] HCT IS 5% LESS SOURCE FOR DATA: [employer] 1800 OPERATION MANUAL( AUTOMATED BLOOD COUNTS [...] DESIRABLE: <130 MG/DL <110 MG/DL BORDERLINE-HIGH RISK: 130- 159 MG/DL 110-129 MG/DL HIGH RISK: >160 MG/DL >130 MG/DL *CHILDREN AND ADOLESCENTS REPRESENTS INDIVIDUALA AGED 2-19 YEARS EXCLUSIVE. Osmolality-Calculated 283.8 [facility] ([facility] NORMAL RANGES Age WBC RBC HGB HCT [...] HCT IS 5% LESS SOURCE FOR DATA: [facility]. 1800 OPERATION MANUAL( AUTOMATED BLOOD COUNTS AND [...] DESIRABLE: <130 MG/DL <110 MG/DL BORDERLINE-HIGH RISK: 130- 159 MG/DL 110-129 MG/DL HIGH RISK: >160 MG/DL >130 MG/DL *CHILDREN AND ADOLESCENTS REPRESENTS INDIVIDUALA AGED 2-19 YEARS EXCLUSIVE. Anion Gap 10 mmol/L [facility] NORMAL RANGES Age WBC RBC HGB HCT [...] HCT IS 5% LESS SOURCE FOR DATA: [facility]. 1800 OPERATION MANUAL( AUTOMATED BLOOD COUNTS AND [...] DESIRABLE: <130 MG/DL <110 MG/DL BORDERLINE-HIGH RISK: 130- 159 MG/DL 110-129 MG/DL HIGH RISK: >160 MG/DL >130 MG/DL *CHILDREN AND ADOLESCENTS REPRESENTS INDIVIDUALA AGED 2-19 YEARS EXCLUSIVE. eGFR Non-Afr. Citizen Of [place] 98 # [facility] ([facility] NORMAL RANGES Age WBC RBC HGB HCT [...] HCT IS 5% LESS SOURCE FOR DATA: [facility]. 1800 OPERATION MANUAL( AUTOMATED BLOOD COUNTS AND [...] DESIRABLE: <130 MG/DL <110 MG/DL BORDERLINE-HIGH RISK: 130- 159 MG/DL 110-129 MG/DL HIGH RISK: >160 MG/DL >130 MG/DL *CHILDREN AND ADOLESCENTS REPRESENTS INDIVIDUALA AGED 2-19 YEARS EXCLUSIVE. eGFR 114 # [facility] ( [facility] NORMAL RANGES Age WBC RBC HGB HCT [...] HCT IS 5% LESS SOURCE FOR DATA: [facility]. 1800 OPERATION MANUAL( AUTOMATED BLOOD COUNTS AND [...] DESIRABLE: <130 MG/DL <110 MG/DL BORDERLINE-HIGH RISK: 130- 159 MG/DL 110-129 MG/DL HIGH RISK: >160 MG/DL >130 MG/DL *CHILDREN AND ADOLESCENTS REPRESENTS INDIVIDUALA AGED 2-19 YEARS EXCLUSIVE. ID Date Data Source [id number] 06/30/2020 09:35:00 AM EDT [facility] ([facility] Name Value Range Interpretation Code Description Data Noemí rce(s) Supporting Document(s) WBC 5.9 10E3/uL 4.1-10.9 [facility] ([facility] NORMAL RANGES Age WBC RBC HGB HCT [...] HCT IS 5% LESS SOURCE FOR DATA: [facility]. 1800 OPERATION MANUAL( AUTOMATED BLOOD COUNTS AND [...] DESIRABLE: <130 MG/DL <110 MG/DL BORDERLINE-HIGH RISK: 130- 159 MG/DL 110-129 MG/DL HIGH RISK: >160 MG/DL >130 MG/DL *CHILDREN AND ADOLESCENTS REPRESENTS INDIVIDUALA AGED 2-19 YEARS EXCLUSIVE. RBC 4.96 10E6/uL 4.20-6.30 [facility] ([facility] NORMAL RANGES Age WBC RBC HGB HCT [...] HCT IS 5% LESS SOURCE FOR DATA: [facility]. 1800 OPERATION MANUAL( AUTOMATED BLOOD COUNTS AND [...] DESIRABLE: <130 MG/DL <110 MG/DL BORDERLINE-HIGH RISK: 130- 159 MG/DL 110-129 MG/DL HIGH RISK: >160 MG/DL >130 MG/DL *CHILDREN AND ADOLESCENTS REPRESENTS INDIVIDUALA AGED 2-19 YEARS EXCLUSIVE. HGB 14.3 g/dL 12.0-18.0 [facility] ([facility] NORMAL RANGES Age WBC RBC HGB HCT [...] HCT IS 5% LESS SOURCE FOR DATA: [facility]. 1800 OPERATION MANUAL( AUTOMATED BLOOD COUNTS AND [...] DESIRABLE: <130 MG/DL <110 MG/DL BORDERLINE-HIGH RISK: 130- 159 MG/DL 110-129 MG/DL HIGH RISK: >160 MG/DL >130 MG/DL *CHILDREN AND ADOLESCENTS REPRESENTS INDIVIDUALA AGED 2-19 YEARS EXCLUSIVE. HCT 43.5 % 37.0-51.0 [facility] ([facility] NORMAL RANGES Age WBC RBC HGB HCT [...] DESIRABLE: <130 MG/DL <110 MG/DL BORDERLINE-HIGH RISK: 130- 159 MG/DL 110-129 MG/DL HIGH RISK: >160 MG/DL >130 MG/DL *CHILDREN AND ADOLESCENTS REPRESENTS INDIVIDUALA AGED 2-19 YEARS EXCLUSIVE. MCH 28.8 pg 26.0-32.0 [facility] ([facility] NORMAL RANGES Age WBC RBC HGB HCT [...] HCT IS 5% LESS SOURCE FOR DATA: [facility]. 1800 OPERATION MANUAL( AUTOMATED BLOOD COUNTS AND [...] DESIRABLE: <130 MG/DL <110 MG/DL BORDERLINE-HIGH RISK: 130- 159 MG/DL 110-129 MG/DL HIGH RISK: >160 MG/DL >130 MG/DL *CHILDREN AND ADOLESCENTS REPRESENTS INDIVIDUALA AGED 2-19 YEARS EXCLUSIVE. MCV 87.7 fL 80.0-97.0 [facility] ([facility] NORMAL RANGES Age WBC RBC HGB HCT [...] HCT IS 5% LESS SOURCE FOR DATA: [facility]. 1800 OPERATION MANUAL( AUTOMATED BLOOD COUNTS AND [...] DESIRABLE: <130 MG/DL <110 MG/DL BORDERLINE-HIGH RISK: 130- 159 MG/DL 110-129 MG/DL HIGH RISK: >160 MG/DL >130 MG/DL *CHILDREN AND ADOLESCENTS REPRESENTS INDIVIDUALA AGED 2-19 YEARS EXCLUSIVE. MCHC 32.9 g/dL 31.0-36.0 [facility] NORMAL RANGES Age WBC RBC HGB HCT [...] HCT IS 5% LESS SOURCE FOR DATA: [facility]. 1800 OPERATION MANUAL( AUTOMATED BLOOD COUNTS AND [...] DESIRABLE: <130 MG/DL <110 MG/DL BORDERLINE-HIGH RISK: 130- 159 MG/DL 110-129 MG/DL HIGH RISK: >160 MG/DL >130 MG/DL *CHILDREN AND ADOLESCENTS REPRESENTS INDIVIDUALA AGED 2-19 YEARS EXCLUSIVE. PLT 228 10E3/uL 140-440 [facility] ([facility] NORMAL RANGES Age WBC RBC HGB HCT [...] HCT IS 5% LESS SOURCE FOR DATA: [facility]. 1800 OPERATION MANUAL( AUTOMATED BLOOD COUNTS AND [...] DESIRABLE: <130 MG/DL <110 MG/DL BORDERLINE-HIGH RISK: 130- 159 MG/DL 110-129 MG/DL HIGH RISK: >160 MG/DL >130 MG/DL *CHILDREN AND ADOLESCENTS REPRESENTS INDIVIDUALA AGED 2-19 YEARS EXCLUSIVE. RDW-CV 12.5 % 11.5-14.5 [facility] ([facility] NORMAL RANGES Age WBC RBC HGB HCT [...] HCT IS 5% LESS SOURCE FOR DATA: [facility]. 1800 OPERATION MANUAL( AUTOMATED BLOOD COUNTS AND [...] DESIRABLE: <130 MG/DL <110 MG/DL BORDERLINE-HIGH RISK: 130- 159 MG/DL 110-129 MG/DL HIGH RISK: >160 MG/DL >130 MG/DL *CHILDREN AND ADOLESCENTS REPRESENTS INDIVIDUALA AGED 2-19 YEARS EXCLUSIVE. Neut% 67.2 % 37.0-92.0 [facility] ([facility] NORMAL RANGES Age WBC RBC HGB HCT [...] HCT IS 5% LESS SOURCE FOR DATA: [facility]. 1800 OPERATION MANUAL( AUTOMATED BLOOD COUNTS AND [...] DESIRABLE: <130 MG/DL <110 MG/DL BORDERLINE-HIGH RISK: 130- 159 MG/DL 110-129 MG/DL HIGH RISK: >160 MG/DL >130 MG/DL *CHILDREN AND ADOLESCENTS REPRESENTS INDIVIDUALA AGED 2-19 YEARS EXCLUSIVE. Lym% 28.2 % 10.0-58.5 [facility] ([facility] NORMAL RANGES Age WBC RBC HGB HCT [...] HCT IS 5% LESS SOURCE FOR DATA: [facility]. 1800 OPERATION MANUAL( AUTOMATED BLOOD COUNTS AND [...] DESIRABLE: <130 MG/DL <110 MG/DL BORDERLINE-HIGH RISK: 130- 159 MG/DL 110-129 MG/DL HIGH RISK: >160 MG/DL >130 MG/DL *CHILDREN AND ADOLESCENTS REPRESENTS INDIVIDUALA AGED 2-19 YEARS EXCLUSIVE. MXD% 4.6 % 0.1-24.0 [facility] ([facility] NORMAL RANGES Age WBC RBC HGB HCT [...] HCT IS 5% LESS SOURCE FOR DATA: [facility]. 1800 OPERATION MANUAL( AUTOMATED BLOOD COUNTS AND [...] DESIRABLE: <130 MG/DL <110 MG/DL BORDERLINE-HIGH RISK: 130- 159 MG/DL 110-129 MG/DL HIGH RISK: >160 MG/DL >130 MG/DL *CHILDREN AND ADOLESCENTS REPRESENTS INDIVIDUALA AGED 2-19 YEARS EXCLUSIVE. Lym# 1.7 10E3/uL 0.6-4.1 [facility] ([facility] NORMAL RANGES Age WBC RBC HGB HCT [...] HCT IS 5% LESS SOURCE FOR DATA: [facility]. 1800 OPERATION MANUAL( AUTOMATED BLOOD COUNTS AND [...] DESIRABLE: <130 MG/DL <110 MG/DL BORDERLINE-HIGH RISK: 130- 159 MG/DL 110-129 MG/DL HIGH RISK: >160 MG/DL >130 MG/DL *CHILDREN AND ADOLESCENTS REPRESENTS INDIVIDUALA AGED 2-19 YEARS EXCLUSIVE. Neut# 3.9 % 2.0-7.8 [facility] ([facility] NORMAL RANGES Age WBC RBC HGB HCT [...] HCT IS 5% LESS SOURCE FOR DATA: [facility]. 1800 OPERATION MANUAL( AUTOMATED BLOOD COUNTS AND [...] DESIRABLE: <130 MG/DL <110 MG/DL BORDERLINE-HIGH RISK: 130- 159 MG/DL 110-129 MG/DL HIGH RISK: >160 MG/DL >130 MG/DL *CHILDREN AND ADOLESCENTS REPRESENTS INDIVIDUALA AGED 2-19 YEARS EXCLUSIVE. MXD# 0.3 10E3/uL 0.0-1.8 [facility] NORMAL RANGES Age WBC RBC HGB HCT [...] HCT IS 5% LESS SOURCE FOR DATA: [facility]. 1800 OPERATION MANUAL( AUTOMATED BLOOD COUNTS AND [...] DESIRABLE: <130 MG/DL <110 MG/DL BORDERLINE-HIGH RISK: 130- 159 MG/DL 110-129 MG/DL HIGH RISK: >160 MG/DL >130 MG/DL *CHILDREN AND ADOLESCENTS REPRESENTS INDIVIDUALA AGED 2-19 YEARS EXCLUSIVE. MPV 9.6 fL 9.0-13.0 [facility] ([facility] NORMAL RANGES Age WBC RBC HGB HCT [...] HCT IS 5% LESS SOURCE FOR DATA: [facility]. 1800 OPERATION MANUAL( AUTOMATED BLOOD COUNTS AND [...] DESIRABLE: <130 MG/DL <110 MG/DL BORDERLINE-HIGH RISK: 130- 159 MG/DL 110-129 MG/DL HIGH RISK: >160 MG/DL >130 MG/DL *CHILDREN AND ADOLESCENTS REPRESENTS INDIVIDUALA AGED 2-19 YEARS EXCLUSIVE. ID Date Data Source [id number] 04/10/2020 10:49:00 AM EST [facility] [address] [place] [address] PHONE: [phone] FAX: [phone] Name .................. : SHAHID JANG Acct Number.................. : [id number] ROOM. ................. : [id number] MR Number ................... : [id number] Stay type ............. : E/R Discharge Date......... ... : 04/08/20 Admit Date ......... : 04/08/20 Admit Phys .................... : IVANNA NAVIN [place] Date of ....... : 1960 Family Phys ................... : LINDSAY JA Phone .................. : [phone] Age ................................ : 59 Film# .................. .:[id number] Sex ................................. : M Unsigned transcriptions are preliminary reports and do not represent a medical or legal document [place] [id number] COMPLETE:04/08/20 13:19 NOEL [id number] Reason(s): Double vision CTA OF THE HEAD WITH AND WITHOUT CONTRAST: TECHNIQUE: CT angiography of the intracranial circulation is performed before and after administration of intravenous contrast. COMPARISON: None available. FINDINGS: The internal carotid arteries are somewhat ectatic, especially at the bifurcation into the anterior and middle cerebral arteries. Significant focal dilatation is not appreciated. There is no significant focal narrowing or dilatation noted. The vertebrobasilar system is tortuous, but again, no significant focal narrowing or dilatation appreciated. IMPRESSION: No significant focal narrowing or dilatation noted. While performing the above CT examination, radiation dose reduction was accomplished utilizing automated exposure control, adjusting of the mA and kV based on the patient's body size and/or the use of imperative reconstructive techniques. CT dose: 864.3 mGycm Contrast agent in mL: 75 Isovue 370 Method of administration: Intravenous Electronically Reviewed and Signed By Arden Villar MD , 04/10/20 10:49, AML Transcribe Initials: MATTHEW , Transcribe Date: 04/08/20 20:20, Dictation Date: Page 1 of [address] [place] [address] PHONE: [phone] FAX: [phone] Name .................. : SHAHID JANG Acct Number.................. : [id number] ROOM. ................. : TR-02 MR Number ................... : [id number] Stay type ............. : E/R Discharge Date......... ... : 04/08/20 Admit Date ......... : 04/08/20 Admit Phys .................... : IVANNA Machado Date of ....... : 1960 Family Phys ................... : LINDSAY THAKUR Phone .................. : [phone] Age ................................ : 59 Film# .................. .:[id number] Sex ................................. : M Unsigned transcriptions are preliminary reports and do not represent a medical or legal document [place] [address] COMPLETE:04/08/20 13:19 NOEL 3748 Reason(s): Double vision Copy for: IRISH GARCIA via fax Copy for: EMERGENCY DEPT via modem Copy for: 710 MED REC DISCHARGED Page 2 of 2 Name Value Range Interpretation Code Description Data Noemí rce(s) Supporting Document(s) ID Date Data Source [id number] 04/10/2020 10:48:00 AM EST [facility] [address] [place] [address] PHONE: [phone] FAX: [phone] Name .................. : SHAHID JANG Acct Number.................. : [id number] [facility]... : [id number] Stay type ............. : E/R Discharge Date......... ... : 04/08/20 Admit Date ......... : 04/08/20 Admit Phys .................... : IVANNA aMchado Date of ....... : 1960 Family Phys ................... : LINDSAY THAKUR Phone .................. : [phone] Age ................................ : 59 Film# .................. .:[id number] Sex ................................. : M Unsigned transcriptions are preliminary reports and do not represent a medical or legal document CHEST PORTABLE [id number] COMPLETE:04/08/20 13:19 NOEL 3746 Reason(s): DIzziness PORTABLE CHEST X-RAY: COMPARISON: None available. FINDINGS: There is no acute consolidation or congestive heart failure. The heart is magnified by the AP portable examination. There is no hilar adenopathy. IMPRESSION: No evidence of significant acute pulmonary disease. Electronically Reviewed and Signed By Arden Villar MD , 04/10/20 10:48, AML Transcribe Initials: MATTHEW , Transcribe Date: 04/08/20 15:00, Dictation Date: Copy for: IRISH GARCIA via fax Copy for: EMERGENCY DEPT via modem Copy for: 710 MED REC DISCHARGED Page 1 of 1 Name Value Range Interpretation Code Description Data Noemí rce(s) Supporting Document(s) ID Date Data Source [id number] 04/09/2020 01:23:00 [place] [address] RESPIRATORY CARE REPORT ==== ---------NAME------- NUMBER SEX AGE ADMIT DISC. XRAY# F/C ALFRED LAINE [id number] M 59 04/08/20 04/08/20 [id number] BB E/R DATE OF : 1960 M/R# [id number] #: [id number] TR-02 LOCATION: EMERGENCY DEPT EKG 12321 COMP LETE:04/09/20 09:23 [place] [id number] PHYSICIAN: IVANNA COBURN Name Value Range Interpretation Code Description Data Noemí rce(s) Supporting Document(s) ID Date Data Source [id number] 04/08/2020 11:06:00 AM EST [facility] 1 OrderSheet [facility] Emergency Department [address] [place] [address] Phone #: ext- [phone] 04/08/2020 10:56 Patient: LAINE KEY Sex: M : 1960 Age: 59yWEIGHT:120.2 kg (S) HEIGHT:75 inches (S) BMI:33.1ALLERGIES: No Known Drug Allergy, NoneCHIEF COMPLAINT: headacheDIAGNOSIS: Diabetes mellitusLAB ORDERSOrder Description Priority Entered Acknowledged InitialedCBC w Diff STAT 11:04/08/2020 11:32 StylesJamie PA;CMP STAT 11:04/08/2020 11:32 StylesJamie PA;D-Dimer STAT 11: 11:32 StylesJamie singh PA;Lactic Acid STAT 11:04/08/2020 11:32 StylesJamie singh PA;Lipase STAT 11:04/08/2020 11:32 StylesJamie monte PA;PT/PTT STAT 11:04/08/2020 11:32 StylesJamie PA;Troponin-T STAT 11:04/08/2020 11:32 StylesJamie PA;TSH STAT 11:04/08/2020 11:32 StylesJamie singh PA;Urinalysis (Clean STAT 11:04/08/2020 12:48 Styles,Catch) Jamie Ferguson PA;BNP STAT 11:04/08/2020 11:32 StylesJamie PA; 2 OrderSheet [facility] Emergency Department [address] [place] [address] Phone #: ext- [phone] 04/08/2020 10:56 Patient: LAINE KEY Sex: M : 1960 Age: 59yDIAGNOSTIC STUDY ORDERSOrder Description Priority Entered Acknowledged InitialedChest Portable 1 STAT 11:23 04/08/2020 12:03 Styles,View Jamie Ferguson(Oxygen?(No)) PA; Reason for Study: DIzzinessCT Head W/O Cont STAT 11:23 04/08/2020 Cancelled: Physician Order 11:50 Jamie(Oxygen?(No)) Jamie Coburn PA PA; Reason for Study: Headache, Vertigo/DizzinessCT CTA HEAD W STAT 11:50 04/08/2020 13:07 Styles,WO CON INC PP Jamie Ferguson(Oxygen?(No)) PA;(IV?(Yes)) Reason for Study: Double visionMEDICATION/IV/DRIP/FLUID ORDERSOrder Description Priority Entered Acknowledged InitialedIV NS : Bolus 1000 11:23 04/08/2020 11:42 Styles,mL, then 1000 Jamie VarghesedamL/hr PA;Meclizine PO 25 mg 11:23 04/08/2020 11:37 Styles, Jamie Irish Phyllis PA;GENERAL ORDERSOrder Description Priority Entered Acknowledged InitialedBlood Pressure 11:23 04/08/2020 11:32 Styles,Monitor Jamie Coburn Phyllis PA;Administrative Job Titles 11:04/08/2020 11:32 Styles,(continuous) Jamie Irish Phyllis PA;EKG 11:23 04/08/2020 11:32 Styles, Jamie Coburn Phyllis PA;Pulse oximeter 11:23 04/08/2020 11:32 Styles,(Continuous) Jamie FLORES;Vitals 11:23 04/08/2020 11:32 Jamie Styles;Saline Lock 11:23 04/08/2020 11:32 Jensen, 3 OrderSheet [facility] Emergency Department [address] [place] [address] Phone #: ext- [phone] 04/08/2020 10:56 Patient: LAINE KEY Sex: M : 1960 Age: 59y Jamie FLORES;Accucheck 13:28 04/08/2020 13:32 Jamie Styles;[Electronically signed by Phyllis Styles (13:54 04/08/2020)][Electronically signed by Jamie Coburn (21:21 04/08/2020)][Electronically locked by Phyllis Styles (13:54 04/08/2020)] Name Value Range Interpretation Code Description Data Noemí rce(s) Supporting Document(s) ID Date Data Source [id number] 04/08/2020 11:06:00 AM EST [facility] 1 Medication Reconciliation Report [facility] Emergency Department [address] [place] [address] Phone #: ext- [phone] 04/08/2020 10:56 Patient: LAINE KEY Sex: M : 1960 Age: 59yWeight: 120.2 kgHeight/Length: 75 in.BMI: 33.1ALLERGIES: No Known Drug Allergy, NoneThe patient's Home Medications are listed below:CONTINUE TAKING THE FOLLOWING MEDICATIONS: Aspirin 81 Oral, daily Crestor Oral 10 mg, daily Flomax Oral 0.4 mg, daily Januvia Oral (100 mg), daily metFORMIN HCl Oral (1000 mg), daily PriLOSEC OTC Oral Tylenol PM Extra Strength Oral, at bedtimeThe source(s) of the original Home Medication information:Not obtained.The following Medications were given to the patient in the Emergency Department:Meclizine [PO] PO 25 mg, administered: 11:37 04/08/2020IV NS IV Fluids bolus 980 mL over 1 hour(s), administered: 11:42 04/08/2020The following Medications were prescribed to the patient:None. Name Value Range Interpretation Code Description Data Noemí rce(s) Supporting Document(s) ID Date Data Source [id number] 04/08/2020 11:06:00 AM [facility] 1 Medication Administration Record [facility] Emergency Department [address] [place] [address] Phone #: csd- [phone] 04/08/2020 10:56 Patient: LAINE KEY Sex: M : 1960 Age: 59yWeight: 120.2 kgHeight/Length: 75 inBMI: 33.1ALLERGIES: No Known Drug Allergy, None Date/Time Medication Administered Medication OrderedStart IV NS IV NS : Bolus 1000 mL, then 632216:42 04/08/2020 Dose: IV Fluids mL/hrPlashonda Phyllis, Bolus: 980 mL over 1 hour(s)---- Dispensed: 1000 mL bagStop Site: #1 left AC13:40 1PAbimael gallegoda,Given MECLIZINE [PO] Meclizine PO 25 mg11:37 04/08/2020 Dose: 25 mg Tablets Mihaela, Phyllis, Name Value Range Interpretation Code Description Data Noemí rce(s) Supporting Document(s) ID Date Data Source [id number] 04/08/2020 11:06:00 AM EST [facility] 1 General Instructions [facility] Emergency Department [address] [place] [address] Phone #: ext- [phone] 04/08/2020 10:56 Patient: LAINE KEY Sex: M : 1960 Age: 59yChronic, poorly controlled type 2 diabetes with hyperglycemia. No diabetic ketoacidosis, hyperosmolarnonketotic state or coma.INSTRUCTIONSWarnings: Further evaluation is necessary in order to recheck abnormal lab. It is very important to followup with a healthcare pr ovider.GENERAL WARNINGS: Return or contact your physician immediately if your condition worsens orchanges unexpectedly, if not improving as expected, or if other problems arise. SPECIFICALLY, return ifyou develop fever, vomiting, numbness, weakness, difficulty thinking, visual disturbances, fainting orextreme fatigue.Your Current Medications: Your current home medications have been reviewed.CONTINUE TAKING THE FOLLOWING MEDICATIONS:Aspirin 81 Oral : daily.Crestor Oral : 10 mg daily.Flomax Oral : 0.4 mg daily.Januvia Oral : Tablet 100 mg, daily.metFORMIN HCl Oral : Tablet 1000 mg, daily.PriLOSEC OTC Oral.Tylenol PM Extra Strength Oral : at bedtime.Follow-up:Follow up with your doctor Friday. Call for the next available appointment. Reason for referral: evaluationand treatment. Summary of care provided to patient.Understanding of the discharge instructions verbalized by patient. ADDITIONAL INFORMATIONDiabetes with High Blood SugarYou have been treated for high blood sugar (hyperglycemia). This may be because of an infection orother illness. Or it may be from eating too many sweets or starches. Or it may be from not takingenough insulin or other diabetes medicine.Home care 2 General Instructions [facility] Emergency Department [address] [place] [address] Phone #: ext- [phone] 04/08/2020 10:56 Patient: LAINE KEY Sex: M : 1960 Age: 59yCheck your blood sugar level at least 2 times a day. Write it down the results. Do this beforebreakfast and before dinner. If you take insulin, also write down your routine insulin dose. Note anyother doses you needed based on your sliding scale or as advised by your healthcare provider. [place] for the next 3 to 5 days.High blood sugar may cause symptoms that you can learn to spot. These include: Peeing often Thirst Headache Breath that smells fruity Nausea or vomiting Belly painIf you have symptoms of high blood sugar, use a blood or urine test to find out what your blood sugarlevel is. If it is above your usual range, use the sliding scale regular insulin dose from your healthcareprovider. Call your provider for advice if you were not given a range for your insulin dose. If yourblood sugar is over 240 mg/dL, check your urine for ketones.Follow-up careFollow up with your healthcare provider, or as advised. You may need to meet with your provider inthe next week. You will likely look at your blood sugar records together. You may need to changeyour dose of insulin or other diabetes medicine.When to seek medical adviceCall your healthcare provider right away if these occur: Symptoms of high blood sugar that don't get better with the treatment your provider advised. This is especially true if you also have ketones in your urine. Blood sugar over 300 mg/dl. If you can't reach your healthcare provider, go to a hospital emergency room or urgent care center.Call [phone] if you have any of the following: Confusion Dizziness, lightheadedness, or loss of consciousness 3 General Instructions [facility] Emergency Department [address] [place] [address] Phone #: ext- [phone] 04/08/2020 10:56 Patient: LAINE KEY Sex: M : 1960 Age: 59y Shortness of breath Chest pain Weakness of an arm, leg, or one side of the face Sudden trouble with speech or vision [employer]. [address] [place] [address]. All rights reserved. This information is not intended as asubstitute for professional medical care. Always follow your healthcare professional's instructions. You have been given the following additional information: Diabetes with High Blood Sugar(Electronically signed by SANDRA Jackson 04/08/2020 21:21) Name Value Range Interpretation Code Description Data Noemí rce(s) Supporting Document(s) ID Date Data Source [id number] 04/08/2020 11:06:00 AM EST [facility] 1 Clinical Report - Nurses [facility] Emergency Department [address] [place] [address] Phone #: ext- [phone] 04/08/2020 10:56 Patient: LAINE KEY Sex: M : 1960 Age: 59yTRIAGEHistorian: patient.Acuity: LEVEL 3.Chief Complaint: HEADACHE.Alert. No acute distress.This started yesterday 230 pm. ( pt states seeing "double vision" since 230 yesterday. denies nausea,vomiting.).Treatment ECONOMIC ANALYSIS DIRECTOR:(Excedrin migraine).SEPSIS SCREEN: SIRS SCREEN NEGATIVE. SEPSIS SCREEN NEGATIVE. No suspected or confirmedsigns of infection present.FRANKY COMA SCORE: 15- eyes open- spontaneous (4); best verbal response- oriented (5); bestmotor response- obeys commands (6). --11:06 04/08/20 Jensen Wanda10:58 04/08/20. BP: 129/80. HR: 106. RR: 19. O2 saturation: 96%. Temp: 98.3 F. Pain level now 05/10.--11:06 04/08/20 Styles Phyllis.Weight: 120.2 kg stated. Height/Length: 75 inches Per Patient. BMI: 33.1. --10:57 04/08/20 Styles Phyllis.MedicationsAspirin 81 Oral, daily. --11:01 04/08/20 Styles Phyllis Flomax Oral 0.4 mg, daily. --11:13 04/08/20 Gena Coronel RN PriLOSEC OTC Oral. Tylenol PM Extra Strength Oral, at bedtime. --11:13 04/08/20 Phyllis Styles Crestor Oral 10 mg, daily. --11:13 04/08/20 Gena Coronel RN Januvia Oral (Tablet 100 mg), daily. --11:13 04/08/20 Gena Coronel RN metFORMIN HCl Oral (Tablet 1000 mg), daily. --11:13 04/08/20 Gena Coronel RN.AllergiesNo Known Drug Allergy. --11:13 04/08/20 Abimael StylesdaNone. --11:17 04/08/20 Gena Coronel RN.PROBLEM S:Hypertension.Hypercholesterolemia. 2 Clinical Report - Nurses [facility] Emergency Department [address] [place] [address] Phone #: ext- [phone] 04/08/2020 10:56 Patient: LAINE KEY Sex: M : 1960 Age: 59y Diabetes Mellitus. Vertigo. --11:17 04/08/20 Gena Coronel RN. ADDITIONAL SURGERIES: no known surgeries. History PAST MEDICAL HX: Immunizations: up-to-date. SOCIAL HX: Never smoker. No alcohol use or drug use. No recent tra cynthia. No known contact with a sick individual. The patient was offered HIV testing but declined and hepatitis C testing but declined. The patient has not traveled outside the [place] Infectious disease exposure: No infectious disease exposure. Patient is not a known carrier of tuberculosis, hepatitis, HIV, MRSA or VRE. Patient is not a known carrier of CRE. SELF HARM ASSESSMENT: Self harm assessment was performed. The patient answered "no" to the question(s) "Have you recently felt down, depressed, or hopeless?", "Do you have thoughts of harming or killing yourself?", "Do you have a plan for harming or killing yourself?", "Have you recently had thoughts about harming or killing others?", "Do you have any dangerous items in your possession?", "Have you noticed less interest or pleasure in doing things?", "Are you here because you tried to hurt yourself?" and "Have you ever tried to hurt yourself before today?". ABUSE ASSESSMENT: Abuse assessment. Abuse denied. No suspicion of abuse. No report of abuse. NUTRITIONAL RISK ASSESSMENT: The nutritional risk assessment revealed no deficiencies. FUNCTIONAL ASSESSMENT: Functional assessment: no impairments noted. LEARNING NEEDS ASSESSMENT: The learning needs assessment revealed no barriers. FALL RISK ASSESSMENT: Fall risk assessment completed. No risk factors identified. SKIN INTEGRITY ASSESSMENT: Skin integrity risk assessment completed. No skin integrity risk identified. --11:06 04/08/20 Phyllis Styles. Interventions To treatment room. --11:06 04/08/20 Phyllis Styles.PHYSICAL ASSESSMENTGENERAL / NEURO / PSYCH: Alert. Oriented X 4. Appears in no acute distress. Speech within normallimits.HEENT: No facial asymmetry noted. Pupils equal, round and reactive to light.RESPIRATORY: Respirations not labored. Breath sounds within normal limits.CVS: Cardiac rhythm: sinus tachycardia; (104). Capillary refill less than 2 seconds.GI / : Abdomen soft and nontender. 3 Clinical Report - Nurses [facility] Emergency Department [address] [place] [address] Phone #: ext- [phone] 04/08/2020 10:56 Patient: LAINE KEY Sex: M : 1960 Age: 59y SKIN: Abnormal color (Artie, pt was shoveling before enteri ER). Skin is warm and warm. Normal skin turgor. --11:48 04/08/20 Phyllis Styles HEENT: ( Pt denies seeing floaters or change in visual field. states, " I think I need to change my diet, I eat too much Ice cream and My sugar is up"). --11:50 04/08/20 Phyllis Styles.NURSING PROGRESS NOTESTwo patient identifiers checked. Call light placed in reach. Side rails up x 2. Bed placed in lowestposition. Patient ready for evaluation- ED physician and PA notified. --11:06 04/08/20 Phyllis Styles 11:02 04/08/20. Finger stick glucose: 320; performed by nurse; result shown to the PA. --11:12 04/08/20 Gena Coronel RN EKG time: (11:10 04/08/2020). --11:14 04/08/20 Phyllis Styles 11:31 04/08/2020 Site #1 started via IV in the left antecubital space with an 20g angiocath; two attempts. Blood drawn: rainbow set. Labeled in the presence of the patient and sent to the lab. Saline lock flushed with 10 mL saline. --11:41 04/08/20 Phyllis Styles 11:37 04/08/2020 Meclizine PO Tablets 25 mg given. Allergies verified and confirmed 5 rights. Information reviewed with patient including reason for taking this medication, signs of allergic reaction, precautions and sedative warning. Verbalizes understanding. --11:37 04/08/20 Phyllis Styles 11:42 04/08/2020 Started bag #1 1000 mL IV Fluids IV NS; bolus of 980 mL over 1 hour(s) then at via site #1 via IV pump. Allergies verified and confirmed 5 rights. IV patency established. IV site checked: no pain, redness, or swelling. IV flushed thoroughly pre- and post-medication administration. Information reviewed with patient including reason for taking this medication, signs of allergic reaction and precautions. Verbalizes understanding. --11:42 04/08/20 Phyllis Styles The patient reports no complaints and he is calm and resting quietly. GENERAL / NEURO / PSYCH: Alert. Oriented X 4. ( portable CXR completed at bedside). --12:02 04/08/20 Phyllis Styles The patient is sleeping. Call light placed in reach. Side rails up x 2. Bed placed in lowest position. Brakes of bed on. --12:19 04/08/20 Styles Phyllis 12:19 04/08/20. BP: 142/82. HR: 78. RR: 16. O2 saturation: 95%. Pain level now 0/10. --12:19 04/08/20 StylesPhyllis Patient transported to CT by wheelchair with IV, mask and podiatric technician. --12:52 04/08/20 Styles, Phyllis Patient returned from CT by wheelchair with IV, mask and podiatric technician. --13:02 04/08/20 StylesPhyllis monte 12:43 04/08/2020 Meclizine PO Response: symptoms are the same. (continues with double vision). 4 Clinical Report - Nurses [facility] Emergency Department [address] [place] [address] Phone #: ext- [phone] 04/08/2020 10:56 Patient: LAINE KEY Sex: M : 1960 Age: 59y --13:08 04/08/20 Abimael Stylesda 12:56 04/08/2020 IV Fluids IV NS via IV site #1 Bag Change: bag #1 completed. Total amount infused: 980. STARTED bag #2 (1000 mL) at 1000 mL/hr via IV pump. Confirmed 5 rights. IV patency established. IV site checked: no pain, redness, or swelling. IV flushed thoroughly. --13:07 04/08/20 Styles, Phyllis 13:33 04/08/20. BP: 125/66. HR: 81. RR: 18. O2 saturation: 95%. Temp: 98.2 F. Pain level now 0/10. --13:35 04/08/20 StylesPhyllis Finger stick glucose: 202; ordered; performed by nurse; result shown to the PA. --13:35 04/08/20 Styles, Phyllis 13:40 04/08/2020 IV Fluids IV NS via IV site #1 Discontinued: bag #2 discontinued. Total amount infused: 550 mL. IV patency established. IV site checked: no pain, redness, or swelling. IV flushed thoroughly. --13:54 04/08/20 Phyllis Styles.DISPOSITION / DISCHARGE 13:47 04/08/2020 Site #1 removed upon discharge. Catheter intact. Manual pressure and bandaid applied. --13:52 04/08/20 Styles, Phyllis 13:50 04/08/20. Departure time: 13:50 04/08/2020. Condition at departure: stable. No learning barriers present. Discharge instructions provided and reviewed with the patient. Patient verbalized understanding. Written instructions provided in Slovenian. The patient was discharged by the physician therapy assistant. He was discharged home. He left ambulatory and via private vehicle. Patient driving. --13:53 04/08/20 Styles, Phyllis 13:50 04/08/2020 BP: 125/66. HR: 81. RR: 18. O2 saturation: 95%. Temp: 9 7.9 F. Pain level now 0/10. --13:53 04/08/20 Phyllis Styles.Locked/Released at 04/08/2020 13:54 by Phyllis Styles Name Value Range Interpretation Code Description Data Noemí rce(s) Supporting Document(s) ID Date Data Source [id number] 04/08/2020 11:06:00 AM [facility] 1 Clinical Report - Physicians/Mid Levels [facility] Emergency Department [address] [place] [address] Phone #: ext- [phone] 04/08/2020 10:56 Patient: LAINE KEY Sex: M : 1960 Age: 59y Time Seen: 11:10 04/08/2020. Arrived- By private vehicle. Historian- patient.HISTORY OF PRESENT ILLNESS Chief Complaint: HEADACHE. Double vision. Is still present. This started yesterday. It was gradual in onset and has been constant. It is described as similar to previous headaches. Located in the frontal region. At its maximum, severity described as mild. When seen in the E.D., severity described as mild. The patient has had blurred vision. No prece ding symptoms, photophobia, associated nausea, numbness or weakness. No vomiting. Similar symptoms previously. Patient has had similar symptoms once. Recent medical care: Not recently seen/assessed.REVIEW OF SYSTEMSNo fever, muscle aches, sinus pressure, ear pain or sore throat. No carbon monoxide exposure, tick bite,head injury, chest pain or difficulty breathing. No cough, abdominal pain, diarrhea, pain with urination orskin rash. No enlarged lymph nodes or back pain.PAST HISTORYProblems:Hypertension.Hypercholesterolemia.Diabetes Mellitus.Vertigo. Medications: metFORMIN HCl Oral (Tablet 1000 mg), daily. Januvia Oral (Tablet 100 mg), daily. Crestor Oral 10 mg, daily. PriLOSEC OTC Oral. Tylenol PM Extra Strength Oral, at bedtime. Flomax Oral 0.4 mg, daily. Aspirin 81 Oral, daily. Allergies: No Known Drug Allergy. None.SOCIAL HISTORY 2 Clinical Report - Physicians/Mid Levels [facility] Emergency Department [address] [place] [address] Phone #: ext- [phone] 04/08/2020 10:56 Patient: LAINE KEY Sex: M : 1960 Age: 59y Never smoker. No alcohol use or drug use.PHYSICAL EXAMVital Signs: 04/08/2020 10:58 BP: 129/80. MAP: 96. HR: 106. RR: 19. O2 saturation: 96%. Temp: 98.3 F.Have been reviewed as abnormal and do not appear to be correct. Blood pressure: 129 / 90-hypertensive. Tachycardic. Oxygen saturation normal.Appearance: Alert. No acute distress.Eyes: Pupils equal, round and reactive to light. Eyes normal inspection.ENT: Ears normal. Nose normal. Pharynx normal.Neck: Normal inspection. Neck supple.CVS: Tachycardia. Normal heart rhythm. Heart sounds normal.Respiratory: No respiratory distress. Breath sounds normal.Abdomen: Soft and nontender. No organomegaly.Back: Normal inspection.Skin: Skin warm and dry. Normal skin color. No rash. Normal skin turgor.Extremities: Extremities exhibit normal ROM. No lo wer extremity edema.Neuro: Oriented X 3. Alert. Mood/affect normal. Speech normal. Cranial nerves normal (as tested).No cerebellar findings. No motor deficit. No sensory deficit. Reflexes normal.LABS, X-RAYS, AND EKGChest X-ray: No acute disease. Normal lung markings present. No infiltrate. Views: AP (portable).The X-rays were interpreted by the radiologist and contemporaneously by me. Interpretation time: 13:.CTA Head: No significant focal narrowing or dilatation noted. Head CTA performed with and withoutcontrast. The study was interpreted by the radiologist and contemporaneously by me. Interpretationtime: 13:26 04/08/2020.Laboratory Tests: Laboratory tests have been ordered, with results reviewed and considered in themedical decision making process. CT CTA HEAD W: (HILARIO: 04/08/2020 11:50) ( MsgRcvd 04/08/2020 13:19) In Progress CT CTA HEAD W Reason(s): Double vision TRANSPORTATION: WC IV? IV?(Yes) O2? Oxygen?(No) Ro CBC w Diff: (IHLARIO: 04/08/2020 11:30) ( MsgRcvd 04/08/2020 12:25) Final results Test Result Flag Units (Reference) CBC W/AUTOMATED DIFF COMPLETE BLOOD COUNT WBC 5.4 10/uL (4.2 - 11.0) RBC 5.14 10/uL (4.50 - 6.30) HEMOGLOBIN 15.1 g/dL (14.0 - 16.0) HEMATOCRIT 44.2 % (41.0 - 51.0) MCV 86.0 fL (80.0 - 94.0) MCH 29.4 pg (27.0 - 34.0) MCHC 34.2 g/dL (31.0 - 36.0) RDW 11.9 % (11.5 - 14.8) PLATELETS 230 10/uL (150 - 450) MPV 10.0 fL (7.4 - 10.4) 3 Clinical Report - Physicians/Mid Levels [facility] Emergency Department [address] [place] [address] Phone #: ext- [phone] 04/08/2020 10:56 Patient: LAINE KEY Sex: M : 1960 Age: 59y NEUT 72.1 % (37.0 - 80.0) LYMPH 17.9 L % (25.0 - 40.0) MONO 8.1 H % (3.0 - 8.0) EOS 0.4 % (0.0 - 7.0) BASO 0.6 % (0.0 - 2.0) %IG 0.9 H % (0.0 - 0.0) %NRBC 0.0 % (0.0 - 0.0) #NEUT 3.90 10/uL (2.00 - 6.90) #LYMPH 0.97 10/uL (0.60 - 3.40) #MONO 0.44 10/uL (0.00 - 0.90) #EOS 0.02 10/uL (0.00 - 0.70) #BASO 0.03 10/uL (0.00 - 0.20) #IG 0.05 10/uL (0.00 - 0.10) #NRBC 0.00 10/uL (0.00 - 0.00) MANUAL DIFF NOT INDICATED RBC MORPH NOT INDICATEDCMP: (HILARIO: 04/08/2020 11:30) ( MsgRcvd 04/08/2020 12:37) Final results Test Result Flag Units (Reference) COMPREHENSIVE METABOLIC PANEL COMPREHENSIVE METABOLIC PANEL SODIUM 135 mEq/L (134 - 153) POTASSIUM 4.2 mEq/L (3.6 - 5.0) CHLORIDE 98 mEq/L (98 - 107) CO2 23 MEQ/L (22 - 30) GLUCOSE 336 H MG/DL (70 - 99) BUN 13 MG/DL (7 - 21) CREATININE 0.8 MG/DL (0.7 - 1.5) BUN/CREAT 16 (8 - 27) TOTAL PROTEIN 6.6 G/DL (6.3 - 8.2) ALBUMIN 4.3 G/DL (3.9 - 5.0) GLOBULIN 2.3 L GM/DL (2.4 - 3.2) A/G RATIO 1.9 (0.8 - 2.0) CALCIUM 9.5 MG/DL (8.4 - 10.2) TOTAL BILI <0.7 MG/DL (0.2 - 1.3) ALKALINE PHOS 79 U/L (38 - 126) SGOT/AST 21 U/L (5 - 40) SGPT/ALT 30 U/L (7 - 56) ANION GAP 14.0 mmol/L (8.0 - 16.0) AGE 59 yrs NON-AA GFR >60 mL/min AFR AMER GFR >60 mL/min Male GFR Interprentation 20-49 yrs >60 mL/min Rurlgf68-18 yrs >56 mL/min Normal 60-69 yrs >49 mL/min Normal 70-79yrs>42 mL/min Normal 80 and above >35 mL/min Normal Female GFRInterpretation 20-39 yrs >60 mL/min Normal 40-49 yrs >58 mL/minNormal 50-59 yrs >51 mL/min Normal 60-69 yrs >45 mL/min Onupvx42-68 yrs >39 mL/min Normal 80 and above >32 mL/min NormalD- Dimer: (HILARIO: 04/08/2020 11:30) ( MsgRcvd 04/08/2020 11:53) Final results Test Result Flag Units (Reference) D-DIMER QUANT 0.41 ug/mL (0.27 - 0.50)Lactic Acid: (HILARIO: 04/08/2020 11:30) ( MsgRcvd 04/08/2020 12:25) Final results Test Result Flag Units (Reference) LACTIC ACID 2.9 H MMOL/L (0.2 - 2.2) 4 Clinical Report - Physicians/Mid Levels [facility] Emergency Department [address] [place] [address] Phone #: ext- [phone] 04/08/2020 10:56 Patient: LAINE KEY Sex: M : 1960 Age: 59yLipase: (HILARIO: 04/08/2020 11:30) ( MsgRcvd 04/08/2020 12:28) Final results Test Result Flag Units (Reference) LIPASE 26 U/L (13 - 60)PT/PTT: (HILARIO: 04/08/2020 11:30) ( MsgRcvd 04/08/2020 12:24) Final results Test Result Flag Units (Reference) PROTIME 13.6 SECONDS (11.0 - 15.5) INR 0.99 (0.93 - 1.23) PTT 27.6 SECONDS (24.8 - 36.7) \\BLDo\\INR INTERPRETATION\\BLDx\\ Therapeutic range for Coumadin andrelated oral anticoagulants. -International Normalized Ratio (INR): 2.0 - 3.0 for VenousThrombosis, Pulmonary Embolus, Tissue heart valves, Acute MS Atrial Fibrillation, Valvular heart diseaseand recurrent Systemic Embolism. -International Normalized Ratio (INR): 2.5 - 3.5 forMechanical Prosthetic valve.Troponin-T: (HILARIO: 04/08/2020 11:30) ( [facility] 04/08/2020 12:14) Final results Test Result Flag Units (Ref erence) TROPONIN T <0.01 NG/ML (0.00 - 0.10) TROPONIN T0.1 ng/ml Recommended as the clinical threshold value forTroponin T.TSH: (HILARIO: 04/08/2020 11:30) ( [facility] 04/08/2020 12:28) Final results Test Result Flag Units (Reference) TSH 1.01 uIU/mL (0.47 - 5.01)Urinalysis: (HILARIO: 04/08/2020 12:40) ( [facility] 04/08/2020 13:26) Final results Test Result Flag Units (Reference) URINALYSIS URINALYSIS SOURCE R COLOR yellow (NORMAL: Yello CLARITY clear (NORMAL: Clear SPEC GRAVITY 1.020 (1.001 - 1.030 pH 6 (5 - 9) GLUCOSE 1000 A (NORMAL: Negat BILIRUBIN NEG (NORMAL: Negat KETONE NEG (NORMAL: Negat PROTEIN NEG (NORMAL: Negat NITRITE NEG (NORMAL: Negat BLOOD NEG (NORMAL: Negat LEUK EST NEG (NORMAL: Negat UROBILINOGEN NOR (less than 1.0 MICROSCOPIC Not IndicateBNP: (HILARIO: 04/08/2020 11:30) ( MsgRcvd 04/08/2020 12:28) Final results Test Result Flag Units (Reference) BNP 57 PG/ML (0 - 125)Chest Portable 1 View: (HILARIO: 04/08/2020 11:23) ( MsgRcvd 04/08/2020 13:19) In ProgressCHEST PORTABLEReason(s): DIzzinessTRANSPORTATION: WC IV? O2? Oxygen?(No) Room: ED 5 Clinical Report - Physicians/Mid Levels [facility] Emergency Department [address] [place] [address] Phone #: ext- [phone] 04/08/2020 10:56 Patient: LAINE KEY Sex: M : 1960 Age: 59y CT Head W/O Cont: (HILARIO: 04/08/2020 11:23) ( OkgRcvd 04/08/2020 11:50) Canceled Reason(s): Headache Reason(s): Headache TRANSPORTATION: WC IV? O2? Oxygen?(No) Room: ED.PROGRESS AND PROCEDURESCourse of Care: 13:36 Apr 08 2020. Evaluation after observation and results of tests back. (Reviewedlabs, exam findings, CTA and cxr results and pt is agreeable with dx and tx plan.). Patient counseled in person regarding the patient's stable condition, test results, diagnosis and need for follow-up. Patient agrees with plan of care. 13:37 Apr 08 2020. Disposition: Discharged home in good and improved condition (13:37 Apr 08 2020).CLINICAL IMPRESSION Chronic, poorly controlled type 2 diabetes with hyperglycemia. No diabetic ketoacidosis, hyperosmolar nonketotic state or coma.INSTRUCTIONS Warnings: Further evaluation is necessary in order to recheck abnormal lab. It is very important to follow up with a healthcare provider. GENERAL WARNINGS: Return or contact your physician immediately if your condition worsens or change s unexpectedly, if not improving as expected, or if other problems arise. SPECIFICALLY, return if you develop fever, vomiting, numbness, weakness, difficulty thinking, visual disturbances, fainting or extreme fatigue. Your Current Medications: Your current home medications have been reviewed. CONTINUE TAKING THE FOLLOWING MEDICATIONS: Aspirin 81 Oral : daily. Crestor Oral : 10 mg daily. Flomax Oral : 0.4 mg daily. Januvia Oral : Tablet 100 mg, daily. metFORMIN HCl Oral : Tablet 1000 mg, daily. PriLOSEC OTC Oral. Tylenol PM Extra Strength Oral : at bedtime. Follow-up: 6 Clinical Report - Physicians/Mid Levels [facility] Emergency Department [address] [place] [address] Phone #: ext- [phone] 04/08/2020 10:56 Patient: LAINE KEY Sex: M : 1960 Age: 59y Follow up with your doctor Friday. Call for the next available appointment. Reason for referral: evaluation and treatment. Summary of care provided to patient. Understanding of the discharge instructions verbalized by patient.(Electronically signed by SANDRA Jackson 04/08/2020 21:21) Name Value Range Interpretation Code Description Data [facility](s) Supporting Document(s) ID Date Data Source [id number] 04/08/2020 12:40:00 PM EST [facility] ([facility] Name Value Range Interpretation Code Description Data [facility] rce(s) Supporting Document(s) Urinalysis Laboratory test result ME DENT ([facility] SOURCE: Clean Catch Color Laboratory test result [facility] ([facility] SOURCE: Clean Catch Source Laboratory test result [facility] ([facility] SOURCE: Clean Catch Spec Brick 1.020 1.001-1.030 [facility] ([facility] SOURCE: Clean Catch Clarity Laboratory test result [facility] ([facility] SOURCE: Clean Catch pH 6 5-9 [facility] ([facility] SOURCE: Clean Catch Glucose 1000 Abnormal (applies to non-numeric res ults) [facility] ([facility] SOURCE: Clean Catch Bilirubin Laboratory test result ME DENT ([facility] SOURCE: Clean Catch Ketone Laboratory test result [facility] ([facility] SOURCE: Clean Catch Nitrite Laboratory test result [facility] ([facility] SOURCE: Clean Catch Protein Laboratory test result [facility] ([facility] SOURCE: Clean Catch Leuk Est Laboratory test result [facility] ([facility] SOURCE: Clean Catch Blood Laboratory test result [facility] ([facility] SOURCE: Clean Catch Microscopic Laboratory test result M EDENT ([facility] SOURCE: Clean Catch Urobilinogen Laboratory test result [facility] ([facility] SOURCE: Clean Catch ID Date Data Source [id number] 04/08/2020 01:26:00 PM [facility] Name Value Range Interpretation Code Description Data Noemí rce(s) Supporting Document(s) URINALYSIS [facility] cornel URINALYSIS SOURCE R [facility] COLOR yellow NORMAL: Yellow [facility] CLARITY clear NORMAL: Clear [facility] Specific gravity of Urine by Test strip 1.020 1.001 - 1.030 [facility] 6 5 - 9 [facility] Gl[facility] [Mass/volume] in Urine by Test strip 1000 NORMAL: Negat sandra A [facility] Bilirubin.total [Presence] in Urine by Test strip NEG NORMAL: Negative [facility] Ketones [Presence] in Urine by Test strip NEG NORMAL: Negative [facility] Protein [Mass/volume] in Urine by Test strip NEG NORMAL: [facility] Nitrite [Presence] in Urine by Test strip NEG NORMAL: Negative [facility] BLOOD NEG NORMAL: Negative [facility] Leukocyte esterase [Presence] in Urine by Test strip NEG TESSIE L: Negative [facility] Urobilinogen [Mass/volume] in Urine by Test strip NOR less naresh n 1.0 mg/dL [facility] MICROSCOPIC Not Indicate [facility] ID Date Data Source [id number] 04/08/2020 11:30:00 AM EST [facility] ([facility] Name Value Range Interpretation Code Description Data Noemí rce(s) Supporting Document(s) Comprehensive Metabo Laboratory test result [facility] COMPREHENSIVE METABOLIC PANEL Sodium 135 meq/L 134-153 [facility] Potassium 4.2 meq/L 3.6-5.0 [facility] Chloride 98 meq/L 98-107 [facility] Glucose 336 mg/dL 70-99 Above high normal [facility] ([facility] Co2 23 meq/L 22-30 [facility] Creatinine 0.8 mg/dL 0.7-1.5 [facility] BUN 13 mg/dL 7-21 [facility] BUN/Creat 16 8-27 [facility] Albumin 4.3 g/dL 3.9-5.0 [facility] Total Protein 6.6 g/dL 6.3-8.2 [facility] ([facility] Globulin 2.3 GM/DL 2.4-3.2 Below low normal [facility] ( [facility] A/G Ratio 1.9 0.8-2.0 [facility] ([facility] Total Bili Laboratory test result 0.2-1.3 ME D[facility] ([facility] Calcium 9.5 mg/dL 8.4-10.2 [facility] SGPT/Alt 30 U/L 7-56 [facility] Alkaline Phos 79 U/L 38-126 [facility] ([facility] Sgot/Ast 21 U/L 5-40 [facility] ([facility] Age 59 yrs [facility] ([facility] Anion Gap 14.0 mmol/L 8.0-16.0 [facility] ([facility] Non-Aa GFR Laboratory test result ME D[facility] ([facility] Afr Amer GFR Laboratory test result [facility] ([facility] Male GFR Interprentation 20-49 yrs >60 mL/min Normal 50-59 yrs >56 mL/min Normal 60-69 yrs >49 mL/min Normal 70-79yrs >42 mL/min Normal 80 and above >35 mL/min Normal Female GFR Interpretation 20-39 yrs >60 mL/min Normal 40-49 yrs >58 mL/min Normal 50-59 yrs >51 mL/min Normal 60-69 yrs >45 mL/min Normal 70-79 yrs >39 mL/min Normal 80 and above >32 mL/min Normal ID Date Data Source [id number] 04/08/2020 11:30:00 AM EST [facility] ([facility] Name Value Range Interpretation Code Description Data Noemí rce(s) Supporting Document(s) Lipoprotein lipase [Enzymatic activity/volume] in Serum or Plasm a 26 U/L 13-60 [facility] ([facility] ) Thyrotropin [Units/volume] in Serum or Plasma 1.01 uIU/mL 0.47-5.01 [facility] ([facility] Natriuretic peptide.B prohormone N-Terminal [Mass/volu me] in Serum or Plasma 57 pg/mL 0-125 [facility] ([facility] ID Date Data Source [id number] 04/08/2020 11:30:00 AM EST [facility] ([facility] Name Value Range Interpretation Code Description Data Noemí rce(s) Supporting Document(s) CBC W/Automated Diff Laboratory test result [facility] ([facility] COMPLETE BLOOD COUNT RBC 5.14 10^6/uL 4.50-6.30 [facility] WBC 5.4 10^3/uL 4.2-11.0 [facility] Hematocrit 44.2 % 41.0-51.0 [facility] Hemoglobin 15.1 g/dL 14.0-16.0 [facility] MCV 86.0 fL 80.0-94.0 [facility] MCHC 34.2 g/dL 31.0-36.0 [facility] MCH 29.4 pg 27.0-34.0 [facility] RDW 11.9 % 11.5-14.8 [facility] Platelets 230 10^3/uL 150-450 [facility] MPV 10.0 fL 7.4-10.4 [facility] Neut 72.1 % 37.0-80.0 [facility] Alcorn 8.1 % 3.0-8.0 Above high normal [facility] ([facility] Lymph 17.9 % 25.0-40.0 Below low normal [facility] ( [facility] Baso 0.6 % 0.0-2.0 [facility] Eos 0.4 % 0.0-7.0 [facility] %Ig 0.9 % 0.0-0.0 Above high normal [facility] ([facility] %NRBC 0.0 % 0.0-0.0 [facility] #Neut 3.90 10^3/uL 2.00-6.90 [facility] #Lymph 0.97 10^3/uL 0.60-3.40 [facility] #Eos 0.02 10^3/uL 0.00-0.70 [facility] #Alcorn 0.44 10^3/uL 0.00-0.90 [facility] #Ig 0.05 10^3/uL 0.00-0.10 [facility] #Baso 0.03 10^3/uL 0.00-0.20 [facility] #NRBC 0.00 10^3/uL 0.00-0.00 [facility] ([facility] RBC Morph Laboratory test result ME DENT ([facility] Manual Diff Laboratory test result M JAVIER ([facility] ID Date Data Source [id number] 04/08/2020 11:30:00 AM EST [facility] Name Value Range Interpretation Code Description Data Noemí rce(s) Supporting Document(s) Lactate [Mass/volume] in Serum or Plasma 2.9 mmol/L 0.2-2.2 Above high normal [facility] ([facility] ID Date Data Source [id number] 04/08/2020 11:30:00 AM EST [facility] ([facility] Name Value Range Interpretation Code Description Data Noemí rce(s) Supporting Document(s) Protime 13.6 s 11.0-15.5 [facility] Inr 0.99 0.93-1.23 [facility] ([facility] PTT 27.6 s 24.8-36.7 [facility] \\BLDo\\INR INTERPRETATION\\BLDx\\ Therapeutic range for Coumadin and related oral anticoagulants. -International Normalized Ratio (INR): 2 .0 - 3.0 for Venous Thrombosis, Pulmonary Embolus, Tissue heart valves, Acute MS Atrial Fibrillation, Valvular heart disease and recurrent Systemic Embolism. -International Normalized Ratio (INR): 2 .5 - 3.5 for Mechanical Prosthetic valve. ID Date Data Source [id number] 04/08/2020 11:30:00 AM EST [facility] ([facility] Name Value Range Interpretation Code Description Data Noemí rce(s) Supporting Document(s) Fibrin D-dimer [Presence] in Platelet poor plasma 0.41 ug/mL 0.27-0.5 0 [facility] ([facility] Troponin T.cardiac [Mass/volume] in Serum or Plasma Laborato ry test result 0.00-0.10 [facility] TROPONIN T 0.1 ng/ml Recommended as the clinical th reshold value for Troponin T. ID Date Data Source [id number] 04/08/2020 12:37:00 PM EST [facility] Name Value Range Interpretation Code Description Data Noemí rce(s) Supporting Document(s) COMPREHENSIVE METABOLIC PANEL [facility] COMPREHENSIVE METABOLIC PANEL Sodium [Moles/volume] in Serum or Plasma 135 mEq/L 134 - 153 [facility] Potassium [Moles/volume] in Serum or Plasma 4.2 mEq/L 3.6 - 5.0 [facility] Chloride [Moles/volume] in Serum or Plasma 98 mEq/L 98 - 107 [facility] Carbon dioxide, total [Moles/volume] in Serum or Plasma 23 MEQ/L 22 - 30 [facility] Glucose [Mass/volume] in Serum or Plasma 336 MG/DL 70 - 99 H [facility] BUN 13 MG/DL 7 - 21 [facility] Creatinine [Mass/volume] in Serum or Plasma 0.8 MG/DL 0.7 - 1.5 [facility] BUN/CREAT 16 8 - 27 [facility] Protein [Mass/volume] in Serum or Plasma 6.6 G/DL 6.3 - 8.2 [facility] Albumin [Mass/volume] in Serum or Plasma 4.3 G/DL 3.9 - 5.0 [facility] Globulin [Mass/volume] in Serum by calculation 2.3 GM/DL 2.4 - 3.2 L [facility] A/G RATIO 1.9 0.8 - 2.0 [facility] Calcium [Mass/volume] in Serum or Plasma 9.5 MG/DL 8.4 - 10.2 [facility] Bilirubin.total [Mass/volume] in Serum or Plasma <0.7 MG/DL 0.2 - 1.3 [facility] Alkaline phosphatase [Enzymatic activity/volume] in Serum or Plasma 79 U/L 38 - 126 [facility] Aspartate aminotransferase [Enzymatic activity/volume] in Serum or Plasma 21 U/L 5 - 40 [facility] Alanine aminotransferase [Enzymatic activity/volume] in Seru m or Plasma 30 U/L 7 - 56 [facility] Anion gap 3 in Serum or Plasma 14.0 mmol/L 8.0 - 16.0 [facility] AGE 59 yrs [facility] NON-AA GFR >60 mL/min [facility] ital AFR AMER GFR >60 mL/min [facility] Male GFR In terprentation 20-49 yrs >60 mL/min Normal 50-59 yrs >56 mL/min Normal 60-69 yrs >49 mL/min Normal 70-79yrs >42 mL/min Normal 80 and above >35 mL/min Normal Female GFR Interpretation 20-39 yrs >60 mL/min Normal 40-49 yrs >58 mL/min Normal 50-59 yrs >51 mL/min Normal 60-69 yrs >45 mL/min Normal 70-79 yrs >39 mL/min Normal 80 and above >32 mL/min Normal ID Date Data Source [id number] 04/08/2020 12:28:00 PM [facility] Name Value Range Interpretation Code Description Data Noemí rce(s) Supporting Document(s) BNP 57 PG/ML 0 - 125 [facility] ID Date Data Source [id number] 04/08/2020 12:28:00 PM [facility] Name Value Range Interpretation Code Description Data Noemí rce(s) Supporting Document(s) Thyrotropin [Units/volume] in Serum or Plasma by Detec tion limit <= 0.05 mIU/L 1.01 uIU/mL 0.47 - 5.01 [facility] ID Date Data Source [id number] 04/08/2020 12:28:00 PM EST [facility] Name Value Range Interpretation Code Description Data Noemí rce(s) Supporting Document(s) Lipase [Enzymatic activity/volume] in Serum or Plasma 26 U/L 13 - 60 [facility] ID Date Data Source [id number] 04/08/2020 12:25:00 PM [facility] Name Value Range Interpretation Code Description Data Noemí rce(s) Supporting Document(s) CBC W/AUTOMATED DIFF [facility] COMPLETE BLOOD COUNT Leukocytes [#/volume] in Blood by Automated count 5.4 10^3/uL 4.2 - 1 1.0 [facility] Erythrocytes [#/volume] in Blood by Automated count 5.14 10^6/uL 4. 50 - 6.30 [facility] Hemoglobin [Mass/volume] in Blood 15.1 g/dL 14.0 - 16.0 [facility] Hematocrit [Volume Fraction] of Blood by Automated count 44.2 % 4 1.0 - 51.0 [facility] Erythrocyte mean corpuscular volume [Entitic volume] by Auto mated count 86.0 fL 80.0 - 94.0 [facility] Erythrocyte mean corpuscular hemoglobin [Entitic mass] by Automated count 29.4 pg 27.0 - 34.0 [facility] Erythrocyte mean corpuscular hemoglobin concentration [Mass/volume] by Automated count 34.2 g/dL 31.0 - 36.0 [facility] Erythrocyte distribution width [Ratio] by Automated count 11.9 % 11.5 - 14.8 [facility] Platelets [#/volume] in Blood by Automated count 230 10^3/uL 150 - 45 0 [facility] Platelet mean volume [Entitic volume] in Blood by Automated count 10.0 fL 7.4 - 10.4 [facility] Neutrophils/100 leukocytes in Blood by Automated count 72.1 % 37. 0 - 80.0 [facility] Lymphocytes/100 leukocytes in Blood by Manual count 17.9 % 25.0 - 40.0 L [facility] Monocytes/100 leukocytes in Blood by Automated count 8.1 % 3.0 - 8.0 H [facility] Eosinophils/100 leukocytes in Blood by Automated count 0.4 % 0.0 - 7.0 [facility] Basophils/100 leukocytes in Blood by Automated count 0.6 % 0.0 - 2.0 [facility] %IG 0.9 % 0.0 - 0.0 H [facility] %NRBC 0.0 % 0.0 - 0.0 [facility] al Neutrophils [#/volume] in Blood by Automated count 3.90 10^3/uL 2.00 - 6.90 [facility] Lymphocytes [#/volume] in Blood by Automated count 0.97 10^3/uL 0.60 - 3.40 [facility] Monocytes [#/volume] in Blood by Automated count 0.44 10^3/uL 0.00 - 0.90 [facility] Eosinophils [#/volume] in Blood by Automated count 0.02 10^3/uL 0.00 - 0.70 [facility] Basophils [#/volume] in Blood by Automated count 0.03 10^3/uL 0.00 - 0.20 [facility] #IG 0.05 10^3/uL 0.00 - 0.10 [facility] #NRBC 0.00 10^3/uL 0.00 - 0.00 [facility] ospital MANUAL DIFF NOT INDICATED [facility] RBC MORPH NOT INDICATED [facility] spital ID Date Data Source [id number] 04/08/2020 12:24:00 PM [facility] Name Value Range Interpretation Code Description Data Noemí rce(s) Supporting Document(s) Lactate [Moles/volume] in Serum or Plasma 2.9 MMOL/L 0.2 - 2.2 H [facility] ID Date Data Source [id number] 04/08/2020 12:24:00 PM [facility] Name Value Range Interpretation Code Description Data Noemí rce(s) Supporting Document(s) Prothrombin time (PT) 13.6 SECONDS 11.0 - 15.5 [facility] INR in Platelet poor plasma by Coagulation assay 0.99 0.93 - 1. 23 [facility] aPTT in Blood by Coagulation assay 27.6 SECONDS 24.8 - 36.7 [facility] \\BLDo\\INR INTERPRETATION\\BLDx\\ Therapeutic range for Coumadin and related oral anticoagulants. - International Normalized Ratio (INR): 2.0 - 3.0 for Venous Thrombosis, Pulmonary Embolus, Tissue heart valves, Acute MS Atrial Fibrillation, Valvular heart disease and recurrent Systemic Embolism. - International Normalized Ratio (INR): 2.5 - 3.5 for Mechanical Prosthetic valve. ID Date Data Source [id number] 04/08/2020 12:14:00 PM [facility] Name Value Range Interpretation Code Description Data Noemí rce(s) Supporting Document(s) TROPONIN T <0.01 NG/ML 0.00 - 0.10 [facility]spital TROPONIN T0.1 ng/ml Recommended as the c linical threshold value forTroponin T. ID Date Data Source [id number] 04/08/2020 11:53:00 AM [facility] Name Value Range Interpretation Code Description Data Noemí rce(s) Supporting Document(s) Fibrin D-dimer FEU [Mass/volume] in Platelet poor plasma 0.41 ug /mL 0.27 - 0.50 [facility] ID Date Data Source [id number] 01/07/2020 09:26:00 AM EST [facility] ([facility] Name Value Range Interpretation Code Description Data Noemí rce(s) Supporting Document(s) Prostate specific Ag [Mass/volume] in Serum or Plasma 2.13 ng/mL 0.0- 4.0 [facility] ([facility] ID Date Data Source [id number] 01/07/2020 09:26:00 AM EST [facility] ([facility] Name Value Range Interpretation Code Description Data Noemí rce(s) Supporting Document(s) Trig 105 mg/dL 35-200 [facility] ([facility] NORMAL RANGES Age WBC RBC HGB HCT [...] HCT IS 5% LESS SOURCE FOR DATA: [facility]. 1800 OPERATION MANUAL( AUTOMATED BLOOD COUNTS AND [...] DESIRABLE: <130 MG/DL <110 MG/DL BORDERLINE-HIGH RISK: 130- 159 MG/DL 110-129 MG/DL HIGH RISK: >160 MG/DL >130 MG/DL *CHILDREN AND ADOLESCENTS REPRESENTS INDIVIDUALA AGED 2-19 YEARS EXCLUSIVE. Chol 109 mg/dL 0-200 [facility] NORMAL RANGES Age WBC RBC HGB HCT [...] HCT IS 5% LESS SOURCE FOR DATA: [facility]. 1800 OPERATION MANUAL( AUTOMATED BLOOD COUNTS AND [...] DESIRABLE: <130 MG/DL <110 MG/DL BORDERLINE-HIGH RISK: 130- 159 MG/DL 110-129 MG/DL HIGH RISK: >160 MG/DL >130 MG/DL *CHILDREN AND ADOLESCENTS REPRESENTS INDIVIDUALA AGED 2-19 YEARS EXCLUSIVE. Cho/HDL Ratio 3.2 [facility] NORMAL RANGES Age WBC RBC HGB HCT [...] HCT IS 5% LESS SOURCE FOR DATA: [employer] DYN 1800 OPERATION MANUAL( AUTOMATED BLOOD COUNTS [...] DESIRABLE: <130 MG/DL <110 MG/DL BORDERLINE-HIGH RISK: 130- 159 MG/DL 110-129 MG/DL HIGH RISK: >160 MG/DL >130 MG/DL *CHILDREN AND ADOLESCENTS REPRESENTS INDIVIDUALA AGED 2-19 YEARS EXCLUSIVE. LDL_C 54 Calc 75-129 Below low normal [facility] ( [facility] NORMAL RANGES Age WBC RBC HGB HCT [...] HCT IS 5% LESS SOURCE FOR DATA: [facility]. 1800 OPERATION MANUAL( AUTOMATED BLOOD COUNTS AND [...] DESIRABLE: <130 MG/DL <110 MG/DL BORDERLINE-HIGH RISK: 130- 159 MG/DL 110-129 MG/DL HIGH RISK: >160 MG/DL >130 MG/DL *CHILDREN AND ADOLESCENTS REPRESENTS INDIVIDUALA AGED 2-19 YEARS EXCLUSIVE. Cholesterol in HDL [Mass/volume] in Serum or Plasma 34 mg/dL 35-55 Below low normal [facility] NORMAL RANGES Age WBC RBC HGB HCT [...] HCT IS 5% LESS SOURCE FOR DATA: [facility]. 1800 OPERATION MANUAL( AUTOMATED BLOOD COUNTS AND [...] DESIRABLE: <130 MG/DL <110 MG/DL BORDERLINE-HIGH RISK: 130- 159 MG/DL 110-129 MG/DL HIGH RISK: >160 MG/DL >130 MG/DL *CHILDREN AND ADOLESCENTS REPRESENTS INDIVIDUALA AGED 2-19 YEARS EXCLUSIVE. ID Date Data Source [id number] 01/07/2020 09:26:00 AM EST [facility] ([facility] Name Value Range Interpretation Code Description Data Noemí rce(s) Supporting Document(s) Glu 206 mg/dL 70-110 Above high normal [facility] ([facility] NORMAL RANGES Age WBC RBC HGB HCT [...] HCT IS 5% LESS SOURCE FOR DATA: [facility]. 1800 OPERATION MANUAL( AUTOMATED BLOOD COUNTS AND [...] DESIRABLE: <130 MG/DL <110 MG/DL BORDERLINE-HIGH RISK: 130- 159 MG/DL 110-129 MG/DL HIGH RISK: >160 MG/DL >130 MG/DL *CHILDREN AND ADOLESCENTS REPRESENTS INDIVIDUALA AGED 2-19 YEARS EXCLUSIVE. BUN/Creatinine Ratio 23.6 CALC [facility] ([facility] NORMAL RANGES Age WBC RBC HGB HCT [...] HCT IS 5% LESS SOURCE FOR DATA: [facility]. 1800 OPERATION MANUAL( AUTOMATED BLOOD COUNTS AND [...] DESIRABLE: <130 MG/DL <110 MG/DL BORDERLINE-HIGH RISK: 130- 159 MG/DL 110-129 MG/DL HIGH RISK: >160 MG/DL >130 MG/DL *CHILDREN AND ADOLESCENTS REPRESENTS INDIVIDUALA AGED 2-19 YEARS EXCLUSIVE. Creat 0.8 mg/dL 0.7-1.2 [facility] NORMAL RANGES Age WBC RBC HGB HCT [...] HCT IS 5% LESS SOURCE FOR DATA: [employer]YN 1800 OPERATION MANUAL( AUTOMATED BLOOD COUNTS [...] DESIRABLE: <130 MG/DL <110 MG/DL BORDERLINE-HIGH RISK: 130- 159 MG/DL 110-129 MG/DL HIGH RISK: >160 MG/DL >130 MG/DL *CHILDREN AND ADOLESCENTS REPRESENTS INDIVIDUALA AGED 2-19 YEARS EXCLUSIVE. BUN 19 mg/dL 8-23 [facility] NORMAL RANGES Age WBC RBC HGB HCT [...] HCT IS 5% LESS SOURCE FOR DATA: [facility]. 1800 OPERATION MANUAL( AUTOMATED BLOOD COUNTS AND [...] DESIRABLE: <130 MG/DL <110 MG/DL BORDERLINE-HIGH RISK: 130- 159 MG/DL 110-129 MG/DL HIGH RISK: >160 MG/DL >130 MG/DL *CHILDREN AND ADOLESCENTS REPRESENTS INDIVIDUALA AGED 2-19 YEARS EXCLUSIVE. Na 136 mmol/L 136-145 [facility] ([facility] NORMAL RANGES Age WBC RBC HGB HCT [...] HCT IS 5% LESS SOURCE FOR DATA: [facility]. 1800 OPERATION MANUAL( AUTOMATED BLOOD COUNTS AND [...] DESIRABLE: <130 MG/DL <110 MG/DL BORDERLINE-HIGH RISK: 130- 159 MG/DL 110-129 MG/DL HIGH RISK: >160 MG/DL >130 MG/DL *CHILDREN AND ADOLESCENTS REPRESENTS INDIVIDUALA AGED 2-19 YEARS EXCLUSIVE. CL 102.7 mmol/L 98.0-107.0 [facility] ([facility] NORMAL RANGES Age WBC RBC HGB HCT [...] HCT IS 5% LESS SOURCE FOR DATA: [employer]YN 1800 OPERATION MANUAL( AUTOMATED BLOOD COUNTS [...] DESIRABLE: <130 MG/DL <110 MG/DL BORDERLINE-HIGH RISK: 130- 159 MG/DL 110-129 MG/DL HIGH RISK: >160 MG/DL >130 MG/DL *CHILDREN AND ADOLESCENTS REPRESENTS INDIVIDUALA AGED 2-19 YEARS EXCLUSIVE. K 4.5 mmol/L 3.5-5.1 [facility] NORMAL RANGES Age WBC RBC HGB HCT [...] HCT IS 5% LESS SOURCE FOR DATA: [facility]. 1800 OPERATION MANUAL( AUTOMATED BLOOD COUNTS AND [...] DESIRABLE: <130 MG/DL <110 MG/DL BORDERLINE-HIGH RISK: 130- 159 MG/DL 110-129 MG/DL HIGH RISK: >160 MG/DL >130 MG/DL *CHILDREN AND ADOLESCENTS REPRESENTS INDIVIDUALA AGED 2-19 YEARS EXCLUSIVE. Co2 20.8 mmol/L 22.0-29.0 Below low normal [facility] ([facility] NORMAL RANGES Age WBC RBC HGB HCT [...] HCT IS 5% LESS SOURCE FOR DATA: [facility]. 1800 OPERATION MANUAL( AUTOMATED BLOOD COUNTS AND [...] DESIRABLE: <130 MG/DL <110 MG/DL BORDERLINE-HIGH RISK: 130- 159 MG/DL 110-129 MG/DL HIGH RISK: >160 MG/DL >130 MG/DL *CHILDREN AND ADOLESCENTS REPRESENTS INDIVIDUALA AGED 2-19 YEARS EXCLUSIVE. Alb 4.6 g/dL 3.5-5.2 [facility] NORMAL RANGES Age WBC RBC HGB HCT [...] HCT IS 5% LESS SOURCE FOR DATA: [facility]. 1800 OPERATION MANUAL( AUTOMATED BLOOD COUNTS AND [...] DESIRABLE: <130 MG/DL <110 MG/DL BORDERLINE-HIGH RISK: 130- 159 MG/DL 110-129 MG/DL HIGH RISK: >160 MG/DL >130 MG/DL *CHILDREN AND ADOLESCENTS REPRESENTS INDIVIDUALA AGED 2-19 YEARS EXCLUSIVE. CA 9.6 mg/dL 8.6-10.2 [facility] ([facility] NORMAL RANGES Age WBC RBC HGB HCT [...] HCT IS 5% LESS SOURCE FOR DATA: [facility]. 1800 OPERATION MANUAL( AUTOMATED BLOOD COUNTS AND [...] DESIRABLE: <130 MG/DL <110 MG/DL BORDERLINE-HIGH RISK: 130- 159 MG/DL 110-129 MG/DL HIGH RISK: >160 MG/DL >130 MG/DL *CHILDREN AND ADOLESCENTS REPRESENTS INDIVIDUALA AGED 2-19 YEARS EXCLUSIVE. TP 6.7 g/dL 6.6-8.7 [facility] ([facility] NORMAL RANGES Age WBC RBC HGB HCT [...] HCT IS 5% LESS SOURCE FOR DATA: [facility]. 1800 OPERATION MANUAL( AUTOMATED BLOOD COUNTS AND [...] DESIRABLE: <130 MG/DL <110 MG/DL BORDERLINE-HIGH RISK: 130- 159 MG/DL 110-129 MG/DL HIGH RISK: >160 MG/DL >130 MG/DL *CHILDREN AND ADOLESCENTS REPRESENTS INDIVIDUALA AGED 2-19 YEARS EXCLUSIVE. Globulin 2.1 CALC [facility] ([facility] NORMAL RANGES Age WBC RBC HGB HCT [...] HCT IS 5% LESS SOURCE FOR DATA: [employer] 1800 OPERATION MANUAL( AUTOMATED BLOOD COUNTS [...] DESIRABLE: <130 MG/DL <110 MG/DL BORDERLINE-HIGH RISK: 130- 159 MG/DL 110-129 MG/DL HIGH RISK: >160 MG/DL >130 MG/DL *CHILDREN AND ADOLESCENTS REPRESENTS INDIVIDUALA AGED 2-19 YEARS EXCLUSIVE. A/G Ratio 2.2 CALC [facility] ([facility] NORMAL RANGES Age WBC RBC HGB HCT [...] HCT IS 5% LESS SOURCE FOR DATA: [facility]. 1800 OPERATION MANUAL( AUTOMATED BLOOD COUNTS AND [...] DESIRABLE: <130 MG/DL <110 MG/DL BORDERLINE-HIGH RISK: 130- 159 MG/DL 110-129 MG/DL HIGH RISK: >160 MG/DL >130 MG/DL *CHILDREN AND ADOLESCENTS REPRESENTS INDIVIDUALA AGED 2-19 YEARS EXCLUSIVE. Alp 61.6 U/L 40-129 [facility] NORMAL RANGES Age WBC RBC HGB HCT [...] HCT IS 5% LESS SOURCE FOR DATA: [facility]. 1800 OPERATION MANUAL( AUTOMATED BLOOD COUNTS AND [...] DESIRABLE: <130 MG/DL <110 MG/DL BORDERLINE-HIGH RISK: 130- 159 MG/DL 110-129 MG/DL HIGH RISK: >160 MG/DL >130 MG/DL *CHILDREN AND ADOLESCENTS REPRESENTS INDIVIDUALA AGED 2-19 YEARS EXCLUSIVE. Alt (SGPT) 46 U/L 0-41 Above high normal [facility] ([facility] NORMAL RANGES Age WBC RBC HGB HCT [...] HCT IS 5% LESS SOURCE FOR DATA: [facility]. 1800 OPERATION MANUAL( AUTOMATED BLOOD COUNTS AND [...] DESIRABLE: <130 MG/DL <110 MG/DL BORDERLINE-HIGH RISK: 130- 159 MG/DL 110-129 MG/DL HIGH RISK: >160 MG/DL >130 MG/DL *CHILDREN AND ADOLESCENTS REPRESENTS INDIVIDUALA AGED 2-19 YEARS EXCLUSIVE. Ast (Sgot) 31 U/L 0-40 [facility] ([facility] NORMAL RANGES Age WBC RBC HGB HCT [...] HCT IS 5% LESS SOURCE FOR DATA: [facility]. 1800 OPERATION MANUAL( AUTOMATED BLOOD COUNTS AND [...] DESIRABLE: <130 MG/DL <110 MG/DL BORDERLINE-HIGH RISK: 130- 159 MG/DL 110-129 MG/DL HIGH RISK: >160 MG/DL >130 MG/DL *CHILDREN AND ADOLESCENTS REPRESENTS INDIVIDUALA AGED 2-19 YEARS EXCLUSIVE. Tbili 0.49 mg/dL 0.0-1.2 [facility] ([facility] NORMAL RANGES Age WBC RBC HGB HCT [...] HCT IS 5% LESS SOURCE FOR DATA: [facility]. 1800 OPERATION MANUAL( AUTOMATED BLOOD COUNTS AND [...] DESIRABLE: <130 MG/DL <110 MG/DL BORDERLINE-HIGH RISK: 130- 159 MG/DL 110-129 MG/DL HIGH RISK: >160 MG/DL >130 MG/DL *CHILDREN AND ADOLESCENTS REPRESENTS INDIVIDUALA AGED 2-19 YEARS EXCLUSIVE. Anion Gap 17 mmol/L [facility] NORMAL RANGES Age WBC RBC HGB HCT [...] HCT IS 5% LESS SOURCE FOR DATA: [facility]. 1800 OPERATION MANUAL( AUTOMATED BLOOD COUNTS AND [...] DESIRABLE: <130 MG/DL <110 MG/DL BORDERLINE-HIGH RISK: 130- 159 MG/DL 110-129 MG/DL HIGH RISK: >160 MG/DL >130 MG/DL *CHILDREN AND ADOLESCENTS REPRESENTS INDIVIDUALA AGED 2-19 YEARS EXCLUSIVE. eGFR 115 # [facility] ( [facility] NORMAL RANGES Age WBC RBC HGB HCT [...] HCT IS 5% LESS SOURCE FOR DATA: [facility]. 1800 OPERATION MANUAL( AUTOMATED BLOOD COUNTS AND [...] DESIRABLE: <130 MG/DL <110 MG/DL BORDERLINE-HIGH RISK: 130- 159 MG/DL 110-129 MG/DL HIGH RISK: >160 MG/DL >130 MG/DL *CHILDREN AND ADOLESCENTS REPRESENTS INDIVIDUALA AGED 2-19 YEARS EXCLUSIVE. Osmolality-Calculated 279.8 CALC [facility] ([facility] NORMAL RANGES Age WBC RBC HGB HCT [...] HCT IS 5% LESS SOURCE FOR DATA: [facility]. 1800 OPERATION MANUAL( AUTOMATED BLOOD COUNTS AND [...] DESIRABLE: <130 MG/DL <110 MG/DL BORDERLINE-HIGH RISK: 130- 159 MG/DL 110-129 MG/DL HIGH RISK: >160 MG/DL >130 MG/DL *CHILDREN AND ADOLESCENTS REPRESENTS INDIVIDUALA AGED 2-19 YEARS EXCLUSIVE. eGFR Non-Afr. Citizen Of [place] 99 # [facility] ([facility] NORMAL RANGES Age WBC RBC HGB HCT [...] HCT IS 5% LESS SOURCE FOR DATA: [facility]. 1800 OPERATION MANUAL( AUTOMATED BLOOD COUNTS AND [...] DESIRABLE: <130 MG/DL <110 MG/DL BORDERLINE-HIGH RISK: 130- 159 MG/DL 110-129 MG/DL HIGH RISK: >160 MG/DL >130 MG/DL *CHILDREN AND ADOLESCENTS REPRESENTS INDIVIDUALA AGED 2-19 YEARS EXCLUSIVE. ID Date Data Source [id number] 01/07/2020 09:26:00 AM EST [facility] ([facility] Name Value Range Interpretation Code Description Data Noemí rce(s) Supporting Document(s) WBC 5.7 10E3/uL 4.1-10.9 [facility] ([facility] NORMAL RANGES Age WBC RBC HGB HCT [...] HCT IS 5% LESS SOURCE FOR DATA: [facility]. 1800 OPERATION MANUAL( AUTOMATED BLOOD COUNTS AND [...] DESIRABLE: <130 MG/DL <110 MG/DL BORDERLINE-HIGH RISK: 130- 159 MG/DL 110-129 MG/DL HIGH RISK: >160 MG/DL >130 MG/DL *CHILDREN AND ADOLESCENTS REPRESENTS INDIVIDUALA AGED 2-19 YEARS EXCLUSIVE. RBC 5.12 10E6/uL 4.-6 [employer] ([facility] NORMAL RANGES Age WBC RBC HGB HCT [...] HCT IS 5% LESS SOURCE FOR DATA: [facility]. 1800 OPERATION MANUAL( AUTOMATED BLOOD COUNTS AND [...] DESIRABLE: <130 MG/DL <110 MG/DL BORDERLINE-HIGH RISK: 130- 159 MG/DL 110-129 MG/DL HIGH RISK: >160 MG/DL >130 MG/DL *CHILDREN AND ADOLESCENTS REPRESENTS INDIVIDUALA AGED 2-19 YEARS EXCLUSIVE. HGB 14.8 g/dL 12.0-18.0 [facility] ([facility] NORMAL RANGES Age WBC RBC HGB HCT [...] HCT IS 5% LESS SOURCE FOR DATA: [facility]. 1800 OPERATION MANUAL( AUTOMATED BLOOD COUNTS AND [...] DESIRABLE: <130 MG/DL <110 MG/DL BORDERLINE-HIGH RISK: 130- 159 MG/DL 110-129 MG/DL HIGH RISK: >160 MG/DL >130 MG/DL *CHILDREN AND ADOLESCENTS REPRESENTS INDIVIDUALA AGED 2-19 YEARS EXCLUSIVE. HCT 44.5 % 37.0-51.0 [facility] ([facility] NORMAL RANGES Age WBC RBC HGB HCT [...] HCT IS 5% LESS SOURCE FOR DATA: [facility]. 1800 OPERATION MANUAL( AUTOMATED BLOOD COUNTS AND [...] DESIRABLE: <130 MG/DL <110 MG/DL BORDERLINE-HIGH RISK: 130- 159 MG/DL 110-129 MG/DL HIGH RISK: >160 MG/DL >130 MG/DL *CHILDREN AND ADOLESCENTS REPRESENTS INDIVIDUALA AGED 2-19 YEARS EXCLUSIVE. MCV 86.9 fL 80.0-97.0 [facility] ([facility] NORMAL RANGES Age WBC RBC HGB HCT [...] HCT IS 5% LESS SOURCE FOR DATA: [employer] 1800 OPERATION MANUAL( AUTOMATED BLOOD COUNTS [...] DESIRABLE: <130 MG/DL <110 MG/DL BORDERLINE-HIGH RISK: 130- 159 MG/DL 110-129 MG/DL HIGH RISK: >160 MG/DL >130 MG/DL *CHILDREN AND ADOLESCENTS REPRESENTS INDIVIDUALA AGED 2-19 YEARS EXCLUSIVE. MCHC 33.3 g/dL 31.0-36.0 [facility] ([facility] NORMAL RANGES Age WBC RBC HGB HCT [...] HCT IS 5% LESS SOURCE FOR DATA: [facility]. 1800 OPERATION MANUAL( AUTOMATED BLOOD COUNTS AND [...] DESIRABLE: <130 MG/DL <110 MG/DL BORDERLINE-HIGH RISK: 130- 159 MG/DL 110-129 MG/DL HIGH RISK: >160 MG/DL >130 MG/DL *CHILDREN AND ADOLESCENTS REPRESENTS INDIVIDUALA AGED 2-19 YEARS EXCLUSIVE. MCH 28.9 pg 26.0-32.0 [facility] NORMAL RANGES Age WBC RBC HGB HCT [...] HCT IS 5% LESS SOURCE FOR DATA: [facility]. 1800 OPERATION MANUAL( AUTOMATED BLOOD COUNTS AND [...] DESIRABLE: <130 MG/DL <110 MG/DL BORDERLINE-HIGH RISK: 130- 159 MG/DL 110-129 MG/DL HIGH RISK: >160 MG/DL >130 MG/DL *CHILDREN AND ADOLESCENTS REPRESENTS INDIVIDUALA AGED 2-19 YEARS EXCLUSIVE. RDW-CV 12.8 % 11.5-14.5 [facility] NORMAL RANGES Age WBC RBC HGB HCT [...] HCT IS 5% LESS SOURCE FOR DATA: [facility]. 1800 OPERATION MANUAL( AUTOMATED BLOOD COUNTS AND [...] DESIRABLE: <130 MG/DL <110 MG/DL BORDERLINE-HIGH RISK: 130- 159 MG/DL 110-129 MG/DL HIGH RISK: >160 MG/DL >130 MG/DL *CHILDREN AND ADOLESCENTS REPRESENTS INDIVIDUALA AGED 2-19 YEARS EXCLUSIVE. PLT 217 10E3/uL 140-440 [facility] ([facility] NORMAL RANGES Age WBC RBC HGB HCT [...] HCT IS 5% LESS SOURCE FOR DATA: [facility]. 1800 OPERATION MANUAL( AUTOMATED BLOOD COUNTS AND [...] DESIRABLE: <130 MG/DL <110 MG/DL BORDERLINE-HIGH RISK: 130- 159 MG/DL 110-129 MG/DL HIGH RISK: >160 MG/DL >130 MG/DL *CHILDREN AND ADOLESCENTS REPRESENTS INDIVIDUALA AGED 2-19 YEARS EXCLUSIVE. Lym% 27.1 % 10.0-58.5 [facility] NORMAL RANGES Age WBC RBC HGB HCT [...] HCT IS 5% LESS SOURCE FOR DATA: [facility]. 1800 OPERATION MANUAL( AUTOMATED BLOOD COUNTS AND [...] DESIRABLE: <130 MG/DL <110 MG/DL BORDERLINE-HIGH RISK: 130- 159 MG/DL 110-129 MG/DL HIGH RISK: >160 MG/DL >130 MG/DL *CHILDREN AND ADOLESCENTS REPRESENTS INDIVIDUALA AGED 2-19 YEARS EXCLUSIVE. Lym# 1.5 10E3/uL 0.6-4.1 [facility] ([facility] NORMAL RANGES Age WBC RBC HGB HCT [...] HCT IS 5% LESS SOURCE FOR DATA: [facility]. 1800 OPERATION MANUAL( AUTOMATED BLOOD COUNTS AND [...] DESIRABLE: <130 MG/DL <110 MG/DL BORDERLINE-HIGH RISK: 130- 159 MG/DL 110-129 MG/DL HIGH RISK: >160 MG/DL >130 MG/DL *CHILDREN AND ADOLESCENTS REPRESENTS INDIVIDUALA AGED 2-19 YEARS EXCLUSIVE. MXD% 7.1 % 0.1-24.0 [facility] ([facility] NORMAL RANGES Age WBC RBC HGB HCT [...] HCT IS 5% LESS SOURCE FOR DATA: [facility]. 1800 OPERATION MANUAL( AUTOMATED BLOOD COUNTS AND [...] DESIRABLE: <130 MG/DL <110 MG/DL BORDERLINE-HIGH RISK: 130- 159 MG/DL 110-129 MG/DL HIGH RISK: >160 MG/DL >130 MG/DL *CHILDREN AND ADOLESCENTS REPRESENTS INDIVIDUALA AGED 2-19 YEARS EXCLUSIVE. Neut% 65.8 % 37.0-92.0 [facility] ([facility] NORMAL RANGES Age WBC RBC HGB HCT [...] HCT IS 5% LESS SOURCE FOR DATA: [employer] 1800 OPERATION MANUAL( AUTOMATED BLOOD COUNTS [...] DESIRABLE: <130 MG/DL <110 MG/DL BORDERLINE-HIGH RISK: 130- 159 MG/DL 110-129 MG/DL HIGH RISK: >160 MG/DL >130 MG/DL *CHILDREN AND ADOLESCENTS REPRESENTS INDIVIDUALA AGED 2-19 YEARS EXCLUSIVE. Neut# 3.8 % 2.0-7.8 [facility] ([facility] NORMAL RANGES Age WBC RBC HGB HCT [...] HCT IS 5% LESS SOURCE FOR DATA: [facility]. 1800 OPERATION MANUAL( AUTOMATED BLOOD COUNTS AND [...] DESIRABLE: <130 MG/DL <110 MG/DL BORDERLINE-HIGH RISK: 130- 159 MG/DL 110-129 MG/DL HIGH RISK: >160 MG/DL >130 MG/DL *CHILDREN AND ADOLESCENTS REPRESENTS INDIVIDUALA AGED 2-19 YEARS EXCLUSIVE. MXD# 0.4 10E3/uL 0.0-1.8 [facility] ([facility] NORMAL RANGES Age WBC RBC HGB HCT [...] HCT IS 5% LESS SOURCE FOR DATA: [facility]. 1800 OPERATION MANUAL( AUTOMATED BLOOD COUNTS AND [...] DESIRABLE: <130 MG/DL <110 MG/DL BORDERLINE-HIGH RISK: 130- 159 MG/DL 110-129 MG/DL HIGH RISK: >160 MG/DL >130 MG/DL *CHILDREN AND ADOLESCENTS REPRESENTS INDIVIDUALA AGED 2-19 YEARS EXCLUSIVE. MPV 10.6 fL 9.0-13.0 [facility] ([facility] NORMAL RANGES Age WBC RBC HGB HCT [...] DESIRABLE: <130 MG/DL <110 MG/DL BORDERLINE-HIGH RISK: 130- 159 MG/DL 110-129 MG/DL HIGH RISK: >160 MG/DL >130 MG/DL *CHILDREN AND ADOLESCENTS REPRESENTS INDIVIDUALA AGED 2-19 YEARS EXCLUSIVE. ID Date Data Source [id number] 01/07/2020 09:25:00 AM EST [facility] ([facility] Name Value Range Interpretation Code Description Data Noemí rce(s) Supporting Document(s) Hemoglobin A1c/Hemoglobin.total in Blood 8.6 % 4.50-6.20 Above high normal [facility] ([facility] ID Date Data Source [id number] 12/31/2019 01:42:00 PM EDT [facility] [address] [place] [address] PHONE: [phone] FAX: [phone] Name .................. : SHAHID Poole Acct Number.................. : [id number] ROOM. ................. : MR Number ................... : [id number] Stay type ............. : O/P Discharge Date......... ... : 12/31/19 Admit Date ......... : 12/31/19 Admit Phys .................... : BARRACLOU Date of ....... : 1960 Family Phys ................... : ROUNDS JA Phone .................. : [phone] Age ................................ : 59 Film# .................. .:[id number] Sex ................................. : M Unsigned transcriptions are preliminary reports and do not represent a medical or legal document RENAL/URINARY BLADDER [id number] COMPLETE:12/31/19 07:52 [facility] [id number] (PROCEDURE REASON hesitancy of urine stream r/o blo RENAL AND BLADDER ULTRASOUND, 12/31/19: INDICATION: Hesitancy of urine stream. FINDINGS: Renal and bladder ultrasound was performed. The right kidney measures 11.8 cm. No cortical thickening. No renal stones. No hydronephrosis. No renal mass or cyst. Color flow to the right kidney. The left kidney measures 11.5 cm. No cortical thickening. No renal stones. No hydronephrosis. No renal mass or cyst. Color flow to the left kidney. No filling defects identified involving the urinary bladder. Bilateral ureteral identified. No bladder wall thickening. Prostate gland is identified measuring 6.4 x 5.2 x 4.5 cm for a volume of 78 cc. IMPRESSION: No hydronephrosis. Bladder is unremarkable. Enlarged prostate. Electronically Reviewed and Signed By Geronimo Valencia MD , 12/31/19 13:42, EVAN Transcribe Initials: SSR, Transcribe Date: 12/31/19 08:24, Dictation Date: Copy for: LATOYA ELKINS via fax Copy for: [facility] Page 1 of 1 Name Value Range Interpretation Code Description Data Noemí rce(s) Supporting Document(s) ID Date Data Source [id number] 12/24/2019 09:55:00 AM EDT [facility] ([facility] Name Value Range Interpretation Code Description Data Noemí rce(s) Supporting Document(s) Color Urine Laboratory test result M [facility] ([facility] Appearance of Urine Laboratory test result [facility] ([facility] Glucose Urine Laboratory test result Above high normal [facility] ([facility] PH Urine 6.5 5.0-8.0 [facility] Specific Brick 1.020 1.00-1.03 [facility] Blood Urine Laboratory test result [facility] ([facility] Bilirubin.total [Presence] in Urine by Test strip Laboratory test res ult [facility] ([facility] Ketones Laboratory test result [facility] ([facility] Protein Urine Laboratory test result [facility] ([facility] Urobilinogen 0.2 EU/dl 0.2-1.0 [facility] ([facility] Nitrite Laboratory test result [facility] ([facility] Leukocytes Laboratory test result ME DENT ([facility] ID Date Data Source [id number] 12/24/2019 09:50:00 AM EDT MEDENT ([facility] Name Value Range Interpretation Code Description Data Noemí rce(s) Supporting Document(s) Bacteria identified in Unspecified specimen by Aerobe culture Laboratory test result PAT ([facility] SRC:RIGHT GREAT TOE Bacteria identified in Unspecified specimen by Culture Laborator y test result MEDCYRIL ([facility] ) SRC:RIGHT GREAT TOE Procedure Social History Code Duration Value Status Description Data Source(s ) Smoking 12/12/2020 12:00:00 AM EDT Never Smoker completed Never S moker eCW1 ([facility]) Smoking 11/27/2020 12:00:00 AM EDT Never Smoker completed Never S moker eCW1 ([facility]) Smoking 11/27/2020 12:00:00 AM EDT Never Smoker completed Never S moker eCW1 ([facility]) Smoking 11/27/2020 12:00:00 AM EDT Never Smoker completed Never S moker eCW1 ([facility]) Smoking 11/15/2020 12:00:00 AM EDT Never Smoker completed Never S moker eCW1 ([facility]) Smoking 11/15/2020 12:00:00 AM EDT Never Smoker completed Never S moker eCW1 ([facility]) Smoking 11/07/2020 12:00:00 AM EDT Never Smoker completed Never S moker eCW1 ([facility]) Smoking 11/07/2020 12:00:00 AM EDT Never Smoker completed Never S moker eCW1 ([facility]) Smoking 10/30/2020 12:00:00 AM EDT Never Smoker completed Never S moker eCW1 ([facility]) Smoking 10/30/2020 12:00:00 AM EDT Never Smoker completed Never S moker eCW1 ([facility]) Smoking 10/30/2020 12:00:00 AM EDT Never Smoker completed Never S moker eCW1 ([facility]) Smoking 10/23/2020 12:00:00 AM EDT Never Smoker completed Never S moker eCW1 ([facility]) Smoking 10/18/2020 12:00:00 AM EDT Never Smoker completed Never S moker eCW1 ([facility]) Smoking 10/16/2020 12:00:00 AM EDT Never Smoker completed Never S moker eCW1 ([facility]) Smoking 10/09/2020 12:00:00 AM EDT Never Smoker completed Never S moker eCW1 ([facility]) Smoking 02/11/2020 12:00:00 AM EST Patient has never smoked co mpleted Patient has never smoked MEDENT ([facility]) Vital Signs ID Date Data Source UNK Name Value Range Interpretation Code Description Data Source(s) Body weight 250 [lb_av] 250 [lb_av] eCW1 ([facility]) Body height 74 [in_i] 74 [in_i] eCW[facility] Body mass index (BMI) [Ratio] 32.09 kg/m2 32.09 kg/m2 eCW1 ([facility]) Heart rate 82 /min 82 /min eCW1 ([facility]) Respiratory rate 18 /min 18 /min eCW1 ([facility]) Body temperature 98.1 [degF] 98.1 [degF] eCW1 ( [facility]) Systolic blood pressure 151 mm[Hg] 151 mm[Hg] e CW1 ([facility]) Diastolic blood pressure 77 mm[Hg] 77 mm[Hg] eCW1 ([facility]) Body weight 250 [lb_av] 250 [lb_av] eCW1 ([facility]) Body height 74 [in_i] 74 [in_i] eCW1 ([facility] Body mass index (BMI) [Ratio] 32.09 kg/m2 32.09 kg/m2 eCW1 ([facility]) Heart rate 87 /min 87 /min eCW1 ([facility]) Respiratory rate 16 /min 16 /min eCW1 ([facility]) Body temperature 98.5 [degF] 98.5 [degF] eCW1 ( [facility]) Systolic blood pressure 142 mm[Hg] 142 mm[Hg] e CW1 ([facility]) Diastolic blood pressure 87 mm[Hg] 87 mm[Hg] eCW1 ([facility]) Body weight 250 [lb_av] 250 [lb_av] eCW1 ([facility]) Systolic blood pressure 138 mm[Hg] 138 mm[Hg] e CW1 ([facility]) Diastolic blood pressure 101 mm[Hg] 101 mm[Hg] eCW1 ([facility]) Body weight 113.4 kg 113.4 kg eCW1 ([facility]) Body height 74 [in_i] 74 [in_i] eCW1 ([facility]) Body mass index (BMI) [Ratio] 32.09 kg/m2 32.09 kg/m2 eCW1 ([facility]) Heart rate 86 /min 86 /min eCW1 ([facility]) Respiratory rate 16 /min 16 /min eCW1 ([facility]) Body temperature 98.5 [degF] 98.5 [degF] eCW1 ( [facility]) Body weight 250 [lb_av] 250 [lb_av] eCW1 ([facility]) Body height 74 [in_i] 74 [in_i] eCW1 ([facility]) Body mass index (BMI) [Ratio] 32.09 kg/m2 32.09 kg/m2 eCW1 ([facility]) Heart rate 99 /min 99 /min eCW1 ([facility]) Respiratory rate 17 /min 17 /min eCW1 ([facility]) Body temperature 98.0 [degF] 98.0 [degF] eCW1 ( [facility]) Systolic blood pressure 146 mm[Hg] 146 mm[Hg] e CW1 ([facility]) Diastolic blood pressure 82 mm[Hg] 82 mm[Hg] eCW1 ([facility]) Systolic blood pressure 136 mm[Hg] 136 mm[Hg] M EDENT ([facility] Diastolic blood pressure 80 mm[Hg] 80 mm[Hg] MEDENT ([facility] Body temperature 98.2 [degF] 98.2 [degF] MEDENT ([facility] Heart rate 105 /min 105 /min MEDENT ([facility] Respiratory rate 17 /min 17 /min MEDENT ( [facility] Body height 74 [in_i] 74 [in_i] MEDENT ([facility] 6'2" [place] body weight 190 [lb_av] 190 [lb_av] MEDEN T ([facility] Oxygen saturation in Arterial blood by Pulse oximetry 99 % 99 % MEDENT ([facility] (AT Rest), (Room Air) Body weight 250 [lb_av] 250 [lb_av] eCW1 ([facility]) Body height 74 [in_i] 74 [in_i] eCW1 ([facility]) Body mass index (BMI) [Ratio] 32.09 kg/m2 32.09 kg/m2 eCW1 ([facility]) Heart rate 84 /min 84 /min eCW1 ([facility]) Respiratory rate 16 /min 16 /min eCW1 ([facility]) Body temperature 97.7 [degF] 97.7 [degF] eCW1 ( [facility]) Systolic blood pressure 181 mm[Hg] 181 mm[Hg] e CW1 ([facility]) Diastolic blood pressure 92 mm[Hg] 92 mm[Hg] eCW1 ([facility]) Respiratory rate 19 /min 19 /min eCW1 ([facility]) Body weight 250 [lb_av] 250 [lb_av] eCW1 ([facility]) Body height 74 [in_i] 74 [in_i] eCW1 ([facility] Body mass index (BMI) [Ratio] 32.09 kg/m2 32.09 kg/m2 W1 ([facility]) Heart rate 72 /min 72 /min eCW1 ([facility]) Body temperature 98.3 [degF] 98.3 [degF] eCW1 ( [facility]) Systolic blood pressure 162 mm[Hg] 162 mm[Hg] e CW1 ([facility]) Diastolic blood pressure 90 mm[Hg] 90 mm[Hg] eCW1 ([facility]) Body weight 250 [lb_av] 250 [lb_av] eCW1 ([facility]) Body height 74 [in_i] 74 [in_i] eCW1 ([facility]) Body mass index (BMI) [Ratio] 32.09 kg/m2 32.09 kg/m2 eCW1 ([facility]) Heart rate 79 /min 79 /min eCW1 ([facility]) Respiratory rate 16 /min 16 /min eCW1 ([facility]) Body temperature 98.4 [degF] 98.4 [degF] eCW1 ( [facility]) Systolic blood pressure 142 mm[Hg] 142 mm[Hg] e CW1 ([facility]) Diastolic blood pressure 92 mm[Hg] 92 mm[Hg] eCW1 ([facility]) Body weight 250 [lb_av] 250 [lb_av] eCW1 ([facility]) Body height 74 [in_i] 74 [in_i] eCW1 ([facility]) Body mass index (BMI) [Ratio] 32.09 kg/m2 32.09 kg/m2 eCW1 ([facility]) Heart rate 82 /min 82 /min eCW1 ([facility]) Respiratory rate 17 /min 17 /min eCW1 ([facility]) Body temperature 98.2 [degF] 98.2 [degF] eCW1 ( [facility]) Systolic blood pressure 161 mm[Hg] 161 mm[Hg] e CW1 ([facility]) Diastolic blood pressure 83 mm[Hg] 83 mm[Hg] eCW1 ([facility]) Body weight 250 [lb_av] 250 [lb_av] eCW1 ([facility]) Body height 74 [in_i] 74 [in_i] eCW1 ([facility]) Body mass index (BMI) [Ratio] 32.09 kg/m2 32.09 kg/m2 eCW1 ([facility]) Heart rate 73 /min 73 /min eCW1 ([facility]) Respiratory rate 16 /min 16 /min eCW1 ([facility]) Body temperature 97.4 [degF] 97.4 [degF] eCW1 ( [facility]) Systolic blood pressure 145 mm[Hg] 145 mm[Hg] e CW1 ([facility]) Diastolic blood pressure 74 mm[Hg] 74 mm[Hg] eCW1 ([facility]) Body weight 250 [lb_av] 250 [lb_av] eCW1 ([facility]) Body height 74 [in_i] 74 [in_i] eCW1 ([facility]) Body mass index (BMI) [Ratio] 32.09 kg/m2 32.09 kg/m2 eCW1 ([facility]) Heart rate 91 /min 91 /min eCW1 ([facility]) Respiratory rate 16 /min 16 /min eCW1 ([facility]) Body temperature 97.9 [degF] 97.9 [degF] eCW1 ( [facility]) Body weight 253.00 [lb_av] 253.00 [lb_av] MEDEN T ([facility] [place] body weight 190 [lb_av] 190 [lb_av] MEDEN T ([facility] Body mass index (BMI) [Ratio] 32.5 kg/m2 32.5 k g/m2 MEDENT ([facility] Oxygen saturation in Arterial blood by Pulse oximetry 97 % 97 % MEDENT ([facility] Systolic blood pressure 136 mm[Hg] 136 mm[Hg] M EDENT ([facility] Diastolic blood pressure 86 mm[Hg] 86 mm[Hg] MEDENT ([facility] Body temperature 97.8 [degF] 97.8 [degF] MEDENT ([facility] Heart rate 82 /min 82 /min MEDENT ([facility] Respiratory rate 20 /min 20 /min MEDENT ( [facility] Body height 74 [in_i] 74 [in_i] MEDENT ([facility] 6'2" Systolic blood pressure 120 mm[Hg] 120 mm[Hg] M EDENT ([facility] Diastolic blood pressure 80 mm[Hg] 80 mm[Hg] MEDENT ([facility] Body temperature 97.5 [degF] 97.5 [degF] MEDENT ([facility] Heart rate 123 /min 123 /min MEDENT ([facility] Respiratory rate 17 /min 17 /min MEDENT ( [facility] Body height 74 [in_i] 74 [in_i] MEDENT ([facility] 6'2" Body weight 256.00 [lb_av] 256.00 [lb_av] MEDEN T ([facility] [place] body weight 190 [lb_av] 190 [lb_av] MEDEN T ([facility] Body mass index (BMI) [Ratio] 32.9 kg/m2 32.9 k g/m2 MEDENT ([facility] Oxygen saturation in Arterial blood by Pulse oximetry 96 % 96 % MEDENT ([facility] ([facility] [place]), (Room Air) Body mass index (BMI) [Ratio] 34.1 kg/m2 34.1 k g/m2 MEDENT ([facility] Respiratory rate 17 /min 17 /min MEDENT ( [facility] Systolic blood pressure 128 mm[Hg] 128 mm[Hg] M EDENT ([facility] Diastolic blood pressure 80 mm[Hg] 80 mm[Hg] MEDENT ([facility] Body temperature 98.2 [degF] 98.2 [degF] MEDENT ([facility] Heart rate 75 /min 75 /min MEDENT ([facility] Body height 74 [in_i] 74 [in_i] MEDENT ([facility] 6'2" Body weight 266.00 [lb_av] 266.00 [lb_av] MEDEN T ([facility] [place] body weight 190 [lb_av] 190 [lb_av] MEDEN T ([facility] Oxygen saturation in Arterial blood by Pulse oximetry 97 % 97 % PAT ([facility] ([facility] [place]), (Room Air) [place] body weight 190 [lb_av] 190 [lb_av] MEDEN T ([facility] Body weight 269.00 [lb_av] 269.00 [lb_av] MEDEN T ([facility] Systolic blood pressure 142 mm[Hg] 142 mm[Hg] M EDENT ([facility] Diastolic blood pressure 80 mm[Hg] 80 mm[Hg] MEDENT ([facility] Body temperature 97.5 [degF] 97.5 [degF] MEDENT ([facility] Heart rate 70 /min 70 /min MEDENT ([facility] Respiratory rate 17 /min 17 /min MEDENT ( [facility] Body height 74 [in_i] 74 [in_i] MEDENT ([facility] 6'2" Body mass index (BMI) [Ratio] 34.5 kg/m2 34.5 k g/m2 MEDENT ([facility] Oxygen saturation in Arterial blood by Pulse oximetry 98 % 98 % PAT ([facility] ([facility] [place]), (Room Air) ID Date Data Source [id number] 09/27/2020 05:19:45 PM EDT [facility] Name Value Range Interpretation Code Description Data Source(s) WEIGHT RECORDED 253.00 pounds 253.00 pounds [facility] Height 75 Inches 075 Inches [facility]
[2020-12-19 11:00] VITALS: BP 141/92
[2020-12-19 12:08] LABS: HEMATOCRIT 40.1 % (42.0-52.0); HEMOGLOBIN 13.1 g/dl (13.5-17.5); MEAN CORPUSCULAR HEMOGLOBIN 27.6 pg (27.0-33.0); MEAN CORPUSCULAR HGB CONC 32.7 g/dl (32.0-36.5); MEAN CORPUSCULAR VOLUME 84.6 fl (80.0-96.0); PLATELET COUNT, AUTOMATED 280 10^3/uL (150-450); RED BLOOD COUNT 4.74 10^6/uL (4.30-6.10); WHITE BLOOD COUNT 15.3 10^3/uL (4.0-10.0)
[2020-12-19 12:19] LABS: INR 1.19; PROTHROMBIN TIME 15.5 SECONDS (12.7-14.5)
[2020-12-19 12:38] LABS: ALBUMIN 2.9 GM/DL (3.2-5.2); ALT/SGPT 21 U/L (12-78); BILIRUBIN,TOTAL 0.7 MG/DL (0.2-1.0); BLOOD UREA NITROGEN 17 MG/DL (7-18); CALCIUM LEVEL 9.7 MG/DL (8.5-10.1); CARBON DIOXIDE LEVEL 28 MEQ/L (21-32); CHLORIDE LEVEL 97 MEQ/L (98-107); CREATININE FOR GFR 1.15 MG/DL (0.70-1.30); GLOMERULAR FILTRATION RATE > 60.0 (>56); GLUCOSE, FASTING 173 MG/DL (70-100); SODIUM LEVEL 131 MEQ/L (136-145); TOTAL PROTEIN 8.4 GM/DL (6.4-8.2)
[2020-12-19] MEDS ORDERED: NEUR600T PO (12:48)
[2020-12-19] MEDS ORDERED: HOME MED LIST COMPLETE! XX SCH (12:50)
[2020-12-19 14:00] VITALS: BP 140/86
[2020-12-19] MEDS: DOCUSATE SODIUM 100MG CAPSULE PO SCH ×2 (14:09→20:20)
[2020-12-19] MEDS ORDERED: GLUCAGON INJ 1MG VIAL SC PRN (14:20)
[2020-12-19] MEDS ORDERED: GLUCOSE 4GM CHEW TABLET PO PRN (14:20)
[2020-12-19] MEDS ORDERED: DEXTROSE 50% 50 ML SYRINGE IV PRN (14:20)
[2020-12-19] MEDS ORDERED: ACETAMINOPHEN 500 MG TAB PO PRN (14:55)
[2020-12-19] MEDS: cefTRIAXone SOD 2 GM in D5W MINI-BAG PLUS 50 ML IV SCH (15:11)
--- NOTE | 2020-12-19 16:55 | HPEPDOC ---
General Date of Admission Dec 19, 2020 at 10:34 Date of Service: Dec 19, 2020 Chief Complaint The patient is a 60-year-old male admitted with a reason for visit of Rt Diabetic Foot Wound Infection. Source: Patient History of Present Illness 60-year-old male with history of diabetes with neuropathy, chronic right foot ulcer for the past [address] Celeste, MARIAJOSE, BPH was sent in from Dr. Celeste's office this morning due to worsening of right foot ulcer and right second toe infection with surrounding cellulitis and possible abscess. Patient's ulcer was infected getting better as seen last week and patient was on an offloading cast. Patient reports that 5 days ago he took his first dose of Covid vaccine and after that he was sick for couple days with fevers malaise diarrhea and then yesterday he had an accident with a bucket of water when he spilled water over his cast and the cast got wet so he took of the cast and just bandaged his foot up as best as he could and call Dr. Celeste's office this morning for an appointment. As per patient the foot looked much worse than last week his second toe was swollen and red and painful and his whole top of the foot as well as the bottom was red. Dr. Celeste did incision and debridement at the office and then sent him to the hospital for evaluation. After admission patient was noted to be febrile T-max T-max of 102 F he also complained of dull throbbing pain in his right foot rating it up at 8/10 in intensity. Patient was admitted for right foot cellulitis and abscess and possible right second toe osteomyelitis. Home Medications Scheduled Aspirin (Aspirin EC) 81 Mg Tablet.dr, 162 MG PO QPM, (Reported) TAKES AT DINNERTIME Gabapentin (Neurontin) 600 Mg Tablet, 600 MG PO TID, (Reported) Metformin HCl (Metformin HCl) 1,000 Mg Tablet, 1,000 MG PO DAILY, (Reported) Metformin HCl (Metformin HCl) 1,000 Mg Tablet, 500 MG PO QPM, (Reported) TAKES AT DINNERTIME Rosuvastatin Calcium (Rosuvastatin Calcium) 10 Mg Tablet, 10 MG PO QPM, (Reported) Sitagliptin Phosphate (Januvia) 100 Mg Tablet, 100 MG PO QHS, (Reported) Tamsulosin HCl (Flomax) 0.4 Mg Capsule, 0.4 MG PO QHS, (Reported) Allergies Coded Allergies: No Known Allergies (Unverified , 04/15/18) Past Medical History Medical History Diabetes type 2, [id number]. Obesity. Gastroesophageal reflux disease. Dyslipidemia. Benign prostatic hypertrophy. Right foot neuropathic ulcer. Hiatal hernia Surgical History Incision and drainage, multiple spaces, dorsal and plantar abscess, right foot in September 19, 2020 Excisional debridement to the fascia, plantar surface, right footwith irrigation, insertion of tobramycin impregnated beads and delayed primary closure, right foot. 09/22/20 Prostate biopsy. Colonoscopy. EGD Family History Significant Family History: Cancer Patient's mother is 83 years old and has a history of diabetes. His father at age 61 with coronary artery disease. Social History * Smoker: Denies Alcohol: Denies Drugs: denies A-FIB/CHADSVASC A-FIB History Current/History of A-Fib/PAF?: No Review of Systems Constitutional: Reports: Fever Eyes: Denies: Pain, Vision change ENT: Denies: Head Aches, Ear Pain, Dysphagia Skin: Denies: Rash, Lesions, Breakdown Pulmonary: Denies: Dyspnea, Cough Cardiovascular: Denies: Chest Pain, Palpitations, Orthopnea, Paroxysmal Noc. Dyspnea, Lt Headedness Gastrointestinal: Denies: Nausea, Vomiting, Abdominal Pain, Diarrhea Genitourinary: Denies: Dysuria, Frequency, Incontinence, Retention Hematologic: Denies: Bruising, Bleeding Excessively Musculoskeletal: Reports: Foot Pain Neurological: Denies: Weakness, Numbness, Change in speech, Confusion Physical Examination General Exam: Positive: Alert, Cooperative, No Acute Distress Eye Exam: Positive: PERRLA, Conjunctiva & lids normal, EOMI; Negative: Sclera icteric ENT Exam: Positive: Atraumatic, Mucous membr. moist/pink, Pharynx Normal Neck Exam: Positive: Supple; Negative: JVD, thyromegaly Chest Exam: Positive: Clear to auscultation, Normal air movement Heart Exam: Positive: Rate Normal, Regular Rhythm, Normal S1, Normal S2; Negative: Murmurs, Rubs Abdomen Exam: Positive: Normal bowel sounds, Soft; Negative: Tenderness, Hepatospenomegaly Extremity Exam: Positive: Tenderness (Right foot and toes), Swelling (Right second toe); Negative: Clubbing, Cyanosis, Edema Skin Exam: Positive: Breakdown, Other skin issue (Redness swelling and pain on the right foot) Psych Exam: Positive: Memory Intact, Oriented x 3 Vital Signs Vital Signs Date Time Temp Pulse Resp B/P (MAP) Pulse Ox O2 Delivery O2 Flow Rate FiO2 12/19/20 14:00 102.2 102 18 140/86 (104) 95 Laboratory Data Labs 24H Laboratory Tests 2 12/19/20 11:08: Methicillin-Resist S.aureus DNA PCR NOT DETECTED 12/19/20 11:09: Coronavirus (COVID-19)(PCR) NEGATIVE 12/19/20 11:47: Nucleated Red Blood Cells % (auto) 0.0, Prothrombin Time 15.5H, Prothromb Time International Ratio 1.19, Anion Gap 6L, Glomerular Filtration Rate > 60.0, Calcium Level 9.7, Total Bilirubin 0.7, Aspartate Amino Transf (AST/SGOT) 15, Alanine Aminotransferase (ALT/SGPT) 21, Alkaline Phosphatase 80, Total Protein 8.4H, Albumin 2.9L, Albumin/Globulin Ratio 0.5, Procalcitonin 0.14 CBC/BMP Laboratory Tests 12/19/20 11:47 Microbiology Microbiology 12/19/20 Blood Culture, Received Pending 12/19/20 Blood Culture, Received Pending Assessment/Plan 60-year-old male with history of diabetes with neuropathy, chronic right foot ulcer for the past [address] Celeste, GERD, BPH, obesity was sent in from Dr. Celeste's office this morning due to worsening of right foot ulcer and right second toe infection with surrounding cellulitis and possible abscess. Patient's ulcer was in fact getting better as seen last week and patient was on an offloading cast. Patient reports that 5 days ago he took his first dose of Covid vaccine and after that he was sick for couple days with fevers, malaise, diarrhea and then yesterday he had an accident with a bucket of water when he spilled water over his cast and the cast got soaked so he took of the cast and just bandaged his foot up as best as he could and called Dr. Celeste's office this morning for an appointment. As per patient the foot looked much worse than last week his second toe was swollen and red and painful and his whole top of the foot as well as the bottom was red. Dr. Celeste did incision and debridement at the office and then sent him to the hospital for evaluation. In the hospital patient was noted to be febrile with T-max of 102 F he also complained of dull throbbing pain in his right foot rating it up at 8/10 in intensity. Patient was admitted for right foot cellulitis and abscess and possible right second toe osteomyelitis. Right foot cellulitis and abscess/possible right toe osteomyelitis MRSA PCR negative Started the patient on ceftriaxone, order blood cultures, Tylenol for symptom control Dr. Zavala consulted Dr. Celeste to follow for advanced wound care. Sepsis Temperature 102.2, pulse rate of 116, white count of 15.6 From foot infection Diabetes We will continue with Levemir and lispro as per sliding scale Will also continue Januvia BPH Control with Flomax Hyperlipidemia Statin Plan / VTE VTE Prophylaxis Ordered?: Yes Berta Villasenor MD Dec 19, 2020 16:55
[2020-12-19] MEDS: HumaLOG INSULIN (NovoLOG) PER UNIT SC SCH ×2 (17:31→20:20)
[2020-12-19] MEDS: SITagliptin 50 MG TAB (JANUVIA) PO SCH (20:24)
[2020-12-19] MEDS: TAMSULOSIN 0.4 MG CAP PO SCH (20:25)
[2020-12-19] MEDS: ASPIRIN 81MG ENTERIC TABLET PO SCH (20:25)
[2020-12-19] MEDS: ROSUVASTATIN 10 MG TAB (CRESTOR) PO SCH (20:25)
[2020-12-19] MEDS: traMADol 50 MG TAB PO PRN (20:27)
[2020-12-19 22:00] VITALS: BP 125/76
[2020-12-20 06:00] VITALS: BP 125/75
[2020-12-20 06:38] LABS: BASO % 0.3 % (0.0-1.0); EOS # 0.2 10^3/uL (0.0-0.5); HEMOGLOBIN 11.8 g/dl (13.5-17.5); LYMPH % 9.4 % (24.0-44.0); MEAN CORPUSCULAR HEMOGLOBIN 27.6 pg (27.0-33.0); MEAN CORPUSCULAR HGB CONC 32.8 g/dl (32.0-36.5); MEAN CORPUSCULAR VOLUME 84.1 fl (80.0-96.0); MONO # 0.9 10^3/uL (0.0-0.8); MONO % 8.9 % (2.0-8.0); NEUTROPHILS # 8.3 10^3/uL (1.5-8.5); NEUTROPHILS % 78.7 % (36.0-66.0); PLATELET COUNT, AUTOMATED 262 10^3/uL (150-450); RED BLOOD COUNT 4.28 10^6/uL (4.30-6.10); WHITE BLOOD COUNT 10.5 10^3/uL (4.0-10.0)
[2020-12-20 07:01] LABS: BLOOD UREA NITROGEN 13 MG/DL (7-18); CALCIUM LEVEL 8.1 MG/DL (8.5-10.1); CARBON DIOXIDE LEVEL 28 MEQ/L (21-32); CHLORIDE LEVEL 99 MEQ/L (98-107); GLOMERULAR FILTRATION RATE > 60.0 (>56); GLUCOSE, FASTING 174 MG/DL (70-100); POTASSIUM SERUM 4.1 MEQ/L (3.5-5.1); SODIUM LEVEL 134 MEQ/L (136-145)
[2020-12-20] MEDS: HumaLOG INSULIN (NovoLOG) PER UNIT SC SCH ×4 (08:20→21:00)
[2020-12-20] MEDS: DOCUSATE SODIUM 100MG CAPSULE PO SCH ×2 (08:20→21:07)
--- NOTE | 2020-12-20 11:43 | IPNPDOC ---
Subjective Date Seen The patient was seen on 12/20/20. Subjective Chief Complaint/HPI No fevers overnight. Does not offer any complaints this morning. His foot pain is controlled. Awaiting to be seen by podiatry Objective Physical Examination General Exam: Positive: Alert, Cooperative, No Acute Distress Eye Exam: Positive: PERRLA, Conjunctiva & lids normal, EOMI; Negative: Sclera icteric ENT Exam: Positive: Atraumatic, Mucous membr. moist/pink, Pharynx Normal Neck Exam: Positive: Supple; Negative: JVD, thyromegaly Chest Exam: Positive: Clear to auscultation, Normal air movement Heart Exam: Positive: Rate Normal, Regular Rhythm, Normal S1, Normal S2; Negative: Murmurs, Rubs Abdomen Exam: Positive: Normal bowel sounds, Soft; Negative: Tenderness, Hepatospenomegaly Extremity Exam: Positive: Tenderness (Right foot and toes), Swelling (Right second toe); Negative: Clubbing, Cyanosis, Edema Skin Exam: Positive: Breakdown, Other skin issue (Redness swelling and pain on the right foot) Psych Exam: Positive: Memory Intact, Oriented x 3 Assessment /Plan Assessment 60-year-old male with history of diabetes with neuropathy, chronic right foot ulcer for the past [address] Celeste, GERD, BPH, obesity was sent in from Dr. Celeste's office this morning due to worsening of right foot ulcer and right second toe infection with surrounding cellulitis and possible abscess. Patient's ulcer was in fact getting better as seen last week and patient was on an offloading cast. Patient reports that 5 days ago he took his first dose of Covid vaccine and after that he was sick for couple days with fevers, malaise, diarrhea and then yesterday he had an accident with a bucket of water when he spilled water over his cast and the cast got soaked so he took of the cast and just bandaged his foot up as best as he could and called Dr. Celeste's office this morning for an appointment. As per patient the foot looked much worse than last week his second toe was swollen and red and painful and his whole top of the foot as well as the bottom was red. Dr. Celeste did incision and debridement at the office and then sent him to the hospital for evaluation. In the hospital patient was noted to be febrile with T-max of 102 F he also complained of dull throbbing pain in his right foot rating it up at 8/10 in intensity. Patient was admitted for right foot cellulitis and abscess and possible right second toe osteomyelitis. Right foot cellulitis and abscess/possible right toe osteomyelitis MRSA PCR negative Started the patient on ceftriaxone, order blood cultures, Tylenol for symptom control Dr. Zavala consulted Dr. Celeste to follow for advanced wound care. Sepsis Temperature 102.2, pulse rate of 116, white count of 15.6 From foot infection Diabetes We will continue with Levemir and lispro as per sliding scale Will also continue Januvia BPH Control with Flomax Hyperlipidemia Statin Plan/VTE VTE Prophylaxis Ordered?: Yes VS, I&O, 24H, Fishbone Vital Signs/I&O Vital Signs Date Time Temp Pulse Resp B/P (MAP) Pulse Ox O2 Delivery O2 Flow Rate FiO2 12/20/20 06:00 99.4 87 18 125/75 (92) 95 Room Air I&O- Last 24 Hours up to 6 AM 12/20/20 05:59 Intake Total 350 ml Balance 350 ml Laboratory Data 24H LABS Laboratory Tests 2 12/19/20 11:47: Nucleated Red Blood Cells % (auto) 0.0, Prothrombin Time 15.5H, Prothromb Time International Ratio 1.19, Anion Gap 6L, Glomerular Filtration Rate > 60.0, Calcium Level 9.7, Total Bilirubin 0.7, Aspartate Amino Transf (AST/SGOT) 15, Alanine Aminotransferase (ALT/SGPT) 21, Alkaline Phosphatase 80, Total Protein 8.4H, Albumin 2.9L, Albumin/Globulin Ratio 0.5, Procalcitonin 0.14 12/19/20 16:39: Bedside Glucose (Misc Panel) 148H 12/19/20 20:16: Bedside Glucose (Misc Panel) 167H 12/20/20 06:20: Nucleated Red Blood Cells % (auto) 0.0, Anion Gap 7L, Glomerular Filtration Rate > 60.0, Calcium Level 8.1#L, Immature Granulocyte % (Auto) 0.7, Neutrophils (%) (Auto) 78.7H, Lymphocytes (%) (Auto) 9.4L, Monocytes (%) (Auto) 8.9H, Eosinophils (%) (Auto) 2.0, Basophils (%) (Auto) 0.3, Neutrophils # (Auto) 8.3, Lymphocytes # (Auto) 1.0L, Monocytes # (Auto) 0.9H, Eosinophils # (Auto) 0.2, Basophils # (Auto) 0.0 CBC/BMP Laboratory Tests 12/19/20 11:47 12/20/20 06:20 Microbiology Microbiology 12/19/20 Blood Culture, Received Pending 12/19/20 Blood Culture, Received Pending Berta Villasenor MD Dec 20, 2020 11:43
[2020-12-20 14:00] VITALS: BP 126/67
[2020-12-20] MEDS: cefTRIAXone SOD 2 GM in D5W MINI-BAG PLUS 50 ML IV SCH (15:42)
[2020-12-20] MEDS ORDERED: ONDANSETRON 4MG/2ML VIAL As Ordered ONE (17:40)
[2020-12-20] MEDS ORDERED: dexameTHASONE 4 MG/ML 1ML VIAL (J1100 PER 1MG) As Ordered ONE (17:40)
[2020-12-20] MEDS ORDERED: LIDOCAINE 2% 100MG/5ML SDV (FOR ANES.) As Ordered ONE (17:40)
[2020-12-20] MEDS ORDERED: MIDAZOLAM INJ 2MG/2ML VIAL (J2250 PER 1MG) As Ordered ONE (17:41)
[2020-12-20] MEDS ORDERED: fentaNYL 100 MCG/2 ML INJECTION (J3010) As Ordered ONE (17:41)
[2020-12-20] MEDS ORDERED: propofoL 500 MG/50 ML VIAL As Ordered ONE (17:41)
[2020-12-20] MEDS ORDERED: GENTAMICIN SULF 80MG/2ML VIAL As Ordered ONE (17:54)
--- NOTE | 2020-12-20 17:57 | REP ---
INDICATION: infection COMPARISON: 09/18/2020. TECHNIQUE: Four views right foot. FINDINGS: There is focal osteopenia and cortical thinning of the head and neck of the 2nd metatarsal. There is adjacent significant soft tissue swelling of the 2nd toe. Findings are suspicious for osteomyelitis. There may be some involvement of the base of the 2nd proximal phalanx. Old fracture of the 1st proximal phalanx is noted distally, well aligned. IMPRESSION: Significant soft tissue swelling 2nd toe. Focal osteopenia and cortical thinning of the head and neck of the 2nd metatarsal suspicious for osteomyelitis. There may also be involvement of the base of the 2nd proximal phalanx. <Electronically signed by Keyon Montes > 12/20/20 [id number]
[2020-12-20] MEDS ORDERED: BUPIVACAINE HCL 0.5% 10ML VIAL As Ordered ONE (18:03)
[2020-12-20] MEDS ORDERED: SILVER SULFADIAZINE 1% CR 50 GM JAR As Ordered ONE (18:04)
[2020-12-20] MEDS ORDERED: LIDOCAINE PRES-FREE 2% 10ML AMP As Ordered ONE (18:04)
[2020-12-20] MEDS ORDERED: LIDOCAINE 2% MDV 20ML VIAL As Ordered ONE (18:07)
--- NOTE | 2020-12-20 18:32 | IPN ---
PROGRESS NOTE DATE: 12/20/2020 TIME: Approximately 5:15 p.m. CHIEF COMPLAINT: Patient was seen today for evaluation of swollen right 2nd toe with redness of his right foot. Patient is a 60-year-old diabetic male with neuropathy who is being treated by Dr. Celeste. He states that he had the Maderna shot, and a couple days later he felt sick and initially thought that was due to the Maderna shot. He states that he looked at his foot, and it has increased swelling. He went to Dr. Celeste's office and had an incision and debridement. He was subsequently sent to the hospital for possible osteomyelitis of the 2nd toe of his right foot, and he is seen today for evaluation. HOME MEDICATIONS: - aspirin 81 mg - gabapentin 600 mg by mouth three times a day - metformin 1000 mg daily - rosuvastatin 10 mg every night - Januvia 100 mg by mouth every night - Flomax 0.4 mg by mouth every night ALLERGIES: No known allergies. PAST MEDICAL HISTORY: 1. Diabetes. 2. Obesity. 3. Gastroesophageal reflux disease. 4. Dyslipidemia. 5. Benign prostatic hypertrophy. 6. Hiatal hernia. 7. History of diabetic neuropathy with chronic right foot wound. PAST SURGICAL HISTORY: 1. Incision and drainage, plantar surface, right foot. 2. Prostate biopsy. 3. Colonoscopy. 4. Esophagogastroduodenoscopy (EGD). PHYSICAL EXAMINATION: Reveals an alert, well-oriented 60-year-old male in no acute distress. Evaluation of the plantar surface of his foot reveals an ulceration on the plantar surface, submetatarsal 2, which measures 9 cm in length from distal to proximal, 1.5 cm from medial to lateral. It extends 5 mm in depth in an anterior distal direction, extending down the 2nd metatarsal head, which is easily palpated with sterile-tip applicator. There is a small amount of purulent discharge expressed. X-rays were taken on the right foot. X-rays reveal cortical disruption along the neck of the 2nd metatarsal with some bone debris, consistent with acute osteomyelitis of the 2nd metatarsal head. Laboratory studies were reviewed. White count on admission was 15.3. It is down to 10.5 today. Procalcitonin is 0.14. ASSESSMENT: Osteomyelitis, 2nd ray, right foot. PLAN: The patient has been nothing by mouth since breakfast. We discussed surgical amputation consisting of the 2nd toe and head of the 2nd metatarsal. The wound will be packed open. We discussed possible delayed primary closure after improving of his wound. His questions were answered. Consent was signed.
[2020-12-20] MEDS ORDERED: LR 1,000 ML IV SCH (19:40)
[2020-12-20] MEDS ORDERED: ONDANSETRON 4MG/2ML VIAL IV PRN (19:40)
[2020-12-20] MEDS ORDERED: oxyCODONE 5MG TAB PO PRN (19:40)
[2020-12-20] MEDS ORDERED: fentaNYL 100 MCG/2 ML INJECTION (J3010) IV PRN (19:40)
--- NOTE | 2020-12-20 19:55 | REP ---
INDICATION: 3 VIEW RIGHT FOOT COMPARISON: 12/20/2020 5 p.m. TECHNIQUE: Three portable views right foot. FINDINGS: There has been resection of the osseous structures of the 2nd toe and the distal 3rd of the 2nd metatarsal. There is ill-defined density in the soft tissues at that location. There is slight cortical disruption of the medial cortex of the distal aspect of the 3rd metatarsal. There remaining osseous structures appear unchanged. IMPRESSION: Status post resection of distal 3rd of 2nd metatarsal as well as the osseous structures of the 2nd toe as discussed above. <Electronically signed by Keyon Montes > 12/20/201950
[2020-12-20 20:00] VITALS: BP 111/93
[2020-12-20 20:30] VITALS: BP 117/93
[2020-12-20 21:00] VITALS: BP 118/92
[2020-12-20] MEDS: ASPIRIN 81MG ENTERIC TABLET PO SCH (21:07)
[2020-12-20] MEDS: SITagliptin 50 MG TAB (JANUVIA) PO SCH (21:07)
[2020-12-20] MEDS: ROSUVASTATIN 10 MG TAB (CRESTOR) PO SCH (21:07)
[2020-12-20] MEDS: TAMSULOSIN 0.4 MG CAP PO SCH (21:07)
--- NOTE | 2020-12-20 21:13 | RO ---
OPERATIVE NOTE DATE OF OPERATION: 12/20/2020 TIME: Approximately 7:30 p.m. PREOPERATIVE DIAGNOSIS: Osteomyelitis, second metatarsal and proximal phalanx, second ray, right foot. POSTOPERATIVE DIAGNOSIS: Osteomyelitis, second metatarsal and proximal phalanx, second ray, right foot. PROCEDURES: Second ray amputation with packing of wound, right foot. IRRIGATION: Dilute gentamicin solution, three liters, low pressure pulse lavage system. HEMOSTASIS: None. ESTIMATED BLOOD LOSS: Less than 100 mL SURGEON: Alin Zavala DPM HEAT TREATER HELPER: None. ANESTHESIA: Local MAC. DESCRIPTION OF PROCEDURE: On 12/20/2020, this 60-year-old male was taken from his hospital room to the operating room and placed on the operating table in supine position. Following the induction of IV sedation and local and regional anesthesia, the right lower extremity was prepped and draped in the usual aseptic manner. Attention was directed to the patient's right foot and a racket shaped incision was placed over the dorsal aspect of the second metatarsal encompassing the second toe. Dissection was carried straight to bone. All bleeders as encountered were electrocoagulated. The second toe was disarticulated from the foot and sent to pathology for gross examination. The second metatarsal was noted to be soft. An osteotomy was performed proximal to the neck of the second metatarsal from dorsal plantar [id number]. This was extirpated from the wound, sent for aerobic and anaerobic cultures. Any residual bleeding was electrocoagulated. The wound was flushed with three liters of dilute gentamicin solution with a low pressure pulse lavage system. The wound was packed with 1/2 inch iodoform gauze. The dorsal wound was sutured loosely with 2-0 nylon suture. The plantar surface was left open for drainage. Sterile dressing was applied consisting of 4x4s, ABDs and Kerlix. The patient apparently tolerated the procedure well and was taken from the OR to the recovery room for further monitoring by the anesthesia department. Postoperative instructions were given upon discharge.
[2020-12-20 21:30] VITALS: BP 121/77
[2020-12-21 02:00] VITALS: BP 124/77
[2020-12-21 06:00] VITALS: BP 129/75
[2020-12-21 07:19] LABS: BASO % 0.2 % (0.0-1.0); HEMATOCRIT 37.3 % (42.0-52.0); HEMOGLOBIN 11.9 g/dl (13.5-17.5); LYMPH # 0.7 10^3/uL (1.5-5.0); LYMPH % 6.2 % (24.0-44.0); MEAN CORPUSCULAR HGB CONC 31.9 g/dl (32.0-36.5); MEAN CORPUSCULAR VOLUME 84.8 fl (80.0-96.0); MONO # 0.8 10^3/uL (0.0-0.8); MONO % 7.4 % (2.0-8.0); NEUTROPHILS # 9.7 10^3/uL (1.5-8.5); NEUTROPHILS % 85.2 % (36.0-66.0); PLATELET COUNT, AUTOMATED 324 10^3/uL (150-450); WHITE BLOOD COUNT 11.3 10^3/uL (4.0-10.0)
[2020-12-21 07:42] LABS: BLOOD UREA NITROGEN 18 MG/DL (7-18); CALCIUM LEVEL 8.7 MG/DL (8.5-10.1); CARBON DIOXIDE LEVEL 30 MEQ/L (21-32); CHLORIDE LEVEL 101 MEQ/L (98-107); CREATININE FOR GFR 0.85 MG/DL (0.70-1.30); GLOMERULAR FILTRATION RATE > 60.0 (>56); GLUCOSE, FASTING 219 MG/DL (70-100); POTASSIUM SERUM 5.2 MEQ/L (3.5-5.1); SODIUM LEVEL 135 MEQ/L (136-145)
[2020-12-21] MEDS: DOCUSATE SODIUM 100MG CAPSULE PO SCH ×3 (08:18→20:42)
[2020-12-21] MEDS: HumaLOG INSULIN (NovoLOG) PER UNIT SC SCH ×4 (08:19→20:44)
--- NOTE | 2020-12-21 09:35 | REP ---
INDICATION: S/P 3 VIEW RIGHT FOOT 2 TOE RAY AMPUTATION COMPARISON: 12/20/2020 TECHNIQUE: AP, lateral, oblique views of the right foot FINDINGS: Soft tissue swelling may be minimally decreased. There is stable appearance to the toes including amputation at the level of the 2nd metatarsal with distal ill-defined area of opacity possibly reflecting packing material and correlation is recommended. There also appears to be a subtle incomplete transverse fracture approaching the head of the 3rd metatarsal. Remainder of the osseous structures appear intact. No significant new subcutaneous emphysema noted. IMPRESSION: Findings suggest postoperative changes as described above. <Electronically signed by Aiden Hansen > 12/21/20 [id number]
--- NOTE | 2020-12-21 12:01 | IPNPDOC ---
Subjective Date Seen The patient was seen on 12/21/20. Subjective Chief Complaint/HPI No complaints this morning. S/p OR yesterday evening. Objective Physical Examination General Exam: Positive: Alert, Cooperative, No Acute Distress Eye Exam: Positive: PERRLA, Conjunctiva & lids normal, EOMI; Negative: Sclera icteric ENT Exam: Positive: Atraumatic, Mucous membr. moist/pink, Pharynx Normal Neck Exam: Positive: Supple; Negative: JVD, thyromegaly Chest Exam: Positive: Clear to auscultation, Normal air movement Heart Exam: Positive: Rate Normal, Regular Rhythm, Normal S1, Normal S2; Negative: Murmurs, Rubs Abdomen Exam: Positive: Normal bowel sounds, Soft; Negative: Tenderness, Hepatospenomegaly Extremity Exam: Positive: Tenderness (Right foot and toes), Swelling (Right second toe); Negative: Clubbing, Cyanosis, Edema Skin Exam: Positive: Breakdown, Other skin issue (Redness swelling and pain on the right foot) Psych Exam: Positive: Memory Intact, Oriented x 3 Assessment /Plan Assessment 60-year-old male with history of diabetes with neuropathy, chronic right foot ulcer for the past [address] Celeste, GERD, BPH, obesity was sent in from Dr. Celeste's office this morning due to worsening of right foot ulcer and right second toe infection with surrounding cellulitis and possible abscess. Patient's ulcer was in fact getting better as seen last week and patient was on an offloading cast. Patient reports that 5 days ago he took his first dose of Covid vaccine and after that he was sick for couple days with fevers, malaise, diarrhea and then yesterday he had an accident with a bucket of water when he spilled water over his cast and the cast got soaked so he took of the cast and just bandaged his foot up as best as he could and called Dr. Celeste's office this morning for an appointment. As per patient the foot looked much worse than last week his second toe was swollen and red and painful and his whole top of the foot as well as the bottom was red. Dr. Celeste did incision and debridement at the office and then sent him to the hospital for evaluation. In the hospital patient was noted to be febrile with T-max of 102 F he also complained of dull throbbing pain in his right foot rating it up at 8/10 in intensity. Patient was admitted for right foot cellulitis and abscess and possible right second toe osteomyelitis. Osteomyelitis, second metatarsal and proximal phalanx, second ray, right foot with cellulitis Second ray amputation with packing of wound, right foot on 12/20/20 MRSA PCR negative Started the patient on ceftriaxone, blood cultures negative till date Wound culture sent from the OR Dr. Celeste to follow for advanced wound care. Sepsis Temperature 102.2, pulse rate of 116, white count of 15.6 From foot infection Now resolved Diabetes We will continue with Levemir and lispro as per sliding scale Will also continue Januvia BPH Control with Flomax Hyperlipidemia Statin Plan/VTE VTE Prophylaxis Ordered?: Yes VS, I&O, 24H, Fishbone Vital Signs/I&O Vital Signs Date Time Temp Pulse Resp B/P (MAP) Pulse Ox O2 Delivery O2 Flow Rate FiO2 12/21/20 06:00 97.7 70 17 129/75 (93) 97 Room Air I&O- Last 24 Hours up to 6 AM 12/21/20 05:59 Intake Total 1640 ml Output Total 100 ml Balance 1540 ml Laboratory Data 24H LABS Laboratory Tests 2 12/20/20 12:15: Bedside Glucose (Misc Panel) 174H 12/20/20 16:26: Bedside Glucose (Misc Panel) 144H 12/20/20 20:32: Bedside Glucose (Misc Panel) 182H 12/21/20 07:01: Immature Granulocyte % (Auto) 1.0, Neutrophils (%) (Auto) 85.2H, Lymphocytes (%) (Auto) 6.2L, Monocytes (%) (Auto) 7.4, Eosinophils (%) (Auto) 0.0, Basophils (%) (Auto) 0.2, Neutrophils # (Auto) 9.7H, Lymphocytes # (Auto) 0.7L, Monocytes # (Auto) 0.8, Eosinophils # (Auto) 0.0, Basophils # (Auto) 0.0, Nucleated Red Blood Cells % (auto) 0.0, Anion Gap 4L, Glomerular Filtration Rate > 60.0, C alcium Level 8.7, C-Reactive Protein, Quantitative 15.80H CBC/BMP Laboratory Tests 12/21/20 07:01 Microbiology Microbiology 12/20/20 Surgical Biopsy Culture, Received Pending 12/20/20 Anaerobic Culture, Received Pending 12/19/20 Blood Culture - Preliminary, Resulted No growth after 24 hours . All specim... 12/19/20 Blood Culture - Preliminary, Resulted No growth after 24 hours . All specim... Berta Villasenor MD Dec 21, 2020 12:01
[2020-12-21 14:00] VITALS: BP 116/75
[2020-12-21] MEDS: cefTRIAXone SOD 2 GM in D5W MINI-BAG PLUS 50 ML IV SCH (15:25)
[2020-12-21] MEDS: traMADol 50 MG TAB PO PRN (18:49)
[2020-12-21] MEDS ORDERED: hydrOXYzine 50 MG TAB PO ONE (20:00)
[2020-12-21] MEDS ORDERED: RAMELTEON 8 MG TAB (ROZEREM) PO PRN (20:00)
[2020-12-21] MEDS: SITagliptin 50 MG TAB (JANUVIA) PO SCH (20:41)
[2020-12-21] MEDS: TAMSULOSIN 0.4 MG CAP PO SCH (20:42)
[2020-12-21] MEDS: ROSUVASTATIN 10 MG TAB (CRESTOR) PO SCH (20:42)
[2020-12-21] MEDS: ASPIRIN 81MG ENTERIC TABLET PO SCH (20:42)
[2020-12-21 22:00] VITALS: BP 119/74
[2020-12-22 06:00] VITALS: BP 110/61
--- NOTE | 2020-12-22 08:47 | IPN ---
PROGRESS NOTE DATE: 12/21/2020 TIME OF VISIT: Approximately 5:50 p.m. CHIEF COMPLAINT: The patient is seen at bedside for evaluation of 2nd ray amputation of right foot and packing wound right foot. SUBJECTIVE: The patient states he is having no pain or discomfort. However, last night postsurgically he did have some discomfort which resolved in the morning. He denies shortness of breath or chest pain. OBJECTIVE: There is no pain to compression of the calf. The bandage is intact with no breakthrough bleeding. The bandage was removed today. Proximal two stitches were released to help facilitate removal of the packing and wound packing was removed. The wound was compressed. There was no purulent discharge noted. Erythema on the dorsal surface of the foot is resolving. X-rays were reviewed revealing resection of the 2nd metatarsal proximal to the 2nd metatarsal shaft. There is a small transverse fracture of the 3rd metatarsal from debridement of the 2nd ray. However, this is an incomplete fracture and will be monitored. PLAN: Bandage ordering was written to include irrigating the wound with Vashe followed by placing Drawtex rope in the dorsal and plantar incisions to further facilitate drainage. The patient's questions were answered.
[2020-12-22] MEDS: HumaLOG INSULIN (NovoLOG) PER UNIT SC SCH ×2 (08:50→12:43)
[2020-12-22] MEDS: DOCUSATE SODIUM 100MG CAPSULE PO SCH (08:50)
[2020-12-22 09:01] LABS: BASO # 0.1 10^3/uL (0.0-0.2); BASO % 1.1 % (0.0-1.0); EOS # 0.4 10^3/uL (0.0-0.5); EOS % 5.8 % (0.0-3.0); LYMPH # 1.9 10^3/uL (1.5-5.0); LYMPH % 28.5 % (24.0-44.0); MEAN CORPUSCULAR HEMOGLOBIN 27.4 pg (27.0-33.0); MEAN CORPUSCULAR HGB CONC 32.4 g/dl (32.0-36.5); MEAN CORPUSCULAR VOLUME 84.8 fl (80.0-96.0); MONO # 0.5 10^3/uL (0.0-0.8); MONO % 8.1 % (2.0-8.0); NEUTROPHILS # 3.7 10^3/uL (1.5-8.5); NEUTROPHILS % 55.4 % (36.0-66.0); PLATELET COUNT, AUTOMATED 316 10^3/uL (150-450); RED BLOOD COUNT 4.01 10^6/uL (4.30-6.10); WHITE BLOOD COUNT 6.6 10^3/uL (4.0-10.0)
[2020-12-22 09:28] LABS: BLOOD UREA NITROGEN 19 MG/DL (7-18); C REACTIVE PROTEIN QUANTITATIV 7.35 MG/DL (0.00-0.30); CALCIUM LEVEL 8.7 MG/DL (8.5-10.1); CARBON DIOXIDE LEVEL 28 MEQ/L (21-32); CHLORIDE LEVEL 105 MEQ/L (98-107); CREATININE FOR GFR 0.97 MG/DL (0.70-1.30); GLOMERULAR FILTRATION RATE > 60.0 (>56); GLUCOSE, FASTING 245 MG/DL (70-100); POTASSIUM SERUM 3.6 MEQ/L (3.5-5.1); SODIUM LEVEL 138 MEQ/L (136-145)
[2020-12-22] MEDS ORDERED: PROBCAP14 PO (13:41)
[2020-12-22] MEDS ORDERED: CEPH500C PO (13:41)
[2020-12-22 14:00] VITALS: BP 102/60
--- NOTE | 2020-12-22 14:36 | IPN ---
PROGRESS NOTE DATE: 12/22/2020 TIME OF VISIT: Approximately 1 p.m. CHIEF COMPLAINT: The patient is seen at bedside for evaluation of his right foot. The patient states he has noticed a little breakthrough bleeding on the top of his right foot. He has had no pain of his right foot in the last 24 hours. He denied shortness of breath or chest pain. Laboratory studies were reviewed. The white count has reduced from his admission of 15.3 to 6.6. C-reactive protein has reduced to 7.35. Culture reveals growth of Staphylococcus aureus, it is sensitive to Oxacillin. OBJECTIVE: Bandage was removed today. There are temporary stitches along the more distal aspect of the incision to the plantar surface of the foot. However, there is still stage 4 ulceration on the plantar surface of the foot. Considerable reduction in erythema, no pain with compression of the calf or foot. No purulence could be expressed. ASSESSMENT: Resected osteomyelitis with second ray amputation right foot secondary to Staphylococcus aureus, Methicillin sensitive. PLAN: A dry, sterile dressing was reapplied with Drawtex over the dorsal wound and plantar wound. Dry, sterile dressing was applied. Recommend offloading the patient's foot with knee scooter so therefore reducing the weight to his right foot. He will follow up with Dr. Celeste for his wound care on his right foot. Recommend antibiotics on discharge, Keflex 500 mg one PO every 6 hours. Recommend 14 days of therapy. His questions were answered.
--- NOTE | 2020-12-22 17:00 | DS.PDOC ---
Discharge Summary General Date of Admission Dec 19, 2020 at 10:34 Date of Discharge 12/22/2020 Discharge Summary PROCEDURES PERFORMED DURING STAY: Second ray amputation with packing of wound, right foot on 12/20/20 DISCHARGE DIAGNOSES: Acute osteomyelitis of right second toe proximal Phalanx and metatarsal head Sepsis Secondary diagnosis Diabetes with neuropathy, chronic right foot ulcer for the past 6 months, GERD, BPH, obesity, HLD. COMPLICATIONS/CHIEF COMPLAINT: Rt Diabetic Foot Wound Infection. HOSPITAL COURSE: 60-year-old male with history of diabetes with neuropathy, chronic right foot ulcer for the past [address] Celeste, GERD, BPH, obesity was sent in from Dr. Celeste's office this morning due to worsening of right foot ulcer and right second toe infection with surrounding cellulitis and possible abscess. Patient's ulcer was in fact getting better as seen last week and patient was on an offloading cast. Patient reports that 5 days ago he took his first dose of Covid vaccine and after that he was sick for couple days with fevers, malaise, diarrhea and then yesterday he had an accident with a bucket of water when he spilled water over his cast and the cast got soaked so he took of the cast and just bandaged his foot up as best as he could and called Dr. Celeste's office this morning for an appointment. As per patient the foot looked much worse than last week his second toe was swollen and red and painful and his whole top of the foot as well as the bottom was red. Dr. Celeste did incision and debridement at the office and then sent him to the hospital for evaluation. In the hospital patient was noted to be febrile with T-max of 102 F he also complained of dull throbbing pain in his right foot rating it up at 8/10 in intensity. Patient was admitted for right foot cellulitis and abscess and possible right second toe osteomyelitis. Osteomyelitis, second metatarsal and proximal phalanx, second ray, right foot with cellulitis Second ray amputation with packing of wound, right foot on 12/20/20 Wound culture MSSA Will discharge with Keflex for [address] Celeste to follow for advanced wound care. Continue to offload the foot Dr. Zavala has prescribed a Knee scooter Sepsis Temperature 102.2, pulse rate of 116, white count of 15.6 From foot infection Now resolved Diabetes We will continue with Levemir and lispro as per sliding scale Will also continue Januvia BPH Control with Flomax Hyperlipidemia Statin DISCHARGE MEDICATIONS: Please see below. ALLERGIES: Please see below. PHYSICAL EXAMINATION ON DISCHARGE: VITAL SIGNS: Please see below. General Exam: Positive: Alert, Cooperative, No Acute Distress Eye Exam: Positive: PERRLA, Conjunctiva & lids normal, EOMI; Negative: Sclera icteric ENT Exam: Positive: Atraumatic, Mucous membr. moist/pink, Pharynx Normal Neck Exam: Positive: Supple; Negative: JVD, thyromegaly Chest Exam: Positive: Clear to auscultation, Normal air movement Heart Exam: Positive: Rate Normal, Regular Rhythm, Normal S1, Normal S2; Negative: Murmurs, Rubs Abdomen Exam: Positive: Normal bowel sounds, Soft; Negative: Tenderness, Hepatospenomegaly Extremity Exam: Positive: Tenderness (Right foot and toes), Swelling (Right second toe); Negative: Clubbing, Cyanosis, Edema Skin Exam: Positive: Breakdown, Other skin issue (Redness swelling and pain on the right foot) Psych Exam: Positive: Memory Intact, Oriented x 3 LABORATORY DATA: Please see below. ACTIVITY: [As tolerated]. DIET: Carb counts DISPOSITION: 01 Home, Self-Care. DISCHARGE INSTRUCTIONS: Follow-up with [facility] in 1 week Follow-up with [facility] in 2-week Wound care twice a day Clean dorsal and plantar right foot wound with Vashe and pack dorsal and plantar wound with drawtex rope covered with dry sterile dressing DISCHARGE CONDITION: [Stable]. TIME SPENT ON DISCHARGE: 40 minutes. Vital Signs/I&Os Vital Signs Date Time Temp Pulse Resp B/P (MAP) Pulse Ox O2 Delivery O2 Flow Rate FiO2 12/22/20 14:00 97.4 74 17 102/60 (74) 98 Room Air I&O- Last 24 Hours up to 6 AM 12/22/20 06:00 Intake Total 780 ml Output Total 0 ml Balance 780 ml Laboratory Data Labs 24H Laboratory Tests 2 12/21/20 16:55: Bedside Glucose (Misc Panel) 228H 12/21/20 20:43: Bedside Glucose (Misc Panel) 186H 12/22/20 08:20: Bedside Glucose (Misc Panel) 210H 12/22/20 08:50: Immature Granulocyte % (Auto) 1.1, Neutrophils (%) (Auto) 55.4, Lymphocytes (%) (Auto) 28.5, Monocytes (%) (Auto) 8.1H, Eosinophils (%) (Auto) 5.8H, Basophils (%) (Auto) 1.1H, Neutrophils # (Auto) 3.7, Lymphocytes # (Auto) 1.9, Monocytes # (Auto) 0.5, Eosinophils # (Auto) 0.4, Basophils # (Auto) 0.1, Nucleated Red Blood Cells % (auto) 0.0, Anion Gap 5L, Glomerular Filtration Rate > 60.0, Calcium Level 8.7, C-Reactive Protein, Quantitative 7.35H 12/22/20 12:10: Bedside Glucose (Misc Panel) 130H CBC/BMP Laboratory Tests 12/22/20 08:50 FSBS Laboratory Tests Test 12/21/20 16:55 12/21/20 20:43 12/22/20 08:20 12/22/20 12:10 Range/Units Bedside Glucose (Misc Panel) 228 186 210 130 70-105 MG/DL Microbiology Microbiology 12/20/20 Surgical Biopsy Culture - Final, Complete Staphylococcus Aureus 12/20/20 Anaerobic Culture - Final, Complete 12/19/20 Blood Culture - Preliminary, Resulted No Growth after 72 hours. All specime... 12/19/20 Blood Culture - Preliminary, Resulted No Growth after 72 hours. All specime... Discharge Medications Scheduled Aspirin (Aspirin EC) 81 Mg Tablet.dr, 162 MG PO QPM, (Reported) TAKES AT DINNERTIME Cephalexin (Cephalexin) 500 Mg Capsule, 500 MG PO QID Gabapentin (Neurontin) 600 Mg Tablet, 600 MG PO TID, (Reported) Lactobacillus Acidophilus (Probiotic) 1 Each Capsule, 1 CAP PO BID Metformin HCl (Metformin HCl) 1,000 Mg Tablet, 1,000 MG PO DAILY, (Reported) Metformin HCl (Metformin HCl) 1,000 Mg Tablet, 500 MG PO QPM, (Reported) TAKES AT DINNERTIME Rosuvastatin Calcium (Rosuvastatin Calcium) 10 Mg Tablet, 10 MG PO QPM, (Reported) Sitagliptin Phosphate (Januvia) 100 Mg Tablet, 100 MG PO QHS, (Reported) Tamsulosin HCl (Flomax) 0.4 Mg Capsule, 0.4 MG PO QHS, (Reported) Allergies Coded Allergies: No Known Allergies (Unverified , 04/15/18) Berta Villasenor MD Dec 22, 2020 17:00
== END 2020-12-22 15:25 | disposition home or self-care (01) | DRG 710 ==
LOC: M MSPAV 10:34
PROVIDERS: ADMIT Internal Medicine Nephrology; ATTEND Internal Medicine Nephrology
PROC: 0Y6R0Z0 Detachment at Right 2nd Toe, Complete, Open Approach (ICD-10-PCS; principal; 2020-12-20 18:00)
DX: A41.9 Sepsis, unspecified organism (principal); E11.42 Type 2 diabetes mellitus with diabetic polyneuropathy; E11.621 Type 2 diabetes mellitus with foot ulcer; E11.69 Type 2 diabetes mellitus with other specified complication; L97.518 Non-pressure chronic ulcer of other part of right foot with other specified severity; L03.115 Cellulitis of right lower limb; M86.9 Osteomyelitis, unspecified; K21.9 Gastro-esophageal reflux disease without esophagitis; N40.0 Benign prostatic hyperplasia without lower urinary tract symptoms; Z79.82 Long term (current) use of aspirin; Z79.84 Long term (current) use of oral hypoglycemic drugs; Z79.899 Other long term (current) drug therapy; Z20.822 Contact with and (suspected) exposure to COVID-19; E66.9 Obesity, unspecified; E78.5 Hyperlipidemia, unspecified; K44.9 Diaphragmatic hernia without obstruction or gangrene; S92.911A Unspecified fracture of right toe(s), initial encounter for closed fracture; X58.XXXA Exposure to other specified factors, initial encounter; Y92.9 Unspecified place or not applicable

== ENCOUNTER → 2023-04-02 | Outpatient (CLI) | payer BC ==
[~2023-04-02] MED LIST changes: +NEUR600T PO; +PROBCAP14 PO
== END ==
LOC: M IRPRO 09:05
PROVIDERS: ATTEND Nurse Practitioner Adult Health
DX: L03.115 Cellulitis of right lower limb (principal)

== ENCOUNTER → 2023-05-08 | Outpatient (CLI) | payer BC ==
[~2023-05-08] MED LIST changes: -ASPI-161 PO; +ASPI-615 PO
[2023-05-08 14:07] LABS: BASO # 0.1 10^3/uL (0.0-0.2); BASO % 1.1 % (0.0-1.0); EOS # 0.1 10^3/uL (0.0-0.5); EOS % 1.5 % (0.0-3.0); HEMATOCRIT 37.9 % (42.0-52.0); HEMOGLOBIN 12.1 g/dl (13.5-17.5); LYMPH # 1.9 10^3/uL (1.5-5.0); LYMPH % 25.2 % (24.0-44.0); MEAN CORPUSCULAR HEMOGLOBIN 28.4 pg (27.0-33.0); MEAN CORPUSCULAR HGB CONC 31.9 g/dl (32.0-36.5); MONO # 0.6 10^3/uL (0.0-0.8); MONO % 7.3 % (2.0-8.0); NEUTROPHILS # 4.8 10^3/uL (1.5-8.5); NEUTROPHILS % 64.5 % (36.0-66.0); PLATELET COUNT, AUTOMATED 325 10^3/uL (150-450); RED BLOOD COUNT 4.26 10^6/uL (4.30-6.10); WHITE BLOOD COUNT 7.5 10^3/uL (4.0-10.0)
[2023-05-08 14:17] LABS: ERYTHROCYTE SEDIMENTATION RATE 72 mm/hr (0-20)
[2023-05-08 14:37] LABS: C REACTIVE PROTEIN QUANTITATIV < 0.40 MG/DL (<1.0)
[2023-05-08 15:14] LABS: HEPATITIS C VIRUS ABY INDEX 0.04 INDEX (<0.8)
== END ==
LOC: M PLALAB 11:06
PROVIDERS: ATTEND Internal Medicine Infectious Disease
DX: M86.9 Osteomyelitis, unspecified (principal); L81.8 Other specified disorders of pigmentation

== ENCOUNTER 2024-10-27 09:38 | Day surgery (SDC) | payer BC ==
[~2024-10-27] VITALS: Ht 188 cm; Wt 92.6 kg
[~2024-10-27 09:38] MED LIST changes: -FLOM0.4C39 PO; -ROSU10TA6 PO; +ROSU10TA61 PO; +TAMS-18 PO
[2024-10-27 11:17] VITALS: TEMP 97.9
[2024-10-27] MEDS ORDERED: LIDOCAINE 2% 100 MG/5 ML SDV (FOR ANES.) As Ordered ONE (11:17)
[2024-10-27 11:32] VITALS: BP 169/92; O2SAT 97
== END 2024-10-27 11:42 | disposition home or self-care (01) ==
LOC: M OPP 09:38
PROVIDERS: ATTEND Surgery
DX: D12.6 Benign neoplasm of colon, unspecified (principal); K64.1 Second degree hemorrhoids; R63.4 Abnormal weight loss; Z79.84 Long term (current) use of oral hypoglycemic drugs; Z79.899 Other long term (current) drug therapy